=== PATIENT | female | born 1960 | race Caucasian/White ===

== ENCOUNTER → 2016-11-11 | Outpatient (REF) | payer OTHER ==
[~2016-11-11] MED LIST: /BISO10TA PO; /CELE20CA PO; /ESCI20TA PO; /LOR25TA PO; /ONDA4TA PO; ACET-654 PO; ATOR1TAB21 PO; BACL10TA2 OR; BISO10TA PO; BISO10TA42 PO; CHLO25TA PO; CHLO25TA3 PO; CHLORTHALIDONE PO; CIPR500T89 PO; CLON0.5T OR; CLON0.5T PO; CYCL10TA PO; DEPA1TAB3 PO; DEPA500T2 PO; DRIS50002 PO; DULC10SU9 PR; DULO20CA OR; FENT12DI2 TOP; FLON0.054; GABA-283 PO; GLIM2TAB PO; HYDR-2809 PO; HYDR-3716 PO; IMIT50TA PO; KETO-13 PO; LEXA1TAB2 PO; LYRI75CA PO; METF500T PO; NASA55AE; NASACORT AQ; NEUR800T PO; NICO21PAT TOP; OMEP20TA7 PO; OMEP40CA2 PO; ONDA4SOL PO; ONDA4TAB6 PO; OXYC-208 PO; PERC7.5T12 PO; PERCOCET PO; SENN8.6T8 PO; SENO8.6T9 PO; SOMA350T PO; TAMS0.4C PO; TOPI100T PO; VENTAER IN; VIMP150T PO; VITA2000 PO; VOLT1GEL TOP; ZOCO20TA PO; [UNRECOGNIZED DRUG - OTHER] PO
== END ==
LOC: M SFHCPLAZ 08:48
PROVIDERS: ATTEND Nurse Practitioner Family
DX: N95.2 Postmenopausal atrophic vaginitis (principal); I10 Essential (primary) hypertension; E78.2 Mixed hyperlipidemia; E11.65 Type 2 diabetes mellitus with hyperglycemia; E55.9 Vitamin D deficiency, unspecified

== ENCOUNTER → 2016-11-12 | Outpatient (CLI) | payer OTHER ==
[2016-11-12 09:46] LABS: BASO # 0.1 K/mm3 (0.0-0.2); BASO % 0.8 % (0.0-1.0); EOS # 0.1 K/mm3 (0.0-0.50); EOS % 1.6 % (0.0-3.0); LARGE UNSTAINED CELL # 0.2 K/mm3 (0.0-0.4); LARGE UNSTAINED CELL % 1.8 % (0.0-4.0); LYMPH # 2.8 K/mm3 (1.5-4.5); LYMPH % 32.6 % (24.0-44.0); MEAN CORPUSCULAR HEMOGLOBIN 30.7 pg (27.0-33.0); MEAN CORPUSCULAR HGB CONC 33.9 g/dl (32.0-36.5); MEAN CORPUSCULAR VOLUME 90.4 fl (80.0-96.0); MONO # 0.4 K/mm3 (0.0-0.8); MONO % 4.8 % (0.0-5.0); NEUTROPHILS % 58.4 % (36.0-66.0); PLATELET COUNT, AUTOMATED 226 k/mm3 (150-450); RED CELL DISTRIBUTION WIDTH 12.8 % (11.5-14.5); WHITE BLOOD COUNT 8.5 K/mm3 (4.0-10.0)
[2016-11-12 10:20] LABS: ALBUMIN 3.8 GM/DL (3.2-5.2); ALBUMIN/GLOBULIN RATIO 1.23 (1.00-1.93); ALKALINE PHOSPHATASE 137 U/L (45-117); ALT/SGPT 28 U/L (12-78); ANION GAP 10 MEQ/L (8-16); AST/SGOT 16 U/L (15-37); BILIRUBIN,TOTAL 0.5 MG/DL (0.2-1.0); BLOOD UREA NITROGEN 20 MG/DL (7-18); CALCIUM LEVEL 9.1 MG/DL (8.5-10.1); CARBON DIOXIDE LEVEL 31 MEQ/L (21-32); CHLORIDE LEVEL 103 MEQ/L (98-107); CHOLESTEROL LEVEL 209 MG/DL (<200); CREATININE FOR GFR 0.89 MG/DL (0.55-1.02); GLOMERULAR FILTRATION RATE > 60.0 (>51); GLUCOSE, FASTING 153 MG/DL (70-105); POTASSIUM SERUM 4.2 MEQ/L (3.5-5.1); SODIUM LEVEL 144 MEQ/L (136-145); TOTAL PROTEIN 6.9 GM/DL (6.4-8.2); TRIGLYCERIDES LEVEL 128 MG/DL (<150)
== END ==
LOC: M LAB 08:49
PROVIDERS: ATTEND Nurse Practitioner Family
DX: E11.65 Type 2 diabetes mellitus with hyperglycemia (principal); E78.2 Mixed hyperlipidemia; E55.9 Vitamin D deficiency, unspecified; N95.2 Postmenopausal atrophic vaginitis; R35.0 Frequency of micturition; I10 Essential (primary) hypertension

== ENCOUNTER → 2016-11-14 | Outpatient (CLI) | payer OTHER ==
--- NOTE | 2016-11-14 16:45 | REP ---
LEFT BREAST ULTRASOUND: Left breast ultrasound is performed for a palpable abnormality in the retroareolar region. Patient is status-post bilateral breast reduction surgery in May 2016. At the site of the reported palpable abnormality in the left retroareolar region there is a large complex area of heterogenous echotexture with small areas of fluid measuring 6.2 x 5.0 x 7.7 cm. There is posterior acoustic shadowing. Findings are nonspecific. This may represent postsurgical fat necrosis. Underlying infection can not be excluded. Clinical correlation and followup is recommended. There is an apparent lymph node at the 4 o'clock position measuring 1.5 x 0.8 x 1.2 cm. IMPRESSION: Complex heterogenous echotexture in the left retroareolar region at the site of the reported palpable abnormality with small areas of internal fluid. This may represent a large area of fat necrosis but underlying infection can not be excluded. Clinical correlation and followup is recommended. Signed by Luke Maldonado MD 11/14/2016 05:28 P
== END ==
LOC: M RAD 14:07
PROVIDERS: ATTEND Nurse Practitioner Family
DX: N63 Unspecified lump in breast (principal)

== ENCOUNTER → 2016-11-28 | Outpatient (CLI) | payer OTHER ==
--- NOTE | 2016-12-17 01:44 | ECWPNPC ---
PATIENT NAME: NICOLE BERNABE : 1960 GENDER: FEMALE VISIT DATE: 11/28/2016 DISCHARGE DATE: 11/28/16 0951 VISIT LOCKED DATE TIME: PHYSICIAN: KIMBERLEE FALCON PHYSICIAN PAGER NO: TEXT IQ [phone] RESOURCE: KIMBERLEE FALCON REASON FOR APPOINTMENT 1. POST PROCEDURE-BACK HISTORY OF PRESENT ILLNESS HISTORY OF PRESENT ILLNESS: PAIN THE PATIENT DESCRIBES THE PAIN... HERE FOR POST. PROCEDURE F/U.HAD R SIJ ON 10-30-16.REPORTS >50% IMPROVEMENT IN BOTH RIGHT LBP AND RIGHT LEG PAIN POST PROCEDURE UNTIL 3-4 DAYS AGO.RATING PAIN VAS 8/10 TODAY.REPORTS IMPROVED ABILITY TO WALK POST PROCEDURE.ATTENDING PT AND TODAY IS LAST VISIT.PATIENT DOES NOT FEEL SHE BENEFITED FROM PT.HX OF LUMBAR SURGERY X2 JANUARY 2016 AND 2015. FALL RISK SCREENING: SCREENING :NO FALLS IN THE PAST YEAR CURRENT MEDICATIONS TAKING GLIMEPIRIDE 1 1MG TABLET 1 TAB(S) ORAL DAILY TAKING LIPITOR 80 MG TABLET 1 TABLET ORALLY ONCE A DAY TAKING DEPAKOTE ER 500 MG TABLET EXTENDED RELEASE 24 HOUR DIRECTED. ORALLY 1 AM, 2 TABS PM TAKING AMITRIPTYLINE HCL 20 MG TABLET 1 TABLET AT BEDTIME ORALLY ONCE A DAY TAKING LEXAPRO 20 MG TABLET 1 TABLET ORALLY ONCE A DAY TAKING VENTOLIN HFA 108 (90 BASE) MCG/ACT AEROSOL SOLUTION 2 PUFFS INHALATION EVERY 4-6 HOURS NEEDED TAKING ALCOHOL PADS 70 % PAD DIRECTED TOPICAL TWICE DAILY/DX : E11.65 TAKING LANCETS FOR ONE TOUCH ULTRA MISCELLANEOUS DIRECTED SC TWICE DAILY/DX : E11.65 TAKING ONE TOUCH ULTRA TEST STRIPS - STRIPS DIRECTED - TWICE DAILY/ DX : E11.65 TAKING FLONASE 50 MCG/DOSE INHALER 2 SPRAYS IN EACH NOSTRIL NASALLY ONCE A DAY TAKING METFORMIN HCL 1000 MG TABLET 1 TABLET WITH MEALS ORALLY TWICE A DAY TAKING ZEBETA 10 MG TABLET 1 TABLET ORALLY ONCE A DAY TAKING OMEPRAZOLE 40MG 40GM TABLET DIRECTED ORAL DAILY TAKING OXYCODONE HCL 5 MG CAPSULE 1 CAPSULE NEEDED ORALLY EVERY 8 HOURS NEEDED TAKING ONE TOUCH ULTRA SYSTEM KIT - METER DIRECTED - TWICE DAILY/ DX : 250.02 TAKING CHLORTHALIDONE 25 25 MG TABLET 1 TAB(S) ORAL ONCE DAILY TAKING LISINOPRIL 10 MG TABLET 1 TABLET ORALLY ONCE A DAY TAKING INCRUSE ELLIPTA 62.5 MCG/INH AEROSOL POWDER BREATH ACTIVATED 1 PUFF INHALATION ONCE A DAY TAKING ONDANSETRON HCL 4 MG TABLET DIRECTED ORALLY QID PRN NAUSEA TAKING HYDROCORTISONE 1 % CREAM 1 APPLICATION TO AFFECTED AREA OF VULVA VAGINAL TWICE A DAY NEEDED FOR ITCHING TAKING QUAD CANE - MISCELLANEOUS DIRECTED _ DAILY/ DX : UNSTEADY GAIT NOT-TAKING HOSPITAL BED DIRECTED NOT-TAKING MAY HAVE M54.2 M54.5 HOSPITAL BED DAILY NEEDED NOT-TAKING VITAMIN D 2000 UNIT TABLET DIRECTED ORALLY ONCE A DAY (WHEN LIU COMPLETED) PAST MEDICAL HISTORY SEIZURES- MARIUM MIGRAINES-MARIUM ARTHRITIS CHRONIC NECK PAIN- PAIN CLINIC [facility] HTN H/O PEPTIC ULCER VON WILLEBRAND'S DISEASE (NEEDS PRE-TREATMENT WITH DDAVP FOR SURGERY - SEE NOTE FROM DR. ARAUJO 09/11/2009) HIATAL HERNIA HEMORRHOIDS RECURRENT BREAST ABSCESSES FIBROCYSTIC BREAST DISEASE KIDNEY STONES NECK PAIN- DR SUERO PNEUMOVAX- PT STATES 2011 DIABETES COPD ALLERGIES ASPIRIN: ANAPHYLAXIS: ALLERGY PEPPER: THROAT CLOSE, TONGUE SWELLS: ALLERGY MORPHINE SULFATE: RASH, HIVES: ALLERGY TOPAMAX: KINDNEY STONES: SIDE EFFECTS IMITREX: SEVERE HTN (NEAR SBP 300): SIDE EFFECTS NICKEL: RASH: ALLERGY SOCIAL HISTORY GENERAL: TOBACCO USE ARE YOU A:NONSMOKER LEARNING BARRIERS / SPECIAL NEEDS ORIENTED TO PLAN OF CARE: PATIENT, PAIN MANAGEMENT PATIENT, ORIENTED TO PLAN OF CARE: PATIENT, PAIN MANAGEMENT PATIENT. NEW PATIENT PAIN DIARY TODAY'S VISITNOTES FROM 0-10, WHAT LEVEL IS YOUR PAIN TODAY?0 PAIN CLINIC PFS, CLERGY, PUBLIC HEALTH REFERRALS PFS REFERRAL NEEDED?NO CLERGY REFERRAL NEEDED?NO PUBLIC HEALTH REFERRAL NEEDED?NO WAS THE PROVIDER NOTIFIED OF ANY PERTINENT INFO?NO PFS REFERRAL NEEDED?NO CLERGY REFERRAL NEEDED?NO PUBLIC HEALTH REFERRAL NEEDED?NO WAS THE PROVIDER NOTIFIED OF ANY PERTINENT INFO?NO REVIEW OF SYSTEMS CONSTITUTIONAL: ANY CHANGE IN YOUR MEDICAL CONDITION? NO . CHILLS NO . FEVER NO . INFECTION: DO YOU HAVE NEW INFECTIONS? NO . DO YOU HAVE HISTORY OF MRSA? NO . MUSCULOSKELETAL: ANY NEW PATTERNS OF PAIN OR NUMBNESS? NO . GASTROENTEROLOGY: ANY NEW CHANGE IN BOWEL CONTROL? NO . GENITOURINARY: ANY NEW CHANGE IN BLADDER CONTROL? NO . IS THERE A CHANCE YOU COULD BE ? NO . HEMATOLOGY/LYMPH: DO YOU TAKE ANY BLOOD THINNERS? (FOR EXAMPLE- COUMADIN, PLAVIX, AGGRENOX, PLATEL, PRADAXA, OR XARELTO) NO . WHEN WAS YOUR LAST DOSE? DATE: TIME: . NEUROLOGY: HAVE YOU FALLEN IN THE PAST 6 MONTHS? YES . ANY NEW EXTREMITY NUMBNESS OR WEAKNESS? NO . CARDIOLOGY: DO YOU HAVE A PACEMAKER OR DEFIBRILLATOR? NO . RESPIRATORY: HAVE YOU BEEN SICK IN THE PAST WEEK? NO . FEVER NO . FLU LIKE SYMPTOMS? NO . COUGH NO . INTEGUMENTARY: DO YOU HAVE ANY RASHES OR OPEN SORES? NO . ALLERGIC/IMMUNO: ARE YOU ALLERGIC TO SHELLFISH OR IV DYE? NO . ANY NEW ALLERGIES? NO . PSYCHIATRIC: DO YOU HAVE THOUGHTS OF HURTING YOURSELF OR SOMEONE ELSE? NO . ARE YOU ABUSED, NEGLECTED, OR IN AN UNSAFE ENVIRONMENT? NO . ENDOCRINOLOGY: ARE YOU DIABETIC? YES . OTHER: DO YOU NEED ANY PRESCRIPTIONS? NO . IF YES, PLEASE LIST: ____ . ANY NEW PROBLEMS WITH YOUR MEDICATIONS? NO . WHEN DID YOU LAST EAT? ____ . WHEN DID YOU LAST DRINK? ____ . WHAT DID YOU LAST DRINK? ____ . NAME OF PERSON DRIVING YOU HOME? ____ . DO YOU HAVE ANY OTHER QUESTIONS OR CONCERNS NO . REVIEWED BY: PROVIDER: KIMBERLEE MENARD . VITAL SIGNS WT 178.2 LBS, HT 63.5 IN, BMI 31.07 INDEX, BP 176/90 MM HG, HR 87 /MIN, RR 16 /MIN, TEMP 97.1 F, OXYGEN SAT % 97, NA INITIALS TL 0923. EXAMINATION GENERAL EXAMINATION: LUNGS:LUNG SOUNDS ARE CLEAR. HEART:HEART RATE REGULAR. MUSCULOSKELETAL:*, MUSCLE STRENGTH TESTING 5/5 BILATERAL, PALPATION: NEGATIVE FOR PAIN OVER L/S SPINE.SPECIFIC POINT TENDERNESS OVER RIGHT SIJ. ASSESSMENTS CHRONIC BILATERAL LOW BACK PAIN WITHOUT SCIATICA - M54.5 (PRIMARY) SACROILIAC JOINT PAIN - M53.3 TREATMENT CHRONIC BILATERAL LOW BACK PAIN WITHOUT SCIATICA INJECTION ANESTHETIC SACROILIAC JOINT PROCEDURE CODES FA211 ESTABILISHED PATIENT [facility] FACILITY CHARGE FOLLOW UP 2WK POST. (REASON: RIGHT SIJ) ELECTRONICALLY SIGNED BY DERIAN HORNER ON 12/16/2016 AT 04:16 PM EST DISCLAIMER : THIS IS A VISIT SUMMARY EXTRACTED FROM THE [employer] CHART. IT IS NOT A COPY OF THE [facility] PROGRESS NOTE. MTDD
== END ==
LOC: M PAIN 10:00
PROVIDERS: ATTEND Nurse Practitioner Family
DX: Z09 Encounter for follow-up examination after completed treatment for conditions other than malignant neoplasm (principal); G89.29 Other chronic pain; M54.5 Low back pain; M53.3 Sacrococcygeal disorders, not elsewhere classified; G40.919 Epilepsy, unspecified, intractable, without status epilepticus; G43.909 Migraine, unspecified, not intractable, without status migrainosus; M19.90 Unspecified osteoarthritis, unspecified site; I10 Essential (primary) hypertension; E11.9 Type 2 diabetes mellitus without complications; J44.9 Chronic obstructive pulmonary disease, unspecified; D68.0 Von Willebrand disease; K44.9 Diaphragmatic hernia without obstruction or gangrene; Z88.8 Allergy status to other drugs, medicaments and biological substances; Z91.018 Allergy to other foods; Z88.5 Allergy status to narcotic agent; L23.0 Allergic contact dermatitis due to metals; Z79.84 Long term (current) use of oral hypoglycemic drugs; Z79.891 Long term (current) use of opiate analgesic; Z79.899 Other long term (current) drug therapy

== ENCOUNTER → 2016-12-09 | Outpatient (RCR) | payer OTHER | LOC: M PT 11-12 10:06 | PROVIDERS: ATTEND Physician Assistant | DX: Z51.89 Encounter for other specified aftercare (principal); M43.16 Spondylolisthesis, lumbar region ==

== ENCOUNTER → 2016-12-10 | Outpatient (CLI) | payer OTHER ==
[~2016-12-10] MED LIST changes: +BUPIVACAINE HCL 0.25% 30 ML VIAL As Ordered ONE; +ISOVUE-M 300 61% 15ML VIAL (Q9967) As Ordered ONE; +LIDOCAINE 1% SDV INJ 30 ML VIAL As Ordered ONE; +TRIAMCINOLONE ACETONIDE SUSP 40 MG/ML VIAL (J3301) As Ordered ONE; +diazePAM 5 MG TAB As Ordered ONE; +oxyCODONE 5MG TAB As Ordered ONE
--- NOTE | 2016-12-10 13:46 | REP ---
Partial SI joint series: Three views. History: Injection procedure for pain. 16 seconds of fluoroscopy time is reported. Findings: A sequence of three fluoroscopically obtained last image hold spot radiographs of the right SI joint document needle position and contrast injection associated with SI joint injection procedure. Signed by Saad Boogie MD 12/10/2016 02:25 P
--- NOTE | 2016-12-14 23:47 | ECWPNPC ---
PATIENT NAME: NICOLE BERNABE : 1960 GENDER: FEMALE VISIT DATE: 12/10/2016 DISCHARGE DATE: 12/10/161309 VISIT LOCKED DATE TIME: PHYSICIAN: MARCOS WARD PHYSICIAN PAGER NO: TEXT TO [phone] RESOURCE: MARCOS WARD REASON FOR APPOINTMENT 1. SIJ HISTORY OF PRESENT ILLNESS HISTORY OF PRESENT ILLNESS: PAIN THE PATIENT DESCRIBES THE PAIN... FALL RISK SCREENING: SCREENING :NO FALLS IN THE PAST YEAR CURRENT MEDICATIONS TAKING GLIMEPIRIDE 1 1MG TABLET 1 TAB(S) ORAL DAILY, NOTES: 12/09/16 TAKING LIPITOR 80 MG TABLET 1 TABLET ORALLY ONCE A DAY, NOTES: 12/09/16 TAKING DEPAKOTE ER 500 MG TABLET EXTENDED RELEASE 24 HOUR DIRECTED. ORALLY 1 AM, 2 TABS PM, NOTES: 12/09/16 TAKING AMITRIPTYLINE HCL 20 MG TABLET 1 TABLET AT BEDTIME ORALLY ONCE A DAY, NOTES: 12/09/16 TAKING LEXAPRO 20 MG TABLET 1 TABLET ORALLY ONCE A DAY, NOTES: 12/09/16 TAKING VENTOLIN HFA 108 (90 BASE) MCG/ACT AEROSOL SOLUTION 2 PUFFS INHALATION EVERY 4-6 HOURS NEEDED, NOTES: 12/09/16 TAKING ALCOHOL PADS 70 % PAD DIRECTED TOPICAL TWICE DAILY/DX : E11.65 TAKING LANCETS FOR ONE TOUCH ULTRA MISCELLANEOUS DIRECTED SC TWICE DAILY/DX : E11.65 TAKING ONE TOUCH ULTRA TEST STRIPS - STRIPS DIRECTED - TWICE DAILY/ DX : E11.65 TAKING FLONASE 50 MCG/DOSE INHALER 2 SPRAYS IN EACH NOSTRIL NASALLY ONCE A DAY TAKING METFORMIN HCL 1000 MG TABLET 1 TABLET WITH MEALS ORALLY TWICE A DAY, NOTES: 12/09/16 TAKING ZEBETA 10 MG TABLET 1 TABLET ORALLY ONCE A DAY, NOTES: TAKING OMEPRAZOLE 40MG 40GM TABLET DIRECTED ORAL DAILY, NOTES: 12/09/16 TAKING OXYCODONE HCL 5 MG CAPSULE 1 CAPSULE NEEDED ORALLY EVERY 8 HOURS NEEDED, NOTES: 12/09/16 TAKING ONE TOUCH ULTRA SYSTEM KIT - METER DIRECTED - TWICE DAILY/ DX : 250.02 TAKING CHLORTHALIDONE 25 25 MG TABLET 1 TAB(S) ORAL ONCE DAILY, NOTES: 1/31/17@1800 TAKING LISINOPRIL 10 MG TABLET 1 TABLET ORALLY ONCE A DAY, NOTES: 12/09/16@1800 TAKING INCRUSE ELLIPTA 62.5 MCG/INH AEROSOL POWDER BREATH ACTIVATED 1 PUFF INHALATION ONCE A DAY, NOTES: 12/09/16@1800 TAKING ONDANSETRON HCL 4 MG TABLET DIRECTED ORALLY QID PRN NAUSEA, NOTES: 3-4 DAYS AGO TAKING QUAD CANE - MISCELLANEOUS DIRECTED _ DAILY/ DX : UNSTEADY GAIT TAKING PREMARIN 0.625 MG/GM CREAM 0.5 GM VAGINAL TWICE A WEEK, NOTES: HASN'T USED YET NOT-TAKING HOSPITAL BED DIRECTED NOT-TAKING MAY HAVE M54.2 M54.5 HOSPITAL BED DAILY NEEDED NOT-TAKING VITAMIN D 2000 UNIT TABLET DIRECTED ORALLY ONCE A DAY (WHEN LIU COMPLETED) DISCONTINUED HYDROCORTISONE 1 % CREAM 1 APPLICATION TO AFFECTED AREA OF VULVA VAGINAL TWICE A DAY NEEDED FOR ITCHING MEDICATION LIST REVIEWED AND RECONCILED WITH THE PATIENT PAST MEDICAL HISTORY SEIZURES- MARIUM MIGRAINES-MARIUM ARTHRITIS CHRONIC NECK PAIN- PAIN CLINIC [facility] HTN H/O PEPTIC ULCER VON WILLEBRAND'S DISEASE (NEEDS PRE-TREATMENT WITH DDAVP FOR SURGERY - SEE NOTE FROM DR. ARAUJO 09/11/2009) HIATAL HERNIA HEMORRHOIDS RECURRENT BREAST ABSCESSES FIBROCYSTIC BREAST DISEASE KIDNEY STONES NECK PAIN- DR SUERO PNEUMOVAX- PT STATES 2011 DIABETES COPD LEFT BREAST FAT NECROSIS POST REDUCTION ALLERGIES ASPIRIN: ANAPHYLAXIS: ALLERGY PEPPER: THROAT CLOSE, TONGUE SWELLS: ALLERGY MORPHINE SULFATE: RASH, HIVES: ALLERGY TOPAMAX: KINDNEY STONES: SIDE EFFECTS IMITREX: SEVERE HTN (NEAR SBP 300): SIDE EFFECTS NICKEL: RASH: ALLERGY SOCIAL HISTORY GENERAL: TOBACCO USE ARE YOU A:NONSMOKER LEARNING BARRIERS / SPECIAL NEEDS ORIENTED TO PLAN OF CARE: PATIENT, PAIN MANAGEMENT PATIENT, ORIENTED TO PLAN OF CARE: PATIENT, PAIN MANAGEMENT PATIENT. NEW PATIENT PAIN DIARY TODAY'S VISITNOTES FROM 0-10, WHAT LEVEL IS YOUR PAIN TODAY?0 PAIN CLINIC PFS, CLERGY, PUBLIC HEALTH REFERRALS PFS REFERRAL NEEDED?NO CLERGY REFERRAL NEEDED?NO PUBLIC HEALTH REFERRAL NEEDED?NO WAS THE PROVIDER NOTIFIED OF ANY PERTINENT INFO?NO PFS REFERRAL NEEDED?NO CLERGY REFERRAL NEEDED?NO PUBLIC HEALTH REFERRAL NEEDED?NO WAS THE PROVIDER NOTIFIED OF ANY PERTINENT INFO?NO REVIEW OF SYSTEMS CONSTITUTIONAL: ANY CHANGE IN YOUR MEDICAL CONDITION? NO . CHILLS NO . FEVER NO . INFECTION: DO YOU HAVE NEW INFECTIONS? NO . DO YOU HAVE HISTORY OF MRSA? NO . MUSCULOSKELETAL: ANY NEW PATTERNS OF PAIN OR NUMBNESS? NO . GASTROENTEROLOGY: ANY NEW CHANGE IN BOWEL CONTROL? NO . GENITOURINARY: ANY NEW CHANGE IN BLADDER CONTROL? NO . IS THERE A CHANCE YOU COULD BE ? NO . HEMATOLOGY/LYMPH: DO YOU TAKE ANY BLOOD THINNERS? (FOR EXAMPLE- COUMADIN, PLAVIX, AGGRENOX, PLATEL, PRADAXA, OR XARELTO) NO . WHEN WAS YOUR LAST DOSE? DATE: TIME: . NEUROLOGY: HAVE YOU FALLEN IN THE PAST 6 MONTHS? NO . ANY NEW EXTREMITY NUMBNESS OR WEAKNESS? NO . CARDIOLOGY: DO YOU HAVE A PACEMAKER OR DEFIBRILLATOR? NO . RESPIRATORY: HAVE YOU BEEN SICK IN THE PAST WEEK? NO . FEVER NO . FLU LIKE SYMPTOMS? NO . COUGH NO . INTEGUMENTARY: DO YOU HAVE ANY RASHES OR OPEN SORES? NO . ALLERGIC/IMMUNO: ARE YOU ALLERGIC TO SHELLFISH OR IV DYE? NO . ANY NEW ALLERGIES? NO . PSYCHIATRIC: DO YOU HAVE THOUGHTS OF HURTING YOURSELF OR SOMEONE ELSE? NO . ARE YOU ABUSED, NEGLECTED, OR IN AN UNSAFE ENVIRONMENT? NO . ENDOCRINOLOGY: ARE YOU DIABETIC? YES . OTHER: DO YOU NEED ANY PRESCRIPTIONS? NO . IF YES, PLEASE LIST: ____ . ANY NEW PROBLEMS WITH YOUR MEDICATIONS? NO . WHEN DID YOU LAST EAT? 12-09-16 6 PM . WHEN DID YOU LAST DRINK? 12-10-16 0600 . WHAT DID YOU LAST DRINK? WATER . NAME OF PERSON DRIVING YOU HOME? PRERNA . DO YOU HAVE ANY OTHER QUESTIONS OR CONCERNS NO . REVIEWED BY: PROVIDER: . VITAL SIGNS WT 177 LBS, HT 63.5 IN, BMI 30.86 INDEX, BP 169/85 MM HG, HR 80 /MIN, RR 18 /MIN, TEMP 96.2 F, OXYGEN SAT % 80, SAFE IN ENV? (Y/N) YES, NA INITIALS MP. ASSESSMENTS SACROILIITIS, NOT ELSEWHERE CLASSIFIED - M46.1 (PRIMARY) PROCEDURES PN SI PRE PROCEDURE DIAGNOSIS SACROILIITIS, SACROILIAC JOINT DYSFUNCTION POST PROCEDURE DIAGNOSIS SACROILIITIS, SACROILIAC JOINT DYSFUNCTION PROCEDURE RIGHT SACROILIAC JOINT BLOCK SURGEON DR. MARCOS WARD CSW NONE ANESTHESIA LOCAL PRE PROCEDURE NOTE PATIENT WITH HISTORY OF CHRONIC LOW BACK PAIN. I EVALUATED THE PATIENT AND REVIEWED THE CHART. I WENT OVER THE RISKS, ALTERNATIVES, AND BENEFITS ASSOCIATED WITH THIS PROCEDURE. THE PATIENT WOULD LIKE TO PROCEED AND GAVE CONSENT TO PERFORM THE PROCEDURE. THE PATIENT DENIES UNEXPLAINABLE WEIGHT LOSS, FEVER, CHILLS, OR NEW CHANGES IN URINARY OR BOWEL CONTROL DESCRIPTION OF PROCEDURE THE PATIENT WAS BROUGHT TO THE PROCEDURE ROOM AND PLACED IN THE PRONE POSITION. THE LUMBOSACRAL AREA WAS CLEANED WITH CHLORAPREP SOLUTION AND DRAPED ASEPTICALLY. THE PROCEDURE WAS DONE UNDER STERILE CONDITIONS. I CHECKED LATERALITY AND THE LEVEL WHERE THE PROCEDURE WAS GOING TO BE PERFORMED WITH THE PATIENT AND THE SUPPORTING STAFF AT THE MOMENT OF THE TIME OUT IN THE PROCEDURE ROOM. UNDER FLUOROSCOPIC GUIDANCE, TARGET POINT WAS SELECTED AT THE LOWER BORDER OF THE RIGHT SACROILIAC JOINT. TARGET POINT WAS SELECTED AFTER MEDIAL ROTATION AND TILT OF THE MAGNIFIER OF THE C-ARM. LIDOCAINE WAS USED TO NUMB THE SKIN AND SUBCUTANEOUS TISSUE BELOW IT. A SPINAL NEEDLE, 22-GAUGE, WAS ADVANCED UNDER FLUOROSCOPIC GUIDANCE AND FOLLOWING PATIENT FEEDBACK UNTIL THE TARGET AREA WAS TOUCHED. THE POSITION OF THE NEEDLE WAS VERIFIED WITH AP AND LATERAL VIEWS. AFTER PROPER POSITION OF THE NEEDLE WAS ACHIEVED, ISOVUE M DYE 30%, 0.25 ML, WAS INJECTED SHOWING SPREAD OF THE DYE. THEN, A SOLUTION OF 20 MG OF KENALOG WAS INJECTED IN RIGHT JOINT WITH 3 ML OF BUPIVACAINE 0.125%. THERE WAS NO EVIDENCE OF BLOOD, PARESTHESIA OR CEREBROSPINAL FLUID DURING THE PROCEDURE. THE PATIENT WAS SENT TO THE RECOVERY ROOM. THE PATIENT WAS MOVING THE EXTREMITIES AND DOING WELL. THERE WAS NO COMPLICATION DURING THE PROCEDURE. FLUOROSCOPY TIME WAS 16 SECONDS POST PROCEDURE NOTE THE PATIENT WILL BE SEEN IN A FOLLOW UP IN THE NEXT FEW WEEKS. INSTRUCTIONS WERE GIVEN, QUESTIONS WERE ANSWERED, AND THE PATIENT EXPRESSED UNDERSTANDING AND AGREED WITH THE PLAN. I, ANGIE CARDOZO, DOCUMENTED THE ABOVE INFORMATION ACTING A SCRIBE FOR DR. WARD. I, DR. WARD, HAVE REVIEWED THE ABOVE DOCUMENT, SCRIBED BY ANGIE CARDOZO, AND I VERIFY THAT IT IS [facility] FLUORO GUIDANCE (PAIN)[id number] PROCEDURE CODES 74812 INJECT SACROILIAC JOINT 6045F RADXPS IN END [id number] PXD FOLLOW UP 3 WEEKS ELECTRONICALLY SIGNED BY MARCOS WARD MD ON 12/14/2016 AT 08:33 PM EST DISCLAIMER : THIS IS A VISIT SUMMARY EXTRACTED FROM THE [employer] CHART. IT IS NOT A COPY OF THE [employer] PROGRESS NOTE. NELY
== END ==
LOC: M PAIN 11:10
PROVIDERS: ATTEND Anesthesiology
DX: G89.29 Other chronic pain (principal); M46.1 Sacroiliitis, not elsewhere classified; M54.5 Low back pain; Z79.891 Long term (current) use of opiate analgesic; Z79.899 Other long term (current) drug therapy; M19.90 Unspecified osteoarthritis, unspecified site; M54.2 Cervicalgia; I10 Essential (primary) hypertension; G40.89 Other seizures; G43.909 Migraine, unspecified, not intractable, without status migrainosus; J44.9 Chronic obstructive pulmonary disease, unspecified; E11.9 Type 2 diabetes mellitus without complications; Z88.6 Allergy status to analgesic agent; Z88.5 Allergy status to narcotic agent; Z91.018 Allergy to other foods; Z91.09 Other allergy status, other than to drugs and biological substances
CPT/HCPCS: G0260; J3301; Q9967

== ENCOUNTER → 2016-12-19 | Outpatient (REF) | payer OTHER ==
[~2016-12-19] MED LIST changes: -BUPIVACAINE HCL 0.25% 30 ML VIAL As Ordered ONE; -ISOVUE-M 300 61% 15ML VIAL (Q9967) As Ordered ONE; -LIDOCAINE 1% SDV INJ 30 ML VIAL As Ordered ONE; -TRIAMCINOLONE ACETONIDE SUSP 40 MG/ML VIAL (J3301) As Ordered ONE; -diazePAM 5 MG TAB As Ordered ONE; -oxyCODONE 5MG TAB As Ordered ONE
== END ==
LOC: M SFHCPLAZ 14:10
PROVIDERS: ATTEND Nurse Practitioner Family
DX: A09 Infectious gastroenteritis and colitis, unspecified (principal)

== ENCOUNTER 2016-12-25 19:43 | Emergency (ER) | payer OTHER ==
[2016-12-25] MEDS ORDERED: HALOPERIDOL 5 MG/ML VIAL (J1630) As Ordered ONE (20:36)
[2016-12-25] MEDS ORDERED: diphenhydrAMINE INJ 50MG/ML VIAL (J1200) As Ordered ONE (20:36)
[2016-12-25 20:45] LABS: BASO # 0.1 K/mm3 (0.0-0.2); BASO % 0.8 % (0.0-1.0); EOS # 0.1 K/mm3 (0.0-0.50); EOS % 1.3 % (0.0-3.0); LARGE UNSTAINED CELL # 0.1 K/mm3 (0.0-0.4); LARGE UNSTAINED CELL % 1.3 % (0.0-4.0); LYMPH # 2.8 K/mm3 (1.5-4.5); LYMPH % 28.6 % (24.0-44.0); MEAN CORPUSCULAR HEMOGLOBIN 30.5 pg (27.0-33.0); MEAN CORPUSCULAR HGB CONC 33.5 g/dl (32.0-36.5); MEAN CORPUSCULAR VOLUME 91.1 fl (80.0-96.0); MONO # 0.5 K/mm3 (0.0-0.8); MONO % 5.1 % (0.0-5.0); NEUTROPHILS % 62.9 % (36.0-66.0); PLATELET COUNT, AUTOMATED 237 k/mm3 (150-450); RED CELL DISTRIBUTION WIDTH 13.4 % (11.5-14.5); WHITE BLOOD COUNT 9.5 K/mm3 (4.0-10.0)
[2016-12-25 21:07] LABS: ALBUMIN 3.2 GM/DL (3.2-5.2); ALKALINE PHOSPHATASE 91 U/L (45-117); ALT/SGPT 31 U/L (12-78); AMYLASE 34 U/L (25-115); ANION GAP 9 MEQ/L (8-16); AST/SGOT 15 U/L (15-37); BILIRUBIN,DIRECT < 0.1 MG/DL (0.0-0.2); BILIRUBIN,TOTAL 0.2 MG/DL (0.2-1.0); BLOOD UREA NITROGEN 18 MG/DL (7-18); CALCIUM LEVEL 8.6 MG/DL (8.5-10.1); CARBON DIOXIDE LEVEL 28 MEQ/L (21-32); CHLORIDE LEVEL 108 MEQ/L (98-107); CREATININE FOR GFR 0.87 MG/DL (0.55-1.02); GLOMERULAR FILTRATION RATE > 60.0 (>51); GLUCOSE, FASTING 160 MG/DL (70-105); POTASSIUM SERUM 4.1 MEQ/L (3.5-5.1); SODIUM LEVEL 145 MEQ/L (136-145); TOTAL PROTEIN 6.1 GM/DL (6.4-8.2)
--- NOTE | 2016-12-25 23:04 | EDDOCDS ---
Physician Documentation [facility] Name: Lila Marsh Age: 56 yrs Sex: Female : 1960 Arrival Date: 12/25/2016 Time: 19:43 Bed 8 Private MD: Wali Singh MD Disposition: 12/25/16 22:37 Discharged to Home/Self Care. Impression: Infectious gastroenteritis and colitis, unspecified - viral. - Condition is Stable. - Discharge Instructions: Clear Liquid Diet. - Prescriptions for Zofran 4 mg Oral Tablet - take 1 tablet by ORAL route 4 times per day As needed; 10 tablet. - Medication Reconciliation, Local Pharmacy Hours form. - Follow up: Wali Singh; When: Call to arrange an appointment; Reason: Recheck today's complaints. - Problem is new. - Symptoms have improved. Historical: - Allergies: Aspirin; Imitrex; Morphine; Nickel; topomax; - Home Meds: 1. Januvia 100 mg oral tab 1 tab once daily 2. omeprazole 40 mg Oral cpDR 1 cap once daily 3. Lipitor 80 mg Oral tab 1 tab once daily 4. lisinopril 10 mg Oral tab 1 tab once daily 5. chlorthalidone 25 mg Oral tab 1 tab once daily 6. incruse ellipta inhaler 62.5mcg/ inhale 1 puff once daily 7. Zofran (as hydrochloride) 4 mg oral tab every 8 hours 8. Depakote 500 mg Oral TbEC once daily 1 500mg in AM, 2 at night 9. Depakote ER 1000 mg nightly Oral 10. amitriptyline 10 mg Oral tab 2 tabs nightly 11. Lexapro 20 mg Oral tab 1 tab once daily 12. Ventolin Rotahaler/Rotacaps 200 mcg Inhl CpDv 13. Flonase 50 mcg/actuation Nasal spsn 2 sprays once daily 14. metformin 1,000 mg Oral tab 1 tab 2 times per day 15. Zebeta 10 mg oral tab 1 tab once daily 16. oxycodone 5 mg Oral cap 1 cap every 6 hours - PMHx: DDD; GERD; Hypertension; Migraine Headaches; Seizure Disorder; - PSHx: eye surgery; Neck Surgery; Hysterectomy; Lithotripsy; Cesearean Section; back surgery; - Social history: Smoking status: Patient states was never smoker of tobacco. No barriers to communication noted, The patient speaks fluent Azeri. - Family history: Not pertinent. - : The pt / caregiver states he / she is not on anticoagulants. Home medication list is obtained from a discharge med list. - Exposure Risk Screening:: None identified. 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 cs11 20:06 NS 0.9% 1000 ml IV at bolus once ordered. cs11 20:07 Haloperidol 2.5 mg IVP once ordered. cs11 20:07 diphenhydrAMINE 25 mg IVP once ordered. cs11 20:08 CBC with Diff Ordered. EDMS 20:08 MED Profile Ordered. EDMS 20:08 Liver Profile Ordered. EDMS 20:08 Amylase Ordered. EDMS 20:08 Lipase Ordered. EDMS 21:26 CBC with Diff Reviewed. cs11 21:26 MED Profile Reviewed. cs11 21:26 Liver Profile Reviewed. cs11 21:26 Amylase Reviewed. cs11 21:26 Lipase Reviewed. cs11 Administered Medications: 20:42 Drug: diphenhydrAMINE 25 mg [diphenhydramine 50 mg/mL injection solution (0.5 mL)] af2 Route: IVP; Site: right wrist; 23:01 Follow up: Response: Nausea is decreased af2 20:43 Drug: NS 0.9% 1000 ml [sodium chloride 0.9 % intravenous solution] Route: IV; Rate: af2 bolus; Site: right wrist; 20:43 Drug: Haloperidol 2.5 mg [haloperidol lactate 5 mg/mL injection solution (0.5 mL)] af2 Route: IVP; Site: left wrist; 23:00 Follow up: Response: Nausea is decreased af2 Signatures: Dispatcher [employer] EDMS Avelino Fitch DO DO cs11 Bernice Coyle,RN RN af2 MTDD
--- NOTE | 2016-12-25 23:04 | EDDOCDS ---
Nurse's Notes [facility] Name: Lila Marsh Age: 56 yrs Sex: Female : 1960 Arrival Date: 12/25/2016 Time: 19:43 Bed 8 Private MD: Wali Singh MD Diagnosis: Infectious gastroenteritis and colitis, unspecified-viral Presentation: 12/25 19:45 Presenting complaint: EMS states: nausea, vomiting, diarrhea x 2-3 weeks. BG of 197. af2 Suicide/Homicide risk assessment- the patient denies having any suicidal and/or homicidal ideations and does not present with any other emotional, behavioral or mental health complaints. Status: Patient is not a track service person or dependent. Transition of care: patient was not received from another setting of care. 19:45 Acuity: MAURIZIO Level 3 af2 19:45 Method Of Arrival: Ambulance af2 20:01 Adult Sepsis Screening: The patient does not have new or worsening altered mentation. af2 Patient's respiratory rate is less than 22. Systolic blood pressure is greater than 100. Patient has a qSOFA score of 0- Negative Sepsis Screen. Triage Assessment: 19:49 General: Appears in no apparent distress, Behavior is cooperative. af2 19:59 Pain: Location: abdomen Pain currently is 7 out of 10 on a pain scale. Quality of pain af2 is described as burning, crampy, sharp. HIV screening NA for this visit Offered previously. The patient is triaged at the bedside. See Assessment in Nurses Notes section of ED record. Neurological: Level of Consciousness is awake, alert, Oriented to person, place, time. Respiratory: Airway is patent Respiratory effort is even, unlabored, Respiratory pattern is regular, symmetrical, Breath sounds are clear bilaterally. GI: Abdomen is obese, Bowel sounds present X 4 quads. Abd is soft X 4 quads Abd is tender to palpation X 4 quads. Reports diarrhea, nausea, vomiting. : No deficits noted. Derm: Skin is pink, warm & dry. 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 Januvia 100 mg oral tab 1 tab once daily 2. omeprazole 40 mg Oral cpDR 1 cap once daily 3. Lipitor 80 mg Oral tab 1 tab once daily 4. lisinopril 10 mg Oral tab 1 tab once daily 5. chlorthalidone 25 mg Oral tab 1 tab once daily 6. incruse ellipta inhaler 62.5mcg/ inhale 1 puff once daily 7. Zofran (as hydrochloride) 4 mg oral tab every 8 hours 8. Depakote 500 mg Oral TbEC once daily 1 500mg in AM, 2 at night 9. Depakote ER 1000 mg nightly Oral 10. amitriptyline 10 mg Oral tab 2 tabs nightly 11. Lexapro 20 mg Oral tab 1 tab once daily 12. Ventolin Rotahaler/Rotacaps 200 mcg Inhl CpDv 13. Flonase 50 mcg/actuation Nasal spsn 2 sprays once daily 14. metformin 1,000 mg Oral tab 1 tab 2 times per day 15. Zebeta 10 mg oral tab 1 tab once daily 16. oxycodone 5 mg Oral cap 1 cap every 6 hours - PMHx: DDD; GERD; Hypertension; Migraine Headaches; Seizure Disorder; - PSHx: eye surgery; Neck Surgery; Hysterectomy; Lithotripsy; Cesearean Section; back surgery; - Social history: Smoking status: Patient states was never smoker of tobacco. No barriers to communication noted, The patient speaks fluent [place]. - Family history: Not pertinent. - : The pt / caregiver states he / she is not on anticoagulants. Home medication list is obtained from a discharge med list. - Exposure Risk Screening:: None identified. Screenin:00 Screening information is obtained from the patient. Fall risk: No risks identified. af2 Assistance ADL's: requires no assistance with activities of daily living. Abuse/DV Screen: The patient / caregiver reports he/she is: not in a situation that causes fear, pain or injury. Nutritional screening: No deficits noted. Advance Directives: Currently, there is a health care proxy, Chris Ball Significant other . Advance Directives: There is no active DNR order. home support is adequate. Assessment: 20:01 General: see triage assessment . af2 21:00 General: Appears in no apparent distress, comfortable, Behavior is appropriate for age, af2 cooperative, resp easy, unlabored. . 22:00 General: Appears in no apparent distress, comfortable, Behavior is appropriate for age, af2 cooperative. Neurological: Level of Consciousness is awake, alert. Respiratory: Airway is patent Respiratory effort is even, unlabored. Derm: Skin is normal. 22:51 General: Appears in no apparent distress, comfortable, Behavior is appropriate for age, af2 cooperative. Neurological: Level of Consciousness is awake, alert. Respiratory: Airway is patent Respiratory effort is even, unlabored. Derm: Skin is normal. Vital Signs: 19:53 BP 210 / 91; Pulse 105; Resp 20; Temp 97.5(O); Pulse Ox 96% on R/A; nb2 23:01 BP 163 / 76; Pulse 86; Resp 18 S; Temp 97.9(TE); Pulse Ox 98% on R/A; af2 19:53 RN notified of BP nb2 Vitals: 19:53 Log In Time N/A - ambulance arrival. nb2 ED Course: 19:44 Bernice Coyle RN is Primary Nurse. [facility] 19:44 Patient visited by Lurdes Lyle, [place]. [facility] 19:44 Avelino Fitch DO is Attending Physician. [facility] 19:44 Patient visited by Avelino Fitch DO. [facility] 19:44 Patient moved to 8 [facility] 19:45 Wali Singh is Private Physician. [facility] 19:46 Triage Initiated af2 19:53 Placed in gown. Bed in low position. Call light in reach. Side rails up X2. nb2 19:54 Patient visited by Taylor Mansfield. nb2 19:54 Patient visited by Taylor Mansfield. nb2 20:00 Awaiting ED physician evaluation. af2 20:00 The patient / caregiver is instructed regarding the plan of care and ED course. af2 20:41 Patient visited by Bernice Coyle RN. af2 21:25 Patient visited by Bernice Coyle RN. af2 21:25 Patient visited by Bernice Coyle RN. af2 22:29 Patient visited by Taylor Mansfield. nb2 22:36 Wali Singh is Referral Physician. cs11 22:52 Patient visited by Bernice Coyle RN. af2 22:52 Patient visited by Bernice Coyle RN. af2 22:52 Maintain field IV. Dressing intact. Good blood return noted. Site clean & dry. Gauge & af2 site: #20G to left ac. 23:03 No procedures done that require assistance. af2 Administered Medications: 20:42 Drug: diphenhydrAMINE 25 mg [diphenhydramine 50 mg/mL injection solution (0.5 mL)] af2 Route: IVP; Site: right wrist; 23:01 Follow up: Response: Nausea is decreased af2 20:43 Drug: NS 0.9% 1000 ml [sodium chloride 0.9 % intravenous solution] Route: IV; Rate: af2 bolus; Site: right wrist; 20:43 Drug: Haloperidol 2.5 mg [haloperidol lactate 5 mg/mL injection solution (0.5 mL)] af2 Route: IVP; Site: left wrist; 23:00 Follow up: Response: Nausea is decreased af2 Order Results: Lab Order: CBC with Diff; SPEC'M 12/25/16 20:31 Test: WHITE BLOOD COUNT; Value: 9.5; Range: 4.0-10.0; Units: K/mm3; Status: F Test: RED BLOOD COUNT; Value: 4.46; Range: 4.00-5.40; Units: M/mm3; Status: F Test: HEMOGLOBIN; Value: 13.6; Range: 12.0-16.0; Units: g/dl; Status: F Test: HEMATOCRIT; Value: 40.7; Range: 36.0-47.0; Units: %; Status: F Test: MEAN CORPUSCULAR VOLUME; Value: 91.1; Range: 80.0-96.0; Units: fl; Status: F Test: MEAN CORPUSCULAR HEMOGLOBIN; Value: 30.5; Range: 27.0-33.0; Units: pg; Status: F Test: MEAN CORPUSCULAR HGB CONC; Value: 33.5; Range: 32.0-36.5; Units: g/dl; Status: F Test: RED CELL DISTRIBUTION WIDTH; Value: 13.4; Range: 11.5-14.5; Units: %; Status: F Test: PLATELET COUNT, AUTOMATED; Value: 237; Range: 150-450; Units: k/mm3; Status: F Test: NEUTROPHILS %; Value: 62.9; Range: 36.0-66.0; Units: %; Status: F Test: LYMPH %; Value: 28.6; Range: 24.0-44.0; Units: %; Status: F Test: MONO %; Value: 5.1; Range: 0.0-5.0; Abnormal: Above high normal; Units: %; Status: F Test: EOS %; Value: 1.3; Range: 0.0-3.0; Units: %; Status: F Test: BASO %; Value: 0.8; Range: 0.0-1.0; Units: %; Status: F Test: LARGE UNSTAINED CELL %; Value: 1.3; Range: 0.0-4.0; Units: %; Status: F Test: NEUTROPHILS #; Value: 6.0; Range: 1.8-7.7; Units: K/mm3; Status: F Test: LYMPH #; Value: 2.8; Range: 1.5-4.5; Units: K/mm3; Status: F Test: MONO #; Value: 0.5; Range: 0.0-0.8; Units: K/mm3; Status: F Test: EOS #; Value: 0.1; Range: 0.0-0.50; Units: K/mm3; Status: F Test: BASO #; Value: 0.1; Range: 0.0-0.2; Units: K/mm3; Status: F Test: LARGE UNSTAINED CELL #; Value: 0.1; Range: 0.0-0.4; Units: K/mm3; Status: F Lab Order: MED Profile; SPEC'M 12/25/16 20:31 Test: GLUCOSE, FASTING; Value: 160; Range: 70-105; Abnormal: Above high normal; Units: MG/DL; Status: F Test: BLOOD UREA NITROGEN; Value: 18; Range: 7-18; Units: MG/DL; Status: F Test: CREATININE FOR GFR; Value: 0.87; Range: 0.55-1.02; Units: MG/DL; Status: F Test: GLOMERULAR FILTRATION RATE; Value: > 60.0; Range: >51; Status: F Test: SODIUM LEVEL; Value: 145; Range: 136-145; Units: MEQ/L; Status: F Test: POTASSIUM SERUM; Value: 4.1; Range: 3.5-5.1; Units: MEQ/L; Status: F Test: CHLORIDE LEVEL; Value: 108; Range: 98-107; Abnormal: Above high normal; Units: MEQ/L; Status: F Test: CARBON DIOXIDE LEVEL; Value: 28; Range: 21-32; Units: MEQ/L; Status: F Test: ANION GAP; Value: 9; Range: 8-16; Units: MEQ/L; Status: F Test: CALCIUM LEVEL; Value: 8.6; Range: 8.5-10.1; Units: MG/DL; Status: F Test Note: ; Units are mL/min/1.73 m2 Chronic Kidney Disease Staging per NKF: Stage I & II GFR >=60 Normal to Mildly Decreased Stage III GFR 30-59 Moderately Decreased Stage IV GFR 15-29 Severely Decreased Stage V GFR <15 Very Little GFR Left ESRD GFR <15 on PAPER MACHINE TENDER Lab Order: Liver Profile; [facility] 12/25/16 20:31 Test: AST/SGOT; Value: 15; Range: 15-37; Units: U/L; Status: F Test: ALT/SGPT; Value: 31; Range: 12-78; Units: U/L; Status: F Test: ALKALINE PHOSPHATASE; Value: 91; Range: 45-117; Units: U/L; Status: F Test: BILIRUBIN,TOTAL; Value: 0.2; Range: 0.2-1.0; Units: MG/DL; Status: F Test: BILIRUBIN,DIRECT; Value: < 0.1; Range: 0.0-0.2; Units: MG/DL; Status: F Test: TOTAL PROTEIN; Value: 6.1; Range: 6.4-8.2; Abnormal: Below low normal; Units: GM/DL; Status: F Test: ALBUMIN; Value: 3.2; Range: 3.2-5.2; Units: GM/DL; Status: F Test: ALBUMIN/GLOBULIN RATIO; Value: 1.10; Range: 1.00-1.93; Status: F Lab Order: Amylase; [facility] 12/25/16 20:31 Test: AMYLASE; Value: 34; Range: 25-115; Units: U/L; Status: F Lab Order: Lipase; [facility] 12/25/16 20:31 Test: LIPASE; Value: 218; Range: 73-393; Units: U/L; Status: F Outcome: 22:37 Discharge ordered by Provider. cs11 23:01 Discharge Assessment: Patient awake, alert and oriented x 3. No cognitive and/or af2 functional deficits noted. Patient verbalized understanding of disposition instructions. patient administered narcotics - no. The following High Risk Discharge criteria are identified: None. Discharged to home ambulatory. Condition: stable. Discharge instructions given to patient, Instructed on discharge instructions, follow up and referral plans. medication usage, Demonstrated understanding of instructions, medications, Pt was receptive of discharge instructions/ teaching. No special radiology studies were completed. Property :Personal belongings accompany Pt. 23:03 Patient left the ED. af2 Signatures: Avelino Fitch, DO cs11 Lurdes Lyle, [place] [facility] Bernice GalavizRN RN af2 Taylor Mansfield nb2 Corrections: (The following items were deleted from the chart) 19:54 19:53 BP 210 / 91; Pulse 105bpm; Resp 20bpm; Pulse Ox 96% RA; Temp 97.5F Oral; nb2 nb2 MTDD
--- NOTE | 2016-12-28 00:04 | EDDOCDS ---
Physician Documentation [facility] Name: Lila Marsh Age: 56 yrs Sex: Female : 1960 Arrival Date: 12/25/2016 Time: 19:43 Bed 8 Private MD: Wali Singh MD Disposition: 12/25/16 22:37 Discharged to Home/Self Care. Impression: Infectious gastroenteritis and colitis, unspecified - viral. - Condition is Stable. - Discharge Instructions: Clear Liquid Diet. - Prescriptions for Zofran 4 mg Oral Tablet - take 1 tablet by ORAL route 4 times per day As needed; 10 tablet. - Medication Reconciliation, Local Pharmacy Hours form. - Follow up: Wali Singh; When: Call to arrange an appointment; Reason: Recheck today's complaints. - Problem is new. - Symptoms have improved. Historical: - Allergies: Aspirin; Imitrex; Morphine; Nickel; topomax; - Home Meds: 1. Januvia 100 mg oral tab 1 tab once daily 2. omeprazole 40 mg Oral cpDR 1 cap once daily 3. Lipitor 80 mg Oral tab 1 tab once daily 4. lisinopril 10 mg Oral tab 1 tab once daily 5. chlorthalidone 25 mg Oral tab 1 tab once daily 6. incruse ellipta inhaler 62.5mcg/ inhale 1 puff once daily 7. Zofran (as hydrochloride) 4 mg oral tab every 8 hours 8. Depakote 500 mg Oral TbEC once daily 1 500mg in AM, 2 at night 9. Depakote ER 1000 mg nightly Oral 10. amitriptyline 10 mg Oral tab 2 tabs nightly 11. Lexapro 20 mg Oral tab 1 tab once daily 12. Ventolin Rotahaler/Rotacaps 200 mcg Inhl CpDv 13. Flonase 50 mcg/actuation Nasal spsn 2 sprays once daily 14. metformin 1,000 mg Oral tab 1 tab 2 times per day 15. Zebeta 10 mg oral tab 1 tab once daily 16. oxycodone 5 mg Oral cap 1 cap every 6 hours - PMHx: DDD; GERD; Hypertension; Migraine Headaches; Seizure Disorder; - PSHx: eye surgery; Neck Surgery; Hysterectomy; Lithotripsy; Cesearean Section; back surgery; - Social history: Smoking status: Patient states was never smoker of tobacco. No barriers to communication noted, The patient speaks fluent Japanese. - Family history: Not pertinent. - : The pt / caregiver states he / she is not on anticoagulants. Home medication list is obtained from a discharge med list. - Exposure Risk Screening:: None identified. 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 cs11 20:06 NS 0.9% 1000 ml IV at bolus once ordered. cs11 20:07 Haloperidol 2.5 mg IVP once ordered. cs11 20:07 diphenhydrAMINE 25 mg IVP once ordered. cs11 20:08 CBC with Diff Ordered. EDMS 20:08 MED Profile Ordered. EDMS 20:08 Liver Profile Ordered. EDMS 20:08 Amylase Ordered. EDMS 20:08 Lipase Ordered. EDMS 21:26 CBC with Diff Reviewed. cs11 21:26 MED Profile Reviewed. cs11 21:26 Liver Profile Reviewed. cs11 21:26 Amylase Reviewed. cs11 21:26 Lipase Reviewed. cs11 23:06 [facility] Payment Agreement was scanned into [employer] and attached to record. [facility] 23:06 Financial registration complete. [facility] 12/26 12:33 T-Sheet-- Draft Copy was scanned into [employer] and attached to record. 15:04 PCR was scanned into [employer] and attached to record. 12/27 08:51 PCR was scanned into [employer] and attached to record. gb Administered Medications: 12/25 20:42 Drug: diphenhydrAMINE 25 mg [diphenhydramine 50 mg/mL injection solution (0.5 mL)] af2 Route: IVP; Site: right wrist; 23:01 Follow up: Response: Nausea is decreased af2 20:43 Drug: NS 0.9% 1000 ml [sodium chloride 0.9 % intravenous solution] Route: IV; Rate: af2 bolus; Site: right wrist; 20:43 Drug: Haloperidol 2.5 mg [haloperidol lactate 5 mg/mL injection solution (0.5 mL)] af2 Route: IVP; Site: left wrist; 23:00 Follow up: Response: Nausea is decreased af2 Signatures: Dispatcher [employer] EDMS Ondina Hallman, Reg Reg gb Avelino Fitch DO DO cs11 Bernice Coyle RN RN af2 Tenisha Douglas, Reg Reg [email or web address] The chart was reviewed and I authenticate all verbal orders and agree with the evaluation and treatment provided.Attachments: 23:06 [facility] Payment Agreement [email or web address] 12/26 12:33 T-Sheet-- Draft Copy gb Chart Complete MTDD
--- NOTE | 2016-12-28 00:04 | EDDOCDS ---
Physician Documentation [facility] Name: Lila Marsh Age: 56 yrs Sex: Female : 1960 Arrival Date: 12/25/2016 Time: 19:43 Bed 8 Private MD: Wali Singh MD Disposition: 12/25/16 22:37 Discharged to Home/Self Care. Impression: Infectious gastroenteritis and colitis, unspecified - viral. - Condition is Stable. - Discharge Instructions: Clear Liquid Diet. - Prescriptions for Zofran 4 mg Oral Tablet - take 1 tablet by ORAL route 4 times per day As needed; 10 tablet. - Medication Reconciliation, Local Pharmacy Hours form. - Follow up: Wali Singh; When: Call to arrange an appointment; Reason: Recheck today's complaints. - Problem is new. - Symptoms have improved. Historical: - Allergies: Aspirin; Imitrex; Morphine; Nickel; topomax; - Home Meds: 1. Januvia 100 mg oral tab 1 tab once daily 2. omeprazole 40 mg Oral cpDR 1 cap once daily 3. Lipitor 80 mg Oral tab 1 tab once daily 4. lisinopril 10 mg Oral tab 1 tab once daily 5. chlorthalidone 25 mg Oral tab 1 tab once daily 6. incruse ellipta inhaler 62.5mcg/ inhale 1 puff once daily 7. Zofran (as hydrochloride) 4 mg oral tab every 8 hours 8. Depakote 500 mg Oral TbEC once daily 1 500mg in AM, 2 at night 9. Depakote ER 1000 mg nightly Oral 10. amitriptyline 10 mg Oral tab 2 tabs nightly 11. Lexapro 20 mg Oral tab 1 tab once daily 12. Ventolin Rotahaler/Rotacaps 200 mcg Inhl CpDv 13. Flonase 50 mcg/actuation Nasal spsn 2 sprays once daily 14. metformin 1,000 mg Oral tab 1 tab 2 times per day 15. Zebeta 10 mg oral tab 1 tab once daily 16. oxycodone 5 mg Oral cap 1 cap every 6 hours - PMHx: DDD; GERD; Hypertension; Migraine Headaches; Seizure Disorder; - PSHx: eye surgery; Neck Surgery; Hysterectomy; Lithotripsy; Cesearean Section; back surgery; - Social history: Smoking status: Patient states was never smoker of tobacco. No barriers to communication noted, The patient speaks fluent Ukrainian. - Family history: Not pertinent. - : The pt / caregiver states he / she is not on anticoagulants. Home medication list is obtained from a discharge med list. - Exposure Risk Screening:: None identified. 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 cs11 20:06 NS 0.9% 1000 ml IV at bolus once ordered. cs11 20:07 Haloperidol 2.5 mg IVP once ordered. cs11 20:07 diphenhydrAMINE 25 mg IVP once ordered. cs11 20:08 CBC with Diff Ordered. EDMS 20:08 MED Profile Ordered. EDMS 20:08 Liver Profile Ordered. EDMS 20:08 Amylase Ordered. EDMS 20:08 Lipase Ordered. EDMS 21:26 CBC with Diff Reviewed. cs11 21:26 MED Profile Reviewed. cs11 21:26 Liver Profile Reviewed. cs11 21:26 Amylase Reviewed. cs11 21:26 Lipase Reviewed. cs11 23:06 [facility] Payment Agreement was scanned into [address] and attached to record. [facility] 23:06 Financial registration complete. [facility] 12/26 12:33 T-Sheet-- Draft Copy was scanned into [address] and attached to record. 15:04 PCR was scanned into [address] and attached to record. 12/27 08:51 PCR was scanned into [address] and attached to record. gb Administered Medications: 12/25 20:42 Drug: diphenhydrAMINE 25 mg [diphenhydramine 50 mg/mL injection solution (0.5 mL)] af2 Route: IVP; Site: right wrist; 23:01 Follow up: Response: Nausea is decreased af2 20:43 Drug: NS 0.9% 1000 ml [sodium chloride 0.9 % intravenous solution] Route: IV; Rate: af2 bolus; Site: right wrist; 20:43 Drug: Haloperidol 2.5 mg [haloperidol lactate 5 mg/mL injection solution (0.5 mL)] af2 Route: IVP; Site: left wrist; 23:00 Follow up: Response: Nausea is decreased af2 Signatures: Dispatcher [employer] EDMS Ondina Hallman, Reg Reg gb Avelino Fitch DO DO cs11 Bernice Coyle RN RN af2 Tenisha Douglas, Reg Reg [email or web address] The chart was reviewed and I authenticate all verbal orders and agree with the evaluation and treatment provided.Attachments: 23:06 [facility] Payment Agreement [email or web address] 12/26 12:33 T-Sheet-- Draft Copy gb Chart Complete MTDD
--- NOTE | 2016-12-28 00:04 | EDDOCDS ---
Nurse's Notes [facility] Name: Lila Marsh Age: 56 yrs Sex: Female : 1960 Arrival Date: 12/25/2016 Time: 19:43 Bed 8 Private MD: Wali Singh MD Diagnosis: Infectious gastroenteritis and colitis, unspecified-viral Presentation: 12/25 19:45 Presenting complaint: EMS states: nausea, vomiting, diarrhea x 2-3 weeks. BG of 197. af2 Suicide/Homicide risk assessment- the patient denies having any suicidal and/or homicidal ideations and does not present with any other emotional, behavioral or mental health complaints. 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 Transition of care: patient was not received from another setting of care. 19:45 Acuity: MAURIZIO Level 3 af2 19:45 Method Of Arrival: Ambulance af2 20:01 Adult Sepsis Screening: The patient does not have new or worsening altered mentation. af2 Patient's respiratory rate is less than 22. Systolic blood pressure is greater than 100. Patient has a qSOFA score of 0- Negative Sepsis Screen. Triage Assessment: 19:49 General: Appears in no apparent distress, Behavior is cooperative. af2 19:59 Pain: Location: abdomen Pain currently is 7 out of 10 on a pain scale. Quality of pain af2 is described as burning, crampy, sharp. HIV screening NA for this visit Offered previously. The patient is triaged at the bedside. See Assessment in Nurses Notes section of ED record. Neurological: Level of Consciousness is awake, alert, Oriented to person, place, time. Respiratory: Airway is patent Respiratory effort is even, unlabored, Respiratory pattern is regular, symmetrical, Breath sounds are clear bilaterally. GI: Abdomen is obese, Bowel sounds present X 4 quads. Abd is soft X 4 quads Abd is tender to palpation X 4 quads. Reports diarrhea, nausea, vomiting. : No deficits noted. Derm: Skin is pink, warm & dry. 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 Januvia 100 mg oral tab 1 tab once daily 2. omeprazole 40 mg Oral cpDR 1 cap once daily 3. Lipitor 80 mg Oral tab 1 tab once daily 4. lisinopril 10 mg Oral tab 1 tab once daily 5. chlorthalidone 25 mg Oral tab 1 tab once daily 6. incruse ellipta inhaler 62.5mcg/ inhale 1 puff once daily 7. Zofran (as hydrochloride) 4 mg oral tab every 8 hours 8. Depakote 500 mg Oral TbEC once daily 1 500mg in AM, 2 at night 9. Depakote ER 1000 mg nightly Oral 10. amitriptyline 10 mg Oral tab 2 tabs nightly 11. Lexapro 20 mg Oral tab 1 tab once daily 12. Ventolin Rotahaler/Rotacaps 200 mcg Inhl CpDv 13. Flonase 50 mcg/actuation Nasal spsn 2 sprays once daily 14. metformin 1,000 mg Oral tab 1 tab 2 times per day 15. Zebeta 10 mg oral tab 1 tab once daily 16. oxycodone 5 mg Oral cap 1 cap every 6 hours - PMHx: DDD; GERD; Hypertension; Migraine Headaches; Seizure Disorder; - PSHx: eye surgery; Neck Surgery; Hysterectomy; Lithotripsy; Cesearean Section; back surgery; - Social history: Smoking status: Patient states was never smoker of tobacco. No barriers to communication noted, The patient speaks fluent Sudanese. - Family history: Not pertinent. - : The pt / caregiver states he / she is not on anticoagulants. Home medication list is obtained from a discharge med list. - Exposure Risk Screening:: None identified. Screenin:00 Screening information is obtained from the patient. Fall risk: No risks identified. af2 Assistance ADL's: requires no assistance with activities of daily living. Abuse/DV Screen: The patient / caregiver reports he/she is: not in a situation that causes fear, pain or injury. Nutritional screening: No deficits noted. Advance Directives: Currently, there is a health care proxy, Chris Ball Significant other . Advance Directives: There is no active DNR order. home support is adequate. Assessment: 20:01 General: see triage assessment . af2 21:00 General: Appears in no apparent distress, comfortable, Behavior is appropriate for age, af2 cooperative, resp easy, unlabored. . 22:00 General: Appears in no apparent distress, comfortable, Behavior is appropriate for age, af2 cooperative. Neurological: Level of Consciousness is awake, alert. Respiratory: Airway is patent Respiratory effort is even, unlabored. Derm: Skin is normal. 22:51 General: Appears in no apparent distress, comfortable, Behavior is appropriate for age, af2 cooperative. Neurological: Level of Consciousness is awake, alert. Respiratory: Airway is patent Respiratory effort is even, unlabored. Derm: Skin is normal. Vital Signs: 19:53 BP 210 / 91; Pulse 105; Resp 20; Temp 97.5(O); Pulse Ox 96% on R/A; nb2 23:01 BP 163 / 76; Pulse 86; Resp 18 S; Temp 97.9(TE); Pulse Ox 98% on R/A; af2 19:53 RN notified of BP nb2 Vitals: 19:53 Log In Time N/A - ambulance arrival. nb2 ED Course: 19:44 Bernice Coyle RN is Primary Nurse. [facility] 19:44 Patient visited by Lurdes Lyle, Clinical Sales Consultant. [facility] 19:44 Avelino Fitch DO is Attending Physician. [facility] 19:44 Patient visited by Avelino Fitch DO. [facility] 19:44 Patient moved to 8 [facility] 19:45 Wali Singh is Private Physician. [facility] 19:46 Triage Initiated af2 19:53 Placed in gown. Bed in low position. Call light in reach. Side rails up X2. nb2 19:54 Patient visited by Taylor Mansfield. nb2 19:54 Patient visited by Taylor Mansfield. nb2 20:00 Awaiting ED physician evaluation. af2 20:00 The patient / caregiver is instructed regarding the plan of care and ED course. af2 20:41 Patient visited by Bernice Coyle RN. af2 21:25 Patient visited by Bernice Coyle RN. af2 21:25 Patient visited by Bernice Coyle RN. af2 22:29 Patient visited by Taylor Mansfield. nb2 22:36 Wali Singh is Referral Physician. cs11 22:52 Patient visited by Bernice Coyle RN. af2 22:52 Patient visited by Bernice Coyle RN. af2 22:52 Maintain field IV. Dressing intact. Good blood return noted. Site clean & dry. Gauge & af2 site: #20G to left ac. 23:03 No procedures done that require assistance. af2 23:06 [facility] Payment Agreement was scanned into [employer] and attached to record. [email or web address] 12/26 12:33 T-Sheet-- Draft Copy was scanned into [employer] and attached to record. gb 15:04 PCR was scanned into [employer] and attached to record. gb 12/27 08:51 PCR was scanned into [employer] and attached to record. gb Administered Medications: 12/25 20:42 Drug: diphenhydrAMINE 25 mg [diphenhydramine 50 mg/mL injection solution (0.5 mL)] af2 Route: IVP; Site: right wrist; 23:01 Follow up: Response: Nausea is decreased af2 20:43 Drug: NS 0.9% 1000 ml [sodium chloride 0.9 % intravenous solution] Route: IV; Rate: af2 bolus; Site: right wrist; 20:43 Drug: Haloperidol 2.5 mg [haloperidol lactate 5 mg/mL injection solution (0.5 mL)] af2 Route: IVP; Site: left wrist; 23:00 Follow up: Response: Nausea is decreased af2 Order Results: Lab Order: CBC with Diff; SPEC'M 12/25/16 20:31 Test: WHITE BLOOD COUNT; Value: 9.5; Range: 4.0-10.0; Units: K/mm3; Status: F Test: RED BLOOD COUNT; Value: 4.46; Range: 4.00-5.40; Units: M/mm3; Status: F Test: HEMOGLOBIN; Value: 13.6; Range: 12.0-16.0; Units: g/dl; Status: F Test: HEMATOCRIT; Value: 40.7; Range: 36.0-47.0; Units: %; Status: F Test: MEAN CORPUSCULAR VOLUME; Value: 91.1; Range: 80.0-96.0; Units: fl; Status: F Test: MEAN CORPUSCULAR HEMOGLOBIN; Value: 30.5; Range: 27.0-33.0; Units: pg; Status: F Test: MEAN CORPUSCULAR HGB CONC; Value: 33.5; Range: 32.0-36.5; Units: g/dl; Status: F Test: RED CELL DISTRIBUTION WIDTH; Value: 13.4; Range: 11.5-14.5; Units: %; Status: F Test: PLATELET COUNT, AUTOMATED; Value: 237; Range: 150-450; Units: k/mm3; Status: F Test: NEUTROPHILS %; Value: 62.9; Range: 36.0-66.0; Units: %; Status: F Test: LYMPH %; Value: 28.6; Range: 24.0-44.0; Units: %; Status: F Test: MONO %; Value: 5.1; Range: 0.0-5.0; Abnormal: Above high normal; Units: %; Status: F Test: EOS %; Value: 1.3; Range: 0.0-3.0; Units: %; Status: F Test: BASO %; Value: 0.8; Range: 0.0-1.0; Units: %; Status: F Test: LARGE UNSTAINED CELL %; Value: 1.3; Range: 0.0-4.0; Units: %; Status: F Test: NEUTROPHILS #; Value: 6.0; Range: 1.8-7.7; Units: K/mm3; Status: F Test: LYMPH #; Value: 2.8; Range: 1.5-4.5; Units: K/mm3; Status: F Test: MONO #; Value: 0.5; Range: 0.0-0.8; Units: K/mm3; Status: F Test: EOS #; Value: 0.1; Range: 0.0-0.50; Units: K/mm3; Status: F Test: BASO #; Value: 0.1; Range: 0.0-0.2; Units: K/mm3; Status: F Test: LARGE UNSTAINED CELL #; Value: 0.1; Range: 0.0-0.4; Units: K/mm3; Status: F Lab Order: MED Profile; [facility] 12/25/16 20:31 Test: GLUCOSE, FASTING; Value: 160; Range: 70-105; Abnormal: Above high normal; Units: MG/DL; Status: F Test: BLOOD UREA NITROGEN; Value: 18; Range: 7-18; Units: MG/DL; Status: F Test: CREATININE FOR GFR; Value: 0.87; Range: 0.55-1.02; Units: MG/DL; Status: F Test: GLOMERULAR FILTRATION RATE; Value: > 60.0; Range: >51; Status: F Test: SODIUM LEVEL; Value: 145; Range: 136-145; Units: MEQ/L; Status: F Test: POTASSIUM SERUM; Value: 4.1; Range: 3.5-5.1; Units: MEQ/L; Status: F Test: CHLORIDE LEVEL; Value: 108; Range: 98-107; Abnormal: Above high normal; Units: MEQ/L; Status: F Test: CARBON DIOXIDE LEVEL; Value: 28; Range: 21-32; Units: MEQ/L; Status: F Test: ANION GAP; Value: 9; Range: 8-16; Units: MEQ/L; Status: F Test: CALCIUM LEVEL; Value: 8.6; Range: 8.5-10.1; Units: MG/DL; Status: F Test Note: ; Units are mL/min/1.73 m2 Chronic Kidney Disease Staging per NKF: Stage I & II GFR >=60 Normal to Mildly Decreased Stage III GFR 30-59 Moderately Decreased Stage IV GFR 15-29 Severely Decreased Stage V GFR <15 Very Little GFR Left ESRD GFR <15 on ARABIC TEACHER Lab Order: Liver Profile; SPEC'M 12/25/16 20:31 Test: AST/SGOT; Value: 15; Range: 15-37; Units: U/L; Status: F Test: ALT/SGPT; Value: 31; Range: 12-78; Units: U/L; Status: F Test: ALKALINE PHOSPHATASE; Value: 91; Range: 45-117; Units: U/L; Status: F Test: BILIRUBIN,TOTAL; Value: 0.2; Range: 0.2-1.0; Units: MG/DL; Status: F Test: BILIRUBIN,DIRECT; Value: < 0.1; Range: 0.0-0.2; Units: MG/DL; Status: F Test: TOTAL PROTEIN; Value: 6.1; Range: 6.4-8.2; Abnormal: Below low normal; Units: GM/DL; Status: F Test: ALBUMIN; Value: 3.2; Range: 3.2-5.2; Units: GM/DL; Status: F Test: ALBUMIN/GLOBULIN RATIO; Value: 1.10; Range: 1.00-1.93; Status: F Lab Order: Amylase; SPEC'M 12/25/16 20:31 Test: AMYLASE; Value: 34; Range: 25-115; Units: U/L; Status: F Lab Order: Lipase; SPEC'M 12/25/16 20:31 Test: LIPASE; Value: 218; Range: 73-393; Units: U/L; Status: F Outcome: 22:37 Discharge ordered by Provider. cs11 23:01 Discharge Assessment: Patient awake, alert and oriented x 3. No cognitive and/or af2 functional deficits noted. Patient verbalized understanding of disposition instructions. patient administered narcotics - no. The following High Risk Discharge criteria are identified: None. Discharged to home ambulatory. Condition: stable. Discharge instructions given to patient, Instructed on discharge instructions, follow up and referral plans. medication usage, Demonstrated understanding of instructions, medications, Pt was receptive of discharge instructions/ teaching. No special radiology studies were completed. Property :Personal belongings accompany Pt. 23:03 Patient left the ED. af2 Signatures: Ondina Hallman, Reg Reg gb Avelino Fitch, DO DO cs11 Lurdes Lyle, Clinical Sales Consultant Unit Berniec Galaviz RN RN af2 Tenisha Douglas, Reg Reg [email or web address] Taylor Mansfield nb2 Corrections: (The following items were deleted from the chart) 19:54 19:53 BP 210 / 91; Pulse 105bpm; Resp 20bpm; Pulse Ox 96% RA; Temp 97.5F Oral; nb2 nb2 Chart Complete MTDD
== END 2016-12-25 23:03 | disposition home or self-care (01) ==
LOC: M ED 19:43
DX: A08.4 Viral intestinal infection, unspecified (principal); M51.9 Unspecified thoracic, thoracolumbar and lumbosacral intervertebral disc disorder; K21.9 Gastro-esophageal reflux disease without esophagitis; I10 Essential (primary) hypertension; G43.909 Migraine, unspecified, not intractable, without status migrainosus; G40.909 Epilepsy, unspecified, not intractable, without status epilepticus; Z79.899 Other long term (current) drug therapy; Z79.84 Long term (current) use of oral hypoglycemic drugs; Z88.6 Allergy status to analgesic agent; Z88.5 Allergy status to narcotic agent; Z88.8 Allergy status to other drugs, medicaments and biological substances
CPT/HCPCS: 36415; 80048; 80076; 82150; 83690; 85025; 99283; J1200; J1630

== ENCOUNTER → 2016-12-31 | Outpatient (CLI) | payer OTHER ==
--- NOTE | 2016-12-31 09:22 | REP ---
Clinical: Acute abdominal pain. Technique: Maldonado scale ultrasound using curved array transducer. Findings: The liver demonstrates fatty infiltration without focal hepatic lesion. The visualized pancreas is normal in contour, size, and echogenicity without focal pancreatic lesions identified. The gallbladder is normal without gallstones, wall thickening or pericholecystic fluid. No biliary ductal dilatation is appreciated, and the common bile duct measures 2.0 mm diameter. The right kidney is normal in reniform shape without hydronephrosis and measures 12.1 x 6.6 x 4.7 cm with 1.3 cm midpole cyst. No ascites. Visualized portions of the abdominal aorta normal. Impression: 1.3 cm right renal cyst. Fatty liver. Otherwise normal RUQ ultrasound. Signed by Neftali Santiago MD 12/31/2016 09:14 A
== END ==
LOC: M RAD 08:11
PROVIDERS: ATTEND Nurse Practitioner Family
DX: N28.1 Cyst of kidney, acquired (principal); K76.0 Fatty (change of) liver, not elsewhere classified; R10.11 Right upper quadrant pain

== ENCOUNTER → 2017-01-06 | Outpatient (CLI) | payer OTHER ==
--- NOTE | 2017-01-07 00:29 | ECWPNPC ---
PATIENT NAME: NICOLE BERNABE : 1960 GENDER: FEMALE VISIT DATE: 01/06/2017 DISCHARGE DATE: 01/06/17 1118 VISIT LOCKED DATE TIME: PHYSICIAN: KIMBERLEE FALCON PHYSICIAN PAGER NO: TEXT [phone] RESOURCE: KIMBERLEE FALCON REASON FOR APPOINTMENT 1. BACK/NECK HISTORY OF PRESENT ILLNESS HISTORY OF PRESENT ILLNESS: HERE FOR F/U OF MANAGEMENT OF LOW BACK PAIN.WAS DOING WELL UNTIL 2 WEEKS AGO WHEN FOOLING AROUND DAUGHTER HIT RIGHT LOW BACK AND FELL.HAS HIGH LEVEL OF NUMBNESS PAIN SINCE INCIDENT.RATING PAIN 7/10VAS.WAS USING HYDROCODONE 5/325 ONE PRN FOR SEVERE PAIN PRESCRIBED BY BROCK CARTWRIGHT AT NEUROLOGY.STATES BROCK KOTHARI PRESCRIBE THIS ANYMORE.HX OF SEIZURE DISORDER AND CANT HAVE TRAMADOL.SCHEDULED TO HAVE IMAGING OF L/S SPINE ORDERED BY BACK SURGEON IN [place].DENIES BOWEL OR BLADDER INCONTINENCE. FALL RISK SCREENING: SCREENING :NO FALLS IN THE PAST YEAR CURRENT MEDICATIONS TAKING LIPITOR 80 MG TABLET 1 TABLET ORALLY ONCE A DAY TAKING INCRUSE ELLIPTA 62.5 MCG/INH AEROSOL POWDER BREATH ACTIVATED 1 PUFF INHALATION ONCE A DAY TAKING OMEPRAZOLE 40 MG CAPSULE DELAYED RELEASE 1 CAPSULE ORALLY ONCE A DAY TAKING CIPRO 500 MG TABLET 1 TABLET ORALLY TWICE A DAY TAKING FLAGYL 500 MG TABLET 1 TABLET ORALLY EVERY 8 HRS TAKING DEPAKOTE ER 500 MG TABLET EXTENDED RELEASE 24 HOUR DIRECTED. ORALLY 1 AM, 2 TABS PM TAKING AMITRIPTYLINE HCL 20 MG TABLET 1 TABLET AT BEDTIME ORALLY ONCE A DAY TAKING LEXAPRO 20 MG TABLET 1 TABLET ORALLY ONCE A DAY TAKING VENTOLIN HFA 108 (90 BASE) MCG/ACT AEROSOL SOLUTION 2 PUFFS INHALATION EVERY 4-6 HOURS NEEDED, NOTES: 12/09/16@1800 TAKING ALCOHOL PADS 70 % PAD DIRECTED TOPICAL TWICE DAILY/DX : E11.65 TAKING LANCETS FOR ONE TOUCH ULTRA MISCELLANEOUS DIRECTED SC TWICE DAILY/DX : E11.65 TAKING ONE TOUCH ULTRA TEST STRIPS - STRIPS DIRECTED - TWICE DAILY/ DX : E11.65 TAKING FLONASE 50 MCG/DOSE INHALER 2 SPRAYS IN EACH NOSTRIL NASALLY ONCE A DAY TAKING METFORMIN HCL 1000 MG TABLET 1 TABLET WITH MEALS ORALLY TWICE A DAY TAKING ZEBETA 10 MG TABLET 1 TABLET ORALLY ONCE A DAY TAKING ONE TOUCH ULTRA SYSTEM KIT - METER DIRECTED - TWICE DAILY/ DX : 250.02 TAKING ONDANSETRON HCL 4 MG TABLET DIRECTED ORALLY QID PRN NAUSEA TAKING FOLIC ACID 1 MG TABLET 1 TABLET ORALLY ONCE A DAY TAKING METHOTREXATE 2.5 MG TABLET 4 TABS ORALLY ONCE WEEKLY TAKING LATANOPROST 0.005 % SOLUTION 1 DROP INTO AFFECTED EYE IN THE EVENING OPHTHALMIC ONCE A DAY TAKING LISINOPRIL 20 MG TABLET 1 TABLET ORALLY ONCE A DAY TAKING CHLORTHALIDONE 25 25 MG TABLET 1 TAB(S) ORAL ONCE DAILY TAKING ALOGLIPTIN BENZOATE 12.5 MG TABLET 2 TABLETS ORALLY ONCE A DAY TAKING ALOGLIPTIN BENZOATE 25 MG TABLET 1 TABLET ORALLY ONCE A DAY NOT-TAKING QUAD CANE - MISCELLANEOUS DIRECTED _ DAILY/ DX : UNSTEADY GAIT NOT-TAKING [facility] FLUTICASONE PROPIONATE 50 MCG/ACT SUSPENSION 1 SPRAY IN EACH NOSTRIL NASALLY ONCE A DAY NOT-TAKING MUCINEX 600 MG TABLET EXTENDED RELEASE 12 HOUR 1 TABLET NEEDED ORALLY EVERY 12 HRS NOT-TAKING OXYCODONE HCL 5 MG CAPSULE 1 CAPSULE NEEDED ORALLY EVERY 8 HOURS NEEDED NOT-TAKING PREMARIN 0.625 MG/GM CREAM 0.5 GM VAGINAL TWICE A WEEK NOT-TAKING HOSPITAL BED DIRECTED NOT-TAKING MAY HAVE M54.2 M54.5 HOSPITAL BED DAILY NEEDED NOT-TAKING VITAMIN D 2000 UNIT TABLET DIRECTED ORALLY ONCE A DAY (WHEN LIU COMPLETED) MEDICATION LIST REVIEWED AND RECONCILED WITH THE PATIENT PAST MEDICAL HISTORY SEIZURES- MARIUM MIGRAINES-MARIUM ARTHRITIS CHRONIC NECK PAIN- PAIN CLINIC [facility] HTN H/O PEPTIC ULCER VON WILLEBRAND'S DISEASE (NEEDS PRE-TREATMENT WITH DDAVP FOR SURGERY - SEE NOTE FROM DR. ARAUJO 09/11/2009) HIATAL HERNIA HEMORRHOIDS RECURRENT BREAST ABSCESSES FIBROCYSTIC BREAST DISEASE KIDNEY STONES NECK PAIN- DR SUERO PNEUMOVAX- PT STATES 2011 DIABETES COPD LEFT BREAST FAT NECROSIS POST REDUCTION ALLERGIES ASPIRIN: ANAPHYLAXIS: ALLERGY PEPPER: THROAT CLOSE, TONGUE SWELLS: ALLERGY MORPHINE SULFATE: RASH, HIVES: ALLERGY TOPAMAX: KINDNEY STONES: SIDE EFFECTS IMITREX: SEVERE HTN (NEAR SBP 300): SIDE EFFECTS NICKEL: RASH: ALLERGY SOCIAL HISTORY GENERAL: TOBACCO USE ARE YOU A:NONSMOKER LEARNING BARRIERS / SPECIAL NEEDS ORIENTED TO PLAN OF CARE: PATIENT, PAIN MANAGEMENT PATIENT, ORIENTED TO PLAN OF CARE: PATIENT, PAIN MANAGEMENT PATIENT. NEW PATIENT PAIN DIARY TODAY'S VISITNOTES FROM 0-10, WHAT LEVEL IS YOUR PAIN TODAY?0 PAIN CLINIC PFS, CLERGY, PUBLIC HEALTH REFERRALS PFS REFERRAL NEEDED?NO CLERGY REFERRAL NEEDED?NO PUBLIC HEALTH REFERRAL NEEDED?NO WAS THE PROVIDER NOTIFIED OF ANY PERTINENT INFO?NO PFS REFERRAL NEEDED?NO CLERGY REFERRAL NEEDED?NO PUBLIC HEALTH REFERRAL NEEDED?NO WAS THE PROVIDER NOTIFIED OF ANY PERTINENT INFO?NO REVIEW OF SYSTEMS CONSTITUTIONAL: ANY CHANGE IN YOUR MEDICAL CONDITION? NO . RECENT ILLNESS DENIES . CHILLS NO . FEVER NO . WEIGHT LOSS DENIES . INFECTION: DO YOU HAVE NEW INFECTIONS? NO . DO YOU HAVE HISTORY OF MRSA? NO . MUSCULOSKELETAL: ANY NEW PATTERNS OF PAIN OR NUMBNESS? NO . GASTROENTEROLOGY: ANY NEW CHANGE IN BOWEL CONTROL? NO . GENITOURINARY: ANY NEW CHANGE IN BLADDER CONTROL? NO . IS THERE A CHANCE YOU COULD BE ? NO . HEMATOLOGY/LYMPH: DO YOU TAKE ANY BLOOD THINNERS? (FOR EXAMPLE- COUMADIN, PLAVIX, AGGRENOX, PLATEL, PRADAXA, OR XARELTO) NO . WHEN WAS YOUR LAST DOSE? DATE: TIME: . NEUROLOGY: HAVE YOU FALLEN IN THE PAST 6 MONTHS? NO . ANY NEW EXTREMITY NUMBNESS OR WEAKNESS? NO . CARDIOLOGY: DO YOU HAVE A PACEMAKER OR DEFIBRILLATOR? NO . CHEST PAIN DENIES . SHORTNESS OF BREATH DENIES . RESPIRATORY: HAVE YOU BEEN SICK IN THE PAST WEEK? NO . FEVER NO . FLU LIKE SYMPTOMS? NO . COUGH NO, DENIES . SHORTNESS OF BREATH DENIES . INTEGUMENTARY: DO YOU HAVE ANY RASHES OR OPEN SORES? NO . ALLERGIC/IMMUNO: ARE YOU ALLERGIC TO SHELLFISH OR IV DYE? NO . ANY NEW ALLERGIES? NO . PSYCHIATRIC: DO YOU HAVE THOUGHTS OF HURTING YOURSELF OR SOMEONE ELSE? NO . ARE YOU ABUSED, NEGLECTED, OR IN AN UNSAFE ENVIRONMENT? NO . ENDOCRINOLOGY: ARE YOU DIABETIC? NO . OTHER: DO YOU NEED ANY PRESCRIPTIONS? YES CURRENTLY WE DO NOT PRESCRIBE , PT WANTS TO DISCUSS PAIN MEDICATION . IF YES, PLEASE LIST: ____ . ANY NEW PROBLEMS WITH YOUR MEDICATIONS? NO . WHEN DID YOU LAST EAT? ____ . WHEN DID YOU LAST DRINK? ____ . WHAT DID YOU LAST DRINK? ____ . NAME OF PERSON DRIVING YOU HOME? ____ . DO YOU HAVE ANY OTHER QUESTIONS OR CONCERNS NO . REVIEWED BY: PROVIDER: KIMBERLEE MENARD . VITAL SIGNS WT 178 LBS, HT 63.5 IN, BMI 31.03 INDEX, BP 165/74 MM HG, HR 69 /MIN, RR 16 /MIN, TEMP 96.8 F, OXYGEN SAT % 94, NA INITIALS TL 1019KG. EXAMINATION GENERAL EXAMINATION: LUNGS:LUNG SOUNDS ARE CLEAR. HEART:HEART RATE REGULAR. MUSCULOSKELETAL:*, MUSCLE STRENGTH TESTING 5/5 BILATERAL LOWER EXTREMITIES., PALPATION: POSITIVE FOR PAIN OVERSPECIFIC POINT TENDERNESS OVER RIGHT LUMBAR PARASPINAL REGION.WELL HEALED SURGICAL SCAR L/S AXIS.. DIAGNOSTIC: . ASSESSMENTS CHRONIC BILATERAL LOW BACK PAIN WITHOUT SCIATICA - M54.5 (PRIMARY) SACROILIAC JOINT PAIN - M53.3 POST LAMINECTOMY SYNDROME - M96.1 CHRONIC PRESCRIPTION OPIATE USE - Z79.891 TREATMENT CHRONIC BILATERAL LOW BACK PAIN WITHOUT SCIATICA START PERCOCET TABLET, 5-325 MG, 1, ORALLY, EVERY 6 HRS PRN MDD2, 30 DAY(S), 45, REFILLS 0 NOTES: ISTOP REGISTRY REVIEWED AND DEMNOSTRATES COMPLLIANCE. , RISKS AND BENEFITS OF NARCOTIC/OPIOD MEDICATIONS WERE REVIEWED WITH PATIENT - THIS INCLUDES BUT IS NOT LIMITED TO RISK OF DEPENDANCE/DEVELOPMENT OF ADDICTION, MOOD DISTURBANCE AND DEPRESSION, OSTEOPOROSIS, HORMONAL AND LABIDAL CHANGES, RESPIRATORY DEPRESSION AND . PATIENT IS ADVISED NOT TO DRIVE WHILE ON THESE MEDICATIONS.NARCOTIC AGREEMENT REVIEWED AND SIGNED. PROCEDURE CODES FA211 ESTABILISHED PATIENT [facility] CHARGE DISPOSITION & COMMUNICATION FOLLOW UP 4 WEEKS ELECTRONICALLY SIGNED BY DERIAN HORNER ON 01/06/2017 AT 11:48 AM EST DISCLAIMER : THIS IS A VISIT SUMMARY EXTRACTED FROM THE [employer] CHART. IT IS NOT A COPY OF THE [employer] PROGRESS NOTE. NELY
== END ==
LOC: M PAIN 10:40
PROVIDERS: ATTEND Nurse Practitioner Family
DX: Z09 Encounter for follow-up examination after completed treatment for conditions other than malignant neoplasm (principal); G89.29 Other chronic pain; M54.5 Low back pain; M53.3 Sacrococcygeal disorders, not elsewhere classified; M96.1 Postlaminectomy syndrome, not elsewhere classified; G40.909 Epilepsy, unspecified, not intractable, without status epilepticus; G43.909 Migraine, unspecified, not intractable, without status migrainosus; I10 Essential (primary) hypertension; E11.9 Type 2 diabetes mellitus without complications; J44.9 Chronic obstructive pulmonary disease, unspecified; M19.90 Unspecified osteoarthritis, unspecified site; D68.0 Von Willebrand disease; K44.9 Diaphragmatic hernia without obstruction or gangrene; N60.19 Diffuse cystic mastopathy of unspecified breast; M54.2 Cervicalgia; Z88.6 Allergy status to analgesic agent; Z88.5 Allergy status to narcotic agent; Z91.018 Allergy to other foods; Z88.8 Allergy status to other drugs, medicaments and biological substances; L23.0 Allergic contact dermatitis due to metals; Z79.84 Long term (current) use of oral hypoglycemic drugs; Z79.891 Long term (current) use of opiate analgesic; Z79.899 Other long term (current) drug therapy; Z87.11 Personal history of peptic ulcer disease

== ENCOUNTER → 2017-01-06 | Outpatient (CLI) | payer OTHER ==
--- NOTE | 2017-01-14 12:36 | PFTRPT ---
PULMONARY FUNCTION TESTING Spirometry: Pre and post bronchodilator study of excellent technical quality. The forced vital capacity is normal. The FEV1 is borderline in proportion. The obstructive index is, therefore, borderline, as well. Flow Volume Loop: The expiratory limb of the flow volume loop suggests a nonspecific flow rate limitation. No significant bronchodilator response is identified. Lung Volumes: The total lung capacity is mildly elevated. The residual volume does suggest air trapping. Diffusion Capacity: The diffusion capacity is normal. Hemoglobin: No hemoglobin is available. Airway Mechanics: Airways resistance and conductance are normal. Impression: Suspect a degree of underlying air trapping. Please correlate clinically. MTDD
== END ==
LOC: M CARPUL 13:53
PROVIDERS: ATTEND Nurse Practitioner Family
DX: J44.9 Chronic obstructive pulmonary disease, unspecified (principal)

== ENCOUNTER → 2017-02-02 | Outpatient (REF) | payer OTHER ==
[2017-02-02 12:08] LABS: AMYLASE 56 U/L (25-115)
== END ==
LOC: M SFHCPLAZ 10:22
PROVIDERS: ATTEND Nurse Practitioner Family
DX: K59.1 Functional diarrhea (principal)

== ENCOUNTER → 2017-02-03 | Outpatient (CLI) | payer OTHER ==
--- NOTE | 2017-02-10 02:07 | ECWPNPC ---
PATIENT NAME: NICOLE BERNABE : 1960 GENDER: FEMALE VISIT DATE: 02/03/2017 DISCHARGE DATE: 02/03/17 1613 VISIT LOCKED DATE TIME: PHYSICIAN: KIMBERLEE FALCON PHYSICIAN PAGER NO: [phone] RESOURCE: KIMBERLEE FALCON REASON FOR APPOINTMENT 1. BACK/NECK HISTORY OF PRESENT ILLNESS HISTORY OF PRESENT ILLNESS: HERE FOR F/U AND MANAGEMENT OF CHRONIC RIGHT LBP AND RIGHT LEG PAIN.HAS HAD RSIJ INJECTIONS IN PAST THAT HAS BEEN HELPFUL,LAST ONE IN DECEMBER.CURRENTLY USING PERCOCET 5/325 PRN FOR SEVERE PAIN WHICH IS HELPFUL.RATING PAIN VAS 8/10.DESCRIBES PAIN CONSTANT SHARP AND ACHING. PAIN THE PATIENT DESCRIBES THE PAIN... FALL RISK SCREENING: SCREENING :NO FALLS IN THE PAST YEAR CURRENT MEDICATIONS TAKING METFORMIN HCL 1000 MG TABLET 1 TABLET WITH MEALS ORALLY TWICE A DAY TAKING LEXAPRO 20 MG TABLET 1 TABLET ORALLY ONCE A DAY TAKING LIPITOR 80 MG TABLET 1 TABLET ORALLY ONCE A DAY TAKING PERCOCET 5-325 MG TABLET 1 ORALLY EVERY 6 HRS PRN MDD2 TAKING INCRUSE ELLIPTA 62.5 MCG/INH AEROSOL POWDER BREATH ACTIVATED 1 PUFF INHALATION ONCE A DAY TAKING OMEPRAZOLE 40 MG CAPSULE DELAYED RELEASE 1 CAPSULE ORALLY ONCE A DAY TAKING DEPAKOTE ER 500 MG TABLET EXTENDED RELEASE 24 HOUR DIRECTED. ORALLY 1 AM, 2 TABS PM TAKING AMITRIPTYLINE HCL 20 MG TABLET 1 TABLET AT BEDTIME ORALLY ONCE A DAY TAKING VENTOLIN HFA 108 (90 BASE) MCG/ACT AEROSOL SOLUTION 2 PUFFS INHALATION EVERY 4-6 HOURS NEEDED, NOTES: 12/09/16@1800 TAKING ALCOHOL PADS 70 % PAD DIRECTED TOPICAL TWICE DAILY/DX : E11.65 TAKING LANCETS FOR ONE TOUCH ULTRA MISCELLANEOUS DIRECTED SC TWICE DAILY/DX : E11.65 TAKING ONE TOUCH ULTRA TEST STRIPS - STRIPS DIRECTED - TWICE DAILY/ DX : E11.65 TAKING FLONASE 50 MCG/DOSE INHALER 2 SPRAYS IN EACH NOSTRIL NASALLY ONCE A DAY TAKING ZEBETA 10 MG TABLET 1 TABLET ORALLY ONCE A DAY TAKING ONE TOUCH ULTRA SYSTEM KIT - METER DIRECTED - TWICE DAILY/ DX : 250.02 TAKING ONDANSETRON HCL 4 MG TABLET DIRECTED ORALLY QID PRN NAUSEA TAKING FOLIC ACID 1 MG TABLET 1 TABLET ORALLY ONCE A DAY TAKING METHOTREXATE 2.5 MG TABLET 4 TABS ORALLY ONCE WEEKLY TAKING LATANOPROST 0.005 % SOLUTION 1 DROP INTO AFFECTED EYE IN THE EVENING OPHTHALMIC ONCE A DAY TAKING LISINOPRIL 20 MG TABLET 1 TABLET ORALLY ONCE A DAY TAKING CHLORTHALIDONE 25 25 MG TABLET 1 TAB(S) ORAL ONCE DAILY NOT-TAKING QUAD CANE - MISCELLANEOUS DIRECTED _ DAILY/ DX : UNSTEADY GAIT NOT-TAKING HOSPITAL BED DIRECTED NOT-TAKING MAY HAVE M54.2 M54.5 HOSPITAL BED DAILY NEEDED DISCONTINUED CIPRO 500 MG TABLET 1 TABLET ORALLY TWICE A DAY DISCONTINUED FLAGYL 500 MG TABLET 1 TABLET ORALLY EVERY 8 HRS DISCONTINUED CVS FLUTICASONE PROPIONATE 50 MCG/ACT SUSPENSION 1 SPRAY IN EACH NOSTRIL NASALLY ONCE A DAY DISCONTINUED MUCINEX 600 MG TABLET EXTENDED RELEASE 12 HOUR 1 TABLET NEEDED ORALLY EVERY 12 HRS DISCONTINUED OXYCODONE HCL 5 MG CAPSULE 1 CAPSULE NEEDED ORALLY EVERY 8 HOURS NEEDED DISCONTINUED PREMARIN 0.625 MG/GM CREAM 0.5 GM VAGINAL TWICE A WEEK DISCONTINUED VITAMIN D 2000 UNIT TABLET DIRECTED ORALLY ONCE A DAY (WHEN LIU COMPLETED) MEDICATION LIST REVIEWED AND RECONCILED WITH THE PATIENT PAST MEDICAL HISTORY SEIZURES- MARIUM MIGRAINES-MARIUM ARTHRITIS CHRONIC NECK PAIN- PAIN CLINIC [facility] HTN H/O PEPTIC ULCER VON WILLEBRAND'S DISEASE (NEEDS PRE-TREATMENT WITH DDAVP FOR SURGERY - SEE NOTE FROM DR. ARAUJO 09/11/2009) HIATAL HERNIA HEMORRHOIDS RECURRENT BREAST ABSCESSES FIBROCYSTIC BREAST DISEASE KIDNEY STONES NECK PAIN- DR SUERO PNEUMOVAX- PT STATES 2011 DIABETES COPD LEFT BREAST FAT NECROSIS POST REDUCTION ALLERGIES ASPIRIN: ANAPHYLAXIS: ALLERGY PEPPER: THROAT CLOSE, TONGUE SWELLS: ALLERGY MORPHINE SULFATE: RASH, HIVES: ALLERGY TOPAMAX: KINDNEY STONES: SIDE EFFECTS IMITREX: SEVERE HTN (NEAR SBP 300): SIDE EFFECTS NICKEL: RASH: ALLERGY REVIEW OF SYSTEMS CONSTITUTIONAL: ANY CHANGE IN YOUR MEDICAL CONDITION? NO . CHILLS NO . FEVER NO . INFECTION: DO YOU HAVE NEW INFECTIONS? NO . DO YOU HAVE HISTORY OF MRSA? NO . MUSCULOSKELETAL: ANY NEW PATTERNS OF PAIN OR NUMBNESS? NO . GASTROENTEROLOGY: ANY NEW CHANGE IN BOWEL CONTROL? NO . GENITOURINARY: ANY NEW CHANGE IN BLADDER CONTROL? NO . IS THERE A CHANCE YOU COULD BE ? NO . HEMATOLOGY/LYMPH: DO YOU TAKE ANY BLOOD THINNERS? (FOR EXAMPLE- COUMADIN, PLAVIX, AGGRENOX, PLATEL, PRADAXA, OR XARELTO) NO . WHEN WAS YOUR LAST DOSE? DATE: TIME: . NEUROLOGY: HAVE YOU FALLEN IN THE PAST 6 MONTHS? YES, . ANY NEW EXTREMITY NUMBNESS OR WEAKNESS? NO . CARDIOLOGY: DO YOU HAVE A PACEMAKER OR DEFIBRILLATOR? NO . RESPIRATORY: HAVE YOU BEEN SICK IN THE PAST WEEK? NO . FEVER NO . FLU LIKE SYMPTOMS? NO . COUGH NO . INTEGUMENTARY: DO YOU HAVE ANY RASHES OR OPEN SORES? NO . ALLERGIC/IMMUNO: ARE YOU ALLERGIC TO SHELLFISH OR IV DYE? NO . ANY NEW ALLERGIES? NO . PSYCHIATRIC: DO YOU HAVE THOUGHTS OF HURTING YOURSELF OR SOMEONE ELSE? NO . ARE YOU ABUSED, NEGLECTED, OR IN AN UNSAFE ENVIRONMENT? NO . ENDOCRINOLOGY: ARE YOU DIABETIC? YES . OTHER: DO YOU NEED ANY PRESCRIPTIONS? NO . IF YES, PLEASE LIST: ____ . ANY NEW PROBLEMS WITH YOUR MEDICATIONS? NO . WHEN DID YOU LAST EAT? ____ . WHEN DID YOU LAST DRINK? ____ . WHAT DID YOU LAST DRINK? ____ . NAME OF PERSON DRIVING YOU HOME? ____ . DO YOU HAVE ANY OTHER QUESTIONS OR CONCERNS YES, SURGERY ON 03/03, CYST REMOVAL . REVIEWED BY: PROVIDER: KIMBERLEE MENARD . VITAL SIGNS WT 179.2 LBS, HT 63.5 IN, BMI 31.24 INDEX, BP 165/77 MM HG, HR 64 /MIN, RR 18 /MIN, TEMP 98.0 F, OXYGEN SAT % 94, NA INITIALS TL 1516, REVIEWED BY: LEIDA. EXAMINATION GENERAL EXAMINATION: LUNGS:LUNG SOUNDS ARE CLEAR. HEART:HEART RATE REGULAR. MUSCULOSKELETAL:*, MUSCLE STRENGTH TESTING 5/5 BILATERAL LOWER EXTREMITIES., PALPATION: POSITIVE FOR PAIN OVERSPECIFIC POINT TENDERNESS OVER RIGHT LUMBAR PARASPINAL REGION.WELL HEALED SURGICAL SCAR L/S AXIS.. DIAGNOSTIC: . 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 BRINGS IN MEDICATIONS WHICH IS APPROPRIATE FOR WHAT WAS DISPENSED. RECENT URINE TOXICOLOGY REVIEWED. NO UNAUTHORIZED MEDICATIONS. NO ILLICIT SUBSTANCES AND PRESCRIBED MEDICATIONS WERE PRESENT. , RISKS AND BENEFITS OF NARCOTIC/OPIOD MEDICATIONS WERE REVIEWED WITH PATIENT - THIS INCLUDES BUT IS NOT LIMITED TO RISK OF DEPENDANCE/DEVELOPMENT OF ADDICTION, MOOD DISTURBANCE AND DEPRESSION, OSTEOPOROSIS, HORMONAL AND LABIDAL CHANGES, RESPIRATORY DEPRESSION AND . PATIENT IS ADVISED NOT TO DRIVE WHILE ON THESE MEDICATIONS. SACROILIAC JOINT PAIN INJECTION ANESTHETIC SACROILIAC JOINT PROCEDURE CODES FA211 ESTABILISHED PATIENT [facility] FACILITY CHARGE DISPOSITION & COMMUNICATION FOLLOW UP 2WK POST (REASON: RIGHT SIJ) ELECTRONICALLY SIGNED BY DERIAN HORNER ON 02/09/2017 AT 02:54 PM EDT DISCLAIMER : THIS IS A VISIT SUMMARY EXTRACTED FROM THE [employer] CHART. IT IS NOT A COPY OF THE [employer] PROGRESS NOTE. NELY
== END ==
LOC: M PAIN 15:00
PROVIDERS: ATTEND Nurse Practitioner Family
DX: Z09 Encounter for follow-up examination after completed treatment for conditions other than malignant neoplasm (principal); G89.29 Other chronic pain; M54.5 Low back pain; M53.3 Sacrococcygeal disorders, not elsewhere classified; M96.1 Postlaminectomy syndrome, not elsewhere classified; G40.909 Epilepsy, unspecified, not intractable, without status epilepticus; G43.909 Migraine, unspecified, not intractable, without status migrainosus; M19.90 Unspecified osteoarthritis, unspecified site; I10 Essential (primary) hypertension; D68.0 Von Willebrand disease; K44.9 Diaphragmatic hernia without obstruction or gangrene; E11.9 Type 2 diabetes mellitus without complications; J44.9 Chronic obstructive pulmonary disease, unspecified; Z88.6 Allergy status to analgesic agent; Z91.018 Allergy to other foods; Z88.5 Allergy status to narcotic agent; Z88.8 Allergy status to other drugs, medicaments and biological substances; L23.0 Allergic contact dermatitis due to metals; Z79.84 Long term (current) use of oral hypoglycemic drugs; Z79.891 Long term (current) use of opiate analgesic

== ENCOUNTER → 2017-02-12 | Outpatient (CLI) | payer OTHER ==
--- NOTE | 2017-02-12 10:45 | REP ---
Hepatobiliary scan and gallbladder ejection fraction: History: Right upper quadrant pain. Technique: 6.4 mCi of technetium-99m mebrofenin was injected and sequential anterior images are acquired. 65 minutes after the mebrofenin injection, the patient consumed 8 ounces Ensure and an additional 60 minutes of imaging was acquired. Regions of interest are plotted around the gallbladder. Findings: The initial hepatocellular parenchymal uptake phase is normal and homogeneous. Intra- and extra-hepatic bile ducts are labeled by the 10 -minute image. The gallbladder is first labeled on the 10 ampules -minute image. The small intestine is first labeled on images just after Ensure ingestion. There is normal washout from the liver parenchyma into the gallbladder and small intestine on subsequent images. The gallbladder ejection fraction is 89 %. Values greater than 35 % are considered normal with this technique. Impression: Normal hepatobiliary scan and normal gallbladder ejection fraction. Signed by Saad Boogie MD 02/12/2017 10:37 A
== END ==
LOC: M RAD 07:43
PROVIDERS: ATTEND Nurse Practitioner Family
DX: R10.11 Right upper quadrant pain (principal)

== ENCOUNTER → 2017-02-23 | Outpatient (CLI) | payer OTHER ==
[~2017-02-23] MED LIST changes: +ALBU17IN INH; +AMIT10TA PO; +BUPIVACAINE HCL 0.25% 30 ML VIAL As Ordered ONE; +FLON1SPR; +FOLI1TAB2 PO; +INCR1INH IN; +ISOVUE-M 300 61% 15ML VIAL (Q9967) As Ordered ONE; +LATA5OPD OU; +LIDOCAINE 1% SDV INJ 30 ML VIAL As Ordered ONE; +LIPI80TA PO; +LISI-538 PO; +METH2.5TA PO; +PERC5TAB6 PO; +TRIAMCINOLONE ACETONIDE SUSP 40 MG/ML VIAL (J3301) As Ordered ONE; +[UNRECOGNIZED DRUG - REMARK]; +diazePAM 5 MG TAB As Ordered ONE; +oxyCODONE 5MG TAB As Ordered ONE
--- NOTE | 2017-02-23 13:17 | REP ---
Partial SI joint series: Three views. History: Right SI joint injection for pain. 24 seconds of fluoroscopy time is reported. Findings: A sequence of three fluoroscopically obtained intraprocedural last image hold spot radiographs of the right SI joint document needle position and contrast injection associated with injection procedure. Signed by Saad Boogie MD 02/23/2017 06:26 P
--- NOTE | 2017-03-01 23:58 | ECWPNPC ---
PATIENT NAME: NICOLE BERNABE : 1960 GENDER: FEMALE VISIT DATE: 02/23/2017 DISCHARGE DATE: 02/23/17 1125 VISIT LOCKED DATE TIME: PHYSICIAN: MARCOS WARD PHYSICIAN PAGER NO: TEXT TO [phone] RESOURCE: MARCOS WARD REASON FOR APPOINTMENT 1. SIJ HISTORY OF PRESENT ILLNESS HISTORY OF PRESENT ILLNESS: PAIN THE PATIENT DESCRIBES THE PAIN... FALL RISK SCREENING: SCREENING :NO FALLS IN THE PAST YEAR CURRENT MEDICATIONS TAKING METFORMIN HCL 1000 MG TABLET 1 TABLET WITH MEALS ORALLY TWICE A DAY, NOTES: 02-22-172099 TAKING LEXAPRO 20 MG TABLET 1 TABLET ORALLY ONCE A DAY, NOTES: 02-22-172099 TAKING LIPITOR 80 MG TABLET 1 TABLET ORALLY ONCE A DAY, NOTES: 02-22-172099 TAKING INCRUSE ELLIPTA 62.5 MCG/INH AEROSOL POWDER BREATH ACTIVATED 1 PUFF INHALATION ONCE A DAY, NOTES: 02-22-172099 TAKING OMEPRAZOLE 40 MG CAPSULE DELAYED RELEASE 1 CAPSULE ORALLY ONCE A DAY, NOTES: 02-22-172099 TAKING DEPAKOTE ER 500 MG TABLET EXTENDED RELEASE 24 HOUR DIRECTED. ORALLY 1 AM, 2 TABS PM, NOTES: 02-23-17799 TAKING AMITRIPTYLINE HCL 20 MG TABLET 1 TABLET AT BEDTIME ORALLY ONCE A DAY, NOTES: 02-22-172099 TAKING VENTOLIN HFA 108 (90 BASE) MCG/ACT AEROSOL SOLUTION 2 PUFFS INHALATION EVERY 4-6 HOURS NEEDED, NOTES: 2 DAYS AGO TAKING ALCOHOL PADS 70 % PAD DIRECTED TOPICAL TWICE DAILY/DX : E11.65 TAKING LANCETS FOR ONE TOUCH ULTRA MISCELLANEOUS DIRECTED SC TWICE DAILY/DX : E11.65 TAKING ONE TOUCH ULTRA TEST STRIPS - STRIPS DIRECTED - TWICE DAILY/ DX : E11.65 TAKING FLONASE 50 MCG/DOSE INHALER 2 SPRAYS IN EACH NOSTRIL NASALLY ONCE A DAY, NOTES: 02-22-172099 TAKING ZEBETA 10 MG TABLET 1 TABLET ORALLY ONCE A DAY, NOTES: 02-23-17799 TAKING ONE TOUCH ULTRA SYSTEM KIT - METER DIRECTED - TWICE DAILY/ DX : 250.02 TAKING ONDANSETRON HCL 4 MG TABLET DIRECTED ORALLY QID PRN NAUSEA, NOTES: 02-22-172099 TAKING FOLIC ACID 1 MG TABLET 1 TABLET ORALLY ONCE A DAY, NOTES: 02-22-17799 TAKING METHOTREXATE 2.5 MG TABLET 4 TABS ORALLY ONCE WEEKLY, NOTES: 02-20-17799 TAKING LATANOPROST 0.005 % SOLUTION 1 DROP INTO AFFECTED EYE IN THE EVENING OPHTHALMIC ONCE A DAY, NOTES: 02-22-17799 TAKING LISINOPRIL 20 MG TABLET 1 TABLET ORALLY ONCE A DAY, NOTES: 02-23-17799 TAKING CHLORTHALIDONE 25 25 MG TABLET 1 TAB(S) ORAL ONCE DAILY, NOTES: 02-22-17799 TAKING PERCOCET 5-325 MG TABLET 1 ORALLY EVERY 6 HRS PRN MDD2, NOTES: 02-22-171999 NOT-TAKING QUAD CANE - MISCELLANEOUS DIRECTED _ DAILY/ DX : UNSTEADY GAIT NOT-TAKING HOSPITAL BED DIRECTED NOT-TAKING MAY HAVE M54.2 M54.5 HOSPITAL BED DAILY NEEDED MEDICATION LIST REVIEWED AND RECONCILED WITH THE PATIENT PAST MEDICAL HISTORY SEIZURES- MARIUM MIGRAINES-MARIUM ARTHRITIS CHRONIC NECK PAIN- PAIN CLINIC [facility] HTN H/O PEPTIC ULCER VON WILLEBRAND'S DISEASE (NEEDS PRE-TREATMENT WITH DDAVP FOR SURGERY - SEE NOTE FROM DR. ARAUJO 09/11/2009) HIATAL HERNIA HEMORRHOIDS RECURRENT BREAST ABSCESSES FIBROCYSTIC BREAST DISEASE KIDNEY STONES NECK PAIN- DR SUERO PNEUMOVAX- PT STATES 2011 DIABETES COPD LEFT BREAST FAT NECROSIS POST REDUCTION RA ALLERGIES ASPIRIN: ANAPHYLAXIS: ALLERGY PEPPER: THROAT CLOSE, TONGUE SWELLS: ALLERGY MORPHINE SULFATE: RASH, HIVES: ALLERGY TOPAMAX: KINDNEY STONES: SIDE EFFECTS IMITREX: SEVERE HTN (NEAR SBP 300): SIDE EFFECTS NICKEL: RASH: ALLERGY SOCIAL HISTORY GENERAL: PAIN CLINIC PFS, CLERGY, PUBLIC HEALTH REFERRALS CLERGY REFERRAL NEEDED?NO WAS THE PROVIDER NOTIFIED OF ANY PERTINENT INFO?NO PFS REFERRAL NEEDED?NO PUBLIC HEALTH REFERRAL NEEDED?NO PATIENT: ____. REVIEW OF SYSTEMS CONSTITUTIONAL: ANY CHANGE IN YOUR MEDICAL CONDITION? NO . CHILLS NO . FEVER NO . INFECTION: DO YOU HAVE NEW INFECTIONS? NO . DO YOU HAVE HISTORY OF MRSA? NO . MUSCULOSKELETAL: ANY NEW PATTERNS OF PAIN OR NUMBNESS? NO . GASTROENTEROLOGY: ANY NEW CHANGE IN BOWEL CONTROL? NO . GENITOURINARY: ANY NEW CHANGE IN BLADDER CONTROL? NO . IS THERE A CHANCE YOU COULD BE ? NO . HEMATOLOGY/LYMPH: DO YOU TAKE ANY BLOOD THINNERS? (FOR EXAMPLE- COUMADIN, PLAVIX, AGGRENOX, PLATEL, PRADAXA, OR XARELTO) NO . WHEN WAS YOUR LAST DOSE? DATE: TIME: . NEUROLOGY: HAVE YOU FALLEN IN THE PAST 6 MONTHS? NO . ANY NEW EXTREMITY NUMBNESS OR WEAKNESS? NO . CARDIOLOGY: DO YOU HAVE A PACEMAKER OR DEFIBRILLATOR? NO . RESPIRATORY: HAVE YOU BEEN SICK IN THE PAST WEEK? NO . FEVER NO . FLU LIKE SYMPTOMS? NO . COUGH NO . INTEGUMENTARY: DO YOU HAVE ANY RASHES OR OPEN SORES? NO . ALLERGIC/IMMUNO: ARE YOU ALLERGIC TO SHELLFISH OR IV DYE? NO . ANY NEW ALLERGIES? NO . PSYCHIATRIC: DO YOU HAVE THOUGHTS OF HURTING YOURSELF OR SOMEONE ELSE? NO . ARE YOU ABUSED, NEGLECTED, OR IN AN UNSAFE ENVIRONMENT? NO . ENDOCRINOLOGY: ARE YOU DIABETIC? YES . OTHER: DO YOU NEED ANY PRESCRIPTIONS? NO . IF YES, PLEASE LIST: ____ . ANY NEW PROBLEMS WITH YOUR MEDICATIONS? NO . WHEN DID YOU LAST EAT? 02-22-17 7 PM . WHEN DID YOU LAST DRINK? 02-23-17 0800 . WHAT DID YOU LAST DRINK? WATER . NAME OF PERSON DRIVING YOU HOME? JOSEFINA . DO YOU HAVE ANY OTHER QUESTIONS OR CONCERNS NO . REVIEWED BY: PROVIDER: . VITAL SIGNS WT 177 LBS, HT 63.5 IN, BMI 30.86 INDEX, BP 120/80 MM HG, HR 54 /MIN, RR 16 /MIN, TEMP 98.0 F, OXYGEN SAT % 96%, NA INITIALS SC 10:09, REVIEWED BY: CM. ASSESSMENTS SACROILIITIS, NOT ELSEWHERE CLASSIFIED - M46.1 (PRIMARY) PROCEDURES PN SI PRE PROCEDURE DIAGNOSIS SACROILIITIS, SACROILIAC JOINT DYSFUNCTION POST PROCEDURE DIAGNOSIS SACROILIITIS, SACROILIAC JOINT DYSFUNCTION PROCEDURE ., RIGHT SACROILIAC JOINT BLOCK SURGEON DR. 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 I EVALUATED THE PATIENT AND REVIEWED THE CHART. I WENT OVER THE RISKS, ALTERNATIVES, AND BENEFITS ASSOCIATED WITH THIS PROCEDURE. THE PATIENT WOULD LIKE TO PROCEED AND GAVE CONSENT TO PERFORM THE PROCEDURE. THE PATIENT DENIES UNEXPLAINABLE WEIGHT LOSS, FEVER, CHILLS, OR NEW CHANGES IN URINARY OR BOWEL CONTROL DESCRIPTION OF PROCEDURE THE PATIENT WAS BROUGHT TO THE PROCEDURE ROOM AND PLACED IN THE PRONE POSITION. THE LUMBOSACRAL AREA WAS CLEANED WITH CHLORAPREP SOLUTION AND DRAPED ASEPTICALLY. THE PROCEDURE WAS DONE UNDER STERILE CONDITIONS. I CHECKED LATERALITY AND THE LEVEL WHERE THE PROCEDURE WAS GOING TO BE PERFORMED WITH THE PATIENT AND THE SUPPORTING STAFF AT THE MOMENT OF THE TIME OUT IN THE PROCEDURE ROOM. UNDER FLUOROSCOPIC GUIDANCE, TARGET POINT WAS SELECTED AT THE LOWER BORDER OF THE RIGHT SACROILIAC JOINT. TARGET POINT WAS SELECTED AFTER MEDIAL ROTATION AND TILT OF THE MAGNIFIER OF THE C-ARM. LIDOCAINE WAS USED TO NUMB THE SKIN AND SUBCUTANEOUS TISSUE BELOW IT. A SPINAL NEEDLE, 22-GAUGE, WAS ADVANCED UNDER FLUOROSCOPIC GUIDANCE AND FOLLOWING PATIENT FEEDBACK UNTIL THE TARGET AREA WAS TOUCHED. THE POSITION OF THE NEEDLE WAS VERIFIED WITH AP AND LATERAL VIEWS. AFTER PROPER POSITION OF THE NEEDLE WAS ACHIEVED, ISOVUE M DYE 30%, 0.25 ML, WAS INJECTED SHOWING SPREAD OF THE DYE. THEN, A SOLUTION OF 20 MG OF KENALOG WAS INJECTED IN RIGHT JOINT WITH 3 ML OF BUPIVACAINE 0.125%. THERE WAS NO EVIDENCE OF BLOOD, PARESTHESIA OR CEREBROSPINAL FLUID DURING THE PROCEDURE. THE PATIENT WAS SENT TO THE RECOVERY ROOM. THE PATIENT WAS MOVING THE EXTREMITIES AND DOING WELL. THERE WAS NO COMPLICATION DURING THE PROCEDURE. FLUOROSCOPY TIME WAS 24 SECONDS POST PROCEDURE NOTE THE PATIENT WILL BE SEEN IN A FOLLOW UP IN THE NEXT FEW WEEKS. INSTRUCTIONS WERE GIVEN, QUESTIONS WERE ANSWERED, AND THE PATIENT EXPRESSED UNDERSTANDING AND AGREED WITH THE PLAN. I, ALESSANDRO MCCALLUM, DOCUMENTED THE ABOVE INFORMATION ACTING A SCRIBE FOR DR. WARD. I HAVE REVIEWED THE ABOVE DOCUMENT, WRITTEN BY ALESSANDRO MCCALLUM SCRIBDavid AND I VERIFY THAT IT IS ACCURATE. [facility] FLUORO GUIDANCE (PAIN)[id number] PROCEDURE CODES 95768 INJECT SACROILIAC JOINT 6045F RADXPS IN END [id number] PXD DISPOSITION & COMMUNICATION FOLLOW UP 3 WEEKS ELECTRONICALLY SIGNED BY MARCOS WARD MD ON 03/01/2017 AT 05:56 PM EDT DISCLAIMER : THIS IS A VISIT SUMMARY EXTRACTED FROM THE [employer] CHART. IT IS NOT A COPY OF THE [employer] PROGRESS NOTE. MTDD
== END ==
LOC: M PAIN 10:20
PROVIDERS: ATTEND Anesthesiology
DX: G89.29 Other chronic pain (principal); M46.1 Sacroiliitis, not elsewhere classified; M53.88 Other specified dorsopathies, sacral and sacrococcygeal region; G40.909 Epilepsy, unspecified, not intractable, without status epilepticus; G43.909 Migraine, unspecified, not intractable, without status migrainosus; M19.90 Unspecified osteoarthritis, unspecified site; M06.9 Rheumatoid arthritis, unspecified; I10 Essential (primary) hypertension; D68.0 Von Willebrand disease; E11.9 Type 2 diabetes mellitus without complications; J44.9 Chronic obstructive pulmonary disease, unspecified; Z88.6 Allergy status to analgesic agent; Z91.018 Allergy to other foods; Z88.5 Allergy status to narcotic agent; L23.0 Allergic contact dermatitis due to metals; Z79.84 Long term (current) use of oral hypoglycemic drugs; Z79.891 Long term (current) use of opiate analgesic; Z79.899 Other long term (current) drug therapy
CPT/HCPCS: G0260; J3301; Q9967

== ENCOUNTER → 2017-02-28 | Outpatient (CLI) | payer OTHER ==
[~2017-02-28] MED LIST changes: -BUPIVACAINE HCL 0.25% 30 ML VIAL As Ordered ONE; -ISOVUE-M 300 61% 15ML VIAL (Q9967) As Ordered ONE; -LIDOCAINE 1% SDV INJ 30 ML VIAL As Ordered ONE; -TRIAMCINOLONE ACETONIDE SUSP 40 MG/ML VIAL (J3301) As Ordered ONE; -diazePAM 5 MG TAB As Ordered ONE; -oxyCODONE 5MG TAB As Ordered ONE
--- NOTE | 2017-02-28 19:03 | ECGEPIP ---
Stationary ECG Study [facility] Test Date: 2017-02-28 Pat Name: NICOLE BERNABE Department: Room: - Gender: F Cupola Patcher: ADOLFO : 1960 Requested By: FLORENCIA Alvarez Order Number: [id number] Reading MD: Jamie Crenshaw Measurements Intervals Omer Rate: 58 P: 69 GA: 151 QRS: 53 QRSD: 104 T: 32 QT: 393 QTc: 387 Interpretive Statements SINUS BRADYCARDIA NONSPECIFIC ST & T-WAVE ABNORMALITY Very similar to EKG done at [facility] on 12-17-15 which is available as a scanned document in [employer] Electronically Signed On 02-28-2017 19:03:14 EDT by Jamie Crenshaw
== END ==
LOC: M LAB 12:38 → M EKG 12:38
PROVIDERS: ATTEND Surgery
DX: Z01.818 Encounter for other preprocedural examination (principal); R94.31 Abnormal electrocardiogram [ECG] [EKG]; R00.1 Bradycardia, unspecified

== ENCOUNTER → 2017-03-03 | Day surgery (SDC) | payer OTHER ==
[~2017-03-03] VITALS: Ht 160 cm; Wt 80.3 kg
[~2017-03-03] MED LIST changes: +BUPIVACAINE/EPIN 0.25% 30 ML VIAL As Ordered ONE; +DESMOPRESSIN ACETATE 24 MCG in NS 50 ML IV ONE; +LIDOCAINE 2% INJ 100 MG/5 ML SDV (FOR ANES.) As Ordered ONE; +LR 1,000 ML IV SCH; +MIDAZOLAM INJ 2 MG/2 ML VIAL (J2250) As Ordered ONE; +NORCO, ANEXSIA 5/325MG TABLET (HYDROcodone/ACETAMINOPHEN) As Ordered ONE; +PROPOFOL 200 MG/20 ML VIAL As Ordered ONE; +fentaNYL 100 MCG/2 ML INJECTION (J3010) As Ordered ONE; +fentaNYL 100 MCG/2 ML INJECTION (J3010) IV PRN
[2017-03-03] MEDS: NORCO, ANEXSIA 5/325MG TABLET (HYDROcodone/ACETAMINOPHEN) PO PRN ×2 (11:20→12:03)
[2017-03-03 12:00] VITALS: BP 170/71
--- NOTE | 2017-03-11 08:00 | RO ---
DATE OF PROCEDURE: 03/03/2017 PREOPERATIVE DIAGNOSIS: Right groin cysts/recurrent abscess. POSTOPERATIVE DIAGNOSIS: Right groin cysts/recurrent abscess. OPERATIVE PROCEDURE: Excision of right groins cysts/recurrent abscess. SURGEON: Dr. Deepak Bazan. ANESTHESIA: Local with sedation. ESTIMATED BLOOD LOSS: Minimal. FLUIDS: Crystalloid. DESCRIPTION OF OPERATION: The patient was brought to the operating room and was given local anesthesia. After adequate anesthesia and preoperative antibiotics were given, the patient was prepped and draped in usual sterile fashion. Next an elliptical incision around the right groin cyst was made after local lidocaine was infiltrated into the area. Once the local was inserted, the elliptical incision was made with skin knife. Electrocautery was used to cut through dermis, underlying subcutaneous tissue but relatively superficially this incision was made and the subcutaneous tissue was only a minimal amount of subcutaneous tissue given that the abscess/nodule in the subcutaneous tissue that was on the right side of the labia/groin was able to be removed in its totality. Dermis was brought together with #3-0 Vicryl, #4-0 Vicryl subcuticular was used to approximate the skin. Dermabond was placed in this area and dry sterile dressing. The patient was awakened from her sedation, brought to the recovery room awake, alert, hemodynamically stable.
== END | disposition home or self-care (01) ==
LOC: M SDC 07:42
PROVIDERS: ATTEND Surgery
DX: D17.1 Benign lipomatous neoplasm of skin and subcutaneous tissue of trunk (principal); I10 Essential (primary) hypertension; D68.0 Von Willebrand disease; J44.9 Chronic obstructive pulmonary disease, unspecified; E11.65 Type 2 diabetes mellitus with hyperglycemia; G40.909 Epilepsy, unspecified, not intractable, without status epilepticus; E78.00 Pure hypercholesterolemia, unspecified; K21.9 Gastro-esophageal reflux disease without esophagitis; M06.9 Rheumatoid arthritis, unspecified; M54.2 Cervicalgia; M54.9 Dorsalgia, unspecified; G43.909 Migraine, unspecified, not intractable, without status migrainosus; Z88.5 Allergy status to narcotic agent; Z88.6 Allergy status to analgesic agent; Z88.8 Allergy status to other drugs, medicaments and biological substances; Z91.018 Allergy to other foods; Z79.899 Other long term (current) drug therapy; Z79.84 Long term (current) use of oral hypoglycemic drugs; Z78.0 Asymptomatic menopausal state; Z87.442 Personal history of urinary calculi; Z87.891 Personal history of nicotine dependence
CPT/HCPCS: 11424; 88305; J2250; J2597; J3010

== ENCOUNTER → 2017-03-24 | Outpatient (CLI) | payer OTHER ==
[~2017-03-24] MED LIST changes: -BUPIVACAINE/EPIN 0.25% 30 ML VIAL As Ordered ONE; -DESMOPRESSIN ACETATE 24 MCG in NS 50 ML IV ONE; -LIDOCAINE 2% INJ 100 MG/5 ML SDV (FOR ANES.) As Ordered ONE; -LR 1,000 ML IV SCH; -MIDAZOLAM INJ 2 MG/2 ML VIAL (J2250) As Ordered ONE; -NORCO, ANEXSIA 5/325MG TABLET (HYDROcodone/ACETAMINOPHEN) As Ordered ONE; -PROPOFOL 200 MG/20 ML VIAL As Ordered ONE; -fentaNYL 100 MCG/2 ML INJECTION (J3010) As Ordered ONE; -fentaNYL 100 MCG/2 ML INJECTION (J3010) IV PRN
--- NOTE | 2017-04-04 00:43 | ECWPNPC ---
PATIENT NAME: NICOLE BERNABE : 1960 GENDER: FEMALE VISIT DATE: 03/24/2017 DISCHARGE DATE: 03/24/17 1530 VISIT LOCKED DATE TIME: PHYSICIAN: MARCOS WARD PHYSICIAN PAGER NO: TEXT TO [phone] RESOURCE: MARCOS WARD REASON FOR APPOINTMENT 1. 1 MO S/P SIJ HISTORY OF PRESENT ILLNESS HISTORY OF PRESENT ILLNESS: PAIN THE PATIENT DESCRIBES THE PAIN... 56 YEAR OLD FEMALE PATIENT WITH HISTORY OF CHRONIC BACK AND NECK PAIN PATIENT DESCRIBES THE PAIN ACHING, BURNING, SHARP, STABBING, TENDER, THROBBING, SORE SHOOTING, AND HAVING IT ALL THE TIME WITH A PAIN SCORE OF 8/10 ON TODAY'S VISIT. PATIENT RECEIVED A SIJ ON 02/23/2017 AND STATES THAT SHE RECEIVED MORE 50 PERCENT OF PAIN RELIEF FOR A MONTH IN HER BACK. PATIENT DENIES UNEXPLAINABLE WEIGHT LOSS, FEVER, CHILLS, NEW CHANGES ON HER URINARY OR BOWEL CONTROL. FALL RISK SCREENING: SCREENING :NO FALLS IN THE PAST YEAR CURRENT MEDICATIONS TAKING METFORMIN HCL 1000 MG TABLET 1 TABLET WITH MEALS ORALLY TWICE A DAY TAKING LEXAPRO 20 MG TABLET 1 TABLET ORALLY ONCE A DAY TAKING LIPITOR 80 MG TABLET 1 TABLET ORALLY ONCE A DAY TAKING INCRUSE ELLIPTA 62.5 MCG/INH AEROSOL POWDER BREATH ACTIVATED 1 PUFF INHALATION ONCE A DAY TAKING OMEPRAZOLE 40 MG CAPSULE DELAYED RELEASE 1 CAPSULE ORALLY ONCE A DAY TAKING DEPAKOTE ER 500 MG TABLET EXTENDED RELEASE 24 HOUR DIRECTED. ORALLY 1 AM, 2 TABS PM TAKING AMITRIPTYLINE HCL 20 MG TABLET 1 TABLET AT BEDTIME ORALLY ONCE A DAY TAKING ALCOHOL PADS 70 % PAD DIRECTED TOPICAL TWICE DAILY/DX : E11.65 TAKING FLONASE 50 MCG/DOSE INHALER 2 SPRAYS IN EACH NOSTRIL NASALLY ONCE A DAY TAKING ZEBETA 10 MG TABLET 1 TABLET ORALLY ONCE A DAY TAKING ONE TOUCH ULTRA SYSTEM KIT - METER DIRECTED - TWICE DAILY/ DX : 250.02 TAKING ONDANSETRON HCL 4 MG TABLET DIRECTED ORALLY QID PRN NAUSEA TAKING FOLIC ACID 1 MG TABLET 1 TABLET ORALLY ONCE A DAY TAKING METHOTREXATE 2.5 MG TABLET 4 TABS ORALLY ONCE WEEKLY TAKING LATANOPROST 0.005 % SOLUTION 1 DROP INTO AFFECTED EYE IN THE EVENING OPHTHALMIC ONCE A DAY TAKING PERCOCET 5-325 MG TABLET 1 ORALLY EVERY 6 HRS PRN MDD2 TAKING CHLORTHALIDONE 25 25 MG TABLET 1 TAB(S) ORAL ONCE DAILY TAKING ONE TOUCH ULTRA TEST STRIPS - STRIPS DIRECTED - TWICE DAILY/ DX : E11.65 TAKING LANCETS FOR ONE TOUCH ULTRA MISCELLANEOUS DIRECTED SC TWICE DAILY/DX : E11.65 TAKING VENTOLIN HFA 108 (90 BASE) MCG/ACT AEROSOL SOLUTION 2 PUFFS INHALATION EVERY 4-6 HOURS NEEDED TAKING LISINOPRIL 20 MG TABLET 1 TABLET ORALLY ONCE A DAY NOT-TAKING QUAD CANE - MISCELLANEOUS DIRECTED _ DAILY/ DX : UNSTEADY GAIT NOT-TAKING HOSPITAL BED DIRECTED NOT-TAKING MAY HAVE M54.2 M54.5 HOSPITAL BED DAILY NEEDED MEDICATION LIST REVIEWED AND RECONCILED WITH THE PATIENT PAST MEDICAL HISTORY SEIZURES- MARIUM MIGRAINES-MARIUM ARTHRITIS CHRONIC NECK PAIN- PAIN CLINIC [facility] HTN H/O PEPTIC ULCER VON WILLEBRAND'S DISEASE (NEEDS PRE-TREATMENT WITH DDAVP FOR SURGERY - SEE NOTE FROM DR. ARAUJO 09/11/2009) HIATAL HERNIA HEMORRHOIDS RECURRENT BREAST ABSCESSES FIBROCYSTIC BREAST DISEASE KIDNEY STONES NECK PAIN- DR SUERO PNEUMOVAX- PT STATES 2011 DIABETES COPD LEFT BREAST FAT NECROSIS POST REDUCTION RA ALLERGIES ASPIRIN: ANAPHYLAXIS: ALLERGY PEPPER: THROAT CLOSE, TONGUE SWELLS: ALLERGY MORPHINE SULFATE: RASH, HIVES: ALLERGY TOPAMAX: KINDNEY STONES: SIDE EFFECTS IMITREX: SEVERE HTN (NEAR SBP 300): SIDE EFFECTS NICKEL: RASH: ALLERGY SURGICAL HISTORY C-SECTIONS X 4 1979, 1985, 1989, 1990 TUBAL LIGATION EARLY C4-5 AND C6-7 DISCECTOMY AND FUSION 1997 LEFT BREAST LUMPECTOMY (BALJINDER) 2002 PARTIAL HYSTERECTOMY (REEMA) 2005 C5-7 REVISION AND REPLATING C4-5 (NIMO) 2008 COLONOSCOPY (BALJINDER) UNK KIDNEY STONE/BILATERAL HYDRONEPHROSIS/STENT PLACEMENT- DR WALSH 07/2013 COLONOSCOPY- DARLIN- TUBULAR ADENOMA AND HYPERPLASTIC POLYP- RECHECK 3 YEARS 06/20 EGD-DARLIN- GASTRIC HYPERPLASTIC POLYP 06/20 STENT KIDNEY STONE, RIGHT AND LEFT 07/2013 LEFT ESWL 08/24/13, 10/05/13 LASER LITHOTRIPSY AND REMOVAL OF STENTS 12/01/13 COLONOSCOPY WITH POLYPECTOMY, MODERAT EDIVERTICULOSIS: DR. SAEED 08/16/2015 TLIF L4 TO S1: DR. SUERO 01/22/16 BREAST REDUCTION ([facility]) 05/2016 BACK SURGERY TITANIUM CAGE 9-16 FAMILY HISTORY FATHER: , UNKNOWN CAUSE MOTHER: ALIVE 79 YRS, GERD, DIAGNOSED WITH HYPERTENSION, HEART DISEASE SIBLINGS: SISTER WITH PANCREATIC CA, DM, HTN SISTER WITH HTN BROTHERS: WELL, SMOKERS 2 BROTHER(S) , 4 SISTER(S) . SOCIAL HISTORY GENERAL: TOBACCO USE ARE YOU A:FORMER SMOKER HOW LONG HAS IT BEEN SINCE YOU LAST SMOKED?1-5 YEARS BMI CARE GOAL FOLLOW-UP ABOVE NORMAL BMI FOLLOW-UPLIFESTYLE EDUCATION REGARDING DIET ALCOHOL SCREENING DID YOU HAVE A DRINK CONTAINING ALCOHOL IN THE PAST YEAR?YES HOW OFTEN DID YOU HAVE A DRINK CONTAINING ALCOHOL IN THE PAST YEAR?MONTHLY OR LESS (1 POINT) HOW MANY DRINKS DID YOU HAVE ON A TYPICAL DAY WHEN YOU WERE DRINKING IN THE PAST YEAR?1 OR 2 (0 POINTS) HOW OFTEN DID YOU HAVE SIX OR MORE DRINKS ON ONE OCCASION IN THE PAST YEAR?NEVER (0 POINTS) POINTS1 INTERPRETATIONNEGATIVE RECREATIONAL DRUG USE DRUG USE?NO CAFFEINE CAFFEINE USE?YES HOW OFTEN AND HOW MUCH? DAILY SEXUAL HX HAD SEX IN THE LAST 12 MONTHS (VAGINAL, ORAL, OR ANAL)?YES WITHMEN ONLY HAVE YOU EVER HAD AN STD?NO HIV / HEP-C SCREENING HIV TEST OFFERED TO PATIENT:NO HEP-C TEST OFFERED TO PATIENT:NO DIET: NO CONCENTRATED SWEETS.. LEARNING BARRIERS / SPECIAL NEEDS CHANGE FROM LAST VISIT?NO NEW PATIENT PAIN DIARY TODAY'S VISIT NOTES, FROM 0-10, WHAT LEVEL IS YOUR PAIN TODAY? 0. PAIN CLINIC PFS, CLERGY, PUBLIC HEALTH REFERRALS PFS REFERRAL NEEDED? NO, CLERGY REFERRAL NEEDED? NO, PUBLIC HEALTH REFERRAL NEEDED? NO, WAS THE PROVIDER NOTIFIED OF ANY PERTINENT INFO? NO, PFS REFERRAL NEEDED? NO, CLERGY REFERRAL NEEDED? NO, PUBLIC HEALTH REFERRAL NEEDED? NO, WAS THE PROVIDER NOTIFIED OF ANY PERTINENT INFO? NO. HOSPITALIZATION/MAJOR DIAGNOSTIC PROCEDURE MULTIPLE FOR SEIZURES AND ORTHOPEDIC PROBLEMS S/P ANTERIOR CERVICAL REVISION AND REPLATING @ [facility] 09/2009 LUMBAR SPINE FUSION 01/2016 REVIEW OF SYSTEMS CONSTITUTIONAL: ANY CHANGE IN YOUR MEDICAL CONDITION? NO . CHILLS NO . FEVER NO . INFECTION: DO YOU HAVE NEW INFECTIONS? NO . DO YOU HAVE HISTORY OF MRSA? NO . MUSCULOSKELETAL: ANY NEW PATTERNS OF PAIN OR NUMBNESS? NO . GASTROENTEROLOGY: ANY NEW CHANGE IN BOWEL CONTROL? NO . GENITOURINARY: ANY NEW CHANGE IN BLADDER CONTROL? NO . IS THERE A CHANCE YOU COULD BE ? NO . HEMATOLOGY/LYMPH: DO YOU TAKE ANY BLOOD THINNERS? (FOR EXAMPLE- COUMADIN, PLAVIX, AGGRENOX, PLATEL, PRADAXA, OR XARELTO) NO . WHEN WAS YOUR LAST DOSE? DATE: TIME: . NEUROLOGY: HAVE YOU FALLEN IN THE PAST 6 MONTHS? NO . ANY NEW EXTREMITY NUMBNESS OR WEAKNESS? NO . CARDIOLOGY: DO YOU HAVE A PACEMAKER OR DEFIBRILLATOR? NO . RESPIRATORY: HAVE YOU BEEN SICK IN THE PAST WEEK? NO . FEVER NO . FLU LIKE SYMPTOMS? NO . COUGH NO . INTEGUMENTARY: DO YOU HAVE ANY RASHES OR OPEN SORES? NO . ALLERGIC/IMMUNO: ARE YOU ALLERGIC TO SHELLFISH OR IV DYE? NO . ANY NEW ALLERGIES? NO . PSYCHIATRIC: DO YOU HAVE THOUGHTS OF HURTING YOURSELF OR SOMEONE ELSE? NO . ARE YOU ABUSED, NEGLECTED, OR IN AN UNSAFE ENVIRONMENT? NO . ENDOCRINOLOGY: ARE YOU DIABETIC? YES . OTHER: DO YOU NEED ANY PRESCRIPTIONS? NO . IF YES, PLEASE LIST: ____ . ANY NEW PROBLEMS WITH YOUR MEDICATIONS? NO . WHEN DID YOU LAST EAT? ____ . WHEN DID YOU LAST DRINK? ____ . WHAT DID YOU LAST DRINK? ____ . NAME OF PERSON DRIVING YOU HOME? ____ . DO YOU HAVE ANY OTHER QUESTIONS OR CONCERNS NO . REVIEWED BY: PROVIDER: MARCOS WARD MD . VITAL SIGNS WT 182.6 LBS, HT 63.5 IN, BMI 31.84 INDEX, BP 137/73 MM HG, HR 84 /MIN, RR 16 /MIN, TEMP 97.0 F, OXYGEN SAT % 98%, NA INITIALS TL 1403, REVIEWED BY: CM. EXAMINATION : PATIENT IS ALERT O X 3 AND COOPERATIVE. THERE IS TENDERNESS IN THE RIGHT NECK AND RIGHT SHOULDER WITH BANDS OF TISSUES, RESTRICTION OF MOVEMENT, AND PRESENCE OF TRIGGER POINTS. ASSESSMENTS MYALGIA - M79.1 (PRIMARY) TREATMENT MYALGIA NOTES: WE DISCUSSED SEVERAL ISSUES WITH MS. BERNABE'S PAIN MANAGEMENT CASE. AT THIS TIME THE PATIENT WILL CONTINUE ON THE SAME MEDICATION REGIMEN BEFORE. AFTER EXAMINING THE PATIENT IS A GOOD CANDIDATE FOR A TPI IN THE RIGHT NECK AND RIGHT SHOULDER AREA. WE DISCUSSED THE RISK, BENEFITS, AND ALTERNATIVES AND THE PATIENT WANTS TO PROCEED FORWARD. PATIENT WILL BE BOOKED PENDING APPROVAL. PATIENT WILL FOLLOW UP WITH KIMBERLEE FALCON IN 4 WEEKS. INSTRUCTIONS WERE GIVEN, QUESTIONS WERE ANSWERED, PATIENT REPORTS UNDERSTANDING AND AGREES WITH THE PLAN. I, ALESSANDRO MCCALLUM, DOCUMENTED THE ABOVE INFORMATION ACTING A SCRIBE FOR DR. WARD. I HAVE REVIEWED THE ABOVE DOCUMENT, WRITTEN BY ALESSANDRO MCCALLUM SCRIBE AND I VERIFY THAT IT IS ACCURATE. PROCEDURE CODES FA211 ESTABILISHED PATIENT [facility] CHARGE G8730 PAIN ASSESS POS TOOL F/U PLAN DOC G8427 DOC MEDS VERIFIED W/PT OR RE DISPOSITION & COMMUNICATION FOLLOW UP 4 WEEKS ELECTRONICALLY SIGNED BY MARCOS WARD MD ON 04/03/2017 AT 04:02 PM EDT DISCLAIMER : THIS IS A VISIT SUMMARY EXTRACTED FROM THE [employer] CHART. IT IS NOT A COPY OF THE [employer] PROGRESS NOTE. NELY
== END ==
LOC: M PAIN 14:00
PROVIDERS: ATTEND Anesthesiology
DX: G89.29 Other chronic pain (principal); M79.1 Myalgia; R56.9 Unspecified convulsions; G43.909 Migraine, unspecified, not intractable, without status migrainosus; M19.90 Unspecified osteoarthritis, unspecified site; I10 Essential (primary) hypertension; D68.0 Von Willebrand disease; K44.9 Diaphragmatic hernia without obstruction or gangrene; E11.9 Type 2 diabetes mellitus without complications; J44.9 Chronic obstructive pulmonary disease, unspecified; M06.9 Rheumatoid arthritis, unspecified; E55.9 Vitamin D deficiency, unspecified; K21.9 Gastro-esophageal reflux disease without esophagitis; G47.00 Insomnia, unspecified; L23.0 Allergic contact dermatitis due to metals; Z88.6 Allergy status to analgesic agent; Z88.5 Allergy status to narcotic agent; Z88.8 Allergy status to other drugs, medicaments and biological substances; Z91.02 Food additives allergy status; Z79.84 Long term (current) use of oral hypoglycemic drugs; Z79.891 Long term (current) use of opiate analgesic; Z79.899 Other long term (current) drug therapy; Z87.891 Personal history of nicotine dependence

== ENCOUNTER → 2017-04-01 | Outpatient (CLI) | payer OTHER ==
[~2017-04-01] MED LIST changes: +BUPIVACAINE HCL 0.25% 10 ML VIAL As Ordered ONE; +BUPIVACAINE HCL 0.25% 30 ML VIAL As Ordered ONE; +TRIAMCINOLONE ACETONIDE SUSP 40 MG/ML VIAL (J3301) As Ordered ONE; +diazePAM 5 MG TAB As Ordered ONE; +oxyCODONE 5MG TAB As Ordered ONE
--- NOTE | 2017-04-02 23:24 | ECWPNPC ---
PATIENT NAME: NICOLE BERNABE : 1960 GENDER: FEMALE VISIT DATE: 04/01/2017 DISCHARGE DATE: 04/01/171701 VISIT LOCKED DATE TIME: PHYSICIAN: MARCOS WARD PHYSICIAN PAGER NO: TEXT TO [phone] RESOURCE: MARCOS WARD REASON FOR APPOINTMENT 1. TPI NECK AREA HISTORY OF PRESENT ILLNESS HISTORY OF PRESENT ILLNESS: PAIN THE PATIENT DESCRIBES THE PAIN... FALL RISK SCREENING: SCREENING :NO FALLS IN THE PAST YEAR CURRENT MEDICATIONS TAKING METFORMIN HCL 1000 MG TABLET 1 TABLET WITH MEALS ORALLY TWICE A DAY, NOTES: 03-31-17 170 TAKING LEXAPRO 20 MG TABLET 1 TABLET ORALLY ONCE A DAY, NOTES: 03-31-17799 TAKING LIPITOR 80 MG TABLET 1 TABLET ORALLY ONCE A DAY, NOTES: 03-31-17799 TAKING INCRUSE ELLIPTA 62.5 MCG/INH AEROSOL POWDER BREATH ACTIVATED 1 PUFF INHALATION ONCE A DAY, NOTES: 03-31-17 TAKING OMEPRAZOLE 40 MG CAPSULE DELAYED RELEASE 1 CAPSULE ORALLY ONCE A DAY, NOTES: 03-31-17799 TAKING DEPAKOTE ER 500 MG TABLET EXTENDED RELEASE 24 HOUR DIRECTED. ORALLY 1 AM, 2 TABS PM, NOTES: 04-01-17799 TAKING AMITRIPTYLINE HCL 20 MG TABLET 1 TABLET AT BEDTIME ORALLY ONCE A DAY, NOTES: 03-31-17 2100 TAKING ALCOHOL PADS 70 % PAD DIRECTED TOPICAL TWICE DAILY/DX : E11.65 TAKING FLONASE 50 MCG/DOSE INHALER 2 SPRAYS IN EACH NOSTRIL NASALLY ONCE A DAY, NOTES: 03-31-17 TAKING ZEBETA 10 MG TABLET 1 TABLET ORALLY ONCE A DAY, NOTES: 03-31-17799 TAKING ONE TOUCH ULTRA SYSTEM KIT - METER DIRECTED - TWICE DAILY/ DX : 250.02 TAKING ONDANSETRON HCL 4 MG TABLET DIRECTED ORALLY QID PRN NAUSEA, NOTES: 03-31-17 TAKING FOLIC ACID 1 MG TABLET 1 TABLET ORALLY ONCE A DAY, NOTES: 03-31-17799 TAKING METHOTREXATE 2.5 MG TABLET 4 TABS ORALLY ONCE WEEKLY, NOTES: 03-27-17799 TAKING LATANOPROST 0.005 % SOLUTION 1 DROP INTO AFFECTED EYE IN THE EVENING OPHTHALMIC ONCE A DAY, NOTES: 03-31-17 TAKING PERCOCET 5-325 MG TABLET 1 ORALLY EVERY 6 HRS PRN MDD2, NOTES: 04-01-17 2100 TAKING CHLORTHALIDONE 25 25 MG TABLET 1 TAB(S) ORAL ONCE DAILY, NOTES: 03-31-17 TAKING ONE TOUCH ULTRA TEST STRIPS - STRIPS DIRECTED - TWICE DAILY/ DX : E11.65 TAKING LANCETS FOR ONE TOUCH ULTRA MISCELLANEOUS DIRECTED SC TWICE DAILY/DX : E11.65 TAKING VENTOLIN HFA 108 (90 BASE) MCG/ACT AEROSOL SOLUTION 2 PUFFS INHALATION EVERY 4-6 HOURS NEEDED, NOTES: NONE TAKING LISINOPRIL 20 MG TABLET 1 TABLET ORALLY ONCE A DAY, NOTES: 03-31-172099 NOT-TAKING QUAD CANE - MISCELLANEOUS DIRECTED _ DAILY/ DX : UNSTEADY GAIT NOT-TAKING HOSPITAL BED DIRECTED NOT-TAKING MAY HAVE M54.2 M54.5 HOSPITAL BED DAILY NEEDED MEDICATION LIST REVIEWED AND RECONCILED WITH THE PATIENT PAST MEDICAL HISTORY SEIZURES- MARIUM MIGRAINES-MARIUM ARTHRITIS CHRONIC NECK PAIN- PAIN CLINIC [facility] HTN H/O PEPTIC ULCER VON WILLEBRAND'S DISEASE (NEEDS PRE-TREATMENT WITH DDAVP FOR SURGERY - SEE NOTE FROM DR. ARAUJO 09/11/2009) HIATAL HERNIA HEMORRHOIDS RECURRENT BREAST ABSCESSES FIBROCYSTIC BREAST DISEASE KIDNEY STONES NECK PAIN- DR SUERO PNEUMOVAX- PT STATES 2011 DIABETES COPD LEFT BREAST FAT NECROSIS POST REDUCTION RA ALLERGIES ASPIRIN: ANAPHYLAXIS: ALLERGY PEPPER: THROAT CLOSE, TONGUE SWELLS: ALLERGY MORPHINE SULFATE: RASH, HIVES: ALLERGY TOPAMAX: KINDNEY STONES: SIDE EFFECTS IMITREX: SEVERE HTN (NEAR SBP 300): SIDE EFFECTS NICKEL: RASH: ALLERGY REVIEW OF SYSTEMS CONSTITUTIONAL: ANY CHANGE IN YOUR MEDICAL CONDITION? NO . CHILLS NO . FEVER NO . INFECTION: DO YOU HAVE NEW INFECTIONS? NO . DO YOU HAVE HISTORY OF MRSA? NO . MUSCULOSKELETAL: ANY NEW PATTERNS OF PAIN OR NUMBNESS? NO . GASTROENTEROLOGY: ANY NEW CHANGE IN BOWEL CONTROL? NO . GENITOURINARY: ANY NEW CHANGE IN BLADDER CONTROL? NO . IS THERE A CHANCE YOU COULD BE ? NO . HEMATOLOGY/LYMPH: DO YOU TAKE ANY BLOOD THINNERS? (FOR EXAMPLE- COUMADIN, PLAVIX, AGGRENOX, PLATEL, PRADAXA, OR XARELTO) NO . WHEN WAS YOUR LAST DOSE? DATE: TIME: . NEUROLOGY: HAVE YOU FALLEN IN THE PAST 6 MONTHS? NO . ANY NEW EXTREMITY NUMBNESS OR WEAKNESS? NO . CARDIOLOGY: DO YOU HAVE A PACEMAKER OR DEFIBRILLATOR? NO . RESPIRATORY: HAVE YOU BEEN SICK IN THE PAST WEEK? NO . FEVER NO . FLU LIKE SYMPTOMS? NO . COUGH NO . INTEGUMENTARY: DO YOU HAVE ANY RASHES OR OPEN SORES? NO . ALLERGIC/IMMUNO: ARE YOU ALLERGIC TO SHELLFISH OR IV DYE? NO . ANY NEW ALLERGIES? NO . PSYCHIATRIC: DO YOU HAVE THOUGHTS OF HURTING YOURSELF OR SOMEONE ELSE? NO . ARE YOU ABUSED, NEGLECTED, OR IN AN UNSAFE ENVIRONMENT? NO . ENDOCRINOLOGY: ARE YOU DIABETIC? YES . OTHER: DO YOU NEED ANY PRESCRIPTIONS? NO . IF YES, PLEASE LIST: ____ . ANY NEW PROBLEMS WITH YOUR MEDICATIONS? NO . WHEN DID YOU LAST EAT? 03-31-17 8PM . WHEN DID YOU LAST DRINK? 04-01-17 12 AM . WHAT DID YOU LAST DRINK? WATER . NAME OF PERSON DRIVING YOU HOME? PRERNA . DO YOU HAVE ANY OTHER QUESTIONS OR CONCERNS NO . REVIEWED BY: PROVIDER: . VITAL SIGNS WT 182.6 LBS, HT 63.5 IN, BMI 31.84 INDEX, BP 159/71 MM HG, HR 79 /MIN, RR 16 /MIN, TEMP 98.6 F, OXYGEN SAT % 97%, NA INITIALS SC 13:48, REVIEWED BY: CM. ASSESSMENTS MYALGIA - M79.1 (PRIMARY) PROCEDURES PN TRIGGER POINT INJECTION WITH STEROIDS PRE PROCEDURE DIAGNOSIS 1. MYALGIA 2. PAIN AT RIGHT NECK AREA AND RIGHT SHOULDER AREA POST PROCEDURE DIAGNOSIS 1. MYALGIA 2. PAIN AT RIGHT NECK AREA AND RIGHT SHOULDER AREA PROCEDURE TRIGGER POINT INJECTION AT RIGHT NECK AREA AND RIGHT SHOULDER AREA SURGEON DR. MARCOS WARD DEPARTMENTAL SECRETARY NONE ANESTHESIA LOCAL PRE PROCEDURE NOTE THE PATIENT HAS A HISTORY OF CHRONIC PAIN AT THE RIGHT NECK AREA AND RIGHT SHOULDER AREA. I EVALUATE THE PATIENT AND REVIEWED THE CHART. THERE IS EVIDENCE OF BANDS OF TISSUE WITH RESTRICTION OF MOVEMENT AND PRESENCE OF TRIGGER POINT AT THE AFFECTED AREA. I WENT OVER THE RISKS, ALTERNATIVES, AND BENEFITS ASSOCIATED WITH THIS PROCEDURE. THE PATIENT WOULD LIKE TO PROCEED AND GIVE CONSENT TO PERFORMED THE PROCEDURE. THE PATIENT DENIES UNEXPLAINABLE WEIGHT LOSS, FEVER, CHILLS, OR NEW CHANGES IN URINARY OR BOWEL CONTROL DESCRIPTION OF PROCEDURE THE PATIENT WAS BROUGHT TO THE PROCEDURE ROOM AND PLACED IN THE SITTING POSITION. THE AREA WAS CLEANED WITH ALCOHOL. THE PROCEDURE WAS DONE USING ASEPTIC STERILE TECHNIQUE. I CHECKED LATERALITY AND THE LEVEL WHERE THE PROCEDURE WAS GOING TO BE PERFORMED WITH THE PATIENT AND THE SUPPORTING STAFF AT THE MOMENT OF THE TIME OUT IN THE PROCEDURE ROOM. USING A 25-GAUGE NEEDLE, TRIGGER POINTS WERE INJECTED AT THE RIGHT NECK AREA AND RIGHT SHOULDER AREA WITH A TOTAL OF 40 ML OF BUPIVACAINE 0.25% AND KENALOG 40 MG. THERE WAS NO EVIDENCE OF BLOOD, PARESTHESIA OR CEREBROSPINAL FLUID DURING THE PROCEDURE. THE PATIENT WAS SENT TO THE RECOVERY ROOM. THE PATIENT WAS MOVING THE EXTREMITIES AND DOING WELL. THERE WAS NO COMPLICATION DURING THE PROCEDURE POST PROCEDURE NOTE THE PATIENT WILL BE SEEN IN A FOLLOW UP IN THE NEXT FEW WEEKS. INSTRUCTIONS WERE GIVEN, QUESTIONS WERE ANSWERED, AND THE PATIENT EXPRESSED UNDERSTANDING AND AGREES WITH THE PLAN. I, ALESSANDRO MCCALLUM, DOCUMENTED THE ABOVE INFORMATION ACTING A SCRIBE FOR DR. WARD. I HAVE REVIEWED THE ABOVE DOCUMENT, WRITTEN BY ALESSANDRO MCCALLUM SCRIBDavid AND I VERIFY THAT IT IS ACCURATE PROCEDURE CODES 47371 INJ TRIGGER POINT / MUSC DISPOSITION & COMMUNICATION FOLLOW UP 3 WEEKS ELECTRONICALLY SIGNED BY MARCOS WARD MD ON 04/02/2017 AT 08:10 PM EDT DISCLAIMER : THIS IS A VISIT SUMMARY EXTRACTED FROM THE [employer] CHART. IT IS NOT A COPY OF THE [employer] PROGRESS NOTE. NELY
== END ==
LOC: M PAIN 14:00
PROVIDERS: ATTEND Anesthesiology
DX: G89.29 Other chronic pain (principal); M79.1 Myalgia; M54.2 Cervicalgia; M25.511 Pain in right shoulder; R56.9 Unspecified convulsions; G43.909 Migraine, unspecified, not intractable, without status migrainosus; M19.90 Unspecified osteoarthritis, unspecified site; I10 Essential (primary) hypertension; D68.0 Von Willebrand disease; E11.9 Type 2 diabetes mellitus without complications; J44.9 Chronic obstructive pulmonary disease, unspecified; M06.9 Rheumatoid arthritis, unspecified; K21.9 Gastro-esophageal reflux disease without esophagitis; E55.9 Vitamin D deficiency, unspecified; Z88.6 Allergy status to analgesic agent; Z88.5 Allergy status to narcotic agent; Z88.8 Allergy status to other drugs, medicaments and biological substances; Z91.018 Allergy to other foods; L23.0 Allergic contact dermatitis due to metals
CPT/HCPCS: 20552; J3301

== ENCOUNTER → 2017-04-04 | Outpatient (CLI) | payer OTHER ==
[~2017-04-04] MED LIST changes: -BUPIVACAINE HCL 0.25% 10 ML VIAL As Ordered ONE; -BUPIVACAINE HCL 0.25% 30 ML VIAL As Ordered ONE; -TRIAMCINOLONE ACETONIDE SUSP 40 MG/ML VIAL (J3301) As Ordered ONE; -diazePAM 5 MG TAB As Ordered ONE; -oxyCODONE 5MG TAB As Ordered ONE
[2017-04-04 11:10] LABS: BASO % 0.6 % (0.0-1.0); EOS # 0.1 K/mm3 (0.0-0.50); EOS % 0.9 % (0.0-3.0); LARGE UNSTAINED CELL # 0.1 K/mm3 (0.0-0.4); LARGE UNSTAINED CELL % 1.7 % (0.0-4.0); LYMPH # 2.6 K/mm3 (1.5-4.5); LYMPH % 31.9 % (24.0-44.0); MEAN CORPUSCULAR HEMOGLOBIN 33.1 pg (27.0-33.0); MEAN CORPUSCULAR HGB CONC 34.7 g/dl (32.0-36.5); MEAN CORPUSCULAR VOLUME 95.4 fl (80.0-96.0); MONO # 0.4 K/mm3 (0.0-0.8); MONO % 4.8 % (0.0-5.0); NEUTROPHILS # 4.9 K/mm3 (1.8-7.7); NEUTROPHILS % 60.1 % (36.0-66.0); PLATELET COUNT, AUTOMATED 239 k/mm3 (150-450); WHITE BLOOD COUNT 8.2 K/mm3 (4.0-10.0)
[2017-04-04 11:26] LABS: ALBUMIN 3.4 GM/DL (3.2-5.2); ALKALINE PHOSPHATASE 87 U/L (45-117); ALT/SGPT 39 U/L (12-78); ANION GAP 9 MEQ/L (8-16); AST/SGOT 10 U/L (15-37); BILIRUBIN,TOTAL 0.2 MG/DL (0.2-1.0); BLOOD UREA NITROGEN 16 MG/DL (7-18); CARBON DIOXIDE LEVEL 27 MEQ/L (21-32); CHLORIDE LEVEL 107 MEQ/L (98-107); GLOMERULAR FILTRATION RATE > 60.0 (>51); GLUCOSE, FASTING 147 MG/DL (70-105); SODIUM LEVEL 143 MEQ/L (136-145); TOTAL PROTEIN 6.5 GM/DL (6.4-8.2)
[2017-04-04 11:42] LABS: ERYTHROCYTE SEDIMENTATION RATE 13 mm/hr (0-30)
== END ==
LOC: M LAB 10:15
PROVIDERS: ATTEND Internal Medicine Rheumatology
DX: M19.90 Unspecified osteoarthritis, unspecified site (principal); Z79.899 Other long term (current) drug therapy

== ENCOUNTER → 2017-04-04 | Outpatient (CLI) | payer OTHER ==
[2017-04-04 11:22] LABS: ANION GAP 7 MEQ/L (8-16); BLOOD UREA NITROGEN 15 MG/DL (7-18); CALCIUM LEVEL 9.2 MG/DL (8.5-10.1); CARBON DIOXIDE LEVEL 28 MEQ/L (21-32); CHLORIDE LEVEL 108 MEQ/L (98-107); CREATININE FOR GFR 0.82 MG/DL (0.55-1.02); GLOMERULAR FILTRATION RATE > 60.0 (>51); GLUCOSE, FASTING 145 MG/DL (70-105); SODIUM LEVEL 143 MEQ/L (136-145)
== END ==
LOC: M LAB 10:21
PROVIDERS: ATTEND Nurse Practitioner
DX: Z01.812 Encounter for preprocedural laboratory examination (principal)

== ENCOUNTER → 2017-04-22 | Outpatient (CLI) | payer OTHER ==
--- NOTE | 2017-04-23 01:04 | ECWPNPC ---
PATIENT NAME: NICOLE BERNABE : 1960 GENDER: FEMALE VISIT DATE: 04/22/2017 DISCHARGE DATE: 04/22/17 1455 VISIT LOCKED DATE TIME: PHYSICIAN: KIMBERLEE FALCON PHYSICIAN PAGER NO: RPHO DQ [phone] RESOURCE: KIMBERLEE FALCON REASON FOR APPOINTMENT 1. POST TPI NECK HISTORY OF PRESENT ILLNESS HISTORY OF PRESENT ILLNESS: HERE FOR POST PROCEDURE F/U.HAD TPI RIGHT NECK 04-01-17.REPORTS SIGNIFICANT IMPROVEMENT IN PAIN AND MOBILITY OF RIGHT ARM PROCEDURE THAT CONTINUES TODAY.REPORTING 4/10 VAS RIGHT NECK AND 7/10 RIGHT LOW BACK.USING OXYCODONE 5/325 PRN FOR SEVERE PAIN WHICH IS HELPFUL.DENIES SIDE EFFECTS. PAIN THE PATIENT DESCRIBES THE PAIN... FALL RISK SCREENING: SCREENING :NO FALLS IN THE PAST YEAR CURRENT MEDICATIONS TAKING METFORMIN HCL 1000 MG TABLET 1 TABLET WITH MEALS ORALLY TWICE A DAY TAKING LEXAPRO 20 MG TABLET 1 TABLET ORALLY ONCE A DAY TAKING LIPITOR 80 MG TABLET 1 TABLET ORALLY ONCE A DAY TAKING INCRUSE ELLIPTA 62.5 MCG/INH AEROSOL POWDER BREATH ACTIVATED 1 PUFF INHALATION ONCE A DAY TAKING OMEPRAZOLE 40 MG CAPSULE DELAYED RELEASE 1 CAPSULE ORALLY ONCE A DAY TAKING DEPAKOTE ER 500 MG TABLET EXTENDED RELEASE 24 HOUR DIRECTED. ORALLY 1 AM, 2 TABS PM TAKING AMITRIPTYLINE HCL 20 MG TABLET 1 TABLET AT BEDTIME ORALLY ONCE A DAY TAKING ALCOHOL PADS 70 % PAD DIRECTED TOPICAL TWICE DAILY/DX : E11.65 TAKING FLONASE 50 MCG/DOSE INHALER 2 SPRAYS IN EACH NOSTRIL NASALLY ONCE A DAY TAKING ZEBETA 10 MG TABLET 1 TABLET ORALLY ONCE A DAY TAKING ONE TOUCH ULTRA SYSTEM KIT - METER DIRECTED - TWICE DAILY/ DX : 250.02 TAKING ONDANSETRON HCL 4 MG TABLET DIRECTED ORALLY QID PRN NAUSEA TAKING FOLIC ACID 1 MG TABLET 1 TABLET ORALLY ONCE A DAY TAKING METHOTREXATE 2.5 MG TABLET 4 TABS ORALLY ONCE WEEKLY TAKING LATANOPROST 0.005 % SOLUTION 1 DROP INTO AFFECTED EYE IN THE EVENING OPHTHALMIC ONCE A DAY TAKING PERCOCET 5-325 MG TABLET 1 ORALLY EVERY 6 HRS PRN MDD2 TAKING CHLORTHALIDONE 25 25 MG TABLET 1 TAB(S) ORAL ONCE DAILY TAKING ONE TOUCH ULTRA TEST STRIPS - STRIPS DIRECTED - TWICE DAILY/ DX : E11.65 TAKING LANCETS FOR ONE TOUCH ULTRA MISCELLANEOUS DIRECTED SC TWICE DAILY/DX : E11.65 TAKING VENTOLIN HFA 108 (90 BASE) MCG/ACT AEROSOL SOLUTION 2 PUFFS INHALATION EVERY 4-6 HOURS NEEDED TAKING LISINOPRIL 20 MG TABLET 1 TABLET ORALLY ONCE A DAY NOT-TAKING QUAD CANE - MISCELLANEOUS DIRECTED _ DAILY/ DX : UNSTEADY GAIT NOT-TAKING HOSPITAL BED DIRECTED NOT-TAKING MAY HAVE M54.2 M54.5 HOSPITAL BED DAILY NEEDED MEDICATION LIST REVIEWED AND RECONCILED WITH THE PATIENT PAST MEDICAL HISTORY SEIZURES- MARIUM MIGRAINES-MARIUM ARTHRITIS CHRONIC NECK PAIN- PAIN CLINIC [facility] HTN H/O PEPTIC ULCER VON WILLEBRAND'S DISEASE (NEEDS PRE-TREATMENT WITH DDAVP FOR SURGERY - SEE NOTE FROM DR. ARAUJO 09/11/2009) HIATAL HERNIA HEMORRHOIDS RECURRENT BREAST ABSCESSES FIBROCYSTIC BREAST DISEASE KIDNEY STONES NECK PAIN- DR SUERO PNEUMOVAX- PT STATES 2011 DIABETES COPD LEFT BREAST FAT NECROSIS POST REDUCTION RA ALLERGIES ASPIRIN: ANAPHYLAXIS: ALLERGY PEPPER: THROAT CLOSE, TONGUE SWELLS: ALLERGY MORPHINE SULFATE: RASH, HIVES: ALLERGY TOPAMAX: KINDNEY STONES: SIDE EFFECTS IMITREX: SEVERE HTN (NEAR SBP 300): SIDE EFFECTS NICKEL: RASH: ALLERGY SURGICAL HISTORY C-SECTIONS X 4 1979, 1985, 1989, 1990 TUBAL LIGATION EARLY C4-5 AND C6-7 DISCECTOMY AND FUSION 1997 LEFT BREAST LUMPECTOMY (BALJINDER) 2002 PARTIAL HYSTERECTOMY (REEMA) 2005 C5-7 REVISION AND REPLATING C4-5 (NIMO) 2008 COLONOSCOPY (BALJINDER) UNK KIDNEY STONE/BILATERAL HYDRONEPHROSIS/STENT PLACEMENT- DR WALSH 07/2013 COLONOSCOPY- DARLIN- TUBULAR ADENOMA AND HYPERPLASTIC POLYP- RECHECK 3 YEARS 06/20 EGD-DARLIN- GASTRIC HYPERPLASTIC POLYP 06/20 STENT KIDNEY STONE, RIGHT AND LEFT 07/2013 LEFT ESWL 08/24/13, 10/05/13 LASER LITHOTRIPSY AND REMOVAL OF STENTS 12/01/13 COLONOSCOPY WITH POLYPECTOMY, MODERAT EDIVERTICULOSIS: DR. SAEED 08/16/2015 TLIF L4 TO S1: DR. SUERO 01/22/16 BREAST REDUCTION ([facility]) 05/2016 BACK SURGERY TITANIUM CAGE - REMOVAL OF FATTY DEPOSIT IN LEFT BREAST APRIL 09 2017 HOSPITALIZATION/MAJOR DIAGNOSTIC PROCEDURE MULTIPLE FOR SEIZURES AND ORTHOPEDIC PROBLEMS S/P ANTERIOR CERVICAL REVISION AND REPLATING @ [facility] 09/2009 LUMBAR SPINE FUSION 01/2016 REVIEW OF SYSTEMS CONSTITUTIONAL: ANY CHANGE IN YOUR MEDICAL CONDITION? NO . CHILLS NO . FEVER NO . INFECTION: DO YOU HAVE NEW INFECTIONS? NO . DO YOU HAVE HISTORY OF MRSA? NO . MUSCULOSKELETAL: ANY NEW PATTERNS OF PAIN OR NUMBNESS? NO . GASTROENTEROLOGY: ANY NEW CHANGE IN BOWEL CONTROL? NO . GENITOURINARY: ANY NEW CHANGE IN BLADDER CONTROL? NO . IS THERE A CHANCE YOU COULD BE ? NO . HEMATOLOGY/LYMPH: DO YOU TAKE ANY BLOOD THINNERS? (FOR EXAMPLE- COUMADIN, PLAVIX, AGGRENOX, PLATEL, PRADAXA, OR XARELTO) NO . WHEN WAS YOUR LAST DOSE? DATE: TIME: . NEUROLOGY: HAVE YOU FALLEN IN THE PAST 6 MONTHS? NO . ANY NEW EXTREMITY NUMBNESS OR WEAKNESS? NO . CARDIOLOGY: DO YOU HAVE A PACEMAKER OR DEFIBRILLATOR? NO . RESPIRATORY: HAVE YOU BEEN SICK IN THE PAST WEEK? NO . FEVER NO . FLU LIKE SYMPTOMS? NO . COUGH NO . INTEGUMENTARY: DO YOU HAVE ANY RASHES OR OPEN SORES? NO . ALLERGIC/IMMUNO: ARE YOU ALLERGIC TO SHELLFISH OR IV DYE? NO . ANY NEW ALLERGIES? NO . PSYCHIATRIC: DO YOU HAVE THOUGHTS OF HURTING YOURSELF OR SOMEONE ELSE? NO . ARE YOU ABUSED, NEGLECTED, OR IN AN UNSAFE ENVIRONMENT? NO . ENDOCRINOLOGY: ARE YOU DIABETIC? YES . OTHER: DO YOU NEED ANY PRESCRIPTIONS? YES . IF YES, PLEASE LIST: PERCOCET . ANY NEW PROBLEMS WITH YOUR MEDICATIONS? NO . WHEN DID YOU LAST EAT? ____ . WHEN DID YOU LAST DRINK? ____ . WHAT DID YOU LAST DRINK? ____ . NAME OF PERSON DRIVING YOU HOME? ____ . DO YOU HAVE ANY OTHER QUESTIONS OR CONCERNS NO . REVIEWED BY: PROVIDER: KIMBERLEE MENARD . VITAL SIGNS WT 183.8 LBS, HT 63.5 IN, BMI 32.04 INDEX, BP 130/78 MANUAL, HR 69 /MIN, RR 16 /MIN, TEMP 97.1 F, OXYGEN SAT % 98%, NA INITIALS TL 1405, REVIEWED BY: NL. EXAMINATION GENERAL EXAMINATION: LUNGS:LUNG SOUNDS ARE CLEAR. HEART:HEART RATE REGULAR. MUSCULOSKELETAL:*, MUSCLE STRENGTH TESTING 5/5 BILATERAL LOWER EXTREMITIES., PALPATION: POSITIVE FOR PAIN OVERSPECIFIC POINT TENDERNESS OVER RIGHT LUMBAR PARASPINAL REGION.POINT TENDERNESS OVER RIGHT SIJ.WELL HEALED SURGICAL SCAR L/S AXIS.. DIAGNOSTIC: . ASSESSMENTS CHRONIC BILATERAL LOW BACK PAIN WITHOUT SCIATICA - M54.5 (PRIMARY) SACROILIAC JOINT PAIN - M53.3 CHRONIC PRESCRIPTION OPIATE USE - Z79.891 TREATMENT CHRONIC BILATERAL LOW BACK PAIN WITHOUT SCIATICA NOTES: RIGHT SIJ HOLD METHOTREXATE FOR 15 DAYS PRE PROCEDURE, ISTOP REGISTRY REVIEWED AND DEMNOSTRATES COMPLLIANCE. BRINGS IN MEDICATIONS WHICH IS APPROPRIATE FOR WHAT WAS DISPENSED. RECENT URINE TOXICOLOGY REVIEWED. NO UNAUTHORIZED MEDICATIONS. NO ILLICIT SUBSTANCES AND PRESCRIBED MEDICATIONS WERE PRESENT. , RISKS AND BENEFITS OF NARCOTIC/OPIOD MEDICATIONS WERE REVIEWED WITH PATIENT - THIS INCLUDES BUT IS NOT LIMITED TO RISK OF DEPENDANCE/DEVELOPMENT OF ADDICTION, MOOD DISTURBANCE AND DEPRESSION, OSTEOPOROSIS, HORMONAL AND LABIDAL CHANGES, RESPIRATORY DEPRESSION AND . PATIENT IS ADVISED NOT TO DRIVE WHILE ON THESE MEDICATIONS.URINE TOX TODAY. PREVENTIVE MEDICINE DISCUSSED SIJ INJECTION /PT KNOWS WHAT TO EXPECT WITH PROCEDUREREVIEWED PREPROCEDURE CARE WITH UNDERSTANDING EXPRESSED. PROCEDURE CODES FA211 ESTABILISHED PATIENT [facility] FACILITY CHARGE DISPOSITION & COMMUNICATION FOLLOW UP 2WK POST (REASON: RIGHT SIJ) ELECTRONICALLY SIGNED BY DERIAN HORNER ON 04/22/2017 AT 03:36 PM EDT DISCLAIMER : THIS IS A VISIT SUMMARY EXTRACTED FROM THE [employer] CHART. IT IS NOT A COPY OF THE [employer] PROGRESS NOTE. MTDD
== END ==
LOC: M PAIN 14:00
PROVIDERS: ATTEND Nurse Practitioner Family
DX: G89.29 Other chronic pain (principal); M54.5 Low back pain; M53.3 Sacrococcygeal disorders, not elsewhere classified; R56.9 Unspecified convulsions; G43.909 Migraine, unspecified, not intractable, without status migrainosus; M19.90 Unspecified osteoarthritis, unspecified site; I10 Essential (primary) hypertension; D68.0 Von Willebrand disease; K44.9 Diaphragmatic hernia without obstruction or gangrene; E11.9 Type 2 diabetes mellitus without complications; J44.9 Chronic obstructive pulmonary disease, unspecified; M06.9 Rheumatoid arthritis, unspecified; Z91.018 Allergy to other foods; L23.0 Allergic contact dermatitis due to metals; Z88.6 Allergy status to analgesic agent; Z88.5 Allergy status to narcotic agent; Z88.8 Allergy status to other drugs, medicaments and biological substances; Z79.84 Long term (current) use of oral hypoglycemic drugs; Z79.891 Long term (current) use of opiate analgesic; Z79.899 Other long term (current) drug therapy

== ENCOUNTER → 2017-05-19 | Outpatient (CLI) | payer OTHER ==
[~2017-05-19] MED LIST changes: +ALOG25TA PO; +AMOX500C PO; +BUPIVACAINE HCL 0.25% 30 ML VIAL As Ordered ONE; +CIPR-249 PO; -FOLI1TAB2 PO; +FOLI1TAB4 PO; -INCR1INH IN; +INCR1INH INH; +ISOVUE-M 300 61% 15ML VIAL (Q9967) As Ordered ONE; +KEPP1TAB PO; +LEVE250T5 PO; +LIDOCAINE 1% SDV INJ 30 ML VIAL As Ordered ONE; +METF10004 PO; -METF500T PO; +METF500T13 PO; +OXYC1TAB23 PO; +PANT40TA2 PO; +PERC5TAB12 PO; -PERC5TAB6 PO; +TRIAMCINOLONE ACETONIDE SUSP 40 MG/ML VIAL (J3301) As Ordered ONE; +diazePAM 5 MG TAB As Ordered ONE; +oxyCODONE 5MG TAB As Ordered ONE
--- NOTE | 2017-05-19 16:31 | REP ---
Partial SI joint series: Two views. History: Right SI joint injection for pain. 10 seconds of fluoroscopy time is reported. Findings: A sequence of two last image hold fluoro spot images of the SI joint document needle position and contrast injection for injection procedure. Signed by Saad Boogie MD 05/20/2017 09:23 A
--- NOTE | 2017-05-24 23:33 | ECWPNPC ---
PATIENT NAME: NICOLE BERNABE : 1960 GENDER: FEMALE VISIT DATE: 05/19/2017 DISCHARGE DATE: 05/19/17 1309 VISIT LOCKED DATE TIME: PHYSICIAN: MARCOS WARD PHYSICIAN PAGER NO: TEXT TO [phone] RESOURCE: MARCOS WARD REASON FOR APPOINTMENT 1. R SIJ HISTORY OF PRESENT ILLNESS HISTORY OF PRESENT ILLNESS: PAIN THE PATIENT DESCRIBES THE PAIN... FALL RISK SCREENING: SCREENING :NO FALLS IN THE PAST YEAR CURRENT MEDICATIONS TAKING LEXAPRO 20 MG TABLET 1 TABLET ORALLY ONCE A DAY, NOTES: 05-18-172099 TAKING LIPITOR 80 MG TABLET 1 TABLET ORALLY ONCE A DAY, NOTES: 05-18-172099 TAKING OMEPRAZOLE 40 MG CAPSULE DELAYED RELEASE 1 CAPSULE ORALLY ONCE A DAY, NOTES: 05-19-17799 TAKING DEPAKOTE ER 500 MG TABLET EXTENDED RELEASE 24 HOUR DIRECTED. ORALLY 1 AM, 2 TABS PM, NOTES: 05-19-17799 TAKING AMITRIPTYLINE HCL 20 MG TABLET 1 TABLET AT BEDTIME ORALLY ONCE A DAY, NOTES: 05-18-172099 TAKING ALCOHOL PADS 70 % PAD DIRECTED TOPICAL TWICE DAILY/DX : E11.65 TAKING FLONASE 50 MCG/DOSE INHALER 2 SPRAYS IN EACH NOSTRIL NASALLY ONCE A DAY, NOTES: 05-18-172099 TAKING ZEBETA 10 MG TABLET 1 TABLET ORALLY ONCE A DAY, NOTES: 05-19-17799 TAKING ONE TOUCH ULTRA SYSTEM KIT - METER DIRECTED - TWICE DAILY/ DX : 250.02 TAKING FOLIC ACID 1 MG TABLET 1 TABLET ORALLY ONCE A DAY, NOTES: 05-19-17799 TAKING METHOTREXATE 2.5 MG TABLET 4 TABS ORALLY ONCE WEEKLY, NOTES: MARCH 2017 TAKING LATANOPROST 0.005 % SOLUTION 1 DROP INTO AFFECTED EYE IN THE EVENING OPHTHALMIC ONCE A DAY TAKING ONE TOUCH ULTRA TEST STRIPS - STRIPS DIRECTED - TWICE DAILY/ DX : E11.65 TAKING LANCETS FOR ONE TOUCH ULTRA MISCELLANEOUS DIRECTED SC TWICE DAILY/DX : E11.65 TAKING LISINOPRIL 20 MG TABLET 1 TABLET ORALLY ONCE A DAY, NOTES: 05-19-17799 TAKING CHLORTHALIDONE 25 25 MG TABLET 1 TAB(S) ORAL ONCE DAILY, NOTES: 05-18-172099 TAKING INCRUSE ELLIPTA 62.5 MCG/INH AEROSOL POWDER BREATH ACTIVATED 1 PUFF INHALATION ONCE A DAY, NOTES: COUPLE DAYS AGO TAKING VENTOLIN HFA 108 (90 BASE) MCG/ACT AEROSOL SOLUTION 2 PUFFS INHALATION EVERY 4-6 HOURS NEEDED, NOTES: COUPLE DAYS AGO TAKING METFORMIN HCL 1000 MG TABLET 1 TABLET WITH MEALS ORALLY TWICE A DAY, NOTES: 05-18-172099 TAKING ONDANSETRON HCL 4 MG TABLET DIRECTED ORALLY QID PRN NAUSEA, NOTES: NONE TAKING PERCOCET 5-325 MG TABLET 1 ORALLY EVERY 6 HRS PRN MDD2, NOTES: 05-18-172099 NOT-TAKING QUAD CANE - MISCELLANEOUS DIRECTED _ DAILY/ DX : UNSTEADY GAIT NOT-TAKING HOSPITAL BED DIRECTED NOT-TAKING MAY HAVE M54.2 M54.5 HOSPITAL BED DAILY NEEDED MEDICATION LIST REVIEWED AND RECONCILED WITH THE PATIENT PAST MEDICAL HISTORY SEIZURES- MARIUM MIGRAINES-MARIUM ARTHRITIS CHRONIC NECK PAIN- PAIN CLINIC [facility] H/O PEPTIC ULCER VON WILLEBRAND'S DISEASE (NEEDS PRE-TREATMENT WITH DDAVP FOR SURGERY - SEE NOTE FROM DR. ARAUJO 09/11/2009) HIATAL HERNIA HEMORRHOIDS RECURRENT BREAST ABSCESSES FIBROCYSTIC BREAST DISEASE KIDNEY STONES NECK PAIN- DR SUERO PNEUMOVAX- PT STATES 2011 DIABETES COPD LEFT BREAST FAT NECROSIS POST REDUCTION RA ALLERGIES ASPIRIN: ANAPHYLAXIS: ALLERGY PEPPER: THROAT CLOSE, TONGUE SWELLS: ALLERGY MORPHINE SULFATE: RASH, HIVES: ALLERGY TOPAMAX: KINDNEY STONES: SIDE EFFECTS IMITREX: SEVERE HTN (NEAR SBP 300): SIDE EFFECTS NICKEL: RASH: ALLERGY REVIEW OF SYSTEMS REVIEWED BY: PROVIDER: . CONSTITUTIONAL: ANY CHANGE IN YOUR MEDICAL CONDITION? NO . CHILLS NO . FEVER NO . INFECTION: DO YOU HAVE NEW INFECTIONS? NO . DO YOU HAVE HISTORY OF MRSA? NO . MUSCULOSKELETAL: ANY NEW PATTERNS OF PAIN OR NUMBNESS? NO . GASTROENTEROLOGY: ANY NEW CHANGE IN BOWEL CONTROL? NO . GENITOURINARY: ANY NEW CHANGE IN BLADDER CONTROL? NO . IS THERE A CHANCE YOU COULD BE ? NO . HEMATOLOGY/LYMPH: DO YOU TAKE ANY BLOOD THINNERS? (FOR EXAMPLE- COUMADIN, PLAVIX, AGGRENOX, PLATEL, PRADAXA, OR XARELTO) NO . WHEN WAS YOUR LAST DOSE? DATE: TIME: . NEUROLOGY: HAVE YOU FALLEN IN THE PAST 6 MONTHS? NO . ANY NEW EXTREMITY NUMBNESS OR WEAKNESS? NO . CARDIOLOGY: DO YOU HAVE A PACEMAKER OR DEFIBRILLATOR? NO . RESPIRATORY: HAVE YOU BEEN SICK IN THE PAST WEEK? NO . FEVER NO . FLU LIKE SYMPTOMS? NO . COUGH NO . INTEGUMENTARY: DO YOU HAVE ANY RASHES OR OPEN SORES? NO . ALLERGIC/IMMUNO: ARE YOU ALLERGIC TO SHELLFISH OR IV DYE? NO . ANY NEW ALLERGIES? NO . PSYCHIATRIC: DO YOU HAVE THOUGHTS OF HURTING YOURSELF OR SOMEONE ELSE? NO . ARE YOU ABUSED, NEGLECTED, OR IN AN UNSAFE ENVIRONMENT? NO . ENDOCRINOLOGY: ARE YOU DIABETIC? YES . OTHER: DO YOU NEED ANY PRESCRIPTIONS? NO . IF YES, PLEASE LIST: ____ . ANY NEW PROBLEMS WITH YOUR MEDICATIONS? NO . WHEN DID YOU LAST EAT? 05-18-17 6:30 PM . WHEN DID YOU LAST DRINK? 05-19-17 0800 . WHAT DID YOU LAST DRINK? WATER . NAME OF PERSON DRIVING YOU HOME? PRERNA . DO YOU HAVE ANY OTHER QUESTIONS OR CONCERNS NO . VITAL SIGNS WT 180 LBS, HT 63.5 IN, BMI 31.38 INDEX, BP 120/80 MANUAL, HR 86 /MIN, RR 18 /MIN, TEMP 97.3 F, OXYGEN SAT % 94%, NA INITIALS SC 10:43, REVIEWED BY: CM. ASSESSMENTS SACROILIITIS, NOT ELSEWHERE CLASSIFIED - M46.1 (PRIMARY) PROCEDURES PN SI PRE PROCEDURE DIAGNOSIS SACROILIITIS, SACROILIAC JOINT DYSFUNCTION POST PROCEDURE DIAGNOSIS SACROILIITIS, SACROILIAC JOINT DYSFUNCTION PROCEDURE RIGHT SACROILIAC JOINT BLOCK SURGEON DR. MARCOS WARD BRICK MOLDER HAND NONE ANESTHESIA LOCAL PRE PROCEDURE NOTE PATIENT WITH HISTORY OF CHRONIC LOW BACK PAIN. I EVALUATED THE PATIENT AND REVIEWED THE CHART. I WENT OVER THE RISKS, ALTERNATIVES, AND BENEFITS ASSOCIATED WITH THIS PROCEDURE. THE PATIENT WOULD LIKE TO PROCEED AND GAVE CONSENT TO PERFORM THE PROCEDURE. THE PATIENT DENIES UNEXPLAINABLE WEIGHT LOSS, FEVER, CHILLS, OR NEW CHANGES IN URINARY OR BOWEL CONTROL DESCRIPTION OF PROCEDURE THE PATIENT WAS BROUGHT TO THE PROCEDURE ROOM AND PLACED IN THE PRONE POSITION. THE LUMBOSACRAL AREA WAS CLEANED WITH CHLORAPREP SOLUTION AND DRAPED ASEPTICALLY. THE PROCEDURE WAS DONE UNDER STERILE CONDITIONS. I CHECKED LATERALITY AND THE LEVEL WHERE THE PROCEDURE WAS GOING TO BE PERFORMED WITH THE PATIENT AND THE SUPPORTING STAFF AT THE MOMENT OF THE TIME OUT IN THE PROCEDURE ROOM. UNDER FLUOROSCOPIC GUIDANCE, TARGET POINT WAS SELECTED AT THE LOWER BORDER OF THE RIGHT SACROILIAC JOINT. TARGET POINT WAS SELECTED AFTER MEDIAL ROTATION AND TILT OF THE MAGNIFIER OF THE C-ARM. LIDOCAINE WAS USED TO NUMB THE SKIN AND SUBCUTANEOUS TISSUE BELOW IT. A SPINAL NEEDLE, 22-GAUGE, WAS ADVANCED UNDER FLUOROSCOPIC GUIDANCE AND FOLLOWING PATIENT FEEDBACK UNTIL THE TARGET AREA WAS TOUCHED. THE POSITION OF THE NEEDLE WAS VERIFIED WITH AP AND LATERAL VIEWS. AFTER PROPER POSITION OF THE NEEDLE WAS ACHIEVED, ISOVUE M DYE 30%, 0.25 ML, WAS INJECTED SHOWING SPREAD OF THE DYE. THEN, A SOLUTION OF 20 MG OF KENALOG WAS INJECTED IN RIGHT JOINT WITH 3 ML OF BUPIVACAINE 0.125%. THERE WAS NO EVIDENCE OF BLOOD, PARESTHESIA OR CEREBROSPINAL FLUID DURING THE PROCEDURE. THE PATIENT WAS SENT TO THE RECOVERY ROOM. THE PATIENT WAS MOVING THE EXTREMITIES AND DOING WELL. THERE WAS NO COMPLICATION DURING THE PROCEDURE. FLUOROSCOPY TIME WAS 10 SECONDS POST PROCEDURE NOTE THE PATIENT WILL BE SEEN IN A FOLLOW UP IN THE NEXT FEW WEEKS. INSTRUCTIONS WERE GIVEN, QUESTIONS WERE ANSWERED, AND THE PATIENT EXPRESSED UNDERSTANDING AND AGREED WITH THE PLAN. I, ANGIE CARDOZO, DOCUMENTED THE ABOVE INFORMATION ACTING A SCRIBE FOR DR. WARD. I HAVE REVIEWED THE ABOVE DOCUMENT, WRITTEN BY ANGIE HERNADEZ AND I VERIFY THAT IT IS ACCURATE DIAGNOSTIC IMAGING [facility] FLUORO GUIDANCE (PAIN)[id number] PROCEDURE CODES 91097 INJECT SACROILIAC JOINT 6045F RADXPS IN END [id number] PXD DISPOSITION & COMMUNICATION FOLLOW UP 3 WEEKS ELECTRONICALLY SIGNED BY MARCOS WARD MD ON 05/24/2017 AT 09:37 PM EDT DISCLAIMER : THIS IS A VISIT SUMMARY EXTRACTED FROM THE [employer] CHART. IT IS NOT A COPY OF THE [employer] PROGRESS NOTE. MTDD
== END ==
LOC: M PAIN 11:00
PROVIDERS: ATTEND Anesthesiology
DX: G89.29 Other chronic pain (principal); M46.1 Sacroiliitis, not elsewhere classified; G40.909 Epilepsy, unspecified, not intractable, without status epilepticus; G43.909 Migraine, unspecified, not intractable, without status migrainosus; M19.90 Unspecified osteoarthritis, unspecified site; I10 Essential (primary) hypertension; D68.0 Von Willebrand disease; K44.9 Diaphragmatic hernia without obstruction or gangrene; E11.9 Type 2 diabetes mellitus without complications; J44.9 Chronic obstructive pulmonary disease, unspecified; R06.9 Unspecified abnormalities of breathing; E78.2 Mixed hyperlipidemia; K21.9 Gastro-esophageal reflux disease without esophagitis; E55.9 Vitamin D deficiency, unspecified; Z91.018 Allergy to other foods; L23.0 Allergic contact dermatitis due to metals; Z88.6 Allergy status to analgesic agent; Z88.8 Allergy status to other drugs, medicaments and biological substances; Z79.84 Long term (current) use of oral hypoglycemic drugs; Z79.891 Long term (current) use of opiate analgesic; Z79.899 Other long term (current) drug therapy

== ENCOUNTER → 2017-07-28 | Outpatient (CLI) | payer OTHER ==
[~2017-07-28] MED LIST changes: +CHERSYP3 PO; +COMP1MIS3 XX; +IPRASOL4 IN; +KEFL500C17 PO; +PRED20TA PO
--- NOTE | 2017-07-28 10:39 | REP ---
Partial SI joint series: Five views. History: Injection procedure for pain. 22 seconds of fluoroscopy time is reported. Findings: A sequence of five last image hold fluoroscopic spot radiographs document various needle positions and contrast injections for right SI joint injection procedure. Signed by Saad Boogie MD 07/28/2017 10:30 A
--- NOTE | 2017-07-29 00:05 | ECWPNPC ---
PATIENT NAME: NICOLE BERNABE : 1960 GENDER: FEMALE VISIT DATE: 07/28/2017 DISCHARGE DATE: 07/28/17 1054 VISIT LOCKED DATE TIME: PHYSICIAN: MARCOS WARD PHYSICIAN PAGER NO: TEXT TO [phone] RESOURCE: MARCOS WARD REASON FOR APPOINTMENT 1. R SIJ HISTORY OF PRESENT ILLNESS FALL RISK SCREENING: SCREENING :NO FALLS IN THE PAST YEAR PAIN SCREENING: PATIENT HAS A COMPLAINT OF ACUTE OR CHRONIC PAIN :YES CURRENT MEDICATIONS TAKING LEXAPRO 20 MG TABLET 1 TABLET ORALLY ONCE A DAY, NOTES: 07/27 8PM TAKING LIPITOR 80 MG TABLET 1 TABLET ORALLY ONCE A DAY, NOTES: 07/27 8AM TAKING OMEPRAZOLE 40 MG CAPSULE DELAYED RELEASE 1 CAPSULE ORALLY ONCE A DAY, NOTES: 07/27 9PM TAKING DEPAKOTE ER 500 MG TABLET EXTENDED RELEASE 24 HOUR DIRECTED. ORALLY 1 AM, 2 TABS PM, NOTES: 07/27 9PM TAKING AMITRIPTYLINE HCL 20 MG TABLET 1 TABLET AT BEDTIME ORALLY ONCE A DAY, NOTES: 07/27 9PM TAKING ALCOHOL PADS 70 % PAD DIRECTED TOPICAL TWICE DAILY/DX : E11.65 TAKING FLONASE 50 MCG/DOSE INHALER 2 SPRAYS IN EACH NOSTRIL NASALLY ONCE A DAY, NOTES: 07/27 9PM TAKING ZEBETA 10 MG TABLET 1 TABLET ORALLY ONCE A DAY, NOTES: 07/26 9PM TAKING ONE TOUCH ULTRA SYSTEM KIT - METER DIRECTED - TWICE DAILY/ DX : 250.02 TAKING FOLIC ACID 1 MG TABLET 1 TABLET ORALLY ONCE A DAY, NOTES: 07/27 9PM TAKING METHOTREXATE 2.5 MG TABLET 4 TABS ORALLY ONCE WEEKLY, NOTES: 07/17 9PM TAKING LATANOPROST 0.005 % SOLUTION 1 DROP INTO AFFECTED EYE IN THE EVENING OPHTHALMIC ONCE A DAY, NOTES: 07/27 9PM TAKING ONE TOUCH ULTRA TEST STRIPS - STRIPS DIRECTED - TWICE DAILY/ DX : E11.65 TAKING LANCETS FOR ONE TOUCH ULTRA MISCELLANEOUS DIRECTED SC TWICE DAILY/DX : E11.65 TAKING LISINOPRIL 20 MG TABLET 1 TABLET ORALLY ONCE A DAY, NOTES: 07/27 9AM TAKING CHLORTHALIDONE 25 25 MG TABLET 1 TAB(S) ORAL ONCE DAILY, NOTES: 07/28 7AM TAKING INCRUSE ELLIPTA 62.5 MCG/INH AEROSOL POWDER BREATH ACTIVATED 1 PUFF INHALATION ONCE A DAY, NOTES: 07/27 9AM TAKING VENTOLIN HFA 108 (90 BASE) MCG/ACT AEROSOL SOLUTION 2 PUFFS INHALATION EVERY 4-6 HOURS NEEDED, NOTES: 07/27 9AM TAKING METFORMIN HCL 1000 MG TABLET 1 TABLET WITH MEALS ORALLY TWICE A DAY, NOTES: 07/26 9PM TAKING ONDANSETRON HCL 4 MG TABLET DIRECTED ORALLY QID PRN NAUSEA, NOTES: 07/27 9PM TAKING PERCOCET 5-325 MG TABLET 1 ORALLY EVERY 6 HRS PRN MDD2, NOTES: 07/27 5PM NOT-TAKING QUAD CANE - MISCELLANEOUS DIRECTED _ DAILY/ DX : UNSTEADY GAIT NOT-TAKING HOSPITAL BED DIRECTED NOT-TAKING MAY HAVE M54.2 M54.5 HOSPITAL BED DAILY NEEDED MEDICATION LIST REVIEWED AND RECONCILED WITH THE PATIENT PAST MEDICAL HISTORY SEIZURES- MARIUM MIGRAINES-MARIUM ARTHRITIS CHRONIC NECK PAIN- PAIN CLINIC [facility] HTN H/O PEPTIC ULCER VON WILLEBRAND'S DISEASE (NEEDS PRE-TREATMENT WITH DDAVP FOR SURGERY - SEE NOTE FROM DR. ARAUJO 09/11/2009) HIATAL HERNIA HEMORRHOIDS RECURRENT BREAST ABSCESSES FIBROCYSTIC BREAST DISEASE KIDNEY STONES NECK PAIN- DR SUERO PNEUMOVAX- PT STATES 2011 DIABETES COPD LEFT BREAST FAT NECROSIS POST REDUCTION RA ALLERGIES ASPIRIN: ANAPHYLAXIS: ALLERGY PEPPER: THROAT CLOSE, TONGUE SWELLS: ALLERGY MORPHINE SULFATE: RASH, HIVES: ALLERGY TOPAMAX: KINDNEY STONES: SIDE EFFECTS IMITREX: SEVERE HTN (NEAR SBP 300): SIDE EFFECTS NICKEL: RASH: ALLERGY SOCIAL HISTORY GENERAL: TOBACCO USE ARE YOU A:FORMER SMOKER HOW LONG HAS IT BEEN SINCE YOU LAST SMOKED?1-5 YEARS BMI CARE GOAL FOLLOW-UP ABOVE NORMAL BMI FOLLOW-[facility] EDUCATION REGARDING DIET ALCOHOL SCREENING DID YOU HAVE A DRINK CONTAINING ALCOHOL IN THE PAST YEAR?YES HOW OFTEN DID YOU HAVE A DRINK CONTAINING ALCOHOL IN THE PAST YEAR?MONTHLY OR LESS (1 POINT) HOW MANY DRINKS DID YOU HAVE ON A TYPICAL DAY WHEN YOU WERE DRINKING IN THE PAST YEAR?1 OR 2 (0 POINTS) HOW OFTEN DID YOU HAVE SIX OR MORE DRINKS ON ONE OCCASION IN THE PAST YEAR?NEVER (0 POINTS) POINTS1 INTERPRETATIONNEGATIVE RECREATIONAL DRUG USE DRUG USE?NO CAFFEINE CAFFEINE USE?YES HOW OFTEN AND HOW MUCH? DAILY SEXUAL HX HAD SEX IN THE LAST 12 MONTHS (VAGINAL, ORAL, OR ANAL)?YES WITHMEN ONLY HAVE YOU EVER HAD AN STD?NO HIV / HEP-C SCREENING HIV TEST OFFERED TO PATIENT:NO HEP-C TEST OFFERED TO PATIENT:NO DIET: NO CONCENTRATED SWEETS.. LEARNING BARRIERS / SPECIAL NEEDS CHANGE FROM LAST VISIT?NO NEW PATIENT PAIN DIARY TODAY'S VISIT NOTES, FROM 0-10, WHAT LEVEL IS YOUR PAIN TODAY? 0. PAIN CLINIC PFS, CLERGY, PUBLIC HEALTH REFERRALS WAS THE PROVIDER NOTIFIED OF ANY PERTINENT INFO?YES HAS THE PATIENT BEEN EDUCATED REGARDING HIS/HER PLAN OF CARE?YES PLEASE DOCUMENT ANY ADDTIONAL DETAILS.PLEASE FREE TEXT IN THE NOTES SECTION. RIGHT SIJ INJECTION HAS THE PATIENT BEEN EDUCATED REGARDING PAIN, THE RISK FOR PAIN, THE IMPORTANCE OF EFFECTIVE PAIN MANAGEMENT, AND THE PAIN ASSESSMENT PROCESS?YES REVIEWED BY: LYNN. REVIEW OF SYSTEMS REVIEWED BY: PROVIDER: . CONSTITUTIONAL: ANY CHANGE IN YOUR MEDICAL CONDITION? NO . CHILLS NO . FEVER NO . INFECTION: DO YOU HAVE NEW INFECTIONS? NO . DO YOU HAVE HISTORY OF MRSA? NO . MUSCULOSKELETAL: ANY NEW PATTERNS OF PAIN OR NUMBNESS? NO . SYTEMIC LUPUS NO . GASTROENTEROLOGY: ANY NEW CHANGE IN BOWEL CONTROL? NO . BARRETTS ESOPHAGUS NO . CIRRHOSIS NO . HEPATITIS NO . LIVER FAILURE NO . ACID REFLUX NO . UNEXPLAINED WEIGHT LOSS NO . GENITOURINARY: ANY NEW CHANGE IN BLADDER CONTROL? NO . IS THERE A CHANCE YOU COULD BE ? NO . HEMATOLOGY/LYMPH: DO YOU TAKE ANY BLOOD THINNERS? (FOR EXAMPLE- COUMADIN, PLAVIX, AGGRENOX, PLATEL, PRADAXA, OR XARELTO) NO . WHEN WAS YOUR LAST DOSE? DATE: TIME: . LOW PLATELET COUNT NO . SICKLE CELL DISEASE NO . VON WILLIEBRANDS NO . FACTOR V LEIDEN NO . THALLASEMIA NO . ANEMIA NO . EASY BRUISING NO . NEUROLOGY: HAVE YOU FALLEN IN THE PAST 6 MONTHS? NO . ANY NEW EXTREMITY NUMBNESS OR WEAKNESS? NO . HEAD INJURY NO . DEMENTIA NO . CEREBRAL PALSY NO . MULTIPLE SCLEROSIS NO . DIZZINESS NO . HEADACHE NO . STROKES NO . VERTIGO NO . CARDIOLOGY: DO YOU HAVE A PACEMAKER OR DEFIBRILLATOR? NO . ANGINA NO . HEART ATTACK NO . HEART SURGERY NO . CONGESTIVE HEART FAILURE/FLUID OVERLOAD NO . CHEST PAIN NO . HIGH BLOOD PRESSURE NO . IRREGULAR HEART BEAT NO . RESPIRATORY: HAVE YOU BEEN SICK IN THE PAST WEEK? NO . FEVER NO . FLU LIKE SYMPTOMS? NO . CPAP NO . BYPAP NO . ASTHMA NO . EMPHYSEMA NO . CHRONIC LUNG DISEASES NO . SHORTNESS OF BREATH ON EXERTION NO . COUGH NO . SNORING NO . INTEGUMENTARY: DO YOU HAVE ANY RASHES OR OPEN SORES? NO . ALLERGIC/IMMUNO: ARE YOU ALLERGIC TO SHELLFISH OR IV DYE? NO . ANY NEW ALLERGIES? NO . PSYCHIATRIC: DO YOU HAVE THOUGHTS OF HURTING YOURSELF OR SOMEONE ELSE? NO . ARE YOU ABUSED, NEGLECTED, OR IN AN UNSAFE ENVIRONMENT? NO . ENDOCRINOLOGY: ARE YOU DIABETIC? YES, PT STATES THAT HER BLOOD SUGAR TYPICALLY IS ABOUT 145. . THYROID DISORDER NO . OTHER: DO YOU NEED ANY PRESCRIPTIONS? NO . IF YES, PLEASE LIST: ____ . ANY NEW PROBLEMS WITH YOUR MEDICATIONS? NO . WHEN DID YOU LAST EAT? 8:30PM . WHEN DID YOU LAST DRINK? 9PM . WHAT DID YOU LAST DRINK? WATER . NAME OF PERSON DRIVING YOU HOME? JOSEFINA . DO YOU HAVE ANY OTHER QUESTIONS OR CONCERNS NO . VITAL SIGNS WT 183 LBS, HT 63.5 IN, BMI 31.91 INDEX, BP 208/92 MM HG, HR 79 /MIN, RR 18 /MIN, TEMP 97.9 F, OXYGEN SAT % 98%, SAFE IN ENV? (Y/N) Y, NA INITIALS WI 08:57, REVIEWED BY: LYNN. ASSESSMENTS SACROILIITIS, NOT ELSEWHERE CLASSIFIED - M46.1 (PRIMARY) PROCEDURES PN SI PRE PROCEDURE DIAGNOSIS SACROILIITIS, SACROILIAC JOINT DYSFUNCTION POST PROCEDURE DIAGNOSIS SACROILIITIS, SACROILIAC JOINT DYSFUNCTION PROCEDURE RIGHT SACROILIAC JOINT BLOCK SURGEON DR. MARCOS WARD SNAP ATTACHER NONE ANESTHESIA LOCAL PRE PROCEDURE NOTE PATIENT WITH HISTORY OF CHRONIC LOW BACK PAIN. I EVALUATED THE PATIENT AND REVIEWED THE CHART. I WENT OVER THE RISKS, ALTERNATIVES, AND BENEFITS ASSOCIATED WITH THIS PROCEDURE. THE PATIENT WOULD LIKE TO PROCEED AND GAVE CONSENT TO PERFORM THE PROCEDURE. THE PATIENT DENIES UNEXPLAINABLE WEIGHT LOSS, FEVER, CHILLS, OR NEW CHANGES IN URINARY OR BOWEL CONTROL DESCRIPTION OF PROCEDURE THE PATIENT WAS BROUGHT TO THE PROCEDURE ROOM AND PLACED IN THE PRONE POSITION. THE LUMBOSACRAL AREA WAS CLEANED WITH CHLORAPREP SOLUTION AND DRAPED ASEPTICALLY. THE PROCEDURE WAS DONE UNDER STERILE CONDITIONS. I CHECKED LATERALITY AND THE LEVEL WHERE THE PROCEDURE WAS GOING TO BE PERFORMED WITH THE PATIENT AND THE SUPPORTING STAFF AT THE MOMENT OF THE TIME OUT IN THE PROCEDURE ROOM. UNDER FLUOROSCOPIC GUIDANCE, TARGET POINT WAS SELECTED AT THE LOWER BORDER OF THE RIGHT SACROILIAC JOINT. TARGET POINT WAS SELECTED AFTER MEDIAL ROTATION AND TILT OF THE MAGNIFIER OF THE C-ARM. LIDOCAINE WAS USED TO NUMB THE SKIN AND SUBCUTANEOUS TISSUE BELOW IT. A SPINAL NEEDLE, 22-GAUGE, WAS ADVANCED UNDER FLUOROSCOPIC GUIDANCE AND FOLLOWING PATIENT FEEDBACK UNTIL THE TARGET AREA WAS TOUCHED. THE POSITION OF THE NEEDLE WAS VERIFIED WITH AP AND LATERAL VIEWS. AFTER PROPER POSITION OF THE NEEDLE WAS ACHIEVED, ISOVUE M DYE 30%, 0.25 ML, WAS INJECTED SHOWING SPREAD OF THE DYE. THEN, A SOLUTION OF 20 MG OF KENALOG WAS INJECTED IN RIGHT JOINT WITH 3 ML OF BUPIVACAINE 0.125%. THERE WAS NO EVIDENCE OF BLOOD, PARESTHESIA OR CEREBROSPINAL FLUID DURING THE PROCEDURE. THE PATIENT WAS SENT TO THE RECOVERY ROOM. THE PATIENT WAS MOVING THE EXTREMITIES AND DOING WELL. THERE WAS NO COMPLICATION DURING THE PROCEDURE. FLUOROSCOPY TIME WAS 22 SECONDS POST PROCEDURE NOTE THE PATIENT WILL BE SEEN IN A FOLLOW UP IN THE NEXT FEW WEEKS. INSTRUCTIONS WERE GIVEN, QUESTIONS WERE ANSWERED, AND THE PATIENT EXPRESSED UNDERSTANDING AND AGREED WITH THE PLAN. I, ANGIE CARDOZO, DOCUMENTED THE ABOVE INFORMATION ACTING A SCRIBE FOR DR. WARD. I HAVE REVIEWED THE ABOVE DOCUMENT, WRITTEN BY ANGIE DYSONIBDavid AND I VERIFY THAT IT IS ACCURATE DIAGNOSTIC IMAGING [facility] FLU[facility]O GUIDANCE (PAIN)[id number] PROCEDURE CODES 62007 INJECT SACROILIAC JOINT 6045F RADXPS IN END [id number] PXD DISPOSITION & COMMUNICATION FOLLOW UP 3 WEEKS ELECTRONICALLY SIGNED BY MARCOS WARD MD ON 07/28/2017 AT 09:19 PM EDT DISCLAIMER : THIS IS A VISIT SUMMARY EXTRACTED FROM THE [employer] CHART. IT IS NOT A COPY OF THE [employer] PROGRESS NOTE. MTDD
== END ==
LOC: M PAIN 08:45
PROVIDERS: ATTEND Anesthesiology
DX: G89.29 Other chronic pain (principal); M46.1 Sacroiliitis, not elsewhere classified; M53.88 Other specified dorsopathies, sacral and sacrococcygeal region; G40.909 Epilepsy, unspecified, not intractable, without status epilepticus; I10 Essential (primary) hypertension; E78.2 Mixed hyperlipidemia; K21.9 Gastro-esophageal reflux disease without esophagitis; E55.9 Vitamin D deficiency, unspecified; E11.9 Type 2 diabetes mellitus without complications; J44.9 Chronic obstructive pulmonary disease, unspecified; Z88.6 Allergy status to analgesic agent; Z88.5 Allergy status to narcotic agent; Z88.8 Allergy status to other drugs, medicaments and biological substances; Z91.018 Allergy to other foods; L23.0 Allergic contact dermatitis due to metals; Z79.84 Long term (current) use of oral hypoglycemic drugs; Z79.891 Long term (current) use of opiate analgesic; Z79.899 Other long term (current) drug therapy
CPT/HCPCS: 27096; J3301; Q9967

== ENCOUNTER → 2017-08-06 | Outpatient (REF) | payer OTHER ==
[~2017-08-06] MED LIST changes: -BUPIVACAINE HCL 0.25% 30 ML VIAL As Ordered ONE; -ISOVUE-M 300 61% 15ML VIAL (Q9967) As Ordered ONE; -LIDOCAINE 1% SDV INJ 30 ML VIAL As Ordered ONE; -TRIAMCINOLONE ACETONIDE SUSP 40 MG/ML VIAL (J3301) As Ordered ONE; -diazePAM 5 MG TAB As Ordered ONE; -oxyCODONE 5MG TAB As Ordered ONE
[2017-08-06 13:44] LABS: ALBUMIN 4.1 GM/DL (3.2-5.2); ALBUMIN/GLOBULIN RATIO 1.24 (1.00-1.93); ALKALINE PHOSPHATASE 107 U/L (45-117); ALT/SGPT 40 U/L (12-78); ANION GAP 8 MEQ/L (8-16); AST/SGOT 15 U/L (15-37); BILIRUBIN,TOTAL 0.6 MG/DL (0.2-1.0); BLOOD UREA NITROGEN 17 MG/DL (7-18); CALCIUM LEVEL 9.6 MG/DL (8.5-10.1); CARBON DIOXIDE LEVEL 30 MEQ/L (21-32); CHLORIDE LEVEL 99 MEQ/L (98-107); CHOLESTEROL LEVEL 227 MG/DL (<200); CREATININE FOR GFR 0.75 MG/DL (0.55-1.02); GLOMERULAR FILTRATION RATE > 60.0 (>51); GLUCOSE, FASTING 209 MG/DL (70-105); SODIUM LEVEL 137 MEQ/L (136-145); TOTAL PROTEIN 7.4 GM/DL (6.4-8.2); TRIGLYCERIDES LEVEL 189 MG/DL (<150)
== END ==
LOC: M SFHCPLAZ 11:01
PROVIDERS: ATTEND Nurse Practitioner Family
DX: E11.65 Type 2 diabetes mellitus with hyperglycemia (principal)

== ENCOUNTER → 2017-08-11 | Outpatient (CLI) | payer OTHER ==
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
== END ==
LOC: M PAIN 13:45
PROVIDERS: ATTEND Nurse Practitioner Family
DX: G89.29 Other chronic pain (principal); M54.2 Cervicalgia; M79.1 Myalgia; M53.3 Sacrococcygeal disorders, not elsewhere classified; G40.909 Epilepsy, unspecified, not intractable, without status epilepticus; G43.909 Migraine, unspecified, not intractable, without status migrainosus; I10 Essential (primary) hypertension; E78.2 Mixed hyperlipidemia; D68.0 Von Willebrand disease; K21.9 Gastro-esophageal reflux disease without esophagitis; E55.9 Vitamin D deficiency, unspecified; E11.9 Type 2 diabetes mellitus without complications; J44.9 Chronic obstructive pulmonary disease, unspecified; L23.0 Allergic contact dermatitis due to metals; Z88.5 Allergy status to narcotic agent; Z88.6 Allergy status to analgesic agent; Z88.8 Allergy status to other drugs, medicaments and biological substances; Z91.018 Allergy to other foods; Z79.891 Long term (current) use of opiate analgesic; Z79.899 Other long term (current) drug therapy

== ENCOUNTER 2017-09-01 16:28 | Emergency (ER) | payer OTHER ==
[~2017-09-01] VITALS: Ht 160 cm; Wt 84.1 kg
[~2017-09-01 16:28] MED LIST changes: -ALOG25TA PO; -AMOX500C PO; -BUPIVACAINE HCL 0.25% 10 ML VIAL As Ordered ONE; -BUPIVACAINE HCL 0.25% 30 ML VIAL As Ordered ONE; -CHERSYP3 PO; -COMP1MIS3 XX; -IPRASOL4 IN; -KEFL500C17 PO; -KEPP1TAB PO; -LEVE250T5 PO; -METF10004 PO; -OXYC1TAB23 PO; -PANT40TA2 PO; -PRED20TA PO; -TRIAMCINOLONE ACETONIDE SUSP 40 MG/ML VIAL (J3301) As Ordered ONE; -diazePAM 5 MG TAB As Ordered ONE; -oxyCODONE 5MG TAB As Ordered ONE
[2017-09-01] MEDS ORDERED: LEVE250T5 PO (16:50)
[2017-09-01] MEDS ORDERED: PANT40TA2 PO (16:50)
--- NOTE | 2017-09-01 21:20 | REPUSA ---
CT of the head Clinical history: dizziness. Comparison: 08/22/2014. Technique: Multiple axial CT images were obtained through the head without administration of contrast . Findings: The ventricles and sulci are symmetric bilaterally. There is no evidence of acute hemorrhag e or infarct. There is no midline shift, mass effect, or extra-axial fluid collection. The osseous st ructures are unremarkable. The visualized paranasal sinuses and mastoid air cells are clear. Impression: Negative study.
[2017-09-01 21:40] LABS: BASO # 0.1 10^3/uL (0.0-0.2); BASO % 0.7 % (0.0-1.0); EOS % 0.3 % (0.0-3.0); IMMATURE GRANULOCYTE % 0.5 % (0-0); LYMPH # 1.6 10^3/uL (1.5-4.5); LYMPH % 18.4 % (24.0-44.0); MEAN CORPUSCULAR HEMOGLOBIN 31.4 pg (27.0-33.0); MEAN CORPUSCULAR HGB CONC 33.9 g/dl (32.0-36.5); MEAN CORPUSCULAR VOLUME 92.8 fl (80.0-96.0); MONO # 0.4 10^3/uL (0.0-0.8); NEUTROPHILS # 6.7 10^3/uL (1.8-7.7); NEUTROPHILS % 76.1 % (36.0-66.0); PLATELET COUNT, AUTOMATED 229 10^3/uL (150-450); RED CELL DISTRIBUTION WIDTH 12.3 % (11.5-14.5); WHITE BLOOD COUNT 8.8 10^3/uL (4.0-10.0)
[2017-09-01] MEDS ORDERED: PERCOCET 5MG/325MG TAB PO ONE (22:15)
[2017-09-01 22:18] LABS: ANION GAP 10 MEQ/L (8-16); BLOOD UREA NITROGEN 14 MG/DL (7-18); CALCIUM LEVEL 9.8 MG/DL (8.5-10.1); CARBON DIOXIDE LEVEL 25 MEQ/L (21-32); CHLORIDE LEVEL 104 MEQ/L (98-107); CREATININE FOR GFR 0.81 MG/DL (0.55-1.02); GLOMERULAR FILTRATION RATE > 60.0 (>51); GLUCOSE, FASTING 255 MG/DL (70-105); POTASSIUM SERUM 4.2 MEQ/L (3.5-5.1); SODIUM LEVEL 139 MEQ/L (136-145)
[2017-09-01 23:30] VITALS: BP 137/66
--- NOTE | 2017-09-02 04:28 | ECGEPIP ---
Stationary ECG Study [facility] - ED Test Date: 2017-09-01 Pat Name: NICOLE BERNABE Department: Room: - Gender: F Gore Seamer: sindi : 1960 Requested By: KEYLA Alvarez PA-C Order Number: [id number] Reading MD: Chemo Rogers Measurements Intervals [place] Rate: 56 P: 63 WV: 157 QRS: 46 QRSD: 110 T: 49 QT: 425 QTc: 412 Interpretive Statements SINUS BRADYCARDIA ST DEVIATION AND MODERATE T-WAVE ABNORMALITY, CONSIDER ANTEROLATERAL ISCHEMIA Electronically Signed On 09-02-2017 4:27:43 EDT by Chemo Rogers
--- NOTE | 2017-09-02 07:56 | REP ---
PA and lateral chest: Comparison is 12/07/2014. The lung modi are clear. The cardiac size is normal The anthony, mediastinum, and bony thorax are unremarkable. Impression: Negative PA and lateral chest. There is a cervical spine stabilization plate, unchanged. Signed by Luke Fisher MD 09/02/2017 07:47 A
== END 2017-09-01 23:30 | disposition home or self-care (01) ==
LOC: M ED 16:28
DX: S00.90XA Unspecified superficial injury of unspecified part of head, initial encounter (principal); R00.1 Bradycardia, unspecified; R73.9 Hyperglycemia, unspecified; X58.XXXA Exposure to other specified factors, initial encounter; Y92.9 Unspecified place or not applicable; Y93.9 Activity, unspecified; Y99.9 Unspecified external cause status; Z87.442 Personal history of urinary calculi; G43.909 Migraine, unspecified, not intractable, without status migrainosus; F41.9 Anxiety disorder, unspecified; F32.9 Major depressive disorder, single episode, unspecified; Z87.891 Personal history of nicotine dependence; Z79.4 Long term (current) use of insulin; Z79.899 Other long term (current) drug therapy; Z88.6 Allergy status to analgesic agent; Z88.8 Allergy status to other drugs, medicaments and biological substances; Z88.5 Allergy status to narcotic agent; Z91.018 Allergy to other foods; Z91.89 Other specified personal risk factors, not elsewhere classified

== ENCOUNTER → 2017-09-01 | Outpatient (CLI) | payer OTHER ==
[~2017-09-01] MED LIST changes: +BUPIVACAINE HCL 0.25% 10 ML VIAL As Ordered ONE; +BUPIVACAINE HCL 0.25% 30 ML VIAL As Ordered ONE; +TRIAMCINOLONE ACETONIDE SUSP 40 MG/ML VIAL (J3301) As Ordered ONE; +diazePAM 5 MG TAB As Ordered ONE; +oxyCODONE 5MG TAB As Ordered ONE
--- NOTE | 2017-09-06 23:50 | ECWPNPC ---
PATIENT NAME: NICOLE BERNABE : 1960 GENDER: FEMALE VISIT DATE: 09/01/2017 DISCHARGE DATE: 09/01/17 1559 VISIT LOCKED DATE TIME: PHYSICIAN: MARCOS WARD PHYSICIAN PAGER NO: TEXT TO [phone] RESOURCE: MARCOS WARD REASON FOR APPOINTMENT 1. NECK HISTORY OF PRESENT ILLNESS HISTORY OF PRESENT ILLNESS: PAIN THE PATIENT DESCRIBES THE PAIN... FALL RISK SCREENING: SCREENING :NO FALLS IN THE PAST YEAR CURRENT MEDICATIONS TAKING LEVETIRACETAM 500 MG TABLET 1 TABLET ORALLY TWICE A DAY, NOTES: 08/31 1100 TAKING ZEBETA 10 MG TABLET 1 TABLET ORALLY ONCE A DAY, NOTES: 08/31 1100 TAKING LATANOPROST 0.005 % SOLUTION 1 DROP INTO AFFECTED EYE IN THE EVENING OPHTHALMIC ONCE A DAY, NOTES: 09/01 1100 TAKING VENTOLIN HFA 108 (90 BASE) MCG/ACT AEROSOL SOLUTION 2 PUFFS INHALATION EVERY 4-6 HOURS NEEDED, NOTES: 08/31 1100 TAKING LIPITOR 80 MG TABLET 1 TABLET ORALLY ONCE A DAY, NOTES: 09/01 1100 TAKING CHLORTHALIDONE 25 25 MG TABLET 1 TAB(S) ORAL ONCE DAILY, NOTES: 08/31 1100 TAKING ONDANSETRON HCL 4 MG TABLET DIRECTED ORALLY QID PRN NAUSEA, NOTES: NONE RECENT TAKING FLONASE 50 MCG/DOSE INHALER 2 SPRAYS IN EACH NOSTRIL NASALLY ONCE A DAY, NOTES: 08/31 1100 TAKING INCRUSE ELLIPTA 62.5 MCG/INH AEROSOL POWDER BREATH ACTIVATED 1 PUFF INHALATION ONCE A DAY, NOTES: 08/31 1100 TAKING PERCOCET 5-325 MG TABLET 1 ORALLY EVERY 6 HRS PRN MDD2, NOTES: 09/01 2200 TAKING PANTOPRAZOLE SODIUM 40 MG TABLET DELAYED RELEASE 1 TABLET ORALLY ONCE A DAY, NOTES: 08/31 1100 TAKING LEXAPRO 20 MG TABLET 1 TABLET ORALLY ONCE A DAY, NOTES: 08/31 1100 TAKING ALCOHOL PADS 70 % PAD DIRECTED TOPICAL TWICE DAILY/DX : E11.65 TAKING QUAD CANE - MISCELLANEOUS DIRECTED _ DAILY/ DX : UNSTEADY GAIT NOT-TAKING ONE TOUCH ULTRA SYSTEM KIT - METER DIRECTED - TWICE DAILY/ DX : 250.02 NOT-TAKING ONE TOUCH ULTRA TEST STRIPS - STRIPS DIRECTED - TWICE DAILY/ DX : E11.65 NOT-TAKING LANCETS FOR ONE TOUCH ULTRA MISCELLANEOUS DIRECTED SC TWICE DAILY/DX : E11.65 DISCONTINUED LISINOPRIL 20 MG TABLET 1 TABLET ORALLY ONCE A DAY DISCONTINUED OMEPRAZOLE 40 MG CAPSULE DELAYED RELEASE 1 CAPSULE ORALLY ONCE A DAY DISCONTINUED FOLIC ACID 1 MG TABLET 1 TABLET ORALLY ONCE A DAY DISCONTINUED DEPAKOTE ER 500 MG TABLET EXTENDED RELEASE 24 HOUR DIRECTED. ORALLY 1 AM, 2 TABS PM DISCONTINUED AMITRIPTYLINE HCL 20 MG TABLET 1 TABLET AT BEDTIME ORALLY ONCE A DAY DISCONTINUED METHOTREXATE 2.5 MG TABLET 4 TABS ORALLY ONCE WEEKLY DISCONTINUED METFORMIN HCL 1000 MG TABLET 1 TABLET WITH MEALS ORALLY TWICE A DAY DISCONTINUED HOSPITAL BED DIRECTED DISCONTINUED MAY HAVE M54.2 M54.5 HOSPITAL BED DAILY NEEDED MEDICATION LIST REVIEWED AND RECONCILED WITH THE PATIENT PAST MEDICAL HISTORY SEIZURES- MARIUM MIGRAINES-MARIUM ARTHRITIS CHRONIC NECK PAIN- PAIN CLINIC [facility] HTN H/O PEPTIC ULCER VON WILLEBRAND'S DISEASE (NEEDS PRE-TREATMENT WITH DDAVP FOR SURGERY - SEE NOTE FROM DR. ARAUJO 09/11/2009) HIATAL HERNIA HEMORRHOIDS RECURRENT BREAST ABSCESSES FIBROCYSTIC BREAST DISEASE KIDNEY STONES NECK PAIN- DR SUERO PNEUMOVAX- PT STATES 2011 DIABETES COPD LEFT BREAST FAT NECROSIS POST REDUCTION RA ALLERGIES ASPIRIN: ANAPHYLAXIS: ALLERGY PEPPER: THROAT CLOSE, TONGUE SWELLS: ALLERGY MORPHINE SULFATE: RASH, HIVES: ALLERGY TOPAMAX: KINDNEY STONES: SIDE EFFECTS IMITREX: SEVERE HTN (NEAR SBP 300): SIDE EFFECTS NICKEL: RASH: ALLERGY METFORMIN: DIARRHEA: SIDE EFFECTS SOCIAL HISTORY GENERAL: TOBACCO USE ARE YOU A:FORMER SMOKER HOW LONG HAS IT BEEN SINCE YOU LAST SMOKED?1-5 YEARS BMI CARE GOAL FOLLOW-UP ABOVE NORMAL BMI FOLLOW-[facility] EDUCATION REGARDING DIET ALCOHOL SCREENING DID YOU HAVE A DRINK CONTAINING ALCOHOL IN THE PAST YEAR?YES HOW OFTEN DID YOU HAVE A DRINK CONTAINING ALCOHOL IN THE PAST YEAR?MONTHLY OR LESS (1 POINT) HOW MANY DRINKS DID YOU HAVE ON A TYPICAL DAY WHEN YOU WERE DRINKING IN THE PAST YEAR?1 OR 2 (0 POINTS) HOW OFTEN DID YOU HAVE SIX OR MORE DRINKS ON ONE OCCASION IN THE PAST YEAR?NEVER (0 POINTS) POINTS1 INTERPRETATIONNEGATIVE RECREATIONAL DRUG USE DRUG USE?NO CAFFEINE CAFFEINE USE?YES HOW OFTEN AND HOW MUCH? DAILY SEXUAL HX HAD SEX IN THE LAST 12 MONTHS (VAGINAL, ORAL, OR ANAL)?YES WITHMEN ONLY HAVE YOU EVER HAD AN STD?NO HIV / HEP-C SCREENING HIV TEST OFFERED TO PATIENT:NO HEP-C TEST OFFERED TO PATIENT:NO DIET: NO CONCENTRATED SWEETS.. BUDDHIST [id number] NONE LANGUAGE LANGUAGES SPOKEN:WELSH EDUCATION LEVEL OF EDUCATION:NOT FINISHED HIGH SCHOOL 11 TH GRADE LEARNING BARRIERS / SPECIAL NEEDS CHANGE FROM LAST VISIT?NO NEW PATIENT PAIN DIARY TODAY'S VISIT NOTES, FROM 0-10, WHAT LEVEL IS YOUR PAIN TODAY? 0. PAIN CLINIC PFS, CLERGY, PUBLIC HEALTH REFERRALS WAS THE PROVIDER NOTIFIED OF ANY PERTINENT INFO?YES HAS THE PATIENT BEEN EDUCATED REGARDING HIS/HER PLAN OF CARE?YES PLEASE DOCUMENT ANY ADDTIONAL DETAILS.PLEASE FREE TEXT IN THE NOTES SECTION. RIGHT SIJ INJECTION HAS THE PATIENT BEEN EDUCATED REGARDING PAIN, THE RISK FOR PAIN, THE IMPORTANCE OF EFFECTIVE PAIN MANAGEMENT, AND THE PAIN ASSESSMENT PROCESS?YES REVIEWED BY: 09/01/17 6725 AD. [facility] DIRECTIVES HEALTH CARE PROXY?YES NAME OF HCP GISELE WILSON CONTACT # FOR HCP [phone] DO YOU HAVE A COPY WITH YOU?NO DO YOU HAVE A DNR?NO WOULD YOU LIKE MORE INFORMATION?NO LIVING WILL?NO WOULD YOU LIKE MORE INFORMATION?NO POWER OF ENTREPRENEUR?NO WOULD YOU LIKE MORE INFORMATION?NO DOMESTIC VIOLENCE DO YOU FEEL SAFE IN YOUR ENVIRONMENT?YES REVIEW OF SYSTEMS REVIEWED BY: PROVIDER: . CONSTITUTIONAL: ANY CHANGE IN YOUR MEDICAL CONDITION? NO . CHILLS NO . FEVER NO . INFECTION: DO YOU HAVE NEW INFECTIONS? NO . DO YOU HAVE HISTORY OF MRSA? NO . MUSCULOSKELETAL: ANY NEW PATTERNS OF PAIN OR NUMBNESS? NO . GASTROENTEROLOGY: ANY NEW CHANGE IN BOWEL CONTROL? NO . GENITOURINARY: ANY NEW CHANGE IN BLADDER CONTROL? NO . IS THERE A CHANCE YOU COULD BE ? NO . HEMATOLOGY/LYMPH: DO YOU TAKE ANY BLOOD THINNERS? (FOR EXAMPLE- COUMADIN, PLAVIX, AGGRENOX, PLATEL, PRADAXA, OR XARELTO) NO . WHEN WAS YOUR LAST DOSE? DATE: TIME: . NEUROLOGY: HAVE YOU FALLEN IN THE PAST 6 MONTHS? YES,@ 1520 PT. REPORTED SHE FELL 2 DAYS AGO. SHE LOST HER BALANCE AND FELL. STATED SHE HIT HER HEAD AND DOESN'T KNOW IF SHE LOST CONSCIOUSNESS. SHE DID NOT GET EVALUATED AT THAT TIME AND HAS BEEN DIZZY SINCE. DR. WARD AWARE AND HE ADVISED HER TO GO TO THE ED FOR EVALUATION. . ANY NEW EXTREMITY NUMBNESS OR WEAKNESS? NO . CARDIOLOGY: DO YOU HAVE A PACEMAKER OR DEFIBRILLATOR? NO . RESPIRATORY: HAVE YOU BEEN SICK IN THE PAST WEEK? NO . FEVER NO . FLU LIKE SYMPTOMS? NO . COUGH NO . INTEGUMENTARY: DO YOU HAVE ANY RASHES OR OPEN SORES? NO . ALLERGIC/IMMUNO: ARE YOU ALLERGIC TO SHELLFISH OR IV DYE? NO . ANY NEW ALLERGIES? NO . PSYCHIATRIC: DO YOU HAVE THOUGHTS OF HURTING YOURSELF OR SOMEONE ELSE? NO . ARE YOU ABUSED, NEGLECTED, OR IN AN UNSAFE ENVIRONMENT? NO . ENDOCRINOLOGY: ARE YOU DIABETIC? YES . OTHER: DO YOU NEED ANY PRESCRIPTIONS? NO . IF YES, PLEASE LIST: ____ . ANY NEW PROBLEMS WITH YOUR MEDICATIONS? NO . WHEN DID YOU LAST EAT? 08/31 2000 . WHEN DID YOU LAST DRINK? 09/01 800 . WHAT DID YOU LAST DRINK? WATER, COFFEE . NAME OF PERSON DRIVING YOU HOME? PRERNA . DO YOU HAVE ANY OTHER QUESTIONS OR CONCERNS NO . VITAL SIGNS WT 185.9 LBS, HT 63.5 IN, BMI 32.41 INDEX, BP 196/88 MM HG, REPEAT BP 160/82(AD), HR 55 /MIN, RR 18 /MIN, TEMP 97.4 F, OXYGEN SAT % 93%, SAFE IN ENV? (Y/N) Y, NA INITIALS AW 1347, REVIEWED BY: AD. ASSESSMENTS MYALGIA - M79.1 (PRIMARY) PROCEDURES PN TRIGGER POINT INJECTION WITH STEROIDS PRE PROCEDURE DIAGNOSIS 1. MYALGIA 2. PAIN AT BILATERAL NECK AREA, BILATERAL SHOULDER AREA, AND BILATERAL THORACIC AREA POST PROCEDURE DIAGNOSIS 1. MYALGIA 2. PAIN AT BILATERAL NECK AREA, BILATERAL SHOULDER AREA, AND BILATERAL THORACIC AREA PROCEDURE TRIGGER POINT INJECTION AT BILATERAL NECK AREA, BILATERAL SHOULDER AREA, AND BILATERAL THORACIC AREA SURGEON DR. MARCOS WARD ADJUNCT COMMUNICATIONS FACULTY MEMBER NONE ANESTHESIA LOCAL PRE PROCEDURE NOTE THE PATIENT HAS A HISTORY OF CHRONIC PAIN AT THE RIGHT AND LEFT NECK AREA, RIGHT AND LEFT SHOULDER AREA, AND RIGHT AND LEFT THORACIC AREA. I EVALUATE THE PATIENT AND REVIEWED THE CHART. THERE IS EVIDENCE OF BANDS OF TISSUE WITH RESTRICTION OF MOVEMENT AND PRESENCE OF TRIGGER POINT AT THE AFFECTED AREA. I WENT OVER THE RISKS, ALTERNATIVES, AND BENEFITS ASSOCIATED WITH THIS PROCEDURE. THE PATIENT WOULD LIKE TO PROCEED AND GIVE CONSENT TO PERFORMED THE PROCEDURE. THE PATIENT DENIES UNEXPLAINABLE WEIGHT LOSS, FEVER, CHILLS, OR NEW CHANGES IN URINARY OR BOWEL CONTROL DESCRIPTION OF PROCEDURE THE PATIENT WAS BROUGHT TO THE PROCEDURE ROOM AND PLACED IN THE SITTING POSITION. THE AREA WAS CLEANED WITH ALCOHOL. THE PROCEDURE WAS DONE USING ASEPTIC STERILE TECHNIQUE. I CHECKED LATERALITY AND THE LEVEL WHERE THE PROCEDURE WAS GOING TO BE PERFORMED WITH THE PATIENT AND THE SUPPORTING STAFF AT THE MOMENT OF THE TIME OUT IN THE PROCEDURE ROOM. USING A 25-GAUGE NEEDLE, TRIGGER POINTS WERE INJECTED AT THE RIGHT AND LEFT NECK AREA, RIGHT AND LEFT SHOULDER AREA, AND RIGHT AND LEFT THORACIC AREA WITH A TOTAL OF 40 ML OF BUPIVACAINE 0.25% AND KENALOG 40 MG. THERE WAS NO EVIDENCE OF BLOOD, PARESTHESIA OR CEREBROSPINAL FLUID DURING THE PROCEDURE. THE PATIENT WAS SENT TO THE RECOVERY ROOM. THE PATIENT WAS MOVING THE EXTREMITIES AND DOING WELL. THERE WAS NO COMPLICATION DURING THE PROCEDURE POST PROCEDURE NOTE THE PATIENT WILL BE SEEN IN A FOLLOW UP IN THE NEXT FEW WEEKS. INSTRUCTIONS WERE GIVEN, QUESTIONS WERE ANSWERED, AND THE PATIENT EXPRESSED UNDERSTANDING AND AGREES WITH THE PLAN. I, ANGIE CARDOZO, DOCUMENTED THE ABOVE INFORMATION ACTING A SCRIBE FOR DR. WARD. I HAVE REVIEWED THE ABOVE DOCUMENT, WRITTEN BY ANGIE HERNADEZ AND I VERIFY THAT IT IS ACCURATE PROCEDURE CODES 94927 INJECT TRIGGER POINTS 3/> DISPOSITION & COMMUNICATION FOLLOW UP 3 WEEKS ELECTRONICALLY SIGNED BY MARCOS WARD MD ON 09/06/2017 AT 08:00 PM EDT DISCLAIMER : THIS IS A VISIT SUMMARY EXTRACTED FROM THE [employer] CHART. IT IS NOT A COPY OF THE [employer] PROGRESS NOTE. NELY
== END ==
LOC: M PAIN 13:30
PROVIDERS: ATTEND Anesthesiology
DX: G89.29 Other chronic pain (principal); M54.2 Cervicalgia; M25.511 Pain in right shoulder; M25.512 Pain in left shoulder; M54.6 Pain in thoracic spine; M79.1 Myalgia; G40.909 Epilepsy, unspecified, not intractable, without status epilepticus; G43.909 Migraine, unspecified, not intractable, without status migrainosus; I10 Essential (primary) hypertension; E78.2 Mixed hyperlipidemia; D68.0 Von Willebrand disease; K21.9 Gastro-esophageal reflux disease without esophagitis; E55.9 Vitamin D deficiency, unspecified; E11.9 Type 2 diabetes mellitus without complications; J44.9 Chronic obstructive pulmonary disease, unspecified; Z88.6 Allergy status to analgesic agent; Z91.09 Other allergy status, other than to drugs and biological substances; Z88.5 Allergy status to narcotic agent; L23.0 Allergic contact dermatitis due to metals; Z88.8 Allergy status to other drugs, medicaments and biological substances; Z79.891 Long term (current) use of opiate analgesic; Z79.899 Other long term (current) drug therapy; Z87.891 Personal history of nicotine dependence
CPT/HCPCS: 20553; J3301

== ENCOUNTER 2017-09-03 14:01 | Inpatient (IN) | payer OTHER ==
[~2017-09-03] VITALS: Ht 160 cm; Wt 82.5 kg
[~2017-09-03 14:01] MED LIST changes: +LEVE250T5 PO; +PANT40TA2 PO
[2017-09-03] MEDS ORDERED: NS 500 ML IV ONE (14:15)
[2017-09-03] MEDS ORDERED: IPRATROPIUM 0.5MG/ALBUTEROL 2.5MG INH SOL UD 3ML (DUONEB)(J7620) NEB ONE (15:00)
[2017-09-03] MEDS ORDERED: ALBUTEROL SULFATE 2.5 MG/0.5 ML INH NEB SOLN INH ONE (15:00)
[2017-09-03 15:02] LABS: BASO # 0.1 10^3/uL (0.0-0.2); BASO % 0.8 % (0.0-1.0); EOS # 0.1 10^3/uL (0.0-0.50); EOS % 0.6 % (0.0-3.0); IMMATURE GRANULOCYTE % 0.8 % (0-0); LYMPH # 3.2 10^3/uL (1.5-4.5); LYMPH % 30.8 % (24.0-44.0); MEAN CORPUSCULAR HEMOGLOBIN 33.1 pg (27.0-33.0); MEAN CORPUSCULAR HGB CONC 35.9 g/dl (32.0-36.5); MEAN CORPUSCULAR VOLUME 92.2 fl (80.0-96.0); MONO # 0.6 10^3/uL (0.0-0.8); MONO % 6.1 % (0.0-5.0); NEUTROPHILS # 6.3 10^3/uL (1.8-7.7); NEUTROPHILS % 60.9 % (36.0-66.0); PLATELET COUNT, AUTOMATED 264 10^3/uL (150-450); RED CELL DISTRIBUTION WIDTH 12.3 % (11.5-14.5); WHITE BLOOD COUNT 10.3 10^3/uL (4.0-10.0)
[2017-09-03 15:06] LABS: INR 1.08
[2017-09-03 15:17] LABS: ALBUMIN 3.7 GM/DL (3.2-5.2); ALBUMIN/GLOBULIN RATIO 1.19 (1.00-1.93); ALKALINE PHOSPHATASE 92 U/L (45-117); ALT/SGPT 51 U/L (12-78); ANION GAP 6 MEQ/L (8-16); AST/SGOT 19 U/L (15-37); BILIRUBIN,DIRECT < 0.1 MG/DL (0.0-0.2); BILIRUBIN,TOTAL 0.3 MG/DL (0.2-1.0); BLOOD UREA NITROGEN 17 MG/DL (7-18); CARBON DIOXIDE LEVEL 27 MEQ/L (21-32); CHLORIDE LEVEL 107 MEQ/L (98-107); CREATININE FOR GFR 0.92 MG/DL (0.55-1.02); GLOMERULAR FILTRATION RATE > 60.0 (>51); GLUCOSE, FASTING 228 MG/DL (70-105); POTASSIUM SERUM 3.9 MEQ/L (3.5-5.1); SODIUM LEVEL 140 MEQ/L (136-145); TOTAL PROTEIN 6.8 GM/DL (6.4-8.2)
--- NOTE | 2017-09-03 15:17 | REP ---
PORTABLE CHEST, SINGLE VIEW: There is no evidence of acute infiltrate. No pleural effusion is seen. The heart is normal in size. The mediastinal silhouette is unremarkable. The visualized osseous structures are intact. IMPRESSION: No acute pulmonary disease. Signed by Luke Maldonado MD 09/04/2017 05:41 P
[2017-09-03] MEDS ORDERED: PERCOCET 5MG/325MG TAB PO ONE (15:45)
[2017-09-03] MEDS ORDERED: methylPREDNISolone INJ 40 MG/1 ML VIAL (J2920) IV ONE (15:45)
[2017-09-03] MEDS ORDERED: ISOVUE-370 76% 100ML VIAL (Q9967) As Ordered ONE (15:51)
[2017-09-03] MEDS ORDERED: FUROSEMIDE 40 MG/4 ML VIAL (J1940) IV ONE (16:00)
--- NOTE | 2017-09-03 16:39 | REP ---
CT of the chest CT pulmonary angiography. Studies performed with IV contrast. Comparison is 01/22/2018. There are no emboli in the pulmonary trunk or central pulmonary arteries. There are no emboli in the pulmonary artery lobe or segment branches. There is a subsegmental infiltrate inferiorly in the lingula. The lung modi otherwise clear. No pleural effusions. There are no masses or nodules. There is no mediastinal, hilar or axillary adenopathy. The thoracic aorta is unremarkable. Cardiac size is upper normal. There is a small hiatal hernia. The visualized upper abdominal contents are unremarkable. There is reflux of the intravenous contrast into the abdominal vena cava and hepatic veins. Impression: No pulmonary emboli. Otherwise, negative CT study of the chest. There is a small hiatal hernia. There is reflux of the intravenous contrast into the abdominal vena cava and hepatic veins. This is nonspecific and could be physiologic from the rapid infusion of intravenous contrast or could be evidence for right heart failure. Signed by Luke Fisher MD 09/03/2017 04:31 P
--- NOTE | 2017-09-03 16:48 | REP ---
CT of the abdomen pelvis with IV contrast. The studies performed. Contiguous with the chest CT utilizing the same IV contrast bolus. The hepatic parenchyma is less dense than the spleen suggestive of hepato steatosis. The gallbladder, pancreas and spleen are unremarkable. The adrenals, kidneys and abdominal aorta are unremarkable except for renal parapelvic cysts. There is no hydronephrosis. There are no ureteral calculi. There is a 5 mm nonobstructive left renal calculus. The abdominal aorta is unremarkable. There is no bowel distension or obstruction. The mesentery is unremarkable. There is surgical fusion of the lumbar spine at L4, L5 and S1. There is a very constructed using beam hardening reduction software through this area. Pelvis: The appendix is unremarkable. There are surgical diverticula. There is no pericecal phlegmon or abscess. There is descending colon and sigmoid colon diverticulosis without diverticulitis. There is a hysterectomy. Vaginal cuff and adnexa are unremarkable. The bladder is unremarkable. Impression: Hepato steatosis. There is no hydronephrosis. There is a nonobstructive right renal calculus. There is no abdominal aortic aneurysm. There is diverticulosis of the cecum, descending colon and sigmoid colon without evidence of diverticulitis. There is no bowel distension or obstruction. The appendix is unremarkable. Gallbladder is unremarkable. There is a hysterectomy. There is no ascites or adenopathy. There is a 1 cm right renal cortical cysts. Signed by Luke Fisher MD 09/03/2017 04:40 P
[2017-09-03] MEDS ORDERED: OXYC1TAB23 PO (17:22)
[2017-09-03] MEDS ORDERED: KEPP1TAB PO (17:22)
[2017-09-03] MEDS ORDERED: ONDANSETRON 4 MG ORAL DISINTEGRATING TAB (S0181) PO PRN (19:00)
[2017-09-03] MEDS ORDERED: FLUTICASONE PROP 0.05% NASAL SPRAY 16 GM (FLONASE) PRN (19:00)
[2017-09-03] MEDS ORDERED: ALBUTEROL SULFATE 2.5 MG/0.5 ML INH NEB SOLN NEB PRN (19:00)
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
[2017-09-03] MEDS ORDERED: GLUCAGON FOR INJ 1 MG VIAL (J1610) SC PRN (20:15)
[2017-09-03] MEDS ORDERED: DEXTROSE 50% 50 ML SYRINGE IV PRN (20:15)
[2017-09-03] MEDS ORDERED: GLUCOSE 4 GM CHEW TABLET PO PRN (20:15)
[2017-09-03] MEDS: LATANOPROST 0.005% OPHTH SOLN 2.5 ML OU SCH (21:00)
[2017-09-03] MEDS: PERCOCET 5MG/325MG TAB PO PRN (21:43)
[2017-09-03] MEDS: levETIRAcetam 250MG TABLET (KEPPRA) PO SCH (21:45)
[2017-09-03] MEDS: HumaLOG INSULIN (NovoLOG) PER UNIT SC SCH (21:45)
--- NOTE | 2017-09-03 22:10 | REPUSA ---
MRI of the brain. Clinical history: headache, dizziness. Comparison: 09/01/2017. 04/23/2012. Technique: Multiecho multiplanar MRI images of the brain were obtained without administration of cont rast. Diffusion weighted images with ADC mapping was also obtained. Findings: The ventricles and sulci are symmetric bilaterally. The brain parenchyma demonstrates scattered areas of T2 hyperintensity in the subcortical white matter. There is no midline shift, mass effect, or ext ra-axial fluid collection. The midline intracranial structures do not demonstrate any gross abnormali ties. The cervical cranial junction is intact. The orbits are unremarkable. The visualized paranasal sinuses and mastoid air cells are clear. The osseous structures and superficial soft tissues are unre markable. The vascular structures demonstrate appropriate flow voids. Impression: No evidence of acute hemorrhage or infarct. Mild chronic small vessel ischemic disease.
[2017-09-03 22:20] VITALS: BP 189/88
[2017-09-03 22:22] VITALS: BP 178/80
[2017-09-03 23:59] VITALS: BP_SYST 163; BP_SYST 165; BP_SYST 181; BP_DIAS 69; BP_DIAS 72; BP_DIAS 78
[2017-09-04 04:00] VITALS: BP 166/74
[2017-09-04] MEDS: PERCOCET 5MG/325MG TAB PO PRN ×3 (04:08→20:01)
[2017-09-04 04:51] LABS: BASO % 0.2 % (0.0-1.0); IMMATURE GRANULOCYTE % 0.8 % (0-0); LYMPH # 1.3 10^3/uL (1.5-4.5); LYMPH % 9.6 % (24.0-44.0); MEAN CORPUSCULAR HEMOGLOBIN 31.2 pg (27.0-33.0); MEAN CORPUSCULAR HGB CONC 33.7 g/dl (32.0-36.5); MEAN CORPUSCULAR VOLUME 92.5 fl (80.0-96.0); MONO # 0.5 10^3/uL (0.0-0.8); MONO % 3.3 % (0.0-5.0); NEUTROPHILS # 11.6 10^3/uL (1.8-7.7); NEUTROPHILS % 86.1 % (36.0-66.0); PLATELET COUNT, AUTOMATED 253 10^3/uL (150-450); RED CELL DISTRIBUTION WIDTH 12.1 % (11.5-14.5); WHITE BLOOD COUNT 13.5 10^3/uL (4.0-10.0)
[2017-09-04 05:10] LABS: CALCIUM LEVEL 9.7 MG/DL (8.5-10.1); CREATININE FOR GFR 1.25 MG/DL (0.55-1.02); GLOMERULAR FILTRATION RATE 47.2 (>51); POTASSIUM SERUM 4.1 MEQ/L (3.5-5.1)
--- NOTE | 2017-09-04 07:22 | ECGEPIP ---
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
[2017-09-04 07:47] VITALS: BP_SYST 138; BP_SYST 158; BP_SYST 190; BP_DIAS 58; BP_DIAS 78; BP_DIAS 90
[2017-09-04] MEDS ORDERED: FLUCONAZOLE 50MG TABLET PO ONE (08:00)
[2017-09-04] MEDS: ONDANSETRON 4MG/2ML VIAL (J2405) IV PRN (08:18)
[2017-09-04] MEDS: HumaLOG INSULIN (NovoLOG) PER UNIT SC SCH ×4 (08:19→20:02)
[2017-09-04] MEDS: BISOPROLOL FUMARATE 10 MG TAB PO SCH (08:47)
[2017-09-04] MEDS: levETIRAcetam 250MG TABLET (KEPPRA) PO SCH ×2 (08:47→20:01)
[2017-09-04] MEDS: ATORVASTATIN 20 MG TAB PO SCH (08:47)
[2017-09-04] MEDS: PANTOPRAZOLE 40MG TAB (PROTONIX) PO SCH (08:48)
[2017-09-04] MEDS ORDERED: CHLORTHALIDONE 25 MG TAB PO SCH (09:00)
[2017-09-04] MEDS ORDERED: ESCITALOPRAM OXALATE 10 MG TAB (LEXAPRO) PO SCH (09:00)
[2017-09-04 13:00] VITALS: BP 152/70
[2017-09-04 16:00] VITALS: BP_SYST 128; BP_SYST 140; BP_SYST 150; BP_DIAS 68; BP_DIAS 76; BP_DIAS 78
--- NOTE | 2017-09-04 19:41 | IPNPDOC ---
Subjective Date Seen The patient was seen on 09/04/17. Subjective Chief Complaint/HPI The patient is a 57-year-old female admitted with a reason for visit of Syncope. Events since last encounter Patient reports that she continues to be dizzy today when changing positions. States that the room seems to spin around her. Continues to have ringing in both of her ears which she has been having for many years. Denies chest pain or palpitations. Patient denies fevers today. She was nauseated earlier but that had resolved with Zofran. She continues to have a good appetite. General: Reports: Normal Appetite, Other Symptoms (lightheaded with position changes and vertigo), Denies: Chills, Night Sweats, Fatigue, Malaise ENT: Reports: Other Symptoms (tinnitus b/l) Cardiovascular: Denies: Chest Pain, Palpitations, Orthopnea, Paroxysmal Noc. Dyspnea, Lt Headedness Gastrointestinal: Denies: Nausea, Vomiting, Abdominal Pain, Diarrhea, Constipation Genitourinary: Denies: Dysuria, Frequency, Incontinence, Retention Objective Physical Examination General Exam: Positive: Alert, Cooperative, Mild Distress Eye Exam: Positive: PERRLA, Conjunctiva & lids normal, EOMI ENT Exam: Positive: Atraumatic, Mucous membr. moist/pink, Pharynx Normal, Nares Patent, Negative: Pharyngeal Edema Neck Exam: Positive: Supple, Negative: thyromegaly, Lymphadenopathy Chest Exam: Positive: Clear to auscultation, Normal air movement, Other (pain to palpation left chest), Negative: Rhonchi, Wheezing Heart Exam: Positive: Rate Normal, Normal S1, Normal S2, Negative: Murmurs, Rubs Abdomen Exam: Positive: Normal bowel sounds, Soft, Tenderness (all over, generalized) Extremity Exam: Positive: Normal pulses (radial pulse 2/4 bilaterally), Negative: Clubbing, Cyanosis, Edema, Tenderness, Swelling Skin Exam: Positive: Nl turgor and temperature, Negative: Rash, Breakdown Neuro Exam: Positive: Normal Gait, Strength at 5/5 X4 ext (upper extremity), Cranial Nerves 3-12 NL Psych Exam: Positive: Mental status NL, Mood NL, Oriented x 3 Assessment /Plan Problems (1) Orthostasis Status: Acute Problem Text: BP measured 09/04/2017: Supine blood pressure 190/90; sitting 158 /78; standing 138/58. Patient felt lightheaded and off balance and standing position. Echocardiogram was ordered and will be reviewed. Discontinue medications that may cause orthostasis including Lexapro which was reduced to 10 mg daily. Chlorthalidone held. (2) Fall Problem Text: Unclear etiology. Possible syncopal event versus seizure disorder. Will obtain a Keppra level. Echocardiogram was ordered. Patient is on telemetry. (3) EVETTE (acute kidney injury) Status: Acute Problem Text: Possibly from Lasix dose given in the emergency department. Medication has been discontinued. We will continue to monitor her kidney functions. IVF has been held at this time secondary to patient's hypertension. (4) Essential hypertension Problem Text: Continue patient on Zebeta. Chlorthalidone has been discontinued. (5) Seizure disorder Status: Chronic Problem Text: Continue patient on Keppra. We will obtain a Keppra level. (6) Migraine Status: Chronic Problem Text: Patient's chronic migraines managed by neurology.Continue Keppra (7) Peptic ulcer disease Status: Chronic Problem Text: Continue Protonix. (8) Diabetes type 2, uncontrolled Status: Chronic Problem Text: Patient started on SSI. Patient's home regimen held at this time. Patient was given methylprednisolone in the ER which may have elevated glucose levels. Plan/VTE VTE Prophylaxis Ordered?: Yes VS[facility]/I&O Vital Signs Date Time Temp Pulse Resp B/P (MAP) Pulse Ox O2 Delivery O2 Flow Rate FiO2 09/04/17 16:00 Room Air 09/04/17 13:02 18 09/04/17 13:00 97.2 67 152/70 (97) 95 I&O- Last 24 Hours up to 6 AM 09/05/17 06:00 Intake Total 360 ml Output Total 400 ml Balance -40 ml Laboratory Data 24H LABS Laboratory Tests 2 09/03/17 21:25: Bedside Glucose (Misc Panel) 441H 09/04/17 04:41: Immature Granulocyte % (Auto) 0.8H, White Blood Count 13.5H, Red Blood Count 4.55, Hemoglobin 14.2, Hematocrit 42.1, Mean Corpuscular Volume 92.5, Mean Corpuscular Hemoglobin 31.2, Mean Corpuscular Hemoglobin Concent 33.7, Red Cell Distribution Width 12.1, Platelet Count 253, Neutrophils (%) (Auto) 86.1H, Lymphocytes (%) (Auto) 9.6L, Monocytes (%) (Auto) 3.3, Eosinophils (%) (Auto) 0.0, Basophils (%) (Auto) 0.2, Neutrophils # (Auto) 11.6H, Lymphocytes # (Auto) 1.3L, Monocytes # (Auto) 0.5, Eosinophils # (Auto) 0.0, Basophils # (Auto) 0.0, Immature Granulocyte # (Auto) 0.1H, Nucleated Red Blood Cells % (auto) 0.0, Anion Gap 11, Glomerular Filtration Rate 47.2L, Blood Urea Nitrogen 24H, Creatinine 1.25H, Sodium Level 137, Potassium Level 4.1, Chloride Level 101, Carbon Dioxide Level 25, Calcium Level 9.7 09/04/17 11:41: Bedside Glucose (Misc Panel) 318H 09/04/17 16:40: Bedside Glucose (Misc Panel) 298H CBC/BMP Laboratory Tests 09/04/17 04:41 Red Blood Count 4.55, Mean Corpuscular Volume 92.5, Mean Corpuscular Hemoglobin 31.2, Mean Corpuscular Hemoglobin Concent 33.7, Red Cell Distribution Width 12.1 , Neutrophils (%) (Auto) 86.1 H, Lymphocytes (%) (Auto) 9.6 L, Monocytes (%) ( Auto) 3.3, Eosinophils (%) (Auto) 0.0, Basophils (%) (Auto) 0.2, Neutrophils # ( Auto) 11.6 H, Lymphocytes # (Auto) 1.3 L, Monocytes # (Auto) 0.5, Eosinophils # (Auto) 0.0, Basophils # (Auto) 0.0, Calcium Level 9.7 GME ATTESTATION GME ATTESTATION My preceptor for this patient encounter was physically present in the building during the encounter and was fully available. As needed, all aspects of the patient interview, examination, medical decision making process, and medical care plan development were reviewed and approved by the preceptor. Preceptor is aware and concurs with the plan as stated in the body of this note and will attest to such by his/her cosignature. ATTENDING NOTE I saw and examined Ms. Marsh this morning; I discussed her care with Dr. Rivera and I agree with his note as documented. Ms. Marsh was c/o dizziness this morning with standing. She reported to me that she has chronic dizziness since a head injury many years ago, but her dizziness has been worse since her fall on Thursday. I suspect that her dizziness is due to orthostasis, but she is not hypotensive. In fact, she is actually often hypertensive while supine. We are therefore somewhat limited in our treatment options - if we more aggressively treat her supine hypertension, her orthostasis will likely worse, but if we give her IVF her hypertension will likely worsen. She has a little bit of an EVETTE today - likely from receiving lasix in the ED. She is hydrating well by mouth today, so I am in favor of holding off on IVF and rechecking her kidney function in the morning. We will also need for f/u her echocardiogram results and monitor telemetry. (KES) ARA RIVERA DO Sep 04, 2017 17:51 ELIZABETH STAPLES MD Sep 04, 2017 20:13
[2017-09-04 20:00] VITALS: BP 147/70
[2017-09-04] MEDS: LATANOPROST 0.005% OPHTH SOLN 2.5 ML OU SCH (20:02)
--- NOTE | 2017-09-04 21:19 | ECHO ---
DATE OF PROCEDURE: 09/04/2017 REFERRING PHYSICIAN: Dr. Ko King INDICATION: Syncope. HEIGHT: 158 cm WEIGHT: 84 kg 2D MEASUREMENTS: Left atrium: 3.7 cm Ventricular septum: 1.30 cm Posterior wall: 1.31 cm Left ventricle diastole: 4.2 cm Aortic root: 2.8 cm LVOT: 2.1 cm Inferior vena cava: 1.7 cm DOPPLER MEASUREMENTS: Mild-moderate aortic regurgitation. No aortic stenosis. Aortic regurgitation pressure half-time: 567 ms Peak aortic valve velocity: 157 cm/s LVOT velocity: 97.8 cm/s LVOT VTI: 19.2 cm Very mild mitral regurgitation. Mitral E velocity: 61.2 cm/s Mitral A velocity: 57.3 cm/s Mitral deceleration time: 152 ms Pulmonary artery systolic pressure: 19 mmHg by pulmonary acceleration time method. MITRAL ANNULAR TISSUE DOPPLER; E prime septal: 6.0 cm/s E prime lateral: 7.0 cm/s DESCRIPTION: Rhythm was sinus bradycardia. Image quality was fair. No pericardial effusion. CONCLUSIONS: 1. Mild concentric left ventricle hypertrophy. Normal regional LV wall motion and wall thickening. Normal LV systolic function. Left ventricular ejection fraction (LVEF) 65% by visual estimate. Normal LV diastolic function for age. 2. Mild aortic valve sclerosis of a 3-cusp aortic valve. No aortic stenosis. Mild-moderate aortic regurgitation. 3. Otherwise normal appearing echocardiogram Doppler. ADDITIONAL COMMENTS AND RECOMMENDATIONS: Suggest a followup echocardiogram Doppler in 2 years to follow aortic valve disease.
[2017-09-05] VITALS (7 sets, daily range): BP systolic 110–180; BP diastolic 66–78
[2017-09-05 05:24] LABS: BASO # 0.1 10^3/uL (0.0-0.2); BASO % 0.7 % (0.0-1.0); EOS % 0.4 % (0.0-3.0); IMMATURE GRANULOCYTE % 0.5 % (0-0); LYMPH # 3.7 10^3/uL (1.5-4.5); LYMPH % 32.6 % (24.0-44.0); MEAN CORPUSCULAR HEMOGLOBIN 30.7 pg (27.0-33.0); MONO # 0.7 10^3/uL (0.0-0.8); MONO % 6.4 % (0.0-5.0); NEUTROPHILS # 6.7 10^3/uL (1.8-7.7); NEUTROPHILS % 59.4 % (36.0-66.0); PLATELET COUNT, AUTOMATED 238 10^3/uL (150-450); RED CELL DISTRIBUTION WIDTH 12.2 % (11.5-14.5); WHITE BLOOD COUNT 11.2 10^3/uL (4.0-10.0)
[2017-09-05 05:51] LABS: CREATININE FOR GFR 1.03 MG/DL (0.55-1.02); POTASSIUM SERUM 4.2 MEQ/L (3.5-5.1)
[2017-09-05] MEDS: HumaLOG INSULIN (NovoLOG) PER UNIT SC SCH ×4 (08:19→20:21)
[2017-09-05] MEDS: BISOPROLOL FUMARATE 10 MG TAB PO SCH (08:20)
[2017-09-05] MEDS: ATORVASTATIN 20 MG TAB PO SCH (08:20)
[2017-09-05] MEDS: ESCITALOPRAM OXALATE 10 MG TAB (LEXAPRO) PO SCH (08:21)
[2017-09-05] MEDS: PANTOPRAZOLE 40MG TAB (PROTONIX) PO SCH (08:21)
[2017-09-05] MEDS: PERCOCET 5MG/325MG TAB PO PRN ×2 (08:21→20:20)
[2017-09-05] MEDS: levETIRAcetam 250MG TABLET (KEPPRA) PO SCH ×2 (08:21→20:19)
[2017-09-05] MEDS ORDERED: INFLUENZA QUADRIVALENT PF VACCINE 0.5ML SYRINGE (90686) IM ONE (09:00)
[2017-09-05] MEDS: ACETAMINOPHEN TAB 650MG DOSE (2X325MG) PO PRN (14:21)
[2017-09-05] MEDS: ONDANSETRON 4MG/2ML VIAL (J2405) IV PRN (14:59)
--- NOTE | 2017-09-05 19:25 | IPNPDOC ---
Subjective Date Seen The patient was seen on 09/05/17. Subjective Chief Complaint/HPI The patient is a 57-year-old female admitted with a reason for visit of Syncope. Events since last encounter Patient continues to complain of feeling lightheaded and dizzy when changing positions from lying down, to sitting and to standing. She states that her lightheadedness had improved somewhat since yesterday. She denies any fevers today. She does have some moderate ear pain. Constitutional: Denies: Chills, Fever, Night Sweats ENT: Reports: Ear Pain Pulmonary: Denies: Dyspnea, Cough Cardiovascular: Denies: Chest Pain, Palpitations, Orthopnea, Paroxysmal Noc. Dyspnea, Lt Headedness Gastrointestinal: Denies: Nausea, Vomiting, Abdominal Pain, Diarrhea, Constipation Neurological: Reports: Other Symptoms (vertigo) Objective Physical Examination General Exam: Positive: Alert, Cooperative, Mild Distress Eye Exam: Positive: PERRLA, Conjunctiva & lids normal, EOMI ENT Exam: Positive: Atraumatic, Mucous membr. moist/pink, Pharynx Normal, Nares Patent, Negative: Pharyngeal Edema Neck Exam: Positive: Supple, Negative: thyromegaly, Lymphadenopathy Chest Exam: Positive: Clear to auscultation, Normal air movement, Other (pain to palpation left chest), Negative: Rhonchi, Wheezing Heart Exam: Positive: Rate Normal, Normal S1, Normal S2, Negative: Murmurs, Rubs Abdomen Exam: Positive: Normal bowel sounds, Soft, Tenderness (all over, generalized) Extremity Exam: Positive: Normal pulses (radial pulse 2/4 bilaterally), Negative: Clubbing, Cyanosis, Edema, Tenderness, Swelling Skin Exam: Positive: Nl turgor and temperature, Negative: Rash, Breakdown Neuro Exam: Positive: Normal Gait, Strength at 5/5 X4 ext (upper extremity), Cranial Nerves 3-12 NL Psych Exam: Positive: Mental status NL, Mood NL, Oriented x 3 Assessment /Plan Problems (1) Acute otitis media Status: Acute Problem Text: Right sided. Will start patient on amoxicillin. (2) Orthostasis Status: Acute Problem Text: 09/05/17: Patient continues to have orthostasis but remains hypertensive BP measured 09/04/2017: Supine blood pressure 190/90; sitting 158/78; standing 138/58. Patient felt lightheaded and off balance and standing position. Echocardiogram was ordered and will be reviewed. Discontinue medications that may cause orthostasis including Lexapro which was reduced to 10 mg daily. Chlorthalidone held. (3) Fall Problem Text: Unclear etiology. Possible syncopal event versus seizure disorder. Will obtain a Keppra level. Echocardiogram was ordered. Patient is on telemetry. (4) EVETTE (acute kidney injury) Status: Acute Problem Text: Possibly from Lasix dose given in the emergency department. Medication has been discontinued. We will continue to monitor her kidney functions. IVF has been held at this time secondary to patient's hypertension. (5) Essential hypertension Problem Text: Patient remains hypertensive. Continue patient on Zebeta. Patient was started on lisinopril to decrease her BP. (6) Seizure disorder Status: Chronic Problem Text: Continue patient on Keppra. We will obtain a Keppra level, pending results (7) Migraine Status: Chronic Problem Text: Patient's chronic migraines managed by neurology.Continue Keppra (8) Peptic ulcer disease Status: Chronic Problem Text: Continue Protonix. (9) Diabetes type 2, uncontrolled Status: Chronic Problem Text: Patient started on SSI. Patient's home regimen held at this time. Plan/VTE VTE Prophylaxis Ordered?: Yes VS, I&O, 24H, Fishbone Vital Signs/I&O Vital Signs Date Time Temp Pulse Resp B/P (MAP) Pulse Ox O2 Delivery O2 Flow Rate FiO2 09/05/17 08:21 18 09/05/17 08:04 97.0 96 Room Air 09/05/17 08:03 52 158/70 (99) 65 150/72 (98) 62 140/74 (96) I&O- Last 24 Hours up to 6 AM 09/06/17 06:00 Intake Total 0 ml Output Total 400 ml Balance -400 ml Laboratory Data 24H LABS Laboratory Tests 2 09/04/17 11:41: Bedside Glucose (Misc Panel) 318H 09/04/17 16:40: Bedside Glucose (Misc Panel) 298H 09/04/17 19:57: Bedside Glucose (Misc Panel) 321H 09/05/17 05:16: Immature Granulocyte % (Auto) 0.5H, White Blood Count 11.2H, Red Blood Count 4.43, Hemoglobin 13.6, Hematocrit 41.2, Mean Corpuscular Volume 93.0, Mean Corpuscular Hemoglobin 30.7, Mean Corpuscular Hemoglobin Concent 33.0, Red Cell Distribution Width 12.2, Platelet Count 238, Neutrophils (%) (Auto) 59.4, Lymphocytes (%) (Auto) 32.6, Monocytes (%) (Auto) 6.4H, Eosinophils (%) (Auto) 0.4, Basophils (%) (Auto) 0.7, Neutrophils # (Auto) 6.7, Lymphocytes # (Auto) 3.7, Monocytes # (Auto) 0.7, Eosinophils # (Auto) 0.0, Basophils # (Auto) 0.1, Immature Granulocyte # (Auto) 0.1H, Nucleated Red Blood Cells % (auto) 0.0, Anion Gap 6L, Glomerular Filtration Rate 59.0, Blood Urea Nitrogen 26H, Creatinine 1.03H, Sodium Level 140, Potassium Level 4.2, Chloride Level 104, Carbon Dioxide Level 30, Calcium Level 9.0 CBC/BMP Laboratory Tests 09/05/17 05:16 Red Blood Count 4.43, Mean Corpuscular Volume 93.0, Mean Corpuscular Hemoglobin 30.7, Mean Corpuscular Hemoglobin Concent 33.0, Red Cell Distribution Width 12.2 , Neutrophils (%) (Auto) 59.4, Lymphocytes (%) (Auto) 32.6, Monocytes (%) (Auto ) 6.4 H, Eosinophils (%) (Auto) 0.4, Basophils (%) (Auto) 0.7, Neutrophils # ( Auto) 6.7, Lymphocytes # (Auto) 3.7, Monocytes # (Auto) 0.7, Eosinophils # (Auto ) 0.0, Basophils # (Auto) 0.1, Calcium Level 9.0 GME ATTESTATION GME ATTESTATION My preceptor for this patient encounter was physically present in the building during the encounter and was fully available. As needed, all aspects of the patient interview, examination, medical decision making process, and medical care plan development were reviewed and approved by the preceptor. Preceptor is aware and concurs with the plan as stated in the body of this note and will attest to such by his/her cosignature. ARA RIVERA DO Sep 05, 2017 11:15
[2017-09-05] MEDS: AMOXICILLIN 500 MG CAP PO SCH (20:19)
[2017-09-05] MEDS: LATANOPROST 0.005% OPHTH SOLN 2.5 ML OU SCH (20:20)
[2017-09-05] MEDS: MICONAZOLE-7 VAGINAL 2% CREAM 47.7 GM PV SCH (20:23)
[2017-09-06] VITALS (7 sets, daily range): BP systolic 119–204; BP diastolic 64–83
[2017-09-06 05:39] LABS: BASO # 0.1 10^3/uL (0.0-0.2); BASO % 0.7 % (0.0-1.0); EOS # 0.1 10^3/uL (0.0-0.50); EOS % 0.7 % (0.0-3.0); IMMATURE GRANULOCYTE % 0.6 % (0-0); LYMPH # 3.5 10^3/uL (1.5-4.5); LYMPH % 34.4 % (24.0-44.0); MEAN CORPUSCULAR HEMOGLOBIN 31.4 pg (27.0-33.0); MEAN CORPUSCULAR HGB CONC 33.9 g/dl (32.0-36.5); MEAN CORPUSCULAR VOLUME 92.6 fl (80.0-96.0); MONO # 0.7 10^3/uL (0.0-0.8); MONO % 6.4 % (0.0-5.0); NEUTROPHILS # 5.8 10^3/uL (1.8-7.7); NEUTROPHILS % 57.2 % (36.0-66.0); PLATELET COUNT, AUTOMATED 242 10^3/uL (150-450); RED CELL DISTRIBUTION WIDTH 12.3 % (11.5-14.5); WHITE BLOOD COUNT 10.2 10^3/uL (4.0-10.0)
[2017-09-06 06:14] LABS: ANION GAP 7 MEQ/L (8-16); BLOOD UREA NITROGEN 20 MG/DL (7-18); CALCIUM LEVEL 9.4 MG/DL (8.5-10.1); CARBON DIOXIDE LEVEL 29 MEQ/L (21-32); CHLORIDE LEVEL 102 MEQ/L (98-107); CREATININE FOR GFR 0.84 MG/DL (0.55-1.02); GLOMERULAR FILTRATION RATE > 60.0 (>51); GLUCOSE, FASTING 248 MG/DL (70-105); POTASSIUM SERUM 4.2 MEQ/L (3.5-5.1); SODIUM LEVEL 138 MEQ/L (136-145)
[2017-09-06] MEDS: ESCITALOPRAM OXALATE 10 MG TAB (LEXAPRO) PO SCH (08:21)
[2017-09-06] MEDS: HumaLOG INSULIN (NovoLOG) PER UNIT SC SCH ×4 (08:33→20:58)
[2017-09-06] MEDS: ATORVASTATIN 20 MG TAB PO SCH (08:33)
[2017-09-06] MEDS: levETIRAcetam 250MG TABLET (KEPPRA) PO SCH ×2 (08:34→20:57)
[2017-09-06] MEDS: LISINOPRIL 20 MG TAB PO SCH (08:34)
[2017-09-06] MEDS: AMOXICILLIN 500 MG CAP PO SCH ×2 (08:34→20:57)
[2017-09-06] MEDS: PANTOPRAZOLE 40MG TAB (PROTONIX) PO SCH (08:34)
[2017-09-06] MEDS: ACETAMINOPHEN TAB 650MG DOSE (2X325MG) PO PRN ×2 (08:34→15:49)
[2017-09-06] MEDS ORDERED: LEVEMIR (INSULIN DETEMIR) 1 UNITS/0.01ML SC ONE (10:00)
[2017-09-06] MEDS: PERCOCET 5MG/325MG TAB PO PRN (20:56)
[2017-09-06] MEDS: LATANOPROST 0.005% OPHTH SOLN 2.5 ML OU SCH (20:59)
[2017-09-06] MEDS: MICONAZOLE-7 VAGINAL 2% CREAM 47.7 GM PV SCH (21:00)
[2017-09-07] VITALS: BP_SYST 132; BP_SYST 140; BP_SYST 142; BP_DIAS 70; BP_DIAS 72
--- NOTE | 2017-09-07 03:31 | IPNPDOC ---
Subjective Date Seen The patient was seen on 09/06/17. Subjective Chief Complaint/HPI The patient is a 57-year-old female admitted with a reason for visit of Syncope. Events since last encounter Patient felt less dizzy this a.m. Reports ear discomfort improved. Not orthostatic when vitals taken in a.m. Overall reports feeling improved. In the evening, she had an episode of sternal area chest discomfort with numbness in her arm. Symptoms were worse with moving LUE, worse with pressure on costochondral junction. Cardiac markers and EKG ordered. Constitutional: Denies: Chills, Fever ENT: Reports: Ear Pain Pulmonary: Denies: Dyspnea, Cough Cardiovascular: Reports: Chest Pain ("tightness"), Denies: Palpitations Gastrointestinal: Denies: Nausea, Vomiting, Diarrhea, Constipation, Melena, Hematochezia Musculoskeletal: Reports: Arm Pain (and numbness) Objective Physical Examination General Exam: Positive: Alert, Cooperative, Mild Distress Eye Exam: Positive: PERRLA, Conjunctiva & lids normal, EOMI ENT Exam: Positive: Atraumatic, Mucous membr. moist/pink, Pharynx Normal, Nares Patent, Negative: Pharyngeal Edema Neck Exam: Positive: Supple, Negative: thyromegaly, Lymphadenopathy Chest Exam: Positive: Clear to auscultation, Normal air movement, Other (pain to palpation left chest), Negative: Rhonchi, Wheezing Heart Exam: Positive: Rate Normal, Normal S1, Normal S2, Negative: Murmurs, Rubs Abdomen Exam: Positive: Normal bowel sounds, Soft Extremity Exam: Positive: Normal pulses (radial pulse 2/4 bilaterally), Negative: Clubbing, Cyanosis, Edema, Tenderness, Swelling Skin Exam: Positive: Nl turgor and temperature, Negative: Rash, Breakdown Neuro Exam: Positive: Normal Gait, Strength at 5/5 X4 ext (upper extremity), Cranial Nerves 3-12 NL Psych Exam: Positive: Mental status NL, Mood NL, Oriented x 3 Assessment /Plan Problems (1) Acute otitis media Status: Acute Problem Text: Right sided. Will start patient on amoxicillin. (2) Orthostasis Status: Acute Problem Text: 09/06 -- not orthostatic in a.m., reports less dizziness 09/05/17: Patient continues to have orthostasis but remains hypertensive BP measured 09/04/2017: Supine blood pressure 190/90; sitting 158/78; standing 138/58. Patient felt lightheaded and off balance and standing position. Echocardiogram was ordered and will be reviewed. Discontinue medications that may cause orthostasis including Lexapro which was reduced to 10 mg daily. Chlorthalidone held. (3) Fall Problem Text: Unclear etiology. Possible syncopal event versus seizure disorder. Will obtain a Keppra level. Echocardiogram was ordered. Patient is on telemetry. (4) EVETTE (acute kidney injury) Status: Acute Problem Text: Possibly from Lasix dose given in the emergency department. Medication has been discontinued. We will continue to monitor her kidney functions. IVF has been held at this time secondary to patient's hypertension. (5) Essential hypertension Problem Text: Patient remains hypertensive. Continue patient on Zebeta. Patient was started on lisinopril to decrease her BP. (6) Seizure disorder Status: Chronic Problem Text: Continue patient on Keppra. We will obtain a Keppra level, pending results (7) Migraine Status: Chronic Problem Text: Patient's chronic migraines managed by neurology.Continue Keppra (8) Peptic ulcer disease Status: Chronic Problem Text: Continue Protonix. (9) Diabetes type 2, uncontrolled Status: Chronic Problem Text: On SSI and detemir. Patient's home regimen held at this time. (10) Chest pain Status: Acute Problem Text: Discussed with patient unlikely cardiac in origin. K pad and Tylenol discomfort. Cardiac markers x 2 and EKG. Plan/VTE VTE Prophylaxis Ordered?: Yes VS, I&O, 24H, Fishbone Vital Signs/I&O Vital Signs Date Time Temp Pulse Resp B/P (MAP) Pulse Ox O2 Delivery O2 Flow Rate FiO2 09/07/17 00:00 62 140/72 (94) 66 142/70 (94) 66 132/70 (90) 09/06/17 21:26 16 Room Air 09/06/17 18:42 98 09/06/17 17:43 97.0 Laboratory Data 24H LABS Laboratory Tests 2 09/06/17 05:28: Immature Granulocyte % (Auto) 0.6H, White Blood Count 10.2H, Red Blood Count 4.59, Hemoglobin 14.4, Hematocrit 42.5, Mean Corpuscular Volume 92.6, Mean Corpuscular Hemoglobin 31.4, Mean Corpuscular Hemoglobin Concent 33.9, Red Cell Distribution Width 12.3, Platelet Count 242, Neutrophils (%) (Auto) 57.2, Lymphocytes (%) (Auto) 34.4, Monocytes (%) (Auto) 6.4H, Eosinophils (%) (Auto) 0.7, Basophils (%) (Auto) 0.7, Neutrophils # (Auto) 5.8, Lymphocytes # (Auto) 3.5, Monocytes # (Auto) 0.7, Eosinophils # (Auto) 0.1, Basophils # (Auto) 0.1, Immature Granulocyte # (Auto) 0.1H, Nucleated Red Blood Cells % (auto) 0.0, Anion Gap 7L, Glomerular Filtration Rate > 60.0, Blood Urea Nitrogen 20H, Creatinine 0.84, Sodium Level 138, Potassium Level 4.2, Chloride Level 102, Carbon Dioxide Level 29, Calcium Level 9.4 09/06/17 12:25: Bedside Glucose (Misc Panel) 182H 09/06/17 17:30: Bedside Glucose (Misc Panel) 250H 09/06/17 19:08: Total Creatine Kinase 24L, Creatine Kinase MB 1.0, Creatine Kinase MB Relative Index 4.16H, Troponin I < 0.02 09/06/17 22:52: Total Creatine Kinase 23L, Creatine Kinase MB 1.0, Creatine Kinase MB Relative Index 4.34H, Troponin I < 0.02 CBC/BMP Laboratory Tests 09/06/17 05:28 Red Blood Count 4.59, Mean Corpuscular Volume 92.6, Mean Corpuscular Hemoglobin 31.4, Mean Corpuscular Hemoglobin Concent 33.9, Red Cell Distribution Width 12.3 , Neutrophils (%) (Auto) 57.2, Lymphocytes (%) (Auto) 34.4, Monocytes (%) (Auto ) 6.4 H, Eosinophils (%) (Auto) 0.7, Basophils (%) (Auto) 0.7, Neutrophils # ( Auto) 5.8, Lymphocytes # (Auto) 3.5, Monocytes # (Auto) 0.7, Eosinophils # (Auto ) 0.1, Basophils # (Auto) 0.1, Calcium Level 9.4 REGINA SARAVIA DO Sep 07, 2017 03:31
[2017-09-07] MEDS: ACETAMINOPHEN TAB 650MG DOSE (2X325MG) PO PRN ×2 (05:23→09:01)
[2017-09-07 05:56] LABS: BASO # 0.1 10^3/uL (0.0-0.2); BASO % 0.8 % (0.0-1.0); EOS # 0.1 10^3/uL (0.0-0.50); EOS % 0.8 % (0.0-3.0); IMMATURE GRANULOCYTE % 0.5 % (0-0); LYMPH # 3.3 10^3/uL (1.5-4.5); LYMPH % 35.2 % (24.0-44.0); MEAN CORPUSCULAR HEMOGLOBIN 31.2 pg (27.0-33.0); MEAN CORPUSCULAR HGB CONC 33.5 g/dl (32.0-36.5); MEAN CORPUSCULAR VOLUME 93.2 fl (80.0-96.0); MONO # 0.7 10^3/uL (0.0-0.8); MONO % 6.9 % (0.0-5.0); NEUTROPHILS # 5.3 10^3/uL (1.8-7.7); NEUTROPHILS % 55.8 % (36.0-66.0); PLATELET COUNT, AUTOMATED 232 10^3/uL (150-450); RED CELL DISTRIBUTION WIDTH 12.2 % (11.5-14.5); WHITE BLOOD COUNT 9.4 10^3/uL (4.0-10.0)
[2017-09-07 06:00] VITALS: BP 142/77
[2017-09-07 06:18] LABS: ANION GAP 7 MEQ/L (8-16); BLOOD UREA NITROGEN 22 MG/DL (7-18); CALCIUM LEVEL 9.1 MG/DL (8.5-10.1); CARBON DIOXIDE LEVEL 30 MEQ/L (21-32); CHLORIDE LEVEL 103 MEQ/L (98-107); CREATININE FOR GFR 1.01 MG/DL (0.55-1.02); GLOMERULAR FILTRATION RATE > 60.0 (>51); GLUCOSE, FASTING 253 MG/DL (70-105); POTASSIUM SERUM 4.1 MEQ/L (3.5-5.1); SODIUM LEVEL 140 MEQ/L (136-145)
[2017-09-07] MEDS ORDERED: LEVEMIR (INSULIN DETEMIR) 1 UNITS/0.01ML SC SCH (09:00)
[2017-09-07] MEDS: AMOXICILLIN 500 MG CAP PO SCH ×2 (09:03→20:29)
[2017-09-07] MEDS: ATORVASTATIN 20 MG TAB PO SCH (09:05)
[2017-09-07] MEDS: levETIRAcetam 250MG TABLET (KEPPRA) PO SCH ×2 (09:05→20:29)
[2017-09-07] MEDS: PANTOPRAZOLE 40MG TAB (PROTONIX) PO SCH (09:06)
[2017-09-07] MEDS: LISINOPRIL 20 MG TAB PO SCH (09:06)
[2017-09-07] MEDS: ESCITALOPRAM OXALATE 10 MG TAB (LEXAPRO) PO SCH (09:06)
[2017-09-07] MEDS: HumaLOG INSULIN (NovoLOG) PER UNIT SC SCH ×4 (09:07→21:14)
[2017-09-07] MEDS: LEVEMIR (INSULIN DETEMIR) 1 UNITS/0.01ML SC SCH (09:08)
[2017-09-07] MEDS: ONDANSETRON 4MG/2ML VIAL (J2405) IV PRN (11:44)
--- NOTE | 2017-09-07 12:00 | IPNPDOC ---
Subjective Date Seen The patient was seen on 09/07/17. Subjective Chief Complaint/HPI The patient is a 57-year-old female admitted with a reason for visit of Syncope. Events since last encounter Pt just had a BM this morning, first in several days was large and hard. had some BRB streaking on the stool, has hemorrhoids. Strained. General: Reports: Fatigue, Denies: Chills Constitutional: Denies: Chills, Fever ENT: Reports: Head Aches (improved) Pulmonary: Denies: Dyspnea, Cough Cardiovascular: Reports: Chest Pain (slightly better), Denies: Palpitations Gastrointestinal: Reports: Abdominal Pain, Constipation, Denies: Nausea, Vomiting, Diarrhea Musculoskeletal: Denies: Neck Pain Neurological: Denies: Weakness Psych: Reports: Mood Normal Objective Physical Examination General Exam: Positive: Alert, Cooperative, No Acute Distress, Mild Distress ENT Exam: Positive: Atraumatic, Mucous membr. moist/pink, Pharynx Normal, Nares Patent, Negative: Pharyngeal Edema Neck Exam: Positive: Supple, Negative: thyromegaly, Lymphadenopathy Chest Exam: Positive: Clear to auscultation, Normal air movement, Other (pain to palpation left chest), Negative: Rhonchi, Wheezing Heart Exam: Positive: Rate Normal, Normal S1, Normal S2, Negative: Murmurs, Rubs Abdomen Exam: Positive: Normal bowel sounds, Soft, Negative: Tenderness Extremity Exam: Positive: Normal pulses (radial pulse 2/4 bilaterally), Negative: Clubbing, Cyanosis, Edema, Tenderness, Swelling Skin Exam: Positive: Nl turgor and temperature, Negative: Rash, Breakdown Neuro Exam: Positive: Normal Gait, Strength at 5/5 X4 ext (upper extremity), Cranial Nerves 3-12 NL Psych Exam: Positive: Mental status NL, Mood NL, Oriented x 3 Assessment /Plan Problems (1) Orthostasis Status: Acute Problem Text: 09/07 - Pressures improved, not orthostatic this morning. 09/06 -- not orthostatic in a.m., reports less dizziness 09/05/17: Patient continues to have orthostasis but remains hypertensive BP measured 09/04/2017: Supine blood pressure 190/90; sitting 158/78; standing 138/58. Patient felt lightheaded and off balance and standing position. Echocardiogram was ordered and will be reviewed. Discontinue medications that may cause orthostasis including Lexapro which was reduced to 10 mg daily. Chlorthalidone held. (2) Acute otitis media Status: Acute Problem Text: 09/07 Ear feels ok. 09/06 Right sided. Will start patient on amoxicillin. (3) Fall Problem Text: Unclear etiology. Possible syncopal event versus seizure disorder. Will obtain a Keppra level. Echocardiogram was ordered. Patient is on telemetry. (4) EVETTE (acute kidney injury) Status: Acute Problem Text: Possibly from Lasix dose given in the emergency department. Medication has been discontinued. We will continue to monitor her kidney functions. IVF has been held at this time secondary to patient's hypertension. (5) Essential hypertension Problem Text: Patient remains hypertensive. Continue patient on Zebeta. Patient was started on lisinopril to decrease her BP. (6) Seizure disorder Status: Chronic Problem Text: Continue patient on Keppra. We will obtain a Keppra level, pending results (7) Migraine Status: Chronic Problem Text: Patient's chronic migraines managed by neurology.Continue Keppra (8) Peptic ulcer disease Status: Chronic Problem Text: Continue Protonix. (9) Diabetes type 2, uncontrolled Status: Chronic Problem Text: On SSI and detemir. Patient's home regimen held at this time. (10) Chest pain Status: Acute Problem Text: Discussed with patient unlikely cardiac in origin. K pad and Tylenol discomfort. Cardiac markers x 2 and EKG. Plan/VTE VTE Prophylaxis Ordered?: Yes VS, I&O, 24H, Fishbone Vital Signs/I&O Vital Signs Date Time Temp Pulse Resp B/P (MAP) Pulse Ox O2 Delivery O2 Flow Rate FiO2 09/07/17 09:06 137/73 09/07/17 06:00 96.7 53 17 96 Room Air Laboratory Data 24H LABS Laboratory Tests 2 09/06/17 12:25: Bedside Glucose (Misc Panel) 182H 09/06/17 17:30: Bedside Glucose (Misc Panel) 250H 09/06/17 19:08: Total Creatine Kinase 24L, Creatine Kinase MB 1.0, Creatine Kinase MB Relative Index 4.16H, Troponin I < 0.02 09/06/17 22:52: Total Creatine Kinase 23L, Creatine Kinase MB 1.0, Creatine Kinase MB Relative Index 4.34H, Troponin I < 0.02 09/07/17 05:24: Immature Granulocyte % (Auto) 0.5H, White Blood Count 9.4, Red Blood Count 4.71 , Hemoglobin 14.7, Hematocrit 43.9, Mean Corpuscular Volume 93.2, Mean Corpuscular Hemoglobin 31.2, Mean Corpuscular Hemoglobin Concent 33.5, Red Cell Distribution Width 12.2, Platelet Count 232, Neutrophils (%) (Auto) 55.8, Lymphocytes (%) (Auto) 35.2, Monocytes (%) (Auto) 6.9H, Eosinophils (%) (Auto) 0.8, Basophils (%) (Auto) 0.8, Neutrophils # (Auto) 5.3, Lymphocytes # (Auto) 3.3, Monocytes # (Auto) 0.7, Eosinophils # (Auto) 0.1, Basophils # (Auto) 0.1, Immature Granulocyte # (Auto) 0.1H, Nucleated Red Blood Cells % (auto) 0.0, Anion Gap 7L, Glomerular Filtration Rate > 60.0, Blood Urea Nitrogen 22H, Creatinine 1.01, Sodium Level 140, Potassium Level 4.1, Chloride Level 103, Carbon Dioxide Level 30, Calcium Level 9.1 CBC/BMP Laboratory Tests 09/07/17 05:24 Red Blood Count 4.71, Mean Corpuscular Volume 93.2, Mean Corpuscular Hemoglobin 31.2, Mean Corpuscular Hemoglobin Concent 33.5, Red Cell Distribution Width 12.2 , Neutrophils (%) (Auto) 55.8, Lymphocytes (%) (Auto) 35.2, Monocytes (%) (Auto ) 6.9 H, Eosinophils (%) (Auto) 0.8, Basophils (%) (Auto) 0.8, Neutrophils # ( Auto) 5.3, Lymphocytes # (Auto) 3.3, Monocytes # (Auto) 0.7, Eosinophils # (Auto ) 0.1, Basophils # (Auto) 0.1, Calcium Level 9.1 AARTI PINON PA-C Sep 07, 2017 12:00
[2017-09-07 14:00] VITALS: BP 146/57
[2017-09-07] MEDS: PERCOCET 5MG/325MG TAB PO PRN (18:00)
[2017-09-07] MEDS: LATANOPROST 0.005% OPHTH SOLN 2.5 ML OU SCH (20:29)
[2017-09-07] MEDS: MICONAZOLE-7 VAGINAL 2% CREAM 47.7 GM PV SCH (20:30)
[2017-09-07 22:00] VITALS: BP 139/66
[2017-09-08 06:00] VITALS: BP 147/70
[2017-09-08 06:04] LABS: BASO # 0.1 10^3/uL (0.0-0.2); BASO % 0.8 % (0.0-1.0); EOS # 0.1 10^3/uL (0.0-0.50); EOS % 1.3 % (0.0-3.0); IMMATURE GRANULOCYTE % 0.7 % (0-0); LYMPH # 3.1 10^3/uL (1.5-4.5); MEAN CORPUSCULAR HEMOGLOBIN 31.5 pg (27.0-33.0); MEAN CORPUSCULAR HGB CONC 33.7 g/dl (32.0-36.5); MEAN CORPUSCULAR VOLUME 93.4 fl (80.0-96.0); MONO # 0.6 10^3/uL (0.0-0.8); MONO % 6.7 % (0.0-5.0); NEUTROPHILS # 4.5 10^3/uL (1.8-7.7); NEUTROPHILS % 53.5 % (36.0-66.0); PLATELET COUNT, AUTOMATED 226 10^3/uL (150-450); WHITE BLOOD COUNT 8.5 10^3/uL (4.0-10.0)
[2017-09-08 06:21] LABS: ANION GAP 6 MEQ/L (8-16); BLOOD UREA NITROGEN 20 MG/DL (7-18); CALCIUM LEVEL 9.3 MG/DL (8.5-10.1); CARBON DIOXIDE LEVEL 31 MEQ/L (21-32); CHLORIDE LEVEL 103 MEQ/L (98-107); CREATININE FOR GFR 0.79 MG/DL (0.55-1.02); GLOMERULAR FILTRATION RATE > 60.0 (>51); GLUCOSE, FASTING 224 MG/DL (70-105); POTASSIUM SERUM 4.2 MEQ/L (3.5-5.1); SODIUM LEVEL 140 MEQ/L (136-145)
[2017-09-08] MEDS: levETIRAcetam 250MG TABLET (KEPPRA) PO SCH ×2 (08:23→20:51)
[2017-09-08] MEDS: AMOXICILLIN 500 MG CAP PO SCH ×2 (08:23→20:51)
[2017-09-08] MEDS: PANTOPRAZOLE 40MG TAB (PROTONIX) PO SCH (08:23)
[2017-09-08] MEDS: ATORVASTATIN 20 MG TAB PO SCH (08:24)
[2017-09-08] MEDS: ESCITALOPRAM OXALATE 10 MG TAB (LEXAPRO) PO SCH (08:25)
[2017-09-08] MEDS: LEVEMIR (INSULIN DETEMIR) 1 UNITS/0.01ML SC SCH (08:26)
[2017-09-08] MEDS: HumaLOG INSULIN (NovoLOG) PER UNIT SC SCH ×4 (08:26→20:45)
[2017-09-08] MEDS: PERCOCET 5MG/325MG TAB PO PRN (08:27)
[2017-09-08] MEDS: LISINOPRIL 20 MG TAB PO SCH (11:51)
[2017-09-08] MEDS ORDERED: LISI-538 PO (13:56)
[2017-09-08] MEDS ORDERED: AMOX500C PO (13:56)
[2017-09-08] MEDS ORDERED: METF10004 PO (13:56)
[2017-09-08 14:00] VITALS: BP 158/72
--- NOTE | 2017-09-08 14:24 | DSES ---
DATE OF ADMISSION: 09/03/2017 DATE OF DISCHARGE: 09/09/2017 DISCHARGE DIAGNOSIS: Dizziness probably secondary to otitis media. SECONDARY DIAGNOSES: 1. Left ventricular hypertrophy (LVH) on echocardiogram, ejection fraction 65%. Mild aortic sclerosis. Mild to moderate aortic regurgitation. Followup advised in 2 years. 2. Orthostatic hypotension. Patient had a 52 mm systolic orthostatic drop in blood pressure. Her chlorthalidone was held. Orthostasis resolved. 3. She was found to have right-sided otitis media started on amoxicillin and her vertigo resolved. 4. She had acute kidney injury and received some Lasix in the emergency room. IV fluids were provided and renal function improved back to baseline. 5. She has a history of diabetes. She was on metformin as an outpatient. This has been held as it was felt perhaps this was causing her dizziness. In retrospect, it probably was the otitis media. I restarted her metformin on discharge. She is getting Detemir insulin for this on a sliding scale coverage in the hospital only 14 units of Detemir and average of about 12-16 units a day of coverage. The decision to resume insulin deferred to outpatient provider. SIGNIFICANT LABS TODAY: Sodium 140, potassium 4.2, BUN 20, creatinine 0.7, glucose 224. White count 8.5, hemoglobin 14.3, platelets 226. Keppra level is pending. Angiographic CT of the chest was negative. No pulmonary embolism. Brain parenchyma showed some small vessel disease changes. CT abdomen and pelvis showed fatty liver. DISPOSITION: On day of discharge, she is resting comfortably, eager to go home. She is walking in the cali without difficulty. Blood pressure is 136/70. There is no orthostatic drop in her blood pressure. On exam, there is no nystagmus. Lungs are clear. Heart regular in rhythm with a 1/6 systolic ejection murmur. Abdomen soft, nontender. No peripheral edema. PLAN: Discharge home. Followup with Dr. Singh in a week. She will need attention to her diabetes. I restarted her metformin 1000 mg twice a day. As the previous office notes indicated, there was going to be a discussion about optimal outpatient therapy at followup appointment. She was started on amoxicillin 500 mg twice a day for otitis media and has a 7-day prescription on discharge. She will continue atorvastatin 80 mg daily, Lexapro 20 mg daily, Keppra 500 mg twice a day, Flonase daily, Incruse Ellipta 62.5 micrograms, one inhalation daily, various eye drops, Zofran as needed for nausea, oxycodone/acetaminophen 5/325 every 6 hours as needed, Protonix 40 mg daily. Her Zebeta and chlorthalidone has been held. She is on Lisinopril 20 daily for blood pressure, Metformin 1000 mg twice a day for her diabetes and amoxicillin 500 mg twice a day for 7 more days for otitis media. No added salt, concentrated carbohydrate diet. Activity as tolerated. She will followup with Dr. Singh in a week. ADDENDUM: Patient is being discharged home today. It has been brought to my attention that she has been getting insulin here in the hospital for her poorly controlled diabetes. It was thought that prior to coming into the hospital she was taking metformin, but further discussion with the patient clarified that she was not taking metformin because this causes gastrointestinal (GI) upset and terrible diarrhea. She was taking alogliptin and has a prescription for 25 mg pills. She will be discharged home alogliptin 25 mg daily. However, her recent hemoglobin A1c at the end of July was 9.1 and I suspect this was on the alogliptin. Therefore, I suspect that her poorly diet controlled diabetes is going to need to be managed with additional medications, possibly something injectable as such as Victoza or if she is not a candidate for that medication she may need to start insulin. She has gotten some insulin teaching here in the hospital and so starting her on insulin should be something that is not too difficult to do as an outpatient. She is establishing with Christie [place] on September 16 and I will defer to Christie the decision to possibly start insulin if needed depending on her blood sugar trends. Addendum dictated:~ SERGEY Figueroa 09/09/2017 1004 Addendum transcribed:~ karen 09/10/2017 0933 NELY
[2017-09-08] MEDS: LATANOPROST 0.005% OPHTH SOLN 2.5 ML OU SCH (20:51)
[2017-09-08] MEDS: MICONAZOLE-7 VAGINAL 2% CREAM 47.7 GM PV SCH (20:52)
[2017-09-08 22:00] VITALS: BP 138/65
[2017-09-09 02:00] VITALS: BP 150/80
[2017-09-09 06:00] VITALS: BP 148/76
[2017-09-09] MEDS: AMOXICILLIN 500 MG CAP PO SCH (08:38)
[2017-09-09] MEDS: PANTOPRAZOLE 40MG TAB (PROTONIX) PO SCH (08:39)
[2017-09-09] MEDS: ATORVASTATIN 20 MG TAB PO SCH (08:39)
[2017-09-09] MEDS: ESCITALOPRAM OXALATE 10 MG TAB (LEXAPRO) PO SCH (08:39)
[2017-09-09] MEDS: levETIRAcetam 250MG TABLET (KEPPRA) PO SCH (08:39)
[2017-09-09 08:40] VITALS: BP 148/76
[2017-09-09] MEDS: LISINOPRIL 20 MG TAB PO SCH (08:40)
[2017-09-09] MEDS: HumaLOG INSULIN (NovoLOG) PER UNIT SC SCH (08:40)
[2017-09-09] MEDS: LEVEMIR (INSULIN DETEMIR) 1 UNITS/0.01ML SC SCH (08:41)
[2017-09-09] MEDS ORDERED: ALOG25TA PO (10:03)
== END 2017-09-09 10:20 | disposition home or self-care (01) | DRG 113 ==
LOC: M ED 14:01 → M ED INP 21:38 → M PCU 22:10 → M MSPAV 09-06 17:41
PROVIDERS: ADMIT Hospitalist; ATTEND Family Medicine
DX: H66.91 Otitis media, unspecified, right ear (principal); N17.9 Acute kidney failure, unspecified; D68.0 Von Willebrand disease; R55 Syncope and collapse; I16.0 Hypertensive urgency; R07.9 Chest pain, unspecified; I35.0 Nonrheumatic aortic (valve) stenosis; I95.1 Orthostatic hypotension; E11.9 Type 2 diabetes mellitus without complications; Z79.899 Other long term (current) drug therapy; Z88.6 Allergy status to analgesic agent; Z88.5 Allergy status to narcotic agent; Z88.8 Allergy status to other drugs, medicaments and biological substances; Z91.018 Allergy to other foods; J44.9 Chronic obstructive pulmonary disease, unspecified; M54.2 Cervicalgia; K27.9 Peptic ulcer, site unspecified, unspecified as acute or chronic, without hemorrhage or perforation; G43.909 Migraine, unspecified, not intractable, without status migrainosus; G40.909 Epilepsy, unspecified, not intractable, without status epilepticus

== ENCOUNTER 2017-09-21 09:51 | Emergency (ER) | payer OTHER ==
[~2017-09-21] VITALS: Ht 160 cm; Wt 82.7 kg
[~2017-09-21 09:51] MED LIST changes: +ALOG25TA PO; +AMOX500C PO; +KEPP1TAB PO; +METF10004 PO; +OXYC1TAB23 PO
[2017-09-21] MEDS ORDERED: GLIM2TAB PO (10:03)
[2017-09-21] MEDS ORDERED: COMP1MIS3 XX ×2 (10:42→11:26)
[2017-09-21] MEDS ORDERED: IPRASOL4 IN (11:30)
[2017-09-21] MEDS ORDERED: KEFL500C17 PO (11:30)
[2017-09-21] MEDS ORDERED: PRED20TA PO (11:30)
[2017-09-21] MEDS ORDERED: CHERSYP3 PO (11:30)
[2017-09-21 12:14] VITALS: BP 144/91
== END 2017-09-21 12:20 | disposition home or self-care (01) ==
LOC: M ED 09:51
DX: J20.9 Acute bronchitis, unspecified (principal); J01.00 Acute maxillary sinusitis, unspecified; E11.9 Type 2 diabetes mellitus without complications; I10 Essential (primary) hypertension; E78.5 Hyperlipidemia, unspecified; K21.9 Gastro-esophageal reflux disease without esophagitis; M54.9 Dorsalgia, unspecified; D68.0 Von Willebrand disease; Z79.899 Other long term (current) drug therapy; Z88.6 Allergy status to analgesic agent; Z88.8 Allergy status to other drugs, medicaments and biological substances; Z88.5 Allergy status to narcotic agent; Z91.89 Other specified personal risk factors, not elsewhere classified; Z91.018 Allergy to other foods

== ENCOUNTER 2017-09-25 21:43 | Emergency (ER) | payer OTHER ==
[~2017-09-25] VITALS: Ht 157.5 cm; Wt 82.3 kg
[~2017-09-25 21:43] MED LIST changes: +CHERSYP3 PO; +COMP1MIS3 XX; +IPRASOL4 IN; +KEFL500C17 PO; +PRED20TA PO
[2017-09-26] MEDS: NITROGLYCERIN 0.4 MG SUBL TABLET SL PRN ×3 (01:09→01:53)
[2017-09-26 01:33] LABS: BASO % 0.3 % (0.0-1.0); IMMATURE GRANULOCYTE % 0.9 % (0-0); LYMPH # 1.2 10^3/uL (1.5-4.5); LYMPH % 11.1 % (24.0-44.0); MEAN CORPUSCULAR HEMOGLOBIN 31.5 pg (27.0-33.0); MEAN CORPUSCULAR HGB CONC 34.5 g/dl (32.0-36.5); MEAN CORPUSCULAR VOLUME 91.5 fl (80.0-96.0); MONO # 0.5 10^3/uL (0.0-0.8); MONO % 4.5 % (0.0-5.0); NEUTROPHILS # 9.1 10^3/uL (1.8-7.7); NEUTROPHILS % 83.2 % (36.0-66.0); PLATELET COUNT, AUTOMATED 235 10^3/uL (150-450); RED CELL DISTRIBUTION WIDTH 11.9 % (11.5-14.5)
[2017-09-26 01:34] LABS: VENOUS BASE EXCESS -1.8 (-2.0-2.0); VENOUS O2 SATURATION 92.8 % (60.0-80.0); VENOUS PARTIAL PRESSURE CO2 33.7 mmHg (38.0-50.0); VENOUS PARTIAL PRESSURE O2 64.7 mmHg (30.0-50.0); VENOUS STANDARD HCO3 22.9 MEQ/L; VENOUS TOTAL CO2 22.8 MEQ/L (24.0-28.0)
[2017-09-26 01:59] LABS: ANION GAP 9 MEQ/L (8-16); BLOOD UREA NITROGEN 19 MG/DL (7-18); CALCIUM LEVEL 9.1 MG/DL (8.5-10.1); CARBON DIOXIDE LEVEL 26 MEQ/L (21-32); CHLORIDE LEVEL 104 MEQ/L (98-107); CREATININE FOR GFR 0.96 MG/DL (0.55-1.02); GLOMERULAR FILTRATION RATE > 60.0 (>51); GLUCOSE, FASTING 355 MG/DL (70-105); POTASSIUM SERUM 4.7 MEQ/L (3.5-5.1); SODIUM LEVEL 139 MEQ/L (136-145)
[2017-09-26] MEDS ORDERED: ISOVUE-370 76% 100ML VIAL (Q9967) As Ordered ONE ×2 (02:55→02:57)
[2017-09-26] MEDS ORDERED: fentaNYL 100 MCG/2 ML INJECTION (J3010) IV ONE ×2 (03:00→04:15)
[2017-09-26] MEDS ORDERED: NORCO 5/325MG TABLET (BULK FOR ED) PO ONE (05:30)
--- NOTE | 2017-09-26 05:30 | REPUSA ---
CLINICAL HISTORY: Chest pain, exclude PE. TECHNIQUE: Multiple incremental axial, coronal and oblique images are obtained from the thoracic inle t to the upper abdomen. Intravenous contrast material was administered as per pulmonary embolism prot ocol. COMMENTS: Subsegmental atelectatic airspace disease in the lingula. There is excellent opacification of pulmonary arterial system without evidence for pulmonary embolism . Aorta is of normal caliber without evidence for dissection or aneurysm. There is no evidence of pleural or parenchymal mass. There are no pleural effusions. There is no evid ence of hilar or mediastinal lymphadenopathy. The heart and great vessels are within normal limits. Images of the upper abdomen demonstrate no evidence of adrenal mass. The bony structures are free of lytic or blastic lesions. Fatty liver infiltration. IMPRESSION: Subsegmental atelectatic airspace disease in the lingula. Please evaluate to exclude an associated in fection. No evidence for pulmonary embolism. Thank you for your kind referral of this patient.
[2017-09-26 05:41] VITALS: BP 169/75
--- NOTE | 2017-09-26 08:48 | ECGEPIP ---
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
--- NOTE | 2017-09-26 14:57 | REP ---
CHEST, SINGLE VIEW: There is no evidence of acute infiltrate. No pleural effusion is seen. The heart is normal in size. The mediastinal silhouette is unremarkable. The visualized osseous structures are intact. IMPRESSION: No acute pulmonary disease. Signed by Luke Maldonado MD 09/26/2017 04:18 P
--- NOTE | 2017-09-28 09:24 | ED PDOC ---
Post-Departure Follow-Up dr rivera faxed formal report of cta for fu Blaise Castro MD Sep 28, 2017 09:24
--- NOTE | 2017-09-29 08:14 | ECGEPIP ---
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
== END 2017-09-26 05:52 | disposition home or self-care (01) ==
LOC: M ED 21:43
DX: R07.89 Other chest pain (principal); R94.31 Abnormal electrocardiogram [ECG] [EKG]; E11.9 Type 2 diabetes mellitus without complications; Z87.891 Personal history of nicotine dependence; Z79.899 Other long term (current) drug therapy; Z88.6 Allergy status to analgesic agent; Z88.8 Allergy status to other drugs, medicaments and biological substances; Z88.5 Allergy status to narcotic agent; Z91.89 Other specified personal risk factors, not elsewhere classified; Z91.018 Allergy to other foods
CPT/HCPCS: 71010; 71275; 80048; 82550; 82553; 82803; 85025; 85379; 86140; 93000; 93041; 96374; 96376; 99285; J3010; Q9967

== ENCOUNTER → 2017-10-14 | Outpatient (CLI) | payer OTHER | LOC: M PAIN 10:00 | DX: G89.29 Other chronic pain (principal); M54.2 Cervicalgia; M79.1 Myalgia; R56.9 Unspecified convulsions; G43.909 Migraine, unspecified, not intractable, without status migrainosus; I10 Essential (primary) hypertension; K44.9 Diaphragmatic hernia without obstruction or gangrene; K64.8 Other hemorrhoids; E11.9 Type 2 diabetes mellitus without complications; J44.9 Chronic obstructive pulmonary disease, unspecified; M06.9 Rheumatoid arthritis, unspecified; N60.39 Fibrosclerosis of unspecified breast; Z87.442 Personal history of urinary calculi; Z79.891 Long term (current) use of opiate analgesic; Z79.84 Long term (current) use of oral hypoglycemic drugs; Z79.899 Other long term (current) drug therapy; Z87.891 Personal history of nicotine dependence; Z88.6 Allergy status to analgesic agent; Z88.5 Allergy status to narcotic agent; Z88.8 Allergy status to other drugs, medicaments and biological substances; Z91.048 Other nonmedicinal substance allergy status | CPT/HCPCS: G0463 ==

== ENCOUNTER → 2017-11-05 | Outpatient (REF) | payer OTHER ==
[2017-11-05 14:07] LABS: ALBUMIN 4.2 GM/DL (3.2-5.2); ALBUMIN/GLOBULIN RATIO 1.45 (1.00-1.93); ALKALINE PHOSPHATASE 106 U/L (45-117); ALT/SGPT 50 U/L (12-78); ANION GAP 8 MEQ/L (8-16); AST/SGOT 26 U/L (7-37); BILIRUBIN,TOTAL 0.4 MG/DL (0.2-1.0); BLOOD UREA NITROGEN 15 MG/DL (7-18); CALCIUM LEVEL 9.4 MG/DL (8.5-10.1); CARBON DIOXIDE LEVEL 26 MEQ/L (21-32); CHLORIDE LEVEL 107 MEQ/L (98-107); GLOMERULAR FILTRATION RATE > 60.0 (>51); GLUCOSE, FASTING 295 MG/DL (70-105); POTASSIUM SERUM 3.8 MEQ/L (3.5-5.1); SODIUM LEVEL 141 MEQ/L (136-145); TOTAL PROTEIN 7.1 GM/DL (6.4-8.2)
[2017-11-05 14:24] LABS: ESTIMATED AVERAGE GLUCOSE 237 MG/DL (60-110)
== END ==
LOC: M SFHCPLAZ 10:32
DX: E11.9 Type 2 diabetes mellitus without complications (principal)
CPT/HCPCS: 83036

== ENCOUNTER → 2017-11-05 | Outpatient (REF) | payer OTHER | LOC: M SFHCPLAZ 17:12 | DX: R30.0 Dysuria (principal) | CPT/HCPCS: 87086 ==

== ENCOUNTER → 2017-11-26 | Outpatient (REF) | payer OTHER ==
[2017-11-26 14:43] LABS: MAU/CREAT RATIO 93.5 MCG/MG (0.0-30.0)
[2017-12-01 00:06] LABS: ISLET CELL ANTIBODIES Negative (Neg:<1:1)
[2017-12-01 00:06] LABS: GAD-65 AUTOANTIBODY <5.0 U/mL (0.0-5.0)
== END ==
LOC: M SFHCPLAZ 10:31
DX: E11.65 Type 2 diabetes mellitus with hyperglycemia (principal)
CPT/HCPCS: 82043

== ENCOUNTER → 2017-12-07 | Outpatient (CLI) | payer OTHER | LOC: M RAD 11:25 | DX: M25.551 Pain in right hip (principal); G89.29 Other chronic pain; Z98.1 Arthrodesis status | CPT/HCPCS: 72190 ==

== ENCOUNTER → 2017-12-07 | Outpatient (CLI) | payer OTHER | LOC: M LAB 11:22 | DX: R56.9 Unspecified convulsions (principal); Z51.81 Encounter for therapeutic drug level monitoring; Z79.899 Other long term (current) drug therapy | CPT/HCPCS: 36415 ==

== ENCOUNTER → 2017-12-07 | Outpatient (CLI) | payer OTHER | LOC: M PAIN 09:45 | DX: G89.29 Other chronic pain (principal); M54.2 Cervicalgia; M53.3 Sacrococcygeal disorders, not elsewhere classified; M79.1 Myalgia; R56.9 Unspecified convulsions; G43.909 Migraine, unspecified, not intractable, without status migrainosus; M19.90 Unspecified osteoarthritis, unspecified site; I10 Essential (primary) hypertension; D68.0 Von Willebrand disease; K44.9 Diaphragmatic hernia without obstruction or gangrene; E11.9 Type 2 diabetes mellitus without complications; J44.9 Chronic obstructive pulmonary disease, unspecified; M06.9 Rheumatoid arthritis, unspecified; Z79.4 Long term (current) use of insulin; Z79.891 Long term (current) use of opiate analgesic; Z79.899 Other long term (current) drug therapy; Z88.6 Allergy status to analgesic agent; Z88.5 Allergy status to narcotic agent; Z88.8 Allergy status to other drugs, medicaments and biological substances; Z91.018 Allergy to other foods; Z91.048 Other nonmedicinal substance allergy status; Z87.891 Personal history of nicotine dependence | CPT/HCPCS: G0463 ==

== ENCOUNTER 2017-12-11 19:32 | Emergency (ER) | payer OTHER ==
[2017-12-11 19:53] LABS: BEDSIDE GLUCOSE 292 MG/DL (70-105)
[2017-12-11] MEDS: TUSSICAPS ER 10/8MG CAPSULE PO (20:10)
[2017-12-11 20:52] LABS: INFLUENZA A AMPLIFICATION NEGATIVE (NEGATIVE); INFLUENZA B AMPLIFICATION NEGATIVE (NEGATIVE)
[2017-12-11] MEDS: predniSONE 20 MG TAB PO (21:58)
== END 2017-12-11 21:59 | disposition home or self-care (01) ==
LOC: M ED 19:32
DX: J20.9 Acute bronchitis, unspecified (principal); E11.9 Type 2 diabetes mellitus without complications; I10 Essential (primary) hypertension; J44.9 Chronic obstructive pulmonary disease, unspecified; G43.909 Migraine, unspecified, not intractable, without status migrainosus; D68.0 Von Willebrand disease; Z79.899 Other long term (current) drug therapy; Z88.6 Allergy status to analgesic agent; Z88.8 Allergy status to other drugs, medicaments and biological substances; Z88.5 Allergy status to narcotic agent; Z91.89 Other specified personal risk factors, not elsewhere classified; Z91.018 Allergy to other foods
CPT/HCPCS: 71046

== ENCOUNTER → 2017-12-29 | Outpatient (CLI) | payer OTHER | LOC: M PAIN 10:00 | DX: Z53.29 Procedure and treatment not carried out because of patient's decision for other reasons (principal) ==

== ENCOUNTER → 2018-01-18 | Outpatient (CLI) | payer OTHER | LOC: M PAIN 08:45 | DX: M54.2 Cervicalgia (principal); M79.1 Myalgia; M53.3 Sacrococcygeal disorders, not elsewhere classified; G89.29 Other chronic pain; E11.9 Type 2 diabetes mellitus without complications; R56.9 Unspecified convulsions; G43.909 Migraine, unspecified, not intractable, without status migrainosus; I10 Essential (primary) hypertension; D68.0 Von Willebrand disease; K44.9 Diaphragmatic hernia without obstruction or gangrene; J44.9 Chronic obstructive pulmonary disease, unspecified; M06.9 Rheumatoid arthritis, unspecified; L23.0 Allergic contact dermatitis due to metals; Z79.4 Long term (current) use of insulin; Z79.891 Long term (current) use of opiate analgesic; Z79.899 Other long term (current) drug therapy; Z88.5 Allergy status to narcotic agent; Z88.6 Allergy status to analgesic agent; Z88.8 Allergy status to other drugs, medicaments and biological substances; Z91.018 Allergy to other foods | CPT/HCPCS: G0463 ==

== ENCOUNTER → 2018-02-03 | Outpatient (CLI) | payer OTHER ==
[~2018-02-03] MED LIST changes: -/BISO10TA PO; -/CELE20CA PO; -/ESCI20TA PO; -/LOR25TA PO; -/ONDA4TA PO; -ACET-654 PO; -ALBU17IN INH; -ALOG25TA PO; -AMIT10TA PO; -AMOX500C PO; -ATOR1TAB21 PO; -BACL10TA2 OR; -BISO10TA PO; -BISO10TA42 PO; +BUPIVACAINE HCL 0.25% 30 ML VIAL As Ordered; -CHERSYP3 PO; -CHLO25TA PO; -CHLO25TA3 PO; -CHLORTHALIDONE PO; -CIPR-249 PO; -CIPR500T89 PO; -CLON0.5T OR; -CLON0.5T PO; -COMP1MIS3 XX; -CYCL10TA PO; -DEPA1TAB3 PO; -DEPA500T2 PO; -DRIS50002 PO; -DULC10SU9 PR; -DULO20CA OR; -FENT12DI2 TOP; -FLON0.054; -FLON1SPR; -FOLI1TAB4 PO; -GABA-283 PO; -GLIM2TAB PO; -HYDR-2809 PO; -HYDR-3716 PO; -IMIT50TA PO; -INCR1INH INH; -IPRASOL4 IN; +ISOVUE-M 300 61% 15ML VIAL (Q9967) As Ordered; -KEFL500C17 PO; -KEPP1TAB PO; -KETO-13 PO; -LATA5OPD OU; -LEVE250T5 PO; -LEXA1TAB2 PO; +LIDOCAINE 1% SDV INJ 30 ML VIAL As Ordered; -LIPI80TA PO; -LISI-538 PO; -LYRI75CA PO; -METF10004 PO; -METF500T13 PO; -METH2.5TA PO; -NASA55AE; -NASACORT AQ; -NEUR800T PO; -NICO21PAT TOP; -OMEP20TA7 PO; -OMEP40CA2 PO; -ONDA4SOL PO; -ONDA4TAB6 PO; -OXYC-208 PO; -OXYC1TAB23 PO; -PANT40TA2 PO; -PERC5TAB12 PO; -PERC7.5T12 PO; -PERCOCET PO; -PRED20TA PO; -SENN8.6T8 PO; -SENO8.6T9 PO; -SOMA350T PO; -TAMS0.4C PO; -TOPI100T PO; +TRIAMCINOLONE ACETONIDE SUSP 40 MG/ML VIAL (J3301) As Ordered; -VENTAER IN; -VIMP150T PO; -VITA2000 PO; -VOLT1GEL TOP; -ZOCO20TA PO; -[UNRECOGNIZED DRUG - OTHER] PO; -[UNRECOGNIZED DRUG - REMARK]; +diazePAM 5 MG TAB As Ordered; +oxyCODONE 5MG TAB As Ordered
== END ==
LOC: M PAIN 10:30
DX: G89.29 Other chronic pain (principal); M46.1 Sacroiliitis, not elsewhere classified; E11.9 Type 2 diabetes mellitus without complications; I10 Essential (primary) hypertension; G43.909 Migraine, unspecified, not intractable, without status migrainosus; G40.89 Other seizures; Z79.4 Long term (current) use of insulin; Z79.891 Long term (current) use of opiate analgesic; Z79.899 Other long term (current) drug therapy; Z88.8 Allergy status to other drugs, medicaments and biological substances; Z91.018 Allergy to other foods; Z91.048 Other nonmedicinal substance allergy status; Z87.42 Personal history of other diseases of the female genital tract; Z96.0 Presence of urogenital implants; Z96.7 Presence of other bone and tendon implants; Z98.1 Arthrodesis status; Z90.711 Acquired absence of uterus with remaining cervical stump; Z87.891 Personal history of nicotine dependence
CPT/HCPCS: J3301

== ENCOUNTER → 2018-02-17 | Outpatient (CLI) | payer OTHER | LOC: M PAIN 10:00 | DX: M54.2 Cervicalgia (principal); M79.1 Myalgia; M53.3 Sacrococcygeal disorders, not elsewhere classified; R56.9 Unspecified convulsions; G43.909 Migraine, unspecified, not intractable, without status migrainosus; M19.90 Unspecified osteoarthritis, unspecified site; I10 Essential (primary) hypertension; D68.0 Von Willebrand disease; K44.9 Diaphragmatic hernia without obstruction or gangrene; E11.9 Type 2 diabetes mellitus without complications; J44.9 Chronic obstructive pulmonary disease, unspecified; M06.9 Rheumatoid arthritis, unspecified; Z79.4 Long term (current) use of insulin; Z79.891 Long term (current) use of opiate analgesic; Z79.899 Other long term (current) drug therapy; Z88.5 Allergy status to narcotic agent; Z88.6 Allergy status to analgesic agent; Z88.8 Allergy status to other drugs, medicaments and biological substances; Z91.018 Allergy to other foods; Z91.09 Other allergy status, other than to drugs and biological substances; Z87.891 Personal history of nicotine dependence; Z91.81 History of falling | CPT/HCPCS: G0463 ==

== ENCOUNTER 2018-02-23 12:07 | Emergency (ER) | payer OTHER ==
[2018-02-23] MEDS: diphenhydrAMINE INJ 50MG/ML VIAL (J1200) IV (12:53)
[2018-02-23] MEDS: METOCLOPRAMIDE INJ 10MG/2ML VIAL (J2765) IV (13:32)
[2018-02-23] MEDS: MORPHINE 4 MG/ML 1ML VIAL/SYRINGE (J2270) IV ×2 (13:34→15:42)
[2018-02-23 13:38] LABS: BASO # 0.1 10^3/uL (0.0-0.2); BASO % 0.8 % (0.0-1.0); EOS # 0.1 10^3/uL (0.0-0.50); EOS % 1.2 % (0.0-3.0); HEMATOCRIT 47.3 % (36.0-47.0); IMMATURE GRANULOCYTE % 0.3 % (0-3.0); LYMPH # 2.8 10^3/uL (1.5-4.5); LYMPH % 26.4 % (24.0-44.0); MEAN CORPUSCULAR HEMOGLOBIN 31.4 pg (27.0-33.0); MEAN CORPUSCULAR HGB CONC 33.8 g/dl (32.0-36.5); MEAN CORPUSCULAR VOLUME 92.9 fl (80.0-96.0); MONO # 0.6 10^3/uL (0.0-0.8); MONO % 6.1 % (0.0-5.0); NEUTROPHILS # 6.9 10^3/uL (1.8-7.7); NEUTROPHILS % 65.2 % (36.0-66.0); PLATELET COUNT, AUTOMATED 246 10^3/uL (150-450); RED BLOOD COUNT 5.09 10^6/uL (4.00-5.40); RED CELL DISTRIBUTION WIDTH 13.1 % (11.5-14.5); WHITE BLOOD COUNT 10.5 10^3/uL (4.0-10.0)
[2018-02-23 13:59] LABS: ANION GAP 4 MEQ/L (8-16); BLOOD UREA NITROGEN 20 MG/DL (7-18); CARBON DIOXIDE LEVEL 29 MEQ/L (21-32); CHLORIDE LEVEL 109 MEQ/L (98-107); CREATININE FOR GFR 0.81 MG/DL (0.55-1.30); GLOMERULAR FILTRATION RATE > 60.0 (>51); GLUCOSE, FASTING 105 MG/DL (70-100); POTASSIUM SERUM 4.1 MEQ/L (3.5-5.1); SODIUM LEVEL 142 MEQ/L (136-145)
== END 2018-02-23 17:05 | disposition home or self-care (01) ==
LOC: M ED 12:07
DX: G43.909 Migraine, unspecified, not intractable, without status migrainosus (principal); E11.9 Type 2 diabetes mellitus without complications; I10 Essential (primary) hypertension; E78.5 Hyperlipidemia, unspecified; R56.9 Unspecified convulsions; D68.0 Von Willebrand disease; Z79.899 Other long term (current) drug therapy; Z79.51 Long term (current) use of inhaled steroids; Z79.4 Long term (current) use of insulin; Z88.5 Allergy status to narcotic agent; Z88.8 Allergy status to other drugs, medicaments and biological substances; Z91.048 Other nonmedicinal substance allergy status; Z91.018 Allergy to other foods
CPT/HCPCS: J2270

== ENCOUNTER → 2018-02-25 | Outpatient (REF) | payer OTHER ==
[2018-03-01 10:28] LABS: LEVETIRACETAM (KEPPRA) 37.5 ug/mL (10.0-40.0)
== END ==
LOC: M LABNEURO 10:17
DX: R56.9 Unspecified convulsions (principal)

== ENCOUNTER → 2018-03-09 | Outpatient (CLI) | payer OTHER | LOC: M WHC 13:33 | DX: Z12.31 Encounter for screening mammogram for malignant neoplasm of breast (principal) | CPT/HCPCS: 77067 ==

== ENCOUNTER 2018-03-24 19:28 | Emergency (ER) | payer OTHER ==
[2018-03-24] MEDS: HYDROmorphone HCL 1 MG/ML SYRINGE (J1170) IV ×2 (20:49→22:18)
[2018-03-24] MEDS: METOCLOPRAMIDE INJ 10MG/2ML VIAL (J2765) IV (20:49)
[2018-03-24] MEDS: ONDANSETRON 4MG/2ML VIAL (J2405) IV (22:18)
== END 2018-03-25 01:12 | disposition home or self-care (01) ==
LOC: M ED 03-25 01:12
DX: G43.909 Migraine, unspecified, not intractable, without status migrainosus (principal); I10 Essential (primary) hypertension; E11.9 Type 2 diabetes mellitus without complications; J44.9 Chronic obstructive pulmonary disease, unspecified; K44.9 Diaphragmatic hernia without obstruction or gangrene; D68.0 Von Willebrand disease; Z88.8 Allergy status to other drugs, medicaments and biological substances; Z87.891 Personal history of nicotine dependence
CPT/HCPCS: J1170

== ENCOUNTER → 2018-04-19 | Outpatient (CLI) | payer OTHER | LOC: M PAIN 10:00 | DX: G89.29 Other chronic pain (principal); M96.1 Postlaminectomy syndrome, not elsewhere classified; M54.17 Radiculopathy, lumbosacral region; Z79.891 Long term (current) use of opiate analgesic; R56.9 Unspecified convulsions; G43.909 Migraine, unspecified, not intractable, without status migrainosus; M54.2 Cervicalgia; I10 Essential (primary) hypertension; K44.9 Diaphragmatic hernia without obstruction or gangrene; K64.9 Unspecified hemorrhoids; E11.9 Type 2 diabetes mellitus without complications; J44.9 Chronic obstructive pulmonary disease, unspecified; M06.9 Rheumatoid arthritis, unspecified; D68.0 Von Willebrand disease; Z98.1 Arthrodesis status; Z87.442 Personal history of urinary calculi; Z87.891 Personal history of nicotine dependence; Z79.899 Other long term (current) drug therapy; Z79.4 Long term (current) use of insulin; Z88.6 Allergy status to analgesic agent; Z88.5 Allergy status to narcotic agent; Z88.8 Allergy status to other drugs, medicaments and biological substances; Z91.048 Other nonmedicinal substance allergy status; Z91.018 Allergy to other foods | CPT/HCPCS: G0463 ==

== ENCOUNTER → 2018-04-26 | Outpatient (CLI) | payer OTHER | LOC: M RAD 09:44 | DX: M79.672 Pain in left foot (principal) | CPT/HCPCS: 73630 ==

== ENCOUNTER → 2018-05-03 | Outpatient (CLI) | payer OTHER ==
[~2018-05-03] MED LIST changes: -BUPIVACAINE HCL 0.25% 30 ML VIAL As Ordered; -TRIAMCINOLONE ACETONIDE SUSP 40 MG/ML VIAL (J3301) As Ordered; +methylPREDNISolone SUSP 40 MG/ML (DEPO-medrol) VIAL (J1030) As Ordered
== END ==
LOC: M PAIN 11:00
DX: G89.29 Other chronic pain (principal); M96.1 Postlaminectomy syndrome, not elsewhere classified; R56.9 Unspecified convulsions; E11.9 Type 2 diabetes mellitus without complications; J44.9 Chronic obstructive pulmonary disease, unspecified; M06.9 Rheumatoid arthritis, unspecified; G43.909 Migraine, unspecified, not intractable, without status migrainosus; M19.90 Unspecified osteoarthritis, unspecified site; I10 Essential (primary) hypertension; D68.0 Von Willebrand disease; Z79.4 Long term (current) use of insulin; Z79.51 Long term (current) use of inhaled steroids; Z79.891 Long term (current) use of opiate analgesic; Z79.899 Other long term (current) drug therapy; Z88.5 Allergy status to narcotic agent; Z88.6 Allergy status to analgesic agent; Z88.8 Allergy status to other drugs, medicaments and biological substances; Z91.018 Allergy to other foods; Z91.09 Other allergy status, other than to drugs and biological substances; Z87.891 Personal history of nicotine dependence
CPT/HCPCS: J1030

== ENCOUNTER → 2018-05-26 | Outpatient (CLI) | payer OTHER | LOC: M PAIN 13:45 | DX: M96.1 Postlaminectomy syndrome, not elsewhere classified (principal); M54.17 Radiculopathy, lumbosacral region; Z79.891 Long term (current) use of opiate analgesic; G40.909 Epilepsy, unspecified, not intractable, without status epilepticus; G43.909 Migraine, unspecified, not intractable, without status migrainosus; M54.2 Cervicalgia; I10 Essential (primary) hypertension; K44.9 Diaphragmatic hernia without obstruction or gangrene; K64.8 Other hemorrhoids; E11.9 Type 2 diabetes mellitus without complications; J44.9 Chronic obstructive pulmonary disease, unspecified; M06.9 Rheumatoid arthritis, unspecified; Z87.891 Personal history of nicotine dependence; Z79.899 Other long term (current) drug therapy; Z79.4 Long term (current) use of insulin; Z88.5 Allergy status to narcotic agent; Z88.6 Allergy status to analgesic agent; Z88.8 Allergy status to other drugs, medicaments and biological substances; Z91.048 Other nonmedicinal substance allergy status | CPT/HCPCS: G0463 ==

== ENCOUNTER 2018-06-24 13:43 | Observation (INO) | payer OTHER ==
[2018-06-24] MEDS: GI COCKTAIL 50ML BTL(HYOSCYAMINE/MAALOX/LIDOCAINE VISCOUS)(1:3:1) PO (15:08)
[2018-06-24 15:09] LABS: KETONE, URINE AUTO RFX NEGATIVE (NEGATIVE); LEUKOCYTE ESTERASE UR AUTO RFX NEGATIVE (NEGATIVE); MUCUS, URINE RFX SMALL (NEGATIVE); NITRITE, URINE AUTO RFX NEGATIVE (NEGATIVE); RBC, URINE AUTO RFX 4 /HPF (0-3); SPECIFIC GRAVITY UR AUTO RFX 1.017 (1.002-1.035); SQUAM EPITHELIAL CELL UR AURFX 6 /HPF (0-6); WBC, URINE AUTO RFX 3 /HPF (0-3)
[2018-06-24] MEDS: fentaNYL 100 MCG/2 ML INJECTION (J3010) IV ×3 (16:00→18:15)
[2018-06-24] MEDS: NS 500 ML IV (16:00)
[2018-06-24] MEDS: ONDANSETRON 4MG/2ML VIAL (J2405) IV (16:01)
[2018-06-24 16:10] LABS: BASO # 0.1 10^3/uL (0.0-0.2); BASO % 0.6 % (0.0-1.0); EOS # 0.2 10^3/uL (0.0-0.50); EOS % 1.8 % (0.0-3.0); HEMOGLOBIN 13.8 g/dl (12.0-15.5); IMMATURE GRANULOCYTE % 0.4 % (0-3.0); LYMPH # 1.7 10^3/uL (1.5-4.5); LYMPH % 17.4 % (24.0-44.0); MEAN CORPUSCULAR HEMOGLOBIN 31.8 pg (27.0-33.0); MEAN CORPUSCULAR HGB CONC 34.5 g/dl (32.0-36.5); MEAN CORPUSCULAR VOLUME 92.2 fl (80.0-96.0); MONO # 0.6 10^3/uL (0.0-0.8); MONO % 5.9 % (0.0-5.0); NEUTROPHILS # 7.4 10^3/uL (1.8-7.7); NEUTROPHILS % 73.9 % (36.0-66.0); PLATELET COUNT, AUTOMATED 238 10^3/uL (150-450); RED BLOOD COUNT 4.34 10^6/uL (4.00-5.40); RED CELL DISTRIBUTION WIDTH 12.7 % (11.5-14.5)
[2018-06-24 16:37] LABS: ALBUMIN 3.8 GM/DL (3.2-5.2); ALBUMIN/GLOBULIN RATIO 1.27 (1.00-1.93); ALKALINE PHOSPHATASE 93 U/L (45-117); ALT/SGPT 78 U/L (12-78); AMYLASE 25 U/L (25-115); ANION GAP 12 MEQ/L (8-16); AST/SGOT 43 U/L (7-37); BILIRUBIN,DIRECT < 0.1 MG/DL (0.0-0.2); BILIRUBIN,TOTAL 0.4 MG/DL (0.2-1.0); BLOOD UREA NITROGEN 15 MG/DL (7-18); CARBON DIOXIDE LEVEL 23 MEQ/L (21-32); CHLORIDE LEVEL 109 MEQ/L (98-107); CREATININE FOR GFR 0.95 MG/DL (0.55-1.30); GLOMERULAR FILTRATION RATE > 60.0 (>51); GLUCOSE, FASTING 206 MG/DL (70-100); LIPASE 126 U/L (73-393); POTASSIUM SERUM 4.1 MEQ/L (3.5-5.1); SODIUM LEVEL 144 MEQ/L (136-145); TOTAL PROTEIN 6.8 GM/DL (6.4-8.2)
[2018-06-24 16:45] LABS: LACTIC ACID SEPSIS PROTOCOL 3.6 MMOL/L (0.4-2.0)
[2018-06-24] MEDS: NS 1,000 ML IV ×3 (16:50→20:13)
[2018-06-24] MEDS ORDERED: ISOVUE-370 76% 100ML VIAL (Q9967) As Ordered (17:00)
[2018-06-24] MEDS ORDERED: GLUCOSE 4 GM CHEW TABLET PO (20:15)
[2018-06-24] MEDS ORDERED: GLUCAGON FOR INJ 1 MG VIAL (J1610) SC (20:15)
[2018-06-24] MEDS ORDERED: IPRATROPIUM 0.5MG/ALBUTEROL 2.5MG INH SOL UD 3ML (DUONEB)(J7620) INH (20:15)
[2018-06-24] MEDS: HumaLOG INSULIN (NovoLOG) PER UNIT SC (21:00)
[2018-06-24] MEDS: LATANOPROST 0.005% OPHTH SOLN 2.5 ML OU (21:00)
[2018-06-24 21:51] LABS: BEDSIDE GLUCOSE 102 MG/DL (70-105)
[2018-06-24] MEDS: PERCOCET 5MG/325MG TAB PO (22:32)
[2018-06-25] MEDS: fentaNYL 100 MCG/2 ML INJECTION (J3010) IV ×2 (02:56→09:16)
[2018-06-25] MEDS: NS 1,000 ML IV (06:07)
[2018-06-25 07:23] LABS: BEDSIDE GLUCOSE 55 MG/DL (70-105)
[2018-06-25] MEDS: HumaLOG INSULIN (NovoLOG) PER UNIT SC ×4 (07:30→21:36)
[2018-06-25] MEDS: DEXTROSE 50% 50 ML SYRINGE IV (07:37)
[2018-06-25 08:13] LABS: BEDSIDE GLUCOSE 132 MG/DL (70-105)
[2018-06-25 08:43] LABS: HEMOGLOBIN 13.7 g/dl (12.0-15.5); MEAN CORPUSCULAR HEMOGLOBIN 31.7 pg (27.0-33.0); MEAN CORPUSCULAR HGB CONC 33.4 g/dl (32.0-36.5); MEAN CORPUSCULAR VOLUME 94.9 fl (80.0-96.0); PLATELET COUNT, AUTOMATED 216 10^3/uL (150-450); RED BLOOD COUNT 4.32 10^6/uL (4.00-5.40); RED CELL DISTRIBUTION WIDTH 12.7 % (11.5-14.5)
[2018-06-25] MEDS: FOLIC ACID 1 MG TAB PO (09:02)
[2018-06-25] MEDS: ENOXAPARIN 40 MG/0.4 ML SYRINGE (J1650) SC (09:02)
[2018-06-25] MEDS: levETIRAcetam 250MG TABLET (KEPPRA) PO (09:03)
[2018-06-25] MEDS: ESCITALOPRAM OXALATE 10 MG TAB (LEXAPRO) PO (09:04)
[2018-06-25] MEDS: LISINOPRIL 40 MG TAB PO (09:05)
[2018-06-25] MEDS: ATORVASTATIN 20 MG TAB PO (09:05)
[2018-06-25] MEDS: PANTOPRAZOLE 40MG TAB (PROTONIX) PO (09:06)
[2018-06-25] MEDS: tiZANidine 4 MG TAB PO ×2 (09:07→21:36)
[2018-06-25 09:15] LABS: ALBUMIN 3.5 GM/DL (3.2-5.2); ALKALINE PHOSPHATASE 77 U/L (45-117); ALT/SGPT 69 U/L (12-78); ANION GAP 8 MEQ/L (8-16); AST/SGOT 36 U/L (7-37); BILIRUBIN,TOTAL 0.3 MG/DL (0.2-1.0); BLOOD UREA NITROGEN 8 MG/DL (7-18); CALCIUM LEVEL 8.4 MG/DL (8.5-10.1); CARBON DIOXIDE LEVEL 25 MEQ/L (21-32); CHLORIDE LEVEL 115 MEQ/L (98-107); CREATININE FOR GFR 0.76 MG/DL (0.55-1.30); GLOMERULAR FILTRATION RATE > 60.0 (>51); GLUCOSE, FASTING 109 MG/DL (70-100); MAGNESIUM LEVEL 2.2 MG/DL (1.8-2.4); POTASSIUM SERUM 3.8 MEQ/L (3.5-5.1); SODIUM LEVEL 148 MEQ/L (136-145); TOTAL PROTEIN 6.2 GM/DL (6.4-8.2)
[2018-06-25] MEDS: ACETAMINOPHEN TAB 650MG DOSE (2X325MG) PO ×2 (09:43→16:12)
[2018-06-25] MEDS: BRIMONIDINE 0.15% OPHTH SOLN 5 ML OU (11:47)
[2018-06-25 12:02] LABS: AMPHETAMINES LEVEL URINE NEGATIVE (NEGATIVE); BARBITURATES URINE NEGATIVE (NEGATIVE); BENZODIAZEPINES URINE NEGATIVE (NEGATIVE); CANNABINOIDS URINE NEGATIVE (NEGATIVE); COCAINE METABOLITE URINE NEGATIVE (NEGATIVE); METHADONE URINE NEGATIVE (NEGATIVE); OPIATES URINE NEGATIVE (NEGATIVE); PHENCYCLIDINE URINE NEGATIVE (NEGATIVE)
[2018-06-25] MEDS: PERCOCET 5MG/325MG TAB PO ×2 (12:16→21:38)
[2018-06-25 13:00] LABS: BEDSIDE GLUCOSE 133 MG/DL (70-105)
[2018-06-25 16:59] LABS: BEDSIDE GLUCOSE 205 MG/DL (70-105)
[2018-06-25] MEDS: ONDANSETRON 4MG/2ML VIAL (J2405) IV (18:19)
[2018-06-25 20:09] LABS: BEDSIDE GLUCOSE 141 MG/DL (70-105)
[2018-06-25] MEDS: LATANOPROST 0.005% OPHTH SOLN 2.5 ML OU (21:37)
[2018-06-25] MEDS: LEVEMIR (INSULIN DETEMIR) 1 UNITS/0.01ML SC (21:37)
[2018-06-26] MEDS: ONDANSETRON 4MG/2ML VIAL (J2405) IV (05:03)
[2018-06-26 06:22] LABS: HEMATOCRIT 36.2 % (36.0-47.0); HEMOGLOBIN 12.1 g/dl (12.0-15.5); MEAN CORPUSCULAR HEMOGLOBIN 31.3 pg (27.0-33.0); MEAN CORPUSCULAR HGB CONC 33.4 g/dl (32.0-36.5); MEAN CORPUSCULAR VOLUME 93.5 fl (80.0-96.0); PLATELET COUNT, AUTOMATED 182 10^3/uL (150-450); RED BLOOD COUNT 3.87 10^6/uL (4.00-5.40); RED CELL DISTRIBUTION WIDTH 12.6 % (11.5-14.5); WHITE BLOOD COUNT 4.9 10^3/uL (4.0-10.0)
[2018-06-26 06:41] LABS: ALBUMIN 3.2 GM/DL (3.2-5.2); ALBUMIN/GLOBULIN RATIO 1.19 (1.00-1.93); ALKALINE PHOSPHATASE 82 U/L (45-117); ALT/SGPT 61 U/L (12-78); ANION GAP 8 MEQ/L (8-16); AST/SGOT 26 U/L (7-37); BILIRUBIN,TOTAL 0.3 MG/DL (0.2-1.0); BLOOD UREA NITROGEN 11 MG/DL (7-18); CALCIUM LEVEL 8.6 MG/DL (8.5-10.1); CARBON DIOXIDE LEVEL 28 MEQ/L (21-32); CHLORIDE LEVEL 112 MEQ/L (98-107); CREATININE FOR GFR 0.76 MG/DL (0.55-1.30); GLOMERULAR FILTRATION RATE > 60.0 (>51); GLUCOSE, FASTING 88 MG/DL (70-100); MAGNESIUM LEVEL 2.2 MG/DL (1.8-2.4); POTASSIUM SERUM 3.9 MEQ/L (3.5-5.1); SODIUM LEVEL 148 MEQ/L (136-145); TOTAL PROTEIN 5.9 GM/DL (6.4-8.2)
[2018-06-26] MEDS: PERCOCET 5MG/325MG TAB PO (06:58)
[2018-06-26] MEDS: HumaLOG INSULIN (NovoLOG) PER UNIT SC ×2 (07:30→13:17)
[2018-06-26] MEDS: ENOXAPARIN 40 MG/0.4 ML SYRINGE (J1650) SC (09:00)
[2018-06-26] MEDS: LISINOPRIL 40 MG TAB PO (10:36)
[2018-06-26] MEDS: PANTOPRAZOLE 40MG TAB (PROTONIX) PO (10:36)
[2018-06-26] MEDS: ESCITALOPRAM OXALATE 10 MG TAB (LEXAPRO) PO (10:38)
[2018-06-26] MEDS: FOLIC ACID 1 MG TAB PO (10:39)
[2018-06-26] MEDS: ATORVASTATIN 20 MG TAB PO (10:39)
[2018-06-26] MEDS: levETIRAcetam 250MG TABLET (KEPPRA) PO (10:39)
[2018-06-26] MEDS: BRIMONIDINE 0.15% OPHTH SOLN 5 ML OU (10:50)
[2018-06-26] MEDS: tiZANidine 4 MG TAB PO (10:50)
[2018-06-26 11:46] LABS: BEDSIDE GLUCOSE 158 MG/DL (70-105)
== END 2018-06-26 14:11 | disposition home or self-care (01) ==
LOC: M MSPAV 06-25 12:50 → M ED 13:43 → M ED INP 20:13
DX: K52.9 Noninfective gastroenteritis and colitis, unspecified (principal); E11.9 Type 2 diabetes mellitus without complications; E78.4 Other hyperlipidemia; G43.009 Migraine without aura, not intractable, without status migrainosus; Z79.899 Other long term (current) drug therapy; Z87.891 Personal history of nicotine dependence; Z88.8 Allergy status to other drugs, medicaments and biological substances; M54.5 Low back pain
CPT/HCPCS: J2405

== ENCOUNTER 2018-06-27 20:12 | Inpatient (IN) | payer OTHER ==
[2018-06-27 22:42] LABS: BASO # 0.1 10^3/uL (0.0-0.2); BASO % 0.9 % (0.0-1.0); EOS # 0.2 10^3/uL (0.0-0.50); HEMOGLOBIN 13.6 g/dl (12.0-15.5); IMMATURE GRANULOCYTE % 0.4 % (0-3.0); KETONE, URINE AUTO RFX NEGATIVE (NEGATIVE); LEUKOCYTE ESTERASE UR AUTO RFX NEGATIVE (NEGATIVE); LYMPH # 2.6 10^3/uL (1.5-4.5); LYMPH % 26.8 % (24.0-44.0); MEAN CORPUSCULAR HEMOGLOBIN 31.5 pg (27.0-33.0); MEAN CORPUSCULAR HGB CONC 34.9 g/dl (32.0-36.5); MEAN CORPUSCULAR VOLUME 90.3 fl (80.0-96.0); MONO # 0.7 10^3/uL (0.0-0.8); MUCUS, URINE RFX SMALL (NEGATIVE); NEUTROPHILS # 6.1 10^3/uL (1.8-7.7); NEUTROPHILS % 62.9 % (36.0-66.0); NITRITE, URINE AUTO RFX NEGATIVE (NEGATIVE); PLATELET COUNT, AUTOMATED 231 10^3/uL (150-450); RBC, URINE AUTO RFX 3 /HPF (0-3); RED BLOOD COUNT 4.32 10^6/uL (4.00-5.40); RED CELL DISTRIBUTION WIDTH 12.2 % (11.5-14.5); SPECIFIC GRAVITY UR AUTO RFX 1.008 (1.002-1.035); SQUAM EPITHELIAL CELL UR AURFX 0 /HPF (0-6); WBC, URINE AUTO RFX 0 /HPF (0-3); WHITE BLOOD COUNT 9.6 10^3/uL (4.0-10.0)
[2018-06-27 22:49] LABS: INR 1.05; PARTIAL THROMBOPLASTIN TIME 27.9 SECONDS (25.4-37.6); PROTHROMBIN TIME 13.8 SECONDS (12.1-14.4)
[2018-06-27] MEDS: NS 1,000 ML IV (22:50)
[2018-06-27] MEDS: ONDANSETRON 4MG/2ML VIAL (J2405) IV (22:51)
[2018-06-27] MEDS: HYDROMORPHONE HCL 0.5 MG/ 0.5 ML SYRINGE (J1170 PER 1) IV (22:51)
[2018-06-27 23:07] LABS: LACTIC ACID SEPSIS PROTOCOL 1.6 MMOL/L (0.4-2.0)
[2018-06-27 23:08] LABS: ALBUMIN 3.8 GM/DL (3.2-5.2); ALBUMIN/GLOBULIN RATIO 1.15 (1.00-1.93); ALKALINE PHOSPHATASE 94 U/L (45-117); ALT/SGPT 73 U/L (12-78); AMYLASE 23 U/L (25-115); ANION GAP 10 MEQ/L (8-16); AST/SGOT 36 U/L (7-37); BILIRUBIN,DIRECT < 0.1 MG/DL (0.0-0.2); BILIRUBIN,TOTAL 0.3 MG/DL (0.2-1.0); BLOOD UREA NITROGEN 12 MG/DL (7-18); CALCIUM LEVEL 9.1 MG/DL (8.5-10.1); CARBON DIOXIDE LEVEL 27 MEQ/L (21-32); CHLORIDE LEVEL 107 MEQ/L (98-107); CK-MB VALUE MASS < 1.0 NG/ML (<3.6); CPK CREATINE PHOSPHOKINASE 87 U/L (26-192); CREATININE FOR GFR 0.85 MG/DL (0.55-1.30); GLOMERULAR FILTRATION RATE > 60.0 (>51); GLUCOSE, FASTING 138 MG/DL (70-100); LIPASE 121 U/L (73-393); MB/CK RELATIVE INDEX 1.14 (< OR =4); POTASSIUM SERUM 3.7 MEQ/L (3.5-5.1); SODIUM LEVEL 144 MEQ/L (136-145); TOTAL PROTEIN 7.1 GM/DL (6.4-8.2); TROPONIN I < 0.02 NG/ML (< 0.10)
[2018-06-27] MEDS ORDERED: ISOVUE-370 76% 100ML VIAL (Q9967) As Ordered (23:18)
[2018-06-28] MEDS: HYDROMORPHONE HCL 0.5 MG/ 0.5 ML SYRINGE (J1170 PER 1) IV ×6 (00:42→23:30)
[2018-06-28] MEDS: PROMETHAZINE INJ 25 MG/ML VIAL (J2550) IV (00:42)
[2018-06-28] MEDS: NS 1,000 ML IV (01:26)
[2018-06-28] MEDS ORDERED: GLUCOSE 4 GM CHEW TABLET PO (01:30)
[2018-06-28] MEDS ORDERED: GLUCAGON FOR INJ 1 MG VIAL (J1610) SC (01:30)
[2018-06-28] MEDS: HEPARIN SOD (PORCINE) 5000 UNITS/ML VIAL SC ×3 (06:00→21:19)
[2018-06-28 06:37] LABS: BEDSIDE GLUCOSE 137 MG/DL (70-105)
[2018-06-28] MEDS: HumaLOG INSULIN (NovoLOG) PER UNIT SC ×3 (06:46→18:00)
[2018-06-28 07:24] LABS: HEMATOCRIT 40.5 % (36.0-47.0); HEMOGLOBIN 13.9 g/dl (12.0-15.5); MEAN CORPUSCULAR HEMOGLOBIN 31.9 pg (27.0-33.0); MEAN CORPUSCULAR HGB CONC 34.3 g/dl (32.0-36.5); MEAN CORPUSCULAR VOLUME 92.9 fl (80.0-96.0); PLATELET COUNT, AUTOMATED 223 10^3/uL (150-450); RED BLOOD COUNT 4.36 10^6/uL (4.00-5.40); RED CELL DISTRIBUTION WIDTH 12.5 % (11.5-14.5); WHITE BLOOD COUNT 8.9 10^3/uL (4.0-10.0)
[2018-06-28 07:40] LABS: ANION GAP 6 MEQ/L (8-16); BLOOD UREA NITROGEN 11 MG/DL (7-18); CALCIUM LEVEL 9.1 MG/DL (8.5-10.1); CARBON DIOXIDE LEVEL 30 MEQ/L (21-32); CHLORIDE LEVEL 109 MEQ/L (98-107); CREATININE FOR GFR 0.85 MG/DL (0.55-1.30); GLOMERULAR FILTRATION RATE > 60.0 (>51); GLUCOSE, FASTING 138 MG/DL (70-100); SODIUM LEVEL 145 MEQ/L (136-145)
[2018-06-28 08:12] LABS: CK-MB VALUE MASS < 1.0 NG/ML (<3.6); TROPONIN I < 0.02 NG/ML (< 0.10)
[2018-06-28] MEDS: PANTOPRAZOLE 40MG INJ (PROTONIX) (C9113) IV (09:05)
[2018-06-28] MEDS: levETIRAcetam INJection 500 MG in D5W MINI-BAG PLUS 100 ML IV (09:05)
[2018-06-28] MEDS: KCL 20MEQ IN 0.45NS 1000ML 1,000 ML IV ×3 (09:05→21:19)
[2018-06-28 11:59] LABS: BEDSIDE GLUCOSE 108 MG/DL (70-105)
[2018-06-28] MEDS ORDERED: PROPOFOL 200 MG/20 ML VIAL As Ordered (15:35)
[2018-06-28] MEDS: ONDANSETRON 4MG/2ML VIAL (J2405) IV (17:07)
[2018-06-28 20:45] LABS: CPK CREATINE PHOSPHOKINASE 73 U/L (26-192); MB/CK RELATIVE INDEX 1.36 (< OR =4)
[2018-06-28] MEDS: LATANOPROST 0.005% OPHTH SOLN 2.5 ML OU (21:18)
[2018-06-29 00:20] LABS: BEDSIDE GLUCOSE 63 MG/DL (70-105)
[2018-06-29] MEDS: HYDROMORPHONE HCL 0.5 MG/ 0.5 ML SYRINGE (J1170 PER 1) IV ×7 (02:37→22:07)
[2018-06-29 02:49] LABS: BEDSIDE GLUCOSE 68 MG/DL (70-105)
[2018-06-29] MEDS: DEXTROSE 50% 50 ML SYRINGE IV ×2 (03:21→08:07)
[2018-06-29 03:59] LABS: BEDSIDE GLUCOSE 117 MG/DL (70-105)
[2018-06-29] MEDS: KCL 20MEQ IN 0.45NS 1000ML 1,000 ML IV (05:31)
[2018-06-29] MEDS: HumaLOG INSULIN (NovoLOG) PER UNIT SC ×4 (06:00→18:00)
[2018-06-29] MEDS: HEPARIN SOD (PORCINE) 5000 UNITS/ML VIAL SC ×3 (06:09→20:57)
[2018-06-29] MEDS: ONDANSETRON 4MG/2ML VIAL (J2405) IV ×2 (06:09→12:32)
[2018-06-29 06:16] LABS: BEDSIDE GLUCOSE 62 MG/DL (70-105)
[2018-06-29 07:56] LABS: HEMOGLOBIN 12.1 g/dl (12.0-15.5); MEAN CORPUSCULAR HEMOGLOBIN 31.6 pg (27.0-33.0); MEAN CORPUSCULAR HGB CONC 33.6 g/dl (32.0-36.5); PLATELET COUNT, AUTOMATED 199 10^3/uL (150-450); RED BLOOD COUNT 3.83 10^6/uL (4.00-5.40); RED CELL DISTRIBUTION WIDTH 12.7 % (11.5-14.5); WHITE BLOOD COUNT 7.2 10^3/uL (4.0-10.0)
[2018-06-29 08:03] LABS: BEDSIDE GLUCOSE 53 MG/DL (70-105)
[2018-06-29 08:26] LABS: ANION GAP 5 MEQ/L (8-16); BLOOD UREA NITROGEN 9 MG/DL (7-18); CALCIUM LEVEL 8.3 MG/DL (8.5-10.1); CARBON DIOXIDE LEVEL 30 MEQ/L (21-32); CHLORIDE LEVEL 110 MEQ/L (98-107); CREATININE FOR GFR 0.66 MG/DL (0.55-1.30); GLOMERULAR FILTRATION RATE > 60.0 (>51); GLUCOSE, FASTING 59 MG/DL (70-100); POTASSIUM SERUM 3.7 MEQ/L (3.5-5.1); SODIUM LEVEL 145 MEQ/L (136-145)
[2018-06-29 09:14] LABS: BEDSIDE GLUCOSE 77 MG/DL (70-105)
[2018-06-29] MEDS: PANTOPRAZOLE 40MG INJ (PROTONIX) (C9113) IV (09:22)
[2018-06-29] MEDS: levETIRAcetam INJection 500 MG in D5W MINI-BAG PLUS 100 ML IV (09:22)
[2018-06-29] MEDS: D5W/0.9% SODIUM CHLORIDE 1,000 ML IV ×2 (09:24→22:06)
[2018-06-29 12:09] LABS: BEDSIDE GLUCOSE 61 MG/DL (70-105)
[2018-06-29] MEDS: BISACODYL 10 MG SUPP PR (13:42)
[2018-06-29 14:41] LABS: BEDSIDE GLUCOSE 86 MG/DL (70-105)
[2018-06-29] MEDS: METOCLOPRAMIDE 10 MG TAB PO ×2 (17:08→20:56)
[2018-06-29] MEDS: METHYLNALTREXONE BROMIDE 12 MG/0.6 ML VIAL (RELISTOR) SC (17:09)
[2018-06-29 18:27] LABS: BEDSIDE GLUCOSE 148 MG/DL (70-105)
[2018-06-29 20:21] LABS: BEDSIDE GLUCOSE 64 MG/DL (70-105)
[2018-06-29] MEDS: LATANOPROST 0.005% OPHTH SOLN 2.5 ML OU (20:57)
[2018-06-29 23:47] LABS: BEDSIDE GLUCOSE 106 MG/DL (70-105)
[2018-06-30] MEDS: HYDROMORPHONE HCL 0.5 MG/ 0.5 ML SYRINGE (J1170 PER 1) IV ×7 (02:50→21:13)
[2018-06-30 05:54] LABS: BEDSIDE GLUCOSE 97 MG/DL (70-105)
[2018-06-30] MEDS: HEPARIN SOD (PORCINE) 5000 UNITS/ML VIAL SC ×3 (06:00→21:14)
[2018-06-30] MEDS: HumaLOG INSULIN (NovoLOG) PER UNIT SC ×4 (06:00→17:33)
[2018-06-30] MEDS: METOCLOPRAMIDE 10 MG TAB PO ×4 (07:55→21:14)
[2018-06-30 08:22] LABS: HEMATOCRIT 36.1 % (36.0-47.0); HEMOGLOBIN 11.9 g/dl (12.0-15.5); PLATELET COUNT, AUTOMATED 193 10^3/uL (150-450); RED BLOOD COUNT 3.84 10^6/uL (4.00-5.40); RED CELL DISTRIBUTION WIDTH 12.5 % (11.5-14.5); WHITE BLOOD COUNT 5.7 10^3/uL (4.0-10.0)
[2018-06-30] MEDS: PANTOPRAZOLE 40MG INJ (PROTONIX) (C9113) IV (08:32)
[2018-06-30] MEDS: levETIRAcetam INJection 500 MG in D5W MINI-BAG PLUS 100 ML IV (08:32)
[2018-06-30 08:40] LABS: ANION GAP 8 MEQ/L (8-16); BLOOD UREA NITROGEN 6 MG/DL (7-18); CALCIUM LEVEL 8.8 MG/DL (8.5-10.1); CARBON DIOXIDE LEVEL 28 MEQ/L (21-32); CHLORIDE LEVEL 110 MEQ/L (98-107); CREATININE FOR GFR 0.72 MG/DL (0.55-1.30); GLOMERULAR FILTRATION RATE > 60.0 (>51); GLUCOSE, FASTING 86 MG/DL (70-100); POTASSIUM SERUM 3.3 MEQ/L (3.5-5.1); SODIUM LEVEL 146 MEQ/L (136-145)
[2018-06-30 12:01] LABS: BEDSIDE GLUCOSE 102 MG/DL (70-105)
[2018-06-30] MEDS: POTASSIUM CHLORIDE 10 MEQ SR TABLET PO ×2 (15:32→15:56)
[2018-06-30 17:02] LABS: BEDSIDE GLUCOSE 93 MG/DL (70-105)
[2018-06-30] MEDS: LATANOPROST 0.005% OPHTH SOLN 2.5 ML OU (21:14)
[2018-06-30 23:58] LABS: BEDSIDE GLUCOSE 96 MG/DL (70-105)
[2018-07-01] MEDS: HYDROMORPHONE HCL 0.5 MG/ 0.5 ML SYRINGE (J1170 PER 1) IV ×4 (01:01→11:43)
[2018-07-01] MEDS: HEPARIN SOD (PORCINE) 5000 UNITS/ML VIAL SC ×3 (05:09→21:53)
[2018-07-01] MEDS: HumaLOG INSULIN (NovoLOG) PER UNIT SC ×4 (06:00→17:38)
[2018-07-01 06:03] LABS: BEDSIDE GLUCOSE 95 MG/DL (70-105)
[2018-07-01] MEDS: METOCLOPRAMIDE 10 MG TAB PO ×4 (08:15→21:54)
[2018-07-01] MEDS: PANTOPRAZOLE 40MG INJ (PROTONIX) (C9113) IV (08:15)
[2018-07-01] MEDS: levETIRAcetam INJection 500 MG in D5W MINI-BAG PLUS 100 ML IV (08:15)
[2018-07-01 08:20] LABS: HEMATOCRIT 38.3 % (36.0-47.0); HEMOGLOBIN 12.9 g/dl (12.0-15.5); MEAN CORPUSCULAR HEMOGLOBIN 31.5 pg (27.0-33.0); MEAN CORPUSCULAR HGB CONC 33.7 g/dl (32.0-36.5); MEAN CORPUSCULAR VOLUME 93.6 fl (80.0-96.0); PLATELET COUNT, AUTOMATED 189 10^3/uL (150-450); RED BLOOD COUNT 4.09 10^6/uL (4.00-5.40); RED CELL DISTRIBUTION WIDTH 12.6 % (11.5-14.5); WHITE BLOOD COUNT 5.1 10^3/uL (4.0-10.0)
[2018-07-01 08:42] LABS: ANION GAP 8 MEQ/L (8-16); BLOOD UREA NITROGEN 6 MG/DL (7-18); CALCIUM LEVEL 9.3 MG/DL (8.5-10.1); CARBON DIOXIDE LEVEL 28 MEQ/L (21-32); CHLORIDE LEVEL 108 MEQ/L (98-107); CREATININE FOR GFR 0.73 MG/DL (0.55-1.30); GLOMERULAR FILTRATION RATE > 60.0 (>51); GLUCOSE, FASTING 96 MG/DL (70-100); POTASSIUM SERUM 3.8 MEQ/L (3.5-5.1); SODIUM LEVEL 144 MEQ/L (136-145)
[2018-07-01 11:51] LABS: BEDSIDE GLUCOSE 137 MG/DL (70-105)
[2018-07-01] MEDS ORDERED: IBUPROFEN 400 MG TAB PO (12:15)
[2018-07-01] MEDS ORDERED: ISOVUE-370 76% 100ML VIAL (Q9967) As Ordered (12:19)
[2018-07-01] MEDS: GASTROGRAFIN SOLUTION 30ML PO ×2 (13:19→13:56)
[2018-07-01 16:54] LABS: BEDSIDE GLUCOSE 144 MG/DL (70-105)
[2018-07-01] MEDS: NAPROXEN 250 MG TAB PO (21:54)
[2018-07-01] MEDS: LATANOPROST 0.005% OPHTH SOLN 2.5 ML OU (21:54)
[2018-07-02 00:22] LABS: BEDSIDE GLUCOSE 154 MG/DL (70-105)
[2018-07-02] MEDS: HumaLOG INSULIN (NovoLOG) PER UNIT SC ×3 (06:13→12:35)
[2018-07-02] MEDS: HEPARIN SOD (PORCINE) 5000 UNITS/ML VIAL SC (06:13)
[2018-07-02 06:16] LABS: BEDSIDE GLUCOSE 170 MG/DL (70-105)
[2018-07-02 06:55] LABS: HEMATOCRIT 40.1 % (36.0-47.0); HEMOGLOBIN 13.6 g/dl (12.0-15.5); MEAN CORPUSCULAR HEMOGLOBIN 31.5 pg (27.0-33.0); MEAN CORPUSCULAR HGB CONC 33.9 g/dl (32.0-36.5); MEAN CORPUSCULAR VOLUME 92.8 fl (80.0-96.0); PLATELET COUNT, AUTOMATED 215 10^3/uL (150-450); RED BLOOD COUNT 4.32 10^6/uL (4.00-5.40); RED CELL DISTRIBUTION WIDTH 12.6 % (11.5-14.5)
[2018-07-02 07:13] LABS: ANION GAP 7 MEQ/L (8-16); BLOOD UREA NITROGEN 11 MG/DL (7-18); CALCIUM LEVEL 9.8 MG/DL (8.5-10.1); CARBON DIOXIDE LEVEL 28 MEQ/L (21-32); CHLORIDE LEVEL 108 MEQ/L (98-107); CREATININE FOR GFR 0.76 MG/DL (0.55-1.30); GLOMERULAR FILTRATION RATE > 60.0 (>51); GLUCOSE, FASTING 159 MG/DL (70-100); MAGNESIUM LEVEL 2.1 MG/DL (1.8-2.4); POTASSIUM SERUM 3.9 MEQ/L (3.5-5.1); SODIUM LEVEL 143 MEQ/L (136-145)
[2018-07-02] MEDS ORDERED: GLUCAGON FOR INJ 1 MG VIAL (J1610) SC (08:00)
[2018-07-02] MEDS ORDERED: DEXTROSE 50% 50 ML SYRINGE IV (08:00)
[2018-07-02] MEDS ORDERED: GLUCOSE 4 GM CHEW TABLET PO (08:00)
[2018-07-02] MEDS: levETIRAcetam INJection 500 MG in D5W MINI-BAG PLUS 100 ML IV (08:47)
[2018-07-02] MEDS: PANTOPRAZOLE 40MG INJ (PROTONIX) (C9113) IV (08:47)
[2018-07-02] MEDS: NAPROXEN 250 MG TAB PO (08:47)
[2018-07-02] MEDS: METOCLOPRAMIDE 10 MG TAB PO ×2 (08:48→12:35)
[2018-07-02 13:46] LABS: BEDSIDE GLUCOSE 243 MG/DL (70-105)
[2018-07-02] MEDS ORDERED: HumaLOG INSULIN (NovoLOG) PER UNIT SC (21:00)
== END 2018-07-02 13:55 | disposition home or self-care (01) | DRG 48 ==
LOC: M ED INP 06-28 01:26 → M ED 20:12 → M MS5PR 06-28 06:50
PROC: 0DJ08ZZ Inspection of Upper Intestinal Tract, Via Natural or Artificial Opening Endoscopic (ICD-10-PCS; principal; 2018-06-28 15:00)
DX: E11.43 Type 2 diabetes mellitus with diabetic autonomic (poly)neuropathy (principal); N20.0 Calculus of kidney; G40.909 Epilepsy, unspecified, not intractable, without status epilepticus; K21.9 Gastro-esophageal reflux disease without esophagitis; Z79.899 Other long term (current) drug therapy; Z88.6 Allergy status to analgesic agent; Z88.5 Allergy status to narcotic agent; Z88.8 Allergy status to other drugs, medicaments and biological substances; Z91.018 Allergy to other foods; G43.909 Migraine, unspecified, not intractable, without status migrainosus; E78.5 Hyperlipidemia, unspecified; Z87.891 Personal history of nicotine dependence; M54.5 Low back pain; K44.9 Diaphragmatic hernia without obstruction or gangrene

== ENCOUNTER → 2018-07-15 | Outpatient (CLI) | payer OTHER | LOC: M PAIN 11:30 | DX: Z53.8 Procedure and treatment not carried out for other reasons (principal) ==

== ENCOUNTER → 2018-08-06 | Outpatient (CLI) | payer OTHER | LOC: M PAIN 10:00 | DX: M79.1 Myalgia (principal); M96.1 Postlaminectomy syndrome, not elsewhere classified; M54.17 Radiculopathy, lumbosacral region; R56.9 Unspecified convulsions; G43.909 Migraine, unspecified, not intractable, without status migrainosus; E11.9 Type 2 diabetes mellitus without complications; J44.9 Chronic obstructive pulmonary disease, unspecified; M06.9 Rheumatoid arthritis, unspecified; I10 Essential (primary) hypertension; D68.0 Von Willebrand disease; Z79.4 Long term (current) use of insulin; Z79.51 Long term (current) use of inhaled steroids; Z79.891 Long term (current) use of opiate analgesic; Z79.899 Other long term (current) drug therapy; Z88.5 Allergy status to narcotic agent; Z88.6 Allergy status to analgesic agent; Z88.8 Allergy status to other drugs, medicaments and biological substances; Z91.09 Other allergy status, other than to drugs and biological substances; Z91.02 Food additives allergy status; Z87.11 Personal history of peptic ulcer disease; Z87.891 Personal history of nicotine dependence; Z98.84 Bariatric surgery status | CPT/HCPCS: G0463 ==

== ENCOUNTER → 2018-08-18 | Outpatient (REF) | payer OTHER ==
[2018-08-21 14:11] LABS: LEVETIRACETAM (KEPPRA) 51.3 ug/mL (10.0-40.0)
== END ==
LOC: M LABNEURO 09:45
DX: G40.909 Epilepsy, unspecified, not intractable, without status epilepticus (principal)

== ENCOUNTER → 2018-08-20 | Outpatient (CLI) | payer OTHER | LOC: M WHC 09:58 | DX: Z13.820 Encounter for screening for osteoporosis (principal) | CPT/HCPCS: 77080 ==

== ENCOUNTER → 2018-08-24 | Outpatient (CLI) | payer OTHER ==
[~2018-08-24] MED LIST changes: +BUPIVACAINE HCL 0.25% 30 ML VIAL As Ordered; -ISOVUE-M 300 61% 15ML VIAL (Q9967) As Ordered; -LIDOCAINE 1% SDV INJ 30 ML VIAL As Ordered; +TRIAMCINOLONE ACETONIDE SUSP 40 MG/ML VIAL (J3301) As Ordered; -diazePAM 5 MG TAB As Ordered; -methylPREDNISolone SUSP 40 MG/ML (DEPO-medrol) VIAL (J1030) As Ordered; -oxyCODONE 5MG TAB As Ordered
== END ==
LOC: M PAIN 14:15
DX: Z53.29 Procedure and treatment not carried out because of patient's decision for other reasons (principal)

== ENCOUNTER → 2018-08-25 | Outpatient (CLI) | payer OTHER ==
[~2018-08-25] MED LIST changes: -BUPIVACAINE HCL 0.25% 30 ML VIAL As Ordered; -TRIAMCINOLONE ACETONIDE SUSP 40 MG/ML VIAL (J3301) As Ordered; +diazePAM 5 MG TAB As Ordered; +oxyCODONE 5MG TAB As Ordered
== END ==
LOC: M PAIN 08:30
DX: M79.18 Myalgia, other site (principal); M54.6 Pain in thoracic spine; E11.9 Type 2 diabetes mellitus without complications; J44.9 Chronic obstructive pulmonary disease, unspecified; G43.909 Migraine, unspecified, not intractable, without status migrainosus; R56.9 Unspecified convulsions; M06.9 Rheumatoid arthritis, unspecified; I10 Essential (primary) hypertension; D68.0 Von Willebrand disease; Z79.51 Long term (current) use of inhaled steroids; Z79.4 Long term (current) use of insulin; Z79.891 Long term (current) use of opiate analgesic; Z79.899 Other long term (current) drug therapy; Z88.5 Allergy status to narcotic agent; Z88.6 Allergy status to analgesic agent; Z88.8 Allergy status to other drugs, medicaments and biological substances; Z91.018 Allergy to other foods; Z91.09 Other allergy status, other than to drugs and biological substances; Z87.891 Personal history of nicotine dependence; Z87.11 Personal history of peptic ulcer disease
CPT/HCPCS: 20552

== ENCOUNTER 2018-09-13 14:35 | Emergency (ER) | payer OTHER ==
[2018-09-13] MEDS ORDERED: LORazepam 2 MG/ML VIAL (J2060) As Ordered (15:03)
[2018-09-13] MEDS ORDERED: METOCLOPRAMIDE INJ 10MG/2ML VIAL (J2765) As Ordered (15:03)
[2018-09-13] MEDS: METOCLOPRAMIDE INJ 10MG/2ML VIAL (J2765) IV (15:09)
[2018-09-13] MEDS: LORazepam 2 MG/ML VIAL (J2060) IV (15:09)
[2018-09-13 15:19] LABS: BASO # 0.1 10^3/uL (0.0-0.2); BASO % 1.2 % (0.0-1.0); EOS # 0.2 10^3/uL (0.0-0.50); EOS % 2.6 % (0.0-3.0); HEMATOCRIT 44.4 % (36.0-47.0); HEMOGLOBIN 15.3 g/dl (12.0-15.5); IMMATURE GRANULOCYTE % 0.2 % (0-3.0); LYMPH # 2.6 10^3/uL (1.5-4.5); LYMPH % 30.2 % (24.0-44.0); MEAN CORPUSCULAR HEMOGLOBIN 31.4 pg (27.0-33.0); MEAN CORPUSCULAR HGB CONC 34.5 g/dl (32.0-36.5); MONO # 0.6 10^3/uL (0.0-0.8); MONO % 6.8 % (0.0-5.0); NEUTROPHILS # 5.1 10^3/uL (1.8-7.7); PLATELET COUNT, AUTOMATED 234 10^3/uL (150-450); RED BLOOD COUNT 4.88 10^6/uL (4.00-5.40); RED CELL DISTRIBUTION WIDTH 12.5 % (11.5-14.5); WHITE BLOOD COUNT 8.6 10^3/uL (4.0-10.0)
[2018-09-13 15:51] LABS: ALBUMIN 4.2 GM/DL (3.2-5.2); ALBUMIN/GLOBULIN RATIO 1.56 (1.00-1.93); ALKALINE PHOSPHATASE 107 U/L (45-117); ALT/SGPT 45 U/L (12-78); ANION GAP 9 MEQ/L (8-16); AST/SGOT 27 U/L (7-37); BILIRUBIN,DIRECT < 0.1 MG/DL (0.0-0.2); BILIRUBIN,TOTAL 0.5 MG/DL (0.2-1.0); BLOOD UREA NITROGEN 15 MG/DL (7-18); CALCIUM LEVEL 9.9 MG/DL (8.5-10.1); CARBON DIOXIDE LEVEL 26 MEQ/L (21-32); CHLORIDE LEVEL 107 MEQ/L (98-107); CPK CREATINE PHOSPHOKINASE 82 U/L (26-192); CREATININE FOR GFR 1.01 MG/DL (0.55-1.30); GLOMERULAR FILTRATION RATE > 60.0 (>51); GLUCOSE, FASTING 172 MG/DL (70-100); LIPASE 154 U/L (73-393); MB/CK RELATIVE INDEX 1.46 (< OR =4); SODIUM LEVEL 142 MEQ/L (136-145); TOTAL PROTEIN 6.9 GM/DL (6.4-8.2); TROPONIN I < 0.02 NG/ML (< 0.10)
[2018-09-13 19:22] LABS: CK-MB VALUE MASS < 1.0 NG/ML (<3.6); CPK CREATINE PHOSPHOKINASE 74 U/L (26-192); MB/CK RELATIVE INDEX 1.35 (< OR =4); TROPONIN I < 0.02 NG/ML (< 0.10)
== END 2018-09-13 19:52 | disposition home or self-care (01) ==
LOC: M ED 14:35
DX: F41.9 Anxiety disorder, unspecified (principal); I10 Essential (primary) hypertension; I25.10 Atherosclerotic heart disease of native coronary artery without angina pectoris; E78.5 Hyperlipidemia, unspecified; R56.9 Unspecified convulsions; Z79.899 Other long term (current) drug therapy; Z88.5 Allergy status to narcotic agent; Z88.8 Allergy status to other drugs, medicaments and biological substances; Z91.018 Allergy to other foods; Z91.048 Other nonmedicinal substance allergy status; Z87.891 Personal history of nicotine dependence
CPT/HCPCS: J2765

== ENCOUNTER → 2018-09-15 | Outpatient (CLI) | payer OTHER | LOC: M PAIN 10:15 | DX: M79.18 Myalgia, other site (principal); G40.909 Epilepsy, unspecified, not intractable, without status epilepticus; G43.909 Migraine, unspecified, not intractable, without status migrainosus; M54.2 Cervicalgia; I10 Essential (primary) hypertension; K44.9 Diaphragmatic hernia without obstruction or gangrene; D68.0 Von Willebrand disease; Z87.442 Personal history of urinary calculi; E11.9 Type 2 diabetes mellitus without complications; J44.9 Chronic obstructive pulmonary disease, unspecified; K64.8 Other hemorrhoids; Z98.1 Arthrodesis status; Z87.891 Personal history of nicotine dependence; Z79.4 Long term (current) use of insulin; Z79.899 Other long term (current) drug therapy; Z79.891 Long term (current) use of opiate analgesic; Z88.6 Allergy status to analgesic agent; Z88.5 Allergy status to narcotic agent; Z88.8 Allergy status to other drugs, medicaments and biological substances; Z91.018 Allergy to other foods; Z91.048 Other nonmedicinal substance allergy status | CPT/HCPCS: G0463 ==

== ENCOUNTER → 2018-10-29 | Outpatient (REF) | payer OTHER ==
[~2018-10-29] MED LIST changes: +/BISO10TA PO; +/CELE20CA PO; +/ESCI20TA PO; +/LOR25TA PO; +/ONDA4TA PO; +ACET-654 PO; +ACET160S5 PO; +ALBU17IN INH; +ALOG25TA PO; +AMIT10TA PO; +AMOX500C PO; +ATOR1TAB21 PO; +BACL10TA2 OR; +BISO10TA PO; +BISO10TA42 PO; +BRIM0.2S13 OU; +CHERSYP3 PO; +CHLO25TA PO; +CHLO25TA3 PO; +CHLORTHALIDONE PO; +CIPR-249 PO; +CIPR500T89 PO; +CLON0.5T OR; +CLON0.5T PO; +COMP1MIS3 XX; +CYCL10TA PO; +DEPA1TAB3 PO; +DEPA500T2 PO; +DICY10CA13 PO; +DOXY100C37; +DRIS50003 PO; +DULC10SU9 PR; +DULO20CA OR; +ESCI20TA; +ESTR62CR PV; +FENT12DI2 TOP; +FLON0.054; +FLON1SPR; +FOLI1TAB5 PO; +GABA-845 PO; +GLIM2TAB PO; +HYDR-2809 PO; +HYDR-3716 PO; +IMIT50TA PO; +INCR1INH INH; +IPRA0.00 IN; +IPRA0.00 INH; +KEFL500C17 PO; +KEPP10002 PO; +KEPP1TAB PO; +KETO-13 PO; +LATA5OPD OU; +LEVE250T5 PO; +LEXA1TAB2 PO; +LIPI80TA PO; +LISI-538 PO; +LISI40TAB PO; +LYRI75CA PO; +METF10004 PO; +METF500T13 PO; +METH2.5T48 PO; +METO10TA2 PO; +METO5TAB2 PO; +NAPR-885 PO; +NASA55AE; +NASACORT AQ; +NEUR800T PO; +NICO21PAT TOP; +NYST10CR; +OMEP20TA7 PO; +OMEP40CA2 PO; +ONDA4SOL PO; +ONDA4TAB6 PO; +OXYC-208 PO; +OXYC1TAB23 PO; +OXYCODONE; +PANT40TA3 PO; +PERC5TAB12 PO; +PERC7.5T12 PO; +PERCOCET PO; +PRED20TA PO; +PROP40TA; +REGL10TA6 PO; +REGL5TAB2 PO; +SENN1TAB2 PO; +SENN8.6T9 PO; +SENO8.6T9 PO; +SOMA350T PO; +TAMS0.4C PO; +TIZA2TA PO; +TOPI100T PO; +TOUJ1.2I SC; +TOUJ1.2I SQ; +TRUL10IN; +TRUL10IN SQ; +TUSS1CAP5 PO; +VENTAER IN; +VIMP150T PO; +VITA2000 PO; +VOLT1GEL TOP; +ZOCO20TA PO; +[UNRECOGNIZED DRUG - OTHER] OU; +[UNRECOGNIZED DRUG - OTHER] PO; +[UNRECOGNIZED DRUG - REMARK]; -diazePAM 5 MG TAB As Ordered; -oxyCODONE 5MG TAB As Ordered
[2018-10-29 12:29] LABS: ALBUMIN 3.7 GM/DL (3.2-5.2); ALT/SGPT 45 U/L (12-78); BILIRUBIN,TOTAL 0.5 MG/DL (0.2-1.0); BLOOD UREA NITROGEN 15 MG/DL (7-18); CALCIUM LEVEL 9.1 MG/DL (8.5-10.1); CARBON DIOXIDE LEVEL 24 MEQ/L (21-32); CHLORIDE LEVEL 109 MEQ/L (98-107); CHOLESTEROL LEVEL 197 MG/DL (<200); CHOLESTEROL RISK RATIO 4.477 (<5); CREATININE FOR GFR 0.82 MG/DL (0.55-1.30); GLOMERULAR FILTRATION RATE > 60.0 (>51); GLUCOSE, FASTING 96 MG/DL (70-100); HDL CHOLESTEROL 44 MG/DL (>40); LDL CHOLESTEROL 114 MG/DL (<100); NON-HDL-C 153 MG/DL; POTASSIUM SERUM 3.9 MEQ/L (3.5-5.1); SODIUM LEVEL 144 MEQ/L (136-145); TOTAL PROTEIN 6.9 GM/DL (6.4-8.2); TRIGLYCERIDES LEVEL 197 MG/DL (<150)
[2018-10-29 12:36] LABS: TOTAL 25(OH) VITAMIN D 29.7 NG/ML (30.0-100.0)
[2018-10-29 12:56] LABS: HEMOGLOBIN A1c 7.1 %
== END ==
LOC: M SFHCPLAZ 08:32
PROVIDERS: ATTEND Family Medicine
DX: E11.9 Type 2 diabetes mellitus without complications (principal); I10 Essential (primary) hypertension; E78.2 Mixed hyperlipidemia; E55.9 Vitamin D deficiency, unspecified

== ENCOUNTER → 2018-11-05 | Outpatient (CLI) | payer OTHER ==
[~2018-11-05] MED LIST changes: +FOLI1TAB11 PO; -FOLI1TAB5 PO; +LISI40TA PO; -LISI40TAB PO
--- NOTE | 2018-12-01 02:03 | ECWPNPC ---
PATIENT NAME: NICOLE BERNABE : 1960 GENDER: FEMALE VISIT DATE: 11/05/2018 DISCHARGE DATE: 11/05/18 1031 VISIT LOCKED DATE TIME: PHYSICIAN: KIMBERLEE FALCON RESOURCE: KIMBERLEE FALCON REASON FOR APPOINTMENT 1. BACK HISTORY OF PRESENT ILLNESS HISTORY OF PRESENT ILLNESS: HERE FOR F/U AND MANAGEMENT OF CHRONIC UPPER AND LOW BACK PAIN.CHIEF AREA OF PAIN IS RIGHT UPPER BACK.HAS RESPONDED WELL TO TPI IN PAST.DISCUSSED MEDICATION AND TREATMENT OPTIONS.RATING PAIN VAS 8/10. PAIN THE PATIENT DESCRIBES THE PAIN... FALL RISK SCREENING: SCREENING :NO FALLS IN THE PAST YEAR CURRENT MEDICATIONS TAKING LATANOPROST 0.005 % SOLUTION 1 DROP INTO AFFECTED EYE IN THE EVENING OPHTHALMIC ONCE A DAY TAKING LIPITOR 80 MG TABLET 1 TABLET ORALLY ONCE A DAY TAKING ONDANSETRON HCL 4 MG TABLET DIRECTED ORALLY QID PRN NAUSEA TAKING PANTOPRAZOLE SODIUM 40 MG TABLET DELAYED RELEASE 1 TABLET ORALLY ONCE A DAY TAKING LEXAPRO 20 MG TABLET 1 TABLET ORALLY ONCE A DAY TAKING VENTOLIN HFA 108 (90 BASE) MCG/ACT AEROSOL SOLUTION 2 PUFFS INHALATION EVERY 4-6 HOURS NEEDED TAKING AZELASTINE HCL 0.1 % SOLUTION 1 PUFF IN EACH NOSTRIL NASALLY TWICE A DAY TAKING ALCOHOL PADS 70 % PAD DIRECTED TOPICAL TWICE DAILY/DX : E11.65 TAKING METHOTREXATE 2.5 MG TABLET ORALLY TAKE 4 TABLETS ONCE WEEKLY TAKING FOLIC ACID 1 MG TABLET 1 TABLET ORALLY ONCE A DAY TAKING ONE TOUCH ULTRA SYSTEM KIT - METER DIRECTED - TWICE DAILY/ DX : E11.65 TAKING LISINOPRIL 40 MG TABLET 1 TABLET ORALLY ONCE A DAY TAKING FLONASE 50 MCG/DOSE INHALER 2 SPRAYS IN EACH NOSTRIL NASALLY ONCE A DAY TAKING NYSTATIN [id number] UNIT/GM CREAM 1 APPLICATION TO AFFECTED AREA EXTERNALLY GROIN DAILY TAKING ONE TOUCH ULTRA TEST STRIPS - STRIPS 1 STRIP - TWICE DAILY/ DX : E11.65 TAKING LANCETS FOR ONE TOUCH ULTRA MISCELLANEOUS DIRECTED SC TWICE DAILY/DX : E11.65 TAKING BENTYL 10 MG CAPSULE 1 CAPSULE ORALLY FOUR TIMES A DAY TAKING METOCLOPRAMIDE HCL 5 MG TABLET ORALLY NEEDED AC AND HS TAKING SENNA PLUS 8.6-50 MG TABLET 1 TABLET ORALLY NEEDED BID TAKING LEVETIRACETAM 1000 MG TABLET 1 TABLET ORALLY TWICE A DAY TAKING ALBUTEROL-IPRATROPIUM 1 NEB VIA NEB NEEDED ER TAKING WRIST SPLINT/COCK-UP/RIGHT L - MISCELLANEOUS DIRECTED EXTERNALLY DXL M65.4 DAILY TAKING ONETOUCH DELICA LANCETS 33G - MISCELLANEOUS USE DIRECTED TWO TIMES A DAY TAKING INCRUSE ELLIPTA 62.5 MCG/INH AEROSOL POWDER BREATH ACTIVATED 1 PUFF INHALATION ONCE A DAY TAKING TRULICITY 0.75 MG/0.5ML SOLUTION PEN-INJECTOR DIRECTED SUBCUTANEOUS ONCE WEEKLY TAKING ONETOUCH ULTRA TEST - STRIP DIRECTED TWO TIMES A DAY TAKING TIZANIDINE HCL 4 MG TABLET 1-2 ORALLY Q8H PRN TAKING PERCOCET 5-325 MG TABLET 1 ORALLY Q6H PRN SEVERE PAIN MDD2 #60 TAB SHOULD LAST 30 DAYS TAKING PREMARIN 0.625 MG/GM CREAM 0.5 GM VAGINAL TWICE A WEEK TAKING BD ULTRA-FINE MICRO PEN NEEDLE 32G X 6 MM MISCELLANEOUS DIRECTED SUBCUTANEOUSLY Q HS DX: E11.9 TAKING TOUJEO SOLOSTAR 300 UNIT/ML SOLUTION PEN-INJECTOR INJECT 120 UNITS SUBCUTANEOUSLY DAILY DIRECTED NOT-TAKING LISINOPRIL 40 MG TABLET TAKE ONE TABLET BY MOUTH EVERY DAY , NOTES: DUPLICATE NOT-TAKING DDAVP RHINAL TUBE 0.01 % SOLUTION 0.05 ML NASALLY TWICE A DAY, PRN PRIOR TO SX/ INJ, NOTES: HAS WHEN NEEDED NOT-TAKING ALOGLIPTIN BENZOATE 25 MG TABLET 1 TABLET ORALLY ONCE A DAY MEDICATION LIST REVIEWED AND RECONCILED WITH THE PATIENT PAST MEDICAL HISTORY SEIZURES- MARIUM MIGRAINES-MARIUM ARTHRITIS CHRONIC NECK PAIN- PAIN CL[facility] HTN H/O PEPTIC ULCER VON WILLEBRAND'S DISEASE (NEEDS PRE-TREATMENT WITH DDAVP FOR SURGERY - SEE NOTE FROM DR. ARAUJO 09/11/2009) HIATAL HERNIA HEMORRHOIDS RECURRENT BREAST ABSCESSES FIBROCYSTIC BREAST DISEASE KIDNEY STONES NECK PAIN- DR SUERO PNEUMOVAX- PT STATES 2011 DIABETES COPD LEFT BREAST FAT NECROSIS POST REDUCTION RA ALLERGIES ASPIRIN: ANAPHYLAXIS: ALLERGY PEPPER: THROAT CLOSE, TONGUE SWELLS: ALLERGY MORPHINE SULFATE: RASH, HIVES: ALLERGY TOPAMAX: KINDNEY STONES: SIDE EFFECTS IMITREX: SEVERE HTN (NEAR SBP 300): SIDE EFFECTS NICKEL: RASH: ALLERGY METFORMIN: DIARRHEA: SIDE EFFECTS SURGICAL HISTORY C-SECTIONS X 4 1979, 1985, 1989, 1990 TUBAL LIGATION EARLY C4-5 AND C6-7 DISCECTOMY AND FUSION 1997 LEFT BREAST LUMPECTOMY (BALJINDER) 2002 PARTIAL HYSTERECTOMY (REEMA) 2005 C5-7 REVISION AND REPLATING C4-5 (NIMO) 2008 COLONOSCOPY (BALJINDER) UNK KIDNEY STONE/BILATERAL HYDRONEPHROSIS/STENT PLACEMENT- DR WALSH 07/2013 COLONOSCOPY- REINJESUS ALBERTO- TUBULAR ADENOMA AND HYPERPLASTIC POLYP- RECHECK 3 YEARS 06/20 EGD-REINJESUS ALBERTO- GASTRIC HYPERPLASTIC POLYP 06/20 STENT KIDNEY STONE, RIGHT AND LEFT 07/2013 LEFT ESWL 08/24/13, 10/05/13 LASER LITHOTRIPSY AND REMOVAL OF STENTS 12/01/13 COLONOSCOPY WITH POLYPECTOMY, MODERAT EDIVERTICULOSIS: DR. SAEED 08/16/2015 TLIF L4 TO S1: DR. SUERO 01/22/16 BREAST REDUCTION ([facility]) 05/2016 BACK SURGERY TITANIUM CAGE - REMOVAL OF FATTY DEPOSIT IN LEFT BREAST APRIL 09 2017 FAMILY HISTORY FATHER: , UNKNOWN CAUSE MOTHER: ALIVE 79 YRS, GERD, DIAGNOSED WITH HYPERTENSION, HEART DISEASE SIBLINGS: SISTER WITH PANCREATIC CA, AT AGE 58 DM, HTN SISTER WITH HTN BROTHERS: WELL, SMOKERS 2 BROTHER(S) , 4 SISTER(S) . SOCIAL HISTORY GENERAL: TOBACCO USE ARE YOU A:FORMER SMOKER HOW LONG HAS IT BEEN SINCE YOU LAST SMOKED?1-5 YEARS BMI CARE GOAL FOLLOW-UP ABOVE NORMAL BMI FOLLOW-UPLIFESTYLE EDUCATION REGARDING DIET ALCOHOL SCREENING DID YOU HAVE A DRINK CONTAINING ALCOHOL IN THE PAST YEAR?YES HOW OFTEN DID YOU HAVE SIX OR MORE DRINKS ON ONE OCCASION IN THE PAST YEAR?NEVER (0 POINTS) HOW MANY DRINKS DID YOU HAVE ON A TYPICAL DAY WHEN YOU WERE DRINKING IN THE PAST YEAR?1 OR 2 (0 POINTS) HOW OFTEN DID YOU HAVE A DRINK CONTAINING ALCOHOL IN THE PAST YEAR?MONTHLY OR LESS (1 POINT) POINTS1 INTERPRETATIONNEGATIVE RECREATIONAL DRUG USE DRUG USE?NO CAFFEINE CAFFEINE USE?YES HOW OFTEN AND HOW MUCH? DAILY SEXUAL HX HAD SEX IN THE LAST 12 MONTHS (VAGINAL, ORAL, OR ANAL)?YES WITHMEN ONLY HAVE YOU EVER HAD AN STD?NO HIV / HEP-C SCREENING HIV TEST OFFERED TO PATIENT:NO HEP-C TEST OFFERED TO PATIENT:NO JAIN [id number] NONE LANGUAGE LANGUAGES SPOKEN:[place] EDUCATION LEVEL OF EDUCATION:NOT FINISHED HIGH SCHOOL 11 TH GRADE LEARNING BARRIERS / SPECIAL NEEDS CHANGE FROM LAST VISIT?NO BARRIERS TO LEARNING?NO HEARING IMPAIRED?YES TINNITUS VISION IMPAIRED?YES COGNITIVELY IMPAIRED?NO :HEARING AIDES :CORRECTIVE LENSES READINESS TO LEARN?YES LEARNING PREFERENCES?NO LEARNING CAPABILITIES PRESENT?YES EMOTIONAL BARRIERS?NO SPECIAL DEVICES?YES :CANE ION EXCHANGE OPERATOR NEEDED?NO DOMESTIC VIOLENCE DO YOU FEEL SAFE IN YOUR ENVIRONMENT?YES DIET: NO CONCENTRATED SWEETS.. NEW PATIENT PAIN DIARY TODAY'S VISITNOTES FROM 0-10, WHAT LEVEL IS YOUR PAIN TODAY?8 PAIN CLINIC PFS, CLERGY, PUBLIC HEALTH REFERRALS WAS THE PROVIDER NOTIFIED OF ANY PERTINENT INFO?YES HAS THE PATIENT BEEN EDUCATED REGARDING HIS/HER PLAN OF CARE?YES PLEASE DOCUMENT ANY ADDTIONAL DETAILS.PLEASE FREE TEXT IN THE NOTES SECTION. RIGHT SIJ INJECTION HAS THE PATIENT BEEN EDUCATED REGARDING PAIN, THE RISK FOR PAIN, THE IMPORTANCE OF EFFECTIVE PAIN MANAGEMENT, AND THE PAIN ASSESSMENT PROCESS?YES ADVANCE DIRECTIVE ADVANCE DIRECTIVE DISCUSSED WITH PATIENT:YES STATES HCP - PRERNA HEARN (DAUGHTER); DOES NOT HAVE COPY WITH HER, INSTRUCTED PATIENT TO BRING TO NEXT APPOINTMENT. REVIEWED 08/06/18 1007 BVREVIEWED WITH PATIENT 09/15/18 1102 JSREVIEWED WITH PATIENT 11/05/18 0953 JS. HOSPITALIZATION/MAJOR DIAGNOSTIC PROCEDURE MULTIPLE FOR SEIZURES AND ORTHOPEDIC PROBLEMS S/P ANTERIOR CERVICAL REVISION AND REPLATING @ [facility] 09/2009 LUMBAR SPINE FUSION 01/2016 SYNCOPE 09/03/17 DIVERTICULOSIS 06/2018 REVIEW OF SYSTEMS REVIEWED BY: PROVIDER: KIMBERLEE MENARD . CONSTITUTIONAL: ANY CHANGE IN YOUR MEDICAL CONDITION? NO . CHILLS NO . FEVER NO . INFECTION: DO YOU HAVE NEW INFECTIONS? NO . DO YOU HAVE HISTORY OF MRSA? NO . MUSCULOSKELETAL: ANY NEW PATTERNS OF PAIN OR NUMBNESS? NO . GASTROENTEROLOGY: ANY NEW CHANGE IN BOWEL CONTROL? NO . GENITOURINARY: ANY NEW CHANGE IN BLADDER CONTROL? NO . IS THERE A CHANCE YOU COULD BE ? NO . HEMATOLOGY/LYMPH: DO YOU TAKE ANY BLOOD THINNERS? (FOR EXAMPLE- COUMADIN, PLAVIX, AGGRENOX, PLATEL, PRADAXA, OR XARELTO) NO . WHEN WAS YOUR LAST DOSE? DATE: TIME: . NEUROLOGY: HAVE YOU FALLEN IN THE PAST 6 MONTHS? NO . ANY NEW EXTREMITY NUMBNESS OR WEAKNESS? NO . CARDIOLOGY: DO YOU HAVE A PACEMAKER OR DEFIBRILLATOR? NO . RESPIRATORY: HAVE YOU BEEN SICK IN THE PAST WEEK? NO . FEVER NO . FLU LIKE SYMPTOMS? NO . COUGH NO . INTEGUMENTARY: DO YOU HAVE ANY RASHES OR OPEN SORES? NO . ALLERGIC/IMMUNO: ARE YOU ALLERGIC TO SHELLFISH OR IV DYE? NO . ANY NEW ALLERGIES? NO . PSYCHIATRIC: DO YOU HAVE THOUGHTS OF HURTING YOURSELF OR SOMEONE ELSE? NO . ARE YOU ABUSED, NEGLECTED, OR IN AN UNSAFE ENVIRONMENT? NO . ENDOCRINOLOGY: ARE YOU DIABETIC? YES . OTHER: DO YOU NEED ANY PRESCRIPTIONS? NO . IF YES, PLEASE LIST: ____PERCOCET, TIZANIDINE . ANY NEW PROBLEMS WITH YOUR MEDICATIONS? NO . WHEN DID YOU LAST EAT? ____ . WHEN DID YOU LAST DRINK? ____ . WHAT DID YOU LAST DRINK? ____ . NAME OF PERSON DRIVING YOU HOME? ____ . DO YOU HAVE ANY OTHER QUESTIONS OR CONCERNS NO . VITAL SIGNS WT 171.6 LBS, HT 63.5 IN, BMI 29.92 INDEX, BP 202/98 MANUAL, HR 74 /MIN, RR 18 /MIN, TEMP 96.8 F, OXYGEN SAT % 97%, SAFE IN ENV? (Y/N) YES, NA INITIALS SC 10:00, REVIEWED BY: HARESHNOTIFIED KIMBERLEE MENARD OF PT'S ELEVATED BP AT THIS TIME. 11/05/18 1001 JS. EXAMINATION GENERAL EXAMINATION: GENERAL APPEARANCE:ALERT/ORIENTED . PSYCHAFFECT NORMAL . LUNGS:LUNG MARIE ARE CLEAR TO AUSCULTATION BILATERALLY. GOOD MOVEMENT OF AIR . HEART:S1, S2 IN A REGULAR RATE AND RHYTHM. NO SIGNIFICANT MURMURS, RUBS OR GALLOPS NOTED . MUSCULOSKELETAL:TRIGGER POINTS:, ELICITED WITH PALPATION OVER RIGHT TRAPEZIUS. RESTRICTION OF ROM IS NOTED. . LUMBAR SACRAL SPINEMUSCLE STRENGTH TESTING 5/5 BILATERAL LOWER EXTREMITIES.MILD TENDERNESS OVER L/S SPINE . CERVICALDOWAGERS HUMP NOTED OVER BASE OF CERVICAL SPINE-TENDER . NEUROLOGIC EXAM:WEAKNESS NOTED OVER RIGHT LEG. WALKS WITH ANTALGIC GAIT. . ASSESSMENTS MYALGIA, OTHER SITE - M79.18 (PRIMARY) POST LAMINECTOMY SYNDROME - M96.1 CHRONIC PRESCRIPTION OPIATE USE - Z79.891 TREATMENT MYALGIA, OTHER SITE REFILL TIZANIDINE HCL TABLET, 4 MG, 1-2, ORALLY, Q8H PRN, 30 DAY(S), 90, REFILLS 1 REFILL PERCOCET TABLET, 5-325 MG, 1, ORALLY, Q6H PRN SEVERE PAIN MDD2 #60 TAB SHOULD LAST 30 DAYS, 30 DAY(S), 60, REFILLS 0 NOTES: ISTOP REGISTRY REVIEWED AND DEMONSTRATES COMPLLIANCE. BRINGS IN MEDICATIONS WHICH IS APPROPRIATE FOR WHAT WAS DISPENSED. RECENT URINE TOXICOLOGY REVIEWED. NO UNAUTHORIZED MEDICATIONS. NO ILLICIT SUBSTANCES AND PRESCRIBED MEDICATIONS WERE PRESENT. , , RISKS AND BENEFITS OF NARCOTIC/OPIOD MEDICATIONS WERE REVIEWED WITH PATIENT - THIS INCLUDES BUT IS NOT LIMITED TO RISK OF DEPENDANCE/DEVELOPMENT OF ADDICTION, MOOD DISTURBANCE AND DEPRESSION, OSTEOPOROSIS, HORMONAL AND LABIDAL CHANGES, RESPIRATORY DEPRESSION AND . PATIENT IS ADVISED NOT TO DRIVE OR DRINK ALCOHOL WHILE ON THESE MEDICATIONSTPI RIGHT TRAPEZIUS. PREVENTIVE MEDICINE PAIN CLINIC TEACHING: PROCEDURE TEACHING REVIEWED TPI PROCEDURE INFORMATION WITH PATIENT. ALSO REVIEWED PRE-PROCEDURE INSTRUCTIONS. PATIENT VERBALIZED AN UNDERSTANDING. MARIAMA JULIAN 11/05/2018 10:57:58 AM > . PROCEDURE CODES FA211 ESTABILISHED PATIENT [facility] CHARGE DISPOSITION & COMMUNICATION FOLLOW UP POST (REASON: TPI RIGHT TRAPEZIUS) ELECTRONICALLY SIGNED BY DERIAN VEGA ON 11/29/2018 AT 01:24 PM EST DISCLAIMER : THIS IS A VISIT SUMMARY EXTRACTED FROM THE [email or web address] CHART. IT IS NOT A COPY OF THE [employer] PROGRESS NOTE. NELY
== END ==
LOC: M PAIN 10:00
PROVIDERS: ATTEND Nurse Practitioner Family
DX: M79.18 Myalgia, other site (principal); M96.1 Postlaminectomy syndrome, not elsewhere classified; R56.9 Unspecified convulsions; I10 Essential (primary) hypertension; E11.9 Type 2 diabetes mellitus without complications; J44.9 Chronic obstructive pulmonary disease, unspecified; M06.9 Rheumatoid arthritis, unspecified; G43.909 Migraine, unspecified, not intractable, without status migrainosus; M19.90 Unspecified osteoarthritis, unspecified site; D68.0 Von Willebrand disease; Z79.51 Long term (current) use of inhaled steroids; Z79.4 Long term (current) use of insulin; Z79.891 Long term (current) use of opiate analgesic; Z79.899 Other long term (current) drug therapy; Z88.5 Allergy status to narcotic agent; Z88.6 Allergy status to analgesic agent; Z88.8 Allergy status to other drugs, medicaments and biological substances; Z91.018 Allergy to other foods; Z91.09 Other allergy status, other than to drugs and biological substances; Z87.11 Personal history of peptic ulcer disease; Z87.891 Personal history of nicotine dependence; Z92.89 Personal history of other medical treatment

== ENCOUNTER 2018-11-11 07:42 | Emergency (ER) | payer OTHER ==
[~2018-11-11] VITALS: Ht 160 cm; Wt 77.3 kg
[~2018-11-11 07:42] MED LIST changes: -ACET160S5 PO; -DOXY100C37; -ESCI20TA; -OXYCODONE; -PROP40TA; -TRUL10IN
[2018-11-11] MEDS ORDERED: ESCI20TA (07:50)
[2018-11-11] MEDS ORDERED: ACET160S5 PO (07:50)
[2018-11-11] MEDS ORDERED: PROP40TA (07:50)
[2018-11-11] MEDS ORDERED: DOXY100C37 (07:50)
[2018-11-11] MEDS ORDERED: LABETALOL HCL 100 MG/20 ML VIAL IV PRN (08:00)
[2018-11-11] MEDS ORDERED: METOCLOPRAMIDE INJ 10MG/2ML VIAL (J2765) IV ONE ×2 (08:00→08:45)
[2018-11-11] MEDS ORDERED: LISINOPRIL 40 MG TAB PO ONE (08:30)
[2018-11-11] MEDS ORDERED: dexameTHASONE 20 MG/5 ML VIAL (J1100) IV ONE (08:45)
[2018-11-11] MEDS ORDERED: TRUL10IN (08:56)
[2018-11-11] MEDS ORDERED: OXYCODONE (08:56)
[2018-11-11] MEDS ORDERED: diphenhydrAMINE INJ 50MG/ML VIAL (J1200) IV ONE (09:15)
[2018-11-11 10:15] VITALS: BP 174/74
== END 2018-11-11 10:31 | disposition home or self-care (01) ==
LOC: M ED 07:42
DX: G43.709 Chronic migraine without aura, not intractable, without status migrainosus (principal); J01.90 Acute sinusitis, unspecified; E11.9 Type 2 diabetes mellitus without complications; I10 Essential (primary) hypertension; G89.29 Other chronic pain; M54.2 Cervicalgia; D68.0 Von Willebrand disease; Z87.891 Personal history of nicotine dependence; Z79.899 Other long term (current) drug therapy; Z88.6 Allergy status to analgesic agent; Z88.8 Allergy status to other drugs, medicaments and biological substances; Z88.5 Allergy status to narcotic agent; Z91.89 Other specified personal risk factors, not elsewhere classified; Z91.018 Allergy to other foods
CPT/HCPCS: 36415; 96374; 96375; 99284; J1100; J1200; J2765

== ENCOUNTER → 2018-12-01 | Outpatient (CLI) | payer OTHER ==
[~2018-12-01] MED LIST changes: +ACET160S5 PO; +BUPIVACAINE HCL 0.25% 10 ML VIAL As Ordered ONE; +BUPIVACAINE HCL 0.25% 30 ML VIAL As Ordered ONE; +DOXY100C37; +ESCI20TA; +OXYCODONE; +PROP40TA; +PROP40TA62; +TIZA4CAP PO; +TOUJ300I2 SC; +TRIAMCINOLONE ACETONIDE SUSP 40 MG/ML VIAL (J3301) As Ordered ONE; +TRUL10IN; +VENTAER INH; +XALA0.007 OU; +diazePAM 5 MG TAB As Ordered ONE; +oxyCODONE 5MG TAB As Ordered ONE
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
== END ==
LOC: M PAIN 14:15
PROVIDERS: ATTEND Anesthesiology
DX: M79.18 Myalgia, other site (principal); M25.511 Pain in right shoulder; E11.22 Type 2 diabetes mellitus with diabetic chronic kidney disease; I12.9 Hypertensive chronic kidney disease with stage 1 through stage 4 chronic kidney disease, or unspecified chronic kidney disease; N18.2 Chronic kidney disease, stage 2 (mild); J44.9 Chronic obstructive pulmonary disease, unspecified; R56.9 Unspecified convulsions; G43.909 Migraine, unspecified, not intractable, without status migrainosus; D68.0 Von Willebrand disease; M06.9 Rheumatoid arthritis, unspecified; Z79.51 Long term (current) use of inhaled steroids; Z79.4 Long term (current) use of insulin; Z79.891 Long term (current) use of opiate analgesic; Z79.899 Other long term (current) drug therapy; Z88.5 Allergy status to narcotic agent; Z88.6 Allergy status to analgesic agent; Z88.8 Allergy status to other drugs, medicaments and biological substances; Z91.018 Allergy to other foods; Z91.09 Other allergy status, other than to drugs and biological substances; Z87.11 Personal history of peptic ulcer disease; Z87.448 Personal history of other diseases of urinary system; Z87.891 Personal history of nicotine dependence
CPT/HCPCS: 20552; J3301

== ENCOUNTER → 2018-12-21 | Outpatient (CLI) | payer OTHER ==
[~2018-12-21] MED LIST changes: -BUPIVACAINE HCL 0.25% 10 ML VIAL As Ordered ONE; -BUPIVACAINE HCL 0.25% 30 ML VIAL As Ordered ONE; -TRIAMCINOLONE ACETONIDE SUSP 40 MG/ML VIAL (J3301) As Ordered ONE; -diazePAM 5 MG TAB As Ordered ONE; -oxyCODONE 5MG TAB As Ordered ONE
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
== END ==
LOC: M PAIN 11:30
PROVIDERS: ATTEND Nurse Practitioner Family
DX: M50.20 Other cervical disc displacement, unspecified cervical region (principal); E11.22 Type 2 diabetes mellitus with diabetic chronic kidney disease; N18.2 Chronic kidney disease, stage 2 (mild); J44.9 Chronic obstructive pulmonary disease, unspecified; R56.9 Unspecified convulsions; G43.909 Migraine, unspecified, not intractable, without status migrainosus; M19.90 Unspecified osteoarthritis, unspecified site; M06.9 Rheumatoid arthritis, unspecified; I12.9 Hypertensive chronic kidney disease with stage 1 through stage 4 chronic kidney disease, or unspecified chronic kidney disease; D68.0 Von Willebrand disease; Z79.51 Long term (current) use of inhaled steroids; Z79.891 Long term (current) use of opiate analgesic; Z79.899 Other long term (current) drug therapy; Z88.5 Allergy status to narcotic agent; Z88.6 Allergy status to analgesic agent; Z88.8 Allergy status to other drugs, medicaments and biological substances; Z91.09 Other allergy status, other than to drugs and biological substances; Z91.018 Allergy to other foods; Z87.891 Personal history of nicotine dependence

== ENCOUNTER 2018-12-24 07:35 | Day surgery (SDC) | payer OTHER ==
[~2018-12-24] VITALS: Ht 160 cm; Wt 73.8 kg
[2018-12-24] MEDS ORDERED: PROPOFOL 200 MG/20 ML VIAL As Ordered ONE (08:44)
[2018-12-24] MEDS ORDERED: LIDOCAINE 2% INJ 100 MG/5 ML SDV (FOR ANES.) As Ordered ONE (08:46)
--- NOTE | 2018-12-24 09:02 | ROOR ---
Patient Name: Lila Marsh Procedure Date: 12/24/2018 8:36 AM Date of : 1960 Age: 58 Room: [facility] Gender: Female Note Status: Finalized Procedure: Colonoscopy Indications: High risk colon cancer surveillance: Personal history of colonic polyps, Last colonoscopy: August 2015 Providers: Jamie SAEED MD Referring MD: CULLEN BENNETT MD Requesting Provider: Medicines: Monitored Anesthesia Care Complications: No immediate complications. Procedure: Pre-Anesthesia Assessment: - The heart rate, respiratory rate, oxygen saturations, blood pressure, adequacy of pulmonary ventilation, and response to care were monitored throughout the procedure. The Colonoscope was introduced through the anus and advanced to the terminal ileum, with identification of the appendiceal orifice and IC valve. The colonoscopy was performed without difficulty. The patient tolerated the procedure well. The quality of the bowel preparation was good. Findings: The perianal and digital rectal examinations were normal. Two semi-sessile polyps were found in the sigmoid colon. The polyps were 4 to 5 mm in size. These polyps were removed with a cold snare. Resection and retrieval were complete. Mild sigmoid diverticulosis and small internal hemorrhoids. The exam was otherwise normal throughout the examined colon. Retroflexion in the right colon was performed. Impression: - Two 4 to 5 mm polyps in the sigmoid colon, removed with a cold snare. Resected and retrieved. - Mild sigmoid diverticulosis and small internal hemorrhoids. - The exam was otherwise normal to the cecum. Recommendation: - Repeat colonoscopy in 5 years for surveillance. Jamie Saeed MD Jamie SAEED MD 12/24/2018 9:02:25 AM This report has been signed electronically. Number of Addenda: 0 Note Initiated On: 12/24/2018 8:36 AM Estimated Blood Loss: Estimated blood loss: none.
[2018-12-24 09:29] VITALS: BP 135/69
== END 2018-12-24 09:38 | disposition home or self-care (01) ==
LOC: M OPP 07:35
PROVIDERS: ATTEND Internal Medicine Gastroenterology
DX: Z86.010 Personal history of colon polyps (principal); D12.5 Benign neoplasm of sigmoid colon; K57.30 Diverticulosis of large intestine without perforation or abscess without bleeding; K64.8 Other hemorrhoids; E11.9 Type 2 diabetes mellitus without complications; R12 Heartburn; R56.9 Unspecified convulsions; K21.9 Gastro-esophageal reflux disease without esophagitis; M79.7 Fibromyalgia; Z88.5 Allergy status to narcotic agent; Z88.6 Allergy status to analgesic agent; Z88.8 Allergy status to other drugs, medicaments and biological substances; Z91.018 Allergy to other foods; Z79.4 Long term (current) use of insulin; Z79.899 Other long term (current) drug therapy

== ENCOUNTER → 2019-01-04 | Outpatient (CLI) | payer OTHER ==
--- NOTE | 2019-01-04 14:30 | REP ---
Chest two views HISTORY: Decreased breath sounds Comparison: 09/13/2018 Linear density is present in the lingula consistent with atelectasis or scar. The right lung is clear. The heart is normal in size. The pulmonary vasculature is normal in appearance. The bony structure is intact. IMPRESSION: No acute disease. Electronically Signed by Ko French MD 01/04/2019 02:21 P
== END ==
LOC: M WUC 13:58
PROVIDERS: ATTEND Student in an Organized Health Care Education/Training Program
DX: R06.89 Other abnormalities of breathing (principal)

== ENCOUNTER → 2019-01-11 | Outpatient (CLI) | payer OTHER ==
[~2019-01-11] MED LIST changes: +BUPIVACAINE HCL 0.25% 10 ML VIAL As Ordered ONE; +BUPIVACAINE HCL 0.25% 30 ML VIAL As Ordered ONE; +TRIAMCINOLONE ACETONIDE SUSP 40 MG/ML VIAL (J3301) As Ordered ONE; +diazePAM 5 MG TAB As Ordered ONE; +oxyCODONE 5MG TAB As Ordered ONE
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
== END ==
LOC: M PAIN 12:00
PROVIDERS: ATTEND Anesthesiology
DX: M79.18 Myalgia, other site (principal); M54.2 Cervicalgia; E11.22 Type 2 diabetes mellitus with diabetic chronic kidney disease; J44.9 Chronic obstructive pulmonary disease, unspecified; M06.9 Rheumatoid arthritis, unspecified; M79.7 Fibromyalgia; R56.9 Unspecified convulsions; G43.909 Migraine, unspecified, not intractable, without status migrainosus; M19.90 Unspecified osteoarthritis, unspecified site; I10 Essential (primary) hypertension; D68.0 Von Willebrand disease; Z79.891 Long term (current) use of opiate analgesic; Z79.899 Other long term (current) drug therapy; Z88.2 Allergy status to sulfonamides; Z88.6 Allergy status to analgesic agent; Z88.8 Allergy status to other drugs, medicaments and biological substances; Z91.09 Other allergy status, other than to drugs and biological substances; Z91.018 Allergy to other foods; Z87.11 Personal history of peptic ulcer disease; Z87.448 Personal history of other diseases of urinary system; Z87.891 Personal history of nicotine dependence
CPT/HCPCS: 20552; J3301

== ENCOUNTER 2019-01-23 05:45 | Emergency (ER) | payer OTHER ==
[~2019-01-23] VITALS: Ht 160 cm; Wt 74.0 kg
[~2019-01-23 05:45] MED LIST changes: -BUPIVACAINE HCL 0.25% 10 ML VIAL As Ordered ONE; -BUPIVACAINE HCL 0.25% 30 ML VIAL As Ordered ONE; -TRIAMCINOLONE ACETONIDE SUSP 40 MG/ML VIAL (J3301) As Ordered ONE; -diazePAM 5 MG TAB As Ordered ONE; -oxyCODONE 5MG TAB As Ordered ONE
[2019-01-23] MEDS ORDERED: ONDANSETRON 4MG/2ML VIAL (J2405) As Ordered ONE (06:03)
[2019-01-23 06:13] LABS: BASO # 0.1 10^3/uL (0.0-0.2); BASO % 0.3 % (0.0-1.0); EOS # 0.1 10^3/uL (0.0-0.50); EOS % 0.7 % (0.0-3.0); HEMATOCRIT 47.1 % (36.0-47.0); HEMOGLOBIN 16.2 g/dl (12.0-15.5); LYMPH # 0.7 10^3/uL (1.5-4.5); LYMPH % 3.4 % (24.0-44.0); MEAN CORPUSCULAR HEMOGLOBIN 31.4 pg (27.0-33.0); MEAN CORPUSCULAR HGB CONC 34.4 g/dl (32.0-36.5); MEAN CORPUSCULAR VOLUME 91.3 fl (80.0-96.0); MONO # 1.5 10^3/uL (0.0-0.8); MONO % 7.1 % (0.0-5.0); NEUTROPHILS # 18.6 10^3/uL (1.8-7.7); NEUTROPHILS % 87.7 % (36.0-66.0); PLATELET COUNT, AUTOMATED 303 10^3/uL (150-450); RED BLOOD COUNT 5.16 10^6/uL (4.00-5.40); WHITE BLOOD COUNT 21.2 10^3/uL (4.0-10.0)
[2019-01-23] MEDS ORDERED: ONDANSETRON 4MG/2ML VIAL (J2405) IV ONE (06:15)
[2019-01-23] MEDS ORDERED: NS 1,000 ML IV ONE (06:15)
[2019-01-23 06:41] LABS: ALBUMIN 4.3 GM/DL (3.2-5.2); ALT/SGPT 44 U/L (12-78); BILIRUBIN,DIRECT < 0.1 MG/DL (0.0-0.2); BILIRUBIN,TOTAL 0.8 MG/DL (0.2-1.0); BLOOD UREA NITROGEN 44 MG/DL (7-18); CALCIUM LEVEL 9.4 MG/DL (8.5-10.1); CARBON DIOXIDE LEVEL 26 MEQ/L (21-32); CHLORIDE LEVEL 105 MEQ/L (98-107); CREATININE FOR GFR 1.37 MG/DL (0.55-1.30); GLOMERULAR FILTRATION RATE 42.3 (>51); GLUCOSE, FASTING 153 MG/DL (70-100); LIPASE 160 U/L (73-393); POTASSIUM SERUM 5.2 MEQ/L (3.5-5.1); SODIUM LEVEL 139 MEQ/L (136-145); TOTAL PROTEIN 7.4 GM/DL (6.4-8.2)
[2019-01-23] MEDS ORDERED: DICYCLOMINE INJ 20MG/2ML (J0500) IM ONE (06:45)
[2019-01-23] MEDS ORDERED: NS 500 ML IV ONE (06:45)
[2019-01-23] MEDS ORDERED: METOCLOPRAMIDE INJ 10MG/2ML VIAL (J2765) IV ONE (06:45)
[2019-01-23 07:16] LABS: AMYLASE 29 U/L (25-115); C REACTIVE PROTEIN QUANTITATIV 1.15 MG/DL (0.00-0.30)
[2019-01-23] MEDS: GASTROGRAFIN SOLUTION 30ML PO SCH ×2 (07:38→08:15)
[2019-01-23 09:20] LABS: CALCIUM LEVEL 9.1 MG/DL (8.5-10.1); CREATININE FOR GFR 1.29 MG/DL (0.55-1.30); GLOMERULAR FILTRATION RATE 45.3 (>51); POTASSIUM SERUM 4.4 MEQ/L (3.5-5.1)
[2019-01-23] MEDS ORDERED: ISOVUE-370 76% 125ML VIAL (Q9967 PER ML) As Ordered ONE (09:28)
--- NOTE | 2019-01-23 10:28 | REP ---
CT of the abdomen and pelvis with IV and oral contrast for diffuse abdominal pain, nausea, vomiting and diarrhea: Comparison is 07/01/2018. The visualized lung modi are unremarkable. Cardiac size is normal. There is a small hiatal hernia, unchanged. The hepatic parenchyma is homogeneous. The gallbladder is unremarkable. The pancreas and spleen are normal size and unremarkable. The adrenals are unremarkable. There are bilateral nonobstructive renal calculi. There is no hydronephrosis or perinephric stranding. There are bilateral small renal cortical cysts, unchanged. The abdominal aorta is unremarkable. There is no retroperitoneal adenopathy or mass. There is no bowel distension or obstruction. There is no bowel wall thickening. The mesentery is unremarkable. There is descending colon and sigmoid colon diverticulosis without diverticulitis. This is unchanged. Pelvis: The appendix is unremarkable. The bladder is unremarkable. There is a hysterectomy. Question left adnexal cyst, unchanged, measuring approximately 3.4 cm. No ascites or adenopathy. The bladder is unremarkable. Surgical fusion of the lumbar spine with pedicle screws and stabilization rods spanning L4 - L5 and S1, unchanged. Impression: Diverticulosis without CT evidence of diverticulitis. Bilateral nonobstructive renal calculi. No hydronephrosis. No adenopathy, mass or ascites. No bowel wall thickening. No bowel obstruction. Surgical fusion of the lumbar spine as described. Electronically Signed by Luke Fisher MD 01/23/2019 10:20 A
[2019-01-23] MEDS ORDERED: ONDA4TAB6 PO (10:47)
[2019-01-23 10:51] VITALS: BP 168/79
== END 2019-01-23 11:01 | disposition home or self-care (01) ==
LOC: M ED 05:45
DX: R10.84 Generalized abdominal pain (principal); R11.2 Nausea with vomiting, unspecified; R19.7 Diarrhea, unspecified; J44.9 Chronic obstructive pulmonary disease, unspecified; E11.9 Type 2 diabetes mellitus without complications; I10 Essential (primary) hypertension; D68.0 Von Willebrand disease; F33.9 Major depressive disorder, recurrent, unspecified; F41.9 Anxiety disorder, unspecified; K21.9 Gastro-esophageal reflux disease without esophagitis; K44.9 Diaphragmatic hernia without obstruction or gangrene; Z87.440 Personal history of urinary (tract) infections; Z87.442 Personal history of urinary calculi; Z79.899 Other long term (current) drug therapy; Z79.4 Long term (current) use of insulin; Z88.5 Allergy status to narcotic agent; Z88.8 Allergy status to other drugs, medicaments and biological substances; Z91.018 Allergy to other foods; Z91.048 Other nonmedicinal substance allergy status
CPT/HCPCS: 36415; 74177; 80048; 80076; 82150; 83690; 85025; 86140; 93041; 96361; 96372; 96374; 96375; 99285; J0500; J2405; J2765; Q9963; Q9967

== ENCOUNTER → 2019-02-15 | Outpatient (CLI) | payer OTHER ==
[~2019-02-15] MED LIST changes: -/BISO10TA PO; -/CELE20CA PO; -/ESCI20TA PO; -/ONDA4TA PO; -ACET160S5 PO; -BISO10TA PO; +BISO10TA13 PO; +CELE1CAP4 PO; +CHLO125TA PO; +CYMB1CAP4 OR; -DULO20CA OR; +LATA0.0013 OU; -LATA5OPD OU; +NICO21DI3 TOP; -NICO21PAT TOP; +ONDA-1 PO; -PERCOCET PO; -SENN1TAB2 PO; +SENN1TAB36 PO; +SENN1TAB40 PO; -SENN8.6T9 PO; +TGTSUS3 PO; +ZEBE1TAB PO
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
== END ==
LOC: M PAIN 10:30
PROVIDERS: ATTEND Nurse Practitioner Family
DX: G89.4 Chronic pain syndrome (principal); M54.5 Low back pain; M54.2 Cervicalgia; I12.9 Hypertensive chronic kidney disease with stage 1 through stage 4 chronic kidney disease, or unspecified chronic kidney disease; G43.909 Migraine, unspecified, not intractable, without status migrainosus; E11.22 Type 2 diabetes mellitus with diabetic chronic kidney disease; J44.9 Chronic obstructive pulmonary disease, unspecified; K44.9 Diaphragmatic hernia without obstruction or gangrene; M79.7 Fibromyalgia; M19.90 Unspecified osteoarthritis, unspecified site; D68.0 Von Willebrand disease; N18.2 Chronic kidney disease, stage 2 (mild); K64.8 Other hemorrhoids; N60.19 Diffuse cystic mastopathy of unspecified breast; Z87.442 Personal history of urinary calculi; Z87.891 Personal history of nicotine dependence; Z98.1 Arthrodesis status; Z88.6 Allergy status to analgesic agent; Z88.5 Allergy status to narcotic agent; Z88.8 Allergy status to other drugs, medicaments and biological substances; Z91.018 Allergy to other foods; Z91.048 Other nonmedicinal substance allergy status

== ENCOUNTER 2019-03-12 11:43 | Observation (INO) | payer OTHER ==
[~2019-03-12] VITALS: Ht 160 cm; Wt 74.6 kg
[~2019-03-12 11:43] MED LIST changes: -TRUL10IN; +TRUL10IN SC
[2019-03-12] MEDS ORDERED: NS 1,000 ML IV SCH (11:56)
[2019-03-12 12:29] LABS: BASO # 0.1 10^3/uL (0.0-0.2); BASO % 0.9 % (0.0-1.0); EOS # 0.2 10^3/uL (0.0-0.50); EOS % 2.1 % (0.0-3.0); HEMOGLOBIN 14.3 g/dl (12.0-15.5); LYMPH # 2.1 10^3/uL (1.5-4.5); LYMPH % 20.1 % (24.0-44.0); MEAN CORPUSCULAR HEMOGLOBIN 31.6 pg (27.0-33.0); MEAN CORPUSCULAR VOLUME 92.7 fl (80.0-96.0); MONO # 0.9 10^3/uL (0.0-0.8); MONO % 8.8 % (0.0-5.0); NEUTROPHILS % 67.8 % (36.0-66.0); PLATELET COUNT, AUTOMATED 264 10^3/uL (150-450); RED BLOOD COUNT 4.53 10^6/uL (4.00-5.40); WHITE BLOOD COUNT 10.3 10^3/uL (4.0-10.0)
[2019-03-12] MEDS ORDERED: ONDANSETRON 4MG/2ML VIAL (J2405) IV ONE (12:30)
[2019-03-12 12:53] LABS: ALBUMIN 4.1 GM/DL (3.2-5.2); ALT/SGPT 25 U/L (12-78); BILIRUBIN,DIRECT 0.2 MG/DL (0.0-0.2); BILIRUBIN,TOTAL 0.9 MG/DL (0.2-1.0); BLOOD UREA NITROGEN 17 MG/DL (7-18); CALCIUM LEVEL 9.4 MG/DL (8.5-10.1); CARBON DIOXIDE LEVEL 24 MEQ/L (21-32); CHLORIDE LEVEL 106 MEQ/L (98-107); CREATININE FOR GFR 0.98 MG/DL (0.55-1.30); GLOMERULAR FILTRATION RATE > 60.0 (>51); GLUCOSE, FASTING 107 MG/DL (70-100); LIPASE 70 U/L (73-393); POTASSIUM SERUM 3.7 MEQ/L (3.5-5.1); SODIUM LEVEL 142 MEQ/L (136-145); TOTAL PROTEIN 7.6 GM/DL (6.4-8.2)
[2019-03-12] MEDS ORDERED: fentaNYL 100 MCG/2 ML INJECTION (J3010) IV ONE ×3 (13:00→15:45)
[2019-03-12] MEDS ORDERED: TIZA4TAB4 PO (13:34)
[2019-03-12] MEDS ORDERED: PROP40TA PO (13:34)
[2019-03-12] MEDS ORDERED: DRIS50003 PO (13:34)
[2019-03-12] MEDS ORDERED: BRIM0.2S13 OU (13:34)
[2019-03-12] MEDS ORDERED: BASA100I SC (13:34)
[2019-03-12] MEDS ORDERED: DICY1CAP8 PO (13:35)
[2019-03-12] MEDS ORDERED: PROMETHAZINE INJ 25 MG/ML VIAL (J2550) IV ONE (13:45)
[2019-03-12] MEDS ORDERED: cefTRIAXone SOD 1 GM in D5W MINI-BAG PLUS 50 ML IV ONE (14:15)
--- NOTE | 2019-03-12 14:38 | REP ---
KUB ABDOMEN AND PELVIS: KUB film of abdomen and pelvis performed and compared to prior study of 06/27/2018. Bowel gas pattern is normal with no evidence of bowel obstruction. The previously noted 7 mm calculus in the upper pole of the left kidney is now seen in the left pelvic located in the distal left ureter. Phleboliths are seen in the right pelvis. Once again there is metallic hardware in the region of the lower lumbar spine status post fusion surgery. There are degenerative changes of the hips. IMPRESSION: 7 mm calculus in the distal left ureter. Electronically Signed by Luke Maldonado MD 03/12/2019 03:57 P
[2019-03-12] MEDS ORDERED: PROMETHAZINE INJ 25 MG/ML VIAL (J2550) IM PRN (15:45)
[2019-03-12] MEDS ORDERED: FLUTICASONE PROP 0.05% NASAL SPRAY 16 GM (FLONASE) PRN (15:45)
[2019-03-12] MEDS ORDERED: ALBUTEROL 90 MCG/ACT 8GM HFA INHALER INH PRN (15:45)
[2019-03-12] MEDS ORDERED: fentaNYL 100 MCG/2 ML INJECTION (J3010) IV PRN (15:45)
[2019-03-12] MEDS ORDERED: IPRATROPIUM 0.5MG/ALBUTEROL 2.5MG INH SOL UD 3ML (DUONEB)(J7620) INH PRN (15:45)
[2019-03-12] MEDS ORDERED: GLUCAGON FOR INJ 1 MG VIAL (J1610) SC PRN (17:45)
[2019-03-12] MEDS ORDERED: GLUCOSE 4 GM CHEW TABLET PO PRN (17:45)
[2019-03-12] MEDS ORDERED: DEXTROSE 50% 50 ML SYRINGE IV PRN (17:45)
[2019-03-12] MEDS: D5W/0.45% SODIUM CHLORIDE 1,000 ML IV SCH (17:53)
[2019-03-12 18:15] VITALS: BP 174/80
--- NOTE | 2019-03-12 18:25 | CR.PDOC ---
General Date of Consultation: March 12, 2019 Referring Provider: HERBERT CHAVIRA MD Attending Physician: ZUHAIR LOCO MD Consultation REASON FOR CONSULTATION/CHIEF COMPLAINT: . Management of medical comorbidities HISTORY OF PRESENT ILLNESS: . 58-year-old female with past medical history of hypertension, diabetes mellitus, COPD, seizure disorder, anxiety/depression, chronic pain, and recurrent kidney stones presents to the ER with a chief complaint of left-sided flank pain. The patient states that her symptoms started on 03/08/19 when she was going on a road trip with her boyfriend across the country. They stopped in the [place] area and the patient states that she was evaluated at [facility] and found to have a kidney stone on the left side. She decided that she wanted to follow-up with this when she got home. However, the patient states her symptoms of left-sided flank pain got worse and she developed fevers, malaise, abdominal pain, and nausea with vomiting. She subsequently came to the ER here for further evaluation and management. In the ER, a KUB revealed a 7 mm calculus in the distal left ureter. The patient has been admitted under the urologic service for intervention in the a.m. The hospitalist team has been consulted for management of the patient's medical comorbidities. ALLERGIES: Please see below. HOME MEDICATIONS: Please see below. PAST MEDICAL HISTORY: As noted above. PAST SURGICAL HISTORY: C-SECTIONS X 4 1979, 1985, 1989, 1990, TUBAL LIGATION EARLY , C4-5 AND C6-7 DISCECTOMY AND FUSION 1997, LEFT BREAST LUMPECTOMY (BALJINDER) 2002, PARTIAL HYSTERECTOMY (REEMA) 2005, C5-7 REVISION AND REPLATING C4-5 (NIMO) 2008, COLONOSCOPY (BALJINDER) UNK, KIDNEY STONE/BILATERAL HYDRONEPHROSIS/STENT PLACEMENT- DR WALSH 07/2013, COLONOSCOPY- REINJESUS ALBERTO- TUBULAR ADENOMA AND HYPERPLASTIC POLYP- RECHECK 3 YEARS 06/20, EGD-REINJESUS ALBERTO- GASTRIC HYPERPLASTIC POLYP 06/20 , STENT KIDNEY STONE, RIGHT AND LEFT 07/2013, LEFT ESWL 08/24/13, 10/05/13, LASER LITHOTRIPSY AND REMOVAL OF STENTS 12/01/13, COLONOSCOPY WITH POLYPECTOMY, MODERAT EDIVERTICULOSIS: DR. SAEED 08/16/2015, TLIF L4 TO S1: DR. SUERO 01/22/16, BREAST REDUCTION ([facility]) 05/2016, BACK SURGERY TITANIUM CAGE 9-16, REMOVAL OF FATTY DEPOSIT IN LEFT BREAST APRIL 09 2017. SOCIAL HISTORY: Former tobacco user, smoked 1 pack per day for 33 years, quit 6 years ago. Occasionally drinks alcohol. Denies any illicit drug use. REVIEW OF SYSTEMS: 10 point review of systems negative unless otherwise specified in HPI. PHYSICAL EXAMINATION: VITAL SIGNS: Please see below. GENERAL APPEARANCE: . Awake, alert, in no acute distress. HEENT: . Normocephalic, atraumatic RESPIRATORY: . Clear to auscultation bilaterally CARDIOVASCULAR: . Normal rate, normal S1, S2 ABDOMEN: . Soft, nondistended. Mild tenderness to deep palpation along the left upper quadrant/flank area. EXTREMITIES: . No erythema, no tenderness LABORATORY DATA: Please see below. ASSESSMENT/PLAN: 7mm calculus in the Distal Ureter Urine Culture pending s/p Rocephin in the ER, will cont Patient afebrile in the ER, and hemodynamically stable IVF Hydration, antiemetics, and analgesic therapy as ordered Urology to take the patient for intervention in the a.m. We will keep the patient nothing by mouth after midnight History of hypertension Continue meds as ordered Insulin dependent diabetes mellitus We have ordered a reduced dose of basal insulin for the patient given her decreased by mouth intake, and nothing by mouth status in the a.m. Insulin sliding scale for additional coverage History of seizure disorder Continue Keppra History of COPD, stable Continue meds as ordered GERD Continue Protonix Anxiety/depression, stable Continue Lexapro DVT prophylaxis Patient noted to be ambulating in the hallway to the bathroom, continual ambulation encouraged Vital Signs/I&O Vital Signs Date Time Temp Pulse Resp B/P (MAP) Pulse Ox O2 Delivery O2 Flow Rate FiO2 03/12/19 16:00 93 16 174/74 (107) 94 03/12/19 15:14 98.4 03/12/19 11:44 Room Air Laboratory Data Labs 24H Laboratory Tests 2 03/12/19 12:13: Immature Granulocyte % (Auto) 0.3, White Blood Count 10.3H, Red Blood Count 4.53 , Hemoglobin 14.3, Hematocrit 42.0, Mean Corpuscular Volume 92.7, Mean Corpuscular Hemoglobin 31.6, Mean Corpuscular Hemoglobin Concent 34.0, Red Cell Distribution Width 12.0, Platelet Count 264, Neutrophils (%) (Auto) 67.8H, Lymphocytes (%) (Auto) 20.1L, Monocytes (%) (Auto) 8.8H, Eosinophils (%) (Auto) 2.1, Basophils (%) (Auto) 0.9, Neutrophils # (Auto) 7.0, Lymphocytes # (Auto) 2.1, Monocytes # (Auto) 0.9H, Eosinophils # (Auto) 0.2, Basophils # (Auto) 0.1, Nucleated Red Blood Cells % (auto) 0.0, Urine Color YELLOW, Urine Appearance HAZY, Urine pH 5.0, Urine Specific [place] 1.016, Urine Protein 2+H, Urine Glucose (UA) NEGATIVE, Urine Ketones 2+H, Urine Blood 3+H, Urine Nitrite NEGATIVE, Urine Bilirubin NEGATIVE, Urine Urobilinogen 0.2, Urine Leukocyte Esterase 1+H, Urine WBC (Auto) 28H, Urine RBC (Auto) 88H, Urine Hyaline Casts (Auto) 0, Urine Bacteria (Auto) 1+H, Urine Squamous Epithelial Cells 3, Urine Amorphous Sediment SMALLH, Urine Granular Casts (Auto) 1, Urine Mucus (Auto) SM ALL, Urine Sperm (Auto) , Anion Gap 12, Glomerular Filtration Rate > 60.0, Calcium Level 9.4, Aspartate Amino Transf (AST/SGOT) 18, Alanine Aminotransferase (ALT/SGPT) 25, Alkaline Phosphatase 68, Total Bilirubin 0.9, Direct Bilirubin 0.2, Total Protein 7.6, Albumin 4.1, Albumin/Globulin Ratio 1.17, Lipase 70L CBC/BMP Laboratory Tests 03/12/19 12:13 Red Blood Count 4.53, Mean Corpuscular Volume 92.7, Mean Corpuscular Hemoglobin 31.6, Mean Corpuscular Hemoglobin Concent 34.0, Red Cell Distribution Width 12.0, Neutrophils (%) (Auto) 67.8 H, Lymphocytes (%) (Auto) 20.1 L, Monocytes (%) (Auto) 8.8 H, Eosinophils (%) (Auto) 2.1, Basophils (%) (Auto) 0.9, Neutrophils # (Auto) 7.0, Lymphocytes # (Auto) 2.1, Monocytes # (Auto) 0.9 H, Eosinophils # (Auto) 0.2, Basophils # (Auto) 0.1 Microbiology Microbiology 03/12/19 Urine Culture, Received Pending Allergies Coded Allergies: PEPPERS (Verified Allergy, Severe, SEIZURE DISORDER, TONGUE SWELLS, BREATHING PROBLEMS, 01/23/19) aspirin (Verified Allergy, Severe, BREATHING DIFFICULTY, 03/12/19) ibuprofen (Verified Allergy, Severe, THROAT SWELLING, 03/12/19) morphine (Verified Allergy, Intermediate, RASH, 03/12/19) nickel (Verified Allergy, Intermediate, RASH, 03/12/19) metformin (Verified Adverse Reaction, Intermediate, VOMITING AND DIARRHEA, 03/12/19) sumatriptan (Verified Adverse Reaction, Intermediate, HYPOTENSION, 03/12/19) topiramate (Verified Adverse Reaction, Intermediate, ELEVATED BP, 03/12/19) Home Medications Scheduled Brimonidine Tartrate (Brimonidine Tartrate) 0.2% 5ML Drops, 1 DROP OU BID, (Reported) Dulaglutide (Trulicity) 0.75 Mg/0.5 Ml Inj, 0.75 MG SC QWEEK, (Reported) FRIDAYS Ergocalciferol (Vitamin D2) (Drisdol) 50,000 Unit Capsule, 50,000 UNIT PO QWEEK, (Reported) [place] Escitalopram Oxalate (Lexapro) 20 Mg Tab, 20 MG PO DAILY, (Reported) Folic Acid (Folic Acid) 1 Mg Tab, 1 MG PO DAILY, (Reported) Insulin Glargine,Hum.rec.anlog (Basaglar Kwikpen U-100) 100 Unit/1 Ml Insuln.pen, 120 UNIT SC QAM, (Reported) Latanoprost (Xalatan) 0.005 % Yoav, 1 DROP OU QHS, (Reported) Levetiracetam (Keppra) 1,000 Mg Tab, 1,000 MG PO BID, (Reported) Lisinopril (Lisinopril) 40 Mg Tab, 40 MG PO DAILY, (Reported) Pantoprazole Sodium (Pantoprazole Sodium) 40 Mg Tab, 40 MG PO DAILY, (Reported) Propranolol/Hydrochlorothiazid (Propranolol-Hctz 40-25 mg Tab) 1 Each Tablet, 1 TAB PO BID, (Reported) Umeclidinium [facility] (Incruse Ellipta) 62.5 Mcg/Inh Inh, 1 PUFF INH DAILY, (Reported) Scheduled PRN Albuterol Sulfate (Ventolin Hfa) 108 Mcg/Act Aer, 108 MCG INH Q4HP PRN for SHORTNESS OF BREATH, (Reported) Dicyclomine HCl (Dicyclomine HCl) 10 Mg Capsule, 10 MG PO Q6H PRN for ABDOMINAL PAIN, (Reported) Fluticasone Propionate (Flonase Allergy Relief) 50 Mcg/Act Spr, 2 SPRAYS NA DAILY PRN for NASAL CONGESTION, (Reported) Ipratropium/Albuterol Sulfate (Iprat-Albut 0.5-3(2.5) mg/3 ml) 1 Yoav Yoav, 1 YOAV INH QID PRN for SHORTNESS OF BREATH, (Reported) Ondansetron (Ondansetron Odt) 4 Mg Tab, 4 MG PO QID PRN for NAUSEA, (Reported) Oxycodone HCl/Acetaminophen (Percocet 5-325 mg Tablet) 1 Tab Tab, 1 TAB PO Q6H PRN for PAIN, (Reported) Tizanidine HCl (Tizanidine HCl) 4 Mg Tablet, 4 MG PO Q8H PRN for MUSCLE SPASMS, (Reported) HERBERT CHAVIRA MD March 12, 2019 18:25
[2019-03-12] MEDS: **hydrALAZINE HCL** 25 MG TAB PO SCH (18:27)
[2019-03-12] MEDS: TAMSULOSIN 0.4 MG CAP PO SCH (18:27)
[2019-03-12] MEDS: PERCOCET 5MG/325MG TAB PO PRN (18:27)
[2019-03-12 18:30] VITALS: BP 164/80
[2019-03-12] MEDS ORDERED: HumaLOG INSULIN (NovoLOG) PER UNIT SC SCH (21:00)
[2019-03-12] MEDS ORDERED: LATANOPROST 0.005% OPHTH SOLN 2.5 ML OU SCH (21:00)
[2019-03-12] MEDS: levETIRAcetam 250MG TABLET (KEPPRA) PO SCH (21:13)
[2019-03-12 22:00] VITALS: BP 164/84
[2019-03-13] MEDS: **hydrALAZINE HCL** 25 MG TAB PO SCH ×4 (00:57→12:08)
[2019-03-13] MEDS: PERCOCET 5MG/325MG TAB PO PRN (00:58)
[2019-03-13] MEDS: D5W/0.45% SODIUM CHLORIDE 1,000 ML IV SCH (03:03)
[2019-03-13 06:00] VITALS: BP 148/78
[2019-03-13] MEDS: TAMSULOSIN 0.4 MG CAP PO SCH (07:59)
[2019-03-13] MEDS: levETIRAcetam 250MG TABLET (KEPPRA) PO SCH (07:59)
[2019-03-13] MEDS ORDERED: cefTRIAXone SOD 1 GM in D5W MINI-BAG PLUS 50 ML IV SCH (08:00)
[2019-03-13] MEDS: HumaLOG INSULIN (NovoLOG) PER UNIT SC SCH ×2 (08:08→12:14)
[2019-03-13 08:50] LABS: HEMATOCRIT 40.2 % (36.0-47.0); HEMOGLOBIN 13.2 g/dl (12.0-15.5); MEAN CORPUSCULAR HEMOGLOBIN 31.1 pg (27.0-33.0); MEAN CORPUSCULAR HGB CONC 32.8 g/dl (32.0-36.5); MEAN CORPUSCULAR VOLUME 94.6 fl (80.0-96.0); PLATELET COUNT, AUTOMATED 219 10^3/uL (150-450); RED BLOOD COUNT 4.25 10^6/uL (4.00-5.40)
[2019-03-13] MEDS ORDERED: ESCITALOPRAM OXALATE 10 MG TAB (LEXAPRO) PO SCH (09:00)
[2019-03-13] MEDS ORDERED: LISINOPRIL 40 MG TAB PO SCH (09:00)
[2019-03-13] MEDS ORDERED: PHENAZOPYRIDINE 100 MG TAB PO SCH (09:00)
[2019-03-13] MEDS ORDERED: FOLIC ACID 1 MG TAB PO SCH (09:00)
[2019-03-13] MEDS ORDERED: LEVEMIR (INSULIN DETEMIR) 1 UNITS/0.01ML SC SCH (09:00)
[2019-03-13] MEDS ORDERED: NITROFURANTOIN (MACROBID) 100 MG CAP PO SCH (09:00)
[2019-03-13] MEDS ORDERED: PANTOPRAZOLE 40MG TAB (PROTONIX) PO SCH (09:00)
[2019-03-13 09:08] LABS: BLOOD UREA NITROGEN 14 MG/DL (7-18); CALCIUM LEVEL 8.6 MG/DL (8.5-10.1); CARBON DIOXIDE LEVEL 29 MEQ/L (21-32); CHLORIDE LEVEL 108 MEQ/L (98-107); CREATININE FOR GFR 0.91 MG/DL (0.55-1.30); GLOMERULAR FILTRATION RATE > 60.0 (>51); GLUCOSE, FASTING 130 MG/DL (70-100); POTASSIUM SERUM 3.6 MEQ/L (3.5-5.1); SODIUM LEVEL 142 MEQ/L (136-145)
[2019-03-13] MEDS ORDERED: CONRAY-60 60% 50ML VIAL (Q9961) As Ordered ONE (09:15)
--- NOTE | 2019-03-13 09:47 | SMCUROLCON ---
Urology Consultation General Date of Consultation 03/13/19 Reason For Consultation This patient is seen for Left Obstructing Kidney Stone. History of Present Illness HISTORY OF PRESENT ILLNESS: . 58-year-old female with past medical history of hypertension, diabetes mellitus, COPD, seizure disorder, anxiety/depression, chronic pain, and recurrent kidney stones presents to the ER with a chief complaint of left-sided flank pain. The patient states that her symptoms started on 03/08/19 when she was going on a road trip with her boyfriend across the country. They stopped in the [place] area and the patient states that she was evaluated at [facility] and found to have a 7 mm left mid ureteral stone. Her symptoms got much better until yesterday when she began having significant nausea, vomiting, and continued pain. In the ER, a KUB revealed a 7 mm calculus now in the distal left ureter. ALLERGIES: Please see below. HOME MEDICATIONS: Please see below. PAST MEDICAL HISTORY: As noted above. PAST SURGICAL HISTORY: C-SECTIONS X 4 1979, 1985, 1989, 1990, TUBAL LIGATION EARLY , C4-5 AND C6-7 DISCECTOMY AND FUSION 1997, LEFT BREAST LUMPECTOMY (BALJINDER) 2002, PARTIAL HYSTERECTOMY (REEMA) 2005, C5-7 REVISION AND REPLATING C4-5 (NIMO) 2008, COLONOSCOPY (BALJINDER) UNK, KIDNEY STONE/BILATERAL HYDRONEPHROSIS/STENT PLACEMENT- DR WALSH 07/2013, COLONOSCOPY- DARLIN- TUBULAR ADENOMA AND HYPERPLASTIC POLYP- RECHECK 3 YEARS 06/20, EGD-DARLIN- GASTRIC HYPERPLASTIC POLYP 06/20 , STENT KIDNEY STONE, RIGHT AND LEFT 07/2013, LEFT ESWL 08/24/13, 10/05/13, LASER LITHOTRIPSY AND REMOVAL OF STENTS 12/01/13, COLONOSCOPY WITH POLYPECTOMY, MODERAT EDIVERTICULOSIS: DR. SAEED 08/16/2015, TLIF L4 TO S1: DR. SUERO 01/22/16, BREAST REDUCTION ([facility]) 05/2016, BACK SURGERY TITANIUM CAGE 07-25, REMOVAL OF FATTY DEPOSIT IN LEFT BREAST APRIL 09 2017. SOCIAL HISTORY: Former tobacco user, smoked 1 pack per day for 33 years, quit 6 years ago. Occasionally drinks alcohol. Denies any illicit drug use. REVIEW OF SYSTEMS: 10 point review of systems negative unless otherwise specified in HPI. PHYSICAL EXAMINATION: VITAL SIGNS: Please see below. GENERAL APPEARANCE: . Awake, alert, in no acute distress. HEENT: . Normocephalic, atraumatic RESPIRATORY: . Clear to auscultation bilaterally CARDIOVASCULAR: . Normal rate, normal S1, S2 ABDOMEN: . Soft, nondistended with significant left lower quadrant tenderness and left CVA tenderness. EXTREMITIES: . No erythema, no tenderness LABORATORY DATA: Please see below. ASSESSMENT/PLAN: 7mm calculus in the Distal Ureter. We will admit her overnight for IV hydration and pain management to see if the stone passes but if it does not pass by the morning we will plan cystoscopy, left ureteroscopy, laser lithotripsy and/or st one basketing and stent placement. All options, alternatives, risks, and benefits were discussed and informed consent was obtained. 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 Medications Current Medications Current Medications Albuterol Sulfate (Proventil, Ventolin Hfa) 1 puff Q4HP PRN INH SHORTNESS OF BREATH; Start 03/12/19 at 15:45 Albuterol/ Ipratropium (Duoneb (Ipr 0.5mg/Alb 2.5mg)) 3 ml QID PRN INH SHORTNESS OF BREATH; Start 03/12/19 at 15:45 Ceftriaxone Sodium 1 gm/ Dextrose 50 ml @ 100 mls/hr Q24H IV Last administered on 03/13/19at 07:59; Start 03/13/19 at 08:00 Dextrose (Dextrose 50%) 25 ml ASDIRECTED PRN IV SEE LABEL COMMENTS; Start 03/12/19 at 17:45 Dextrose/Sodium Chloride 1,000 ml @ 100 mls/hr Q10H IV Last administered on 03/13/19at 03:03; Start 03/12/19 at 16:15 Escitalopram Oxalate (Lexapro) 20 mg DAILY PO Last administered on 03/13/19at 08:00; Start 03/13/19 at 09:00 Fentanyl Citrate (Sublimaze) 37.2 mcg Q4HP PRN IV PAIN SCALE 6-10; Start 03/12/19 at 15:45 Fluticasone Propionate (Flonase 0.05% Nasal [place]) 2 spray DAILY PRN NA NASAL CONGESTION; Start 03/12/19 at 15:45 Folic Acid (Folic Acid) 1 mg DAILY PO Last administered on 03/13/19at 07:59; Start 03/13/19 at 09:00 Glucagon (Glucagon) 1 mg ASDIRECTED PRN SC SEE LABEL COMMENTS; Start 03/12/19 at 17:45 Glucose (Glucose) 16 GM ASDIRECTED PRN PO SEE LABEL COMMENTS; Start 03/12/19 at 17:45 Home Med (Med Rec Complete!) ASDIRECTED XX ; Start 03/12/19 at 13:45; Stop 03/12/19 at 13:45; Status DC Hydralazine HCl (Apresoline) 25 mg Q6H PO Last administered on 03/12/19at 18:27; Start 03/12/19 at 18:00 Insulin Detemir (Levemir Insulin) 20 units DAILY SC Last administered on 03/13/19at 08:00; Start 03/13/19 at 09:00 Insulin Human Lispro (HumaLOG INSULIN) SEE PROTOCOL TABLE AC SC Last administered on 03/13/19at 08:08; Start 03/13/19 at 07:30 Insulin Human Lispro (HumaLOG INSULIN) SEE PROTOCOL TABLE QHS SC ; Start 03/12/19 at 21:00 Latanoprost (Xalatan 0.005% Op Soln) 1 drop QHS OU Last administered on 03/12/19at 21:13; Start 03/12/19 at 21:00 Levetiracetam (Keppra) 1,000 mg BID PO Last administered on 03/13/19at 07:59; Start 03/12/19 at 21:00 Lisinopril (Prinivil) 40 mg DAILY PO ; Start 03/13/19 at 09:00; Stop 03/13/19 at 09:00; Status DC Oxycodone/ Acetaminophen (Percocet 5mg/ 325mg Tablet) 1 tab Q6H PRN PO PAIN Last administered on 03/13/19at 00:58; Start 03/12/19 at 15:45 Pantoprazole Sodium (Protonix) 40 mg DAILY PO Last administered on 03/13/19at 07:59; Start 03/13/19 at 09:00 Promethazine HCl (PHENERGAN INJection) 12.5 mg Q8H PRN IM NAUSEA; Start 03/12/19 at 15:45 Sodium Chloride 1,000 ml @ 100 mls/hr Q10H IV Last administered on 03/12/19at 12:31; Start 03/12/19 at 11:56; Stop 03/12/19 at 16:02; Status DC Tamsulosin HCl (Flomax) 0.4 mg DAILY PO Last administered on 03/13/19at 07:59; Start 03/12/19 at 09:00 Allergies Allergies: Coded Allergies: PEPPERS (Verified Allergy, Severe, SEIZURE DISORDER, TONGUE SWELLS, BREATHING PROBLEMS, 01/23/19) aspirin (Verified Allergy, Severe, BREATHING DIFFICULTY, 03/12/19) ibuprofen (Verified Allergy, Severe, THROAT SWELLING, 03/12/19) morphine (Verified Allergy, Intermediate, RASH, 03/12/19) nickel (Verified Allergy, Intermediate, RASH, 03/12/19) metformin (Verified Adverse Reaction, Intermediate, VOMITING AND DIARRHEA, 03/12/19) sumatriptan (Verified Adverse Reaction, Intermediate, HYPOTENSION, 03/12/19) topiramate (Verified Adverse Reaction, Intermediate, ELEVATED BP, 03/12/19) Vital Signs/I&O Vital Signs Date Time Temp Pulse Resp B/P (MAP) Pulse Ox O2 Delivery O2 Flow Rate FiO2 03/13/19 06:00 97.3 68 18 148/78 (101) 95 2.0 03/12/19 11:44 Room Air I&O- Last 24 Hours up to 6 AM 03/13/19 06:00 Intake Total 670 ml Output Total 500 ml Balance 170 ml Laboratory Data 24H Labs Laboratory Tests 2 03/12/19 12:13: Immature Granulocyte % (Auto) 0.3, White Blood Count 10.3H, Red Blood Count 4.53, Hemoglobin 14.3, Hematocrit 42.0, Mean Corpuscular Volume 92.7, Mean Corpuscular Hemoglobin 31.6, Mean Corpuscular Hemoglobin Concent 34.0, Red Cell Distribution Width 12.0, Platelet Count 264, Neutrophils (%) (Auto) 67.8H, Lymphocytes (%) (Auto) 20.1L, Monocytes (%) (Auto) 8.8H, Eosinophils (%) (Auto) 2.1, Basophils (%) (Auto) 0.9, Neutrophils # (Auto) 7.0, Lymphocytes # (Auto) 2.1, Monocytes # (Auto) 0.9H, Eosinophils # (Auto) 0.2, Basophils # (Auto) 0.1, Nucleated Red Blood Cells % (auto) 0.0, Urine Color YELLOW, Urine Appearance HAZY, Urine pH 5.0, Urine Specific [place] 1.016, Urine Protein 2+H, Urine Glucose (UA) NEGATIVE, Urine Ketones 2+H, Urine Blood 3+H, Urine Nitrite NEGATIVE, Urine Bilirubin NEGATIVE, Urine Urobilinogen 0.2, Urine Leukocyte Esterase 1+H, Urine WBC (Auto) 28H, Urine RBC (Auto) 88H, Urine Hyaline Casts (Auto) 0, Urine Bacteria (Auto) 1+H, Urine Squamous Epithelial Cells 3, Urine Amorphous Sediment SMALLH, Urine Granular Casts (Auto) 1, Urine Mucus (Auto) SMALL, Urine Sperm (Auto) , Anion Gap 12, Glomerular Filtration Rate > 60.0, Yasmany cium Level 9.4, Aspartate Amino Transf (AST/SGOT) 18, Alanine Aminotransferase (ALT/SGPT) 25, Alkaline Phosphatase 68, Total Bilirubin 0.9, Direct Bilirubin 0.2, Total Protein 7.6, Albumin 4.1, Albumin/Globulin Ratio 1.17, Lipase 70L 03/12/19 20:53: Bedside Glucose (Misc Panel) 147H 03/13/19 08:08: Bedside Glucose (Misc Panel) 135H 03/13/19 08:22: Nucleated Red Blood Cells % (auto) 0.0, Anion Gap 5L, Glomerular Filtration Rate > 60.0, Calcium Level 8.6, Blood Urea Nitrogen 14, Creatinine 0.91, Sodium Level 142, Potassium Level 3.6, Chloride Level 108H, Carbon Dioxide Level 29 CBC/BMP Laboratory Tests 03/12/19 12:13 Red Blood Count 4.53, Mean Corpuscular Volume 92.7, Mean Corpuscular Hemoglobin 31.6, Mean Corpuscular Hemoglobin Concent 34.0, Red Cell Distribution Width 12.0, Neutrophils (%) (Auto) 67.8 H, Lymphocytes (%) (Auto) 20.1 L, Monocytes (%) (Auto) 8.8 H, Eosinophils (%) (Auto) 2.1, Basophils (%) (Auto) 0.9, Neutrophils # (Auto) 7.0, Lymphocytes # (Auto) 2.1, Monocytes # (Auto) 0.9 H, Eosinophils # (Auto) 0.2, Basophils # (Auto) 0.1 03/13/19 08:22 Red Blood Count 4.25, Mean Corpuscular Volume 94.6, Mean Corpuscular Hemoglobin 31.1, Mean Corpuscular Hemoglobin Concent 32.8, Red Cell Distribution Width 12.0, Calcium Level 8.6 Microbiology Microbiology 03/12/19 Urine Culture - Final, Complete ZUHAIR LOCO MD March 13, 2019 09:47
[2019-03-13] MEDS ORDERED: LIDOCAINE 2% INJ 100 MG/5 ML SDV (FOR ANES.) As Ordered ONE (09:52)
[2019-03-13] MEDS ORDERED: PROPOFOL 200 MG/20 ML VIAL As Ordered ONE (09:52)
[2019-03-13] MEDS ORDERED: ONDANSETRON 4MG/2ML VIAL (J2405) As Ordered ONE (09:52)
[2019-03-13] MEDS ORDERED: MIDAZOLAM INJ 2 MG/2 ML VIAL (J2250) As Ordered ONE (09:52)
[2019-03-13] MEDS ORDERED: dexameTHASONE 4 MG/ML 1ML VIAL (J1100) As Ordered ONE (09:52)
[2019-03-13] MEDS ORDERED: fentaNYL 100 MCG/2 ML INJECTION (J3010) As Ordered ONE (09:52)
[2019-03-13] MEDS ORDERED: NORCO, ANEXSIA 5/325MG TABLET (HYDROcodone/ACETAMINOPHEN) PO PRN (11:15)
[2019-03-13] MEDS ORDERED: LR 1,000 ML IV SCH (11:15)
--- NOTE | 2019-03-13 12:01 | IPNPDOC ---
Subjective Date Seen The patient was seen on 03/13/19. Subjective Chief Complaint/HPI Patient seen and examined at bedside this morning. Reports that her left flank and abdominal pain is improved this morning. She is scheduled for the OR for urologic intervention this morning. Objective Physical Examination General Exam: Positive: Alert, Cooperative, No Acute Distress ENT Exam: Positive: Atraumatic, Mucous membr. moist/pink Neck Exam: Negative: JVD Chest Exam: Positive: Clear to auscultation, Normal air movement Heart Exam: Positive: Rate Normal, Normal S1, Normal S2 Abdomen Exam: Positive: Soft, Tenderness (mild tenderness to deep palpation in the left upper quadrant/left flank area. No rebound tenderness, guarding, or rigidity noted.) Extremity Exam: Negative: Tenderness, Swelling Psych Exam: Positive: Oriented x 3 Assessment /Plan Plan/VTE VTE Prophylaxis Ordered?: Yes Plan 7mm calculus in the Distal Ureter Urine Culture pending s/p Rocephin in the ER, will cont Patient afebrile in the ER, and hemodynamically stable IVF Hydration, antiemetics, and analgesic therapy as ordered Urology to take the patient for intervention this morning--we will follow-up History of hypertension Continue meds as ordered Insulin dependent diabetes mellitus We have ordered a reduced dose of basal insulin for the patient given her decreased by mouth intake, and nothing by mouth status in the a.m. Insulin sliding scale for additional coverage History of seizure disorder Continue Keppra History of COPD, stable Continue meds as ordered GERD Continue Protonix Anxiety/depression, stable Continue Lexapro DVT prophylaxis Patient noted to be ambulating in the hallway to the bathroom, continual ambulation encouraged VS, I&O, 24H, Kaia Vital Signs/I&O Vital Signs Date Time Temp Pulse Resp B/P (MAP) Pulse Ox O2 Delivery O2 Flow Rate FiO2 03/13/19 11:15 98.6 70 18 148/69 (95) 94 2 03/12/19 11:44 Room Air I&O- Last 24 Hours up to 6 AM 03/13/19 06:00 Intake Total 670 ml Output Total 500 ml Balance 170 ml Laboratory Data 24H LABS Laboratory Tests 2 03/12/19 12:13: Immature Granulocyte % (Auto) 0.3, White Blood Count 10.3H, Red Blood Count 4.53, Hemoglobin 14.3, Hematocrit 42.0, Mean Corpuscular Volume 92.7, Mean Corpuscular Hemoglobin 31.6, Mean Corpuscular Hemoglobin Concent 34.0, Red Cell Distribution Width 12.0, Platelet Count 264, Neutrophils (%) (Auto) 67.8H, Lymphocytes (%) (Auto) 20.1L, Monocytes (%) (Auto) 8.8H, Eosinophils (%) (Auto) 2.1, Basophils (%) (Auto) 0.9, Neutrophils # (Auto) 7.0, Lymphocytes # (Auto) 2.1, Monocytes # (Auto) 0.9H, Eosinophils # (Auto) 0.2, Basophils # (Auto) 0.1, Nucleated Red Blood Cells % (auto) 0.0, Urine Color YELLOW, Urine Appearance H AZY, Urine pH 5.0, Urine Specific [place] 1.016, Urine Protein 2+H, Urine Glucose (UA) NEGATIVE, Urine Ketones 2+H, Urine Blood 3+H, Urine Nitrite NEGATIVE, Urine Bilirubin NEGATIVE, Urine Urobilinogen 0.2, Urine Leukocyte Esterase 1+H, Urine WBC (Auto) 28H, Urine RBC (Auto) 88H, Urine Hyaline Casts (Auto) 0, Urine Bacteria (Auto) 1+H, Urine Squamous Epithelial Cells 3, Urine Amorphous Sediment SMALLH, Urine Granular Casts (Auto) 1, Urine Mucus (Auto) SMALL, Urine Sperm (Auto) , Anion Gap 12, Glomerular Filtration Rate > 60.0, Calcium Level 9.4, Aspartate Amino Transf (AST/SGOT) 18, Alanine Am inotransferase (ALT/SGPT) 25, Alkaline Phosphatase 68, Total Bilirubin 0.9, Direct Bilirubin 0.2, Total Protein 7.6, Albumin 4.1, Albumin/Globulin Ratio 1.17, Lipase 70L 03/12/19 20:53: Bedside Glucose (Misc Panel) 147H 03/13/19 08:08: Bedside Glucose (Misc Panel) 135H 03/13/19 08:22: Nucleated Red Blood Cells % (auto) 0.0, Anion Gap 5L, Glomerular Filtration Rate > 60.0, Calcium Level 8.6, Blood Urea Nitrogen 14, Creatinine 0.91, Sodium Level 142, Potassium Level 3.6, Chloride Level 108H, Carbon Dioxide Level 29 CBC/BMP Laboratory Tests 03/12/19 12:13 Red Blood Count 4.53, Mean Corpuscular Volume 92.7, Mean Corpuscular Hemoglobin 31.6, Mean Corpuscular Hemoglobin Concent 34.0, Red Cell Distribution Width 12.0, Neutrophils (%) (Auto) 67.8 H, Lymphocytes (%) (Auto) 20.1 L, Monocytes (%) (Auto) 8.8 H, Eosinophils (%) (Auto) 2.1, Basophils (%) (Auto) 0.9, Neutrophils # (Auto) 7.0, Lymphocytes # (Auto) 2.1, Monocytes # (Auto) 0.9 H, Eosinophils # (Auto) 0.2, Basophils # (Auto) 0.1 03/13/19 08:22 Red Blood Count 4.25, Mean Corpuscular Volume 94.6, Mean Corpuscular Hemoglobin 31.1, Mean Corpuscular Hemoglobin Concent 32.8, Red Cell Distribution Width 12.0, Calcium Level 8.6 Microbiology Microbiology 03/12/19 Urine Culture - Final, Complete HERBERT CHAVIRA MD March 13, 2019 12:01
[2019-03-13 12:05] VITALS: BP 181/112
[2019-03-13 12:08] VITALS: BP 181/100
[2019-03-13] MEDS ORDERED: PYRI1TAB5 PO (13:09)
[2019-03-13] MEDS ORDERED: BACT800T5 PO (13:09)
[2019-03-13 13:20] VITALS: BP 180/82
[2019-03-13 14:20] VITALS: BP 183/81
--- NOTE | 2019-03-13 21:07 | ECGEPIP ---
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
--- NOTE | 2019-03-14 08:10 | RO ---
DATE OF PROCEDURE: 03/13/2019 PREOPERATIVE DIAGNOSIS: 7 mm distal left ureteral stone. POSTOPERATIVE DIAGNOSIS: 7 mm distal left ureteral stone PROCEDURE: Cystoscopy, left ureteroscopy, left laser lithotripsy and stone basketing, and left ureteral stent placement. SURGEON: Dr. Cata Stephen BELL SPINNER SOUSAPHONES: ANESTHESIA: General. MEDICATIONS: Rocephin preoperatively. DRAINS: 6-Qatari double-J ureteral stent. SPECIMENS: Stone for analysis. INDICATIONS FOR PROCEDURE: The patient is a 58-year-old female who was seen this past week at the [facility] in [place] with left flank pain found to have a 6 mm mid ureteral stone. She comes into the emergency room last night where she was seen with continued severe left flank pain, nausea, and vomiting. A KUB showed the stone now to be in the distal ureter. It was decided to admit the patient overnight for pain control, antiemetics and hydration and if she did not pass the stone by the morning to then proceed with operative management. All different options, alternatives, risks, and benefits were discussed and informed consent was obtained in both verbal and written form. PROCEDURE: The patient was brought into the operating room. Anesthesia was induced. She was then placed in the lithotomy position and careful attention was paid that her pressure points were well padded and protected. She was prepped and draped in the usual fashion. Next, a 21-Qatari cystoscope was inserted. The urethra was noted to be open without any evidence of lesions or strictures. Upon entering the bladder both ureteral orifices were seen. There is no evidence of stones, erythematous patches, lesions or other significant abnormalities. At this point, I tried to place a 0.035 Guidewire up the left ureteral orifice, but was unable to pass the stone. I was then able to pass a rigid ureteroscope under direct vision until the stone was seen. Using laser lithotripsy the stone was then pulverized into all very small fragments. A stone basket was placed and as many stone fragments as possible were then removed. A wire was then able to be placed up into the left renal collecting system and a 6-Qatari double-J ureteral stent was then placed over this under fluoroscopic guidance until there was an excellent curl seen in the left renal pelvis and in the bladder. The patient's bladder was emptied and she was returned to the recovery room in stable condition. It is recommended to send her home on a daily dose of prophylactic antibiotics while the stent is in place because her urinalysis showed quite a lot of white blood cells even though her urine culture was negative. She will follow-up in our office for a cystoscopy and stent removal and follow-up in the future.
== END 2019-03-13 14:20 | disposition home or self-care (01) ==
LOC: M ED 11:43 → INTOOBSV 15:35 → M ED INP 15:35 → M MS5PR 18:15
PROVIDERS: ADMIT Specialist; ATTEND Specialist
DX: N20.1 Calculus of ureter (principal); I10 Essential (primary) hypertension; J44.9 Chronic obstructive pulmonary disease, unspecified; E11.9 Type 2 diabetes mellitus without complications; K21.9 Gastro-esophageal reflux disease without esophagitis; F41.9 Anxiety disorder, unspecified; F32.9 Major depressive disorder, single episode, unspecified; Z79.4 Long term (current) use of insulin; Z79.899 Other long term (current) drug therapy; Z88.5 Allergy status to narcotic agent; Z88.8 Allergy status to other drugs, medicaments and biological substances
CPT/HCPCS: 36415; 52356; 74018; 74420; 80048; 80076; 81001; 82360; 83690; 85025; 85027; 87086; 88300; 93005; 96374; 96375; 96376; 99285; C2617; J0696; J1100; J2250; J2405; J3010

== ENCOUNTER → 2019-03-14 | Outpatient (REF) | payer OTHER ==
[~2019-03-14] MED LIST changes: +BACT800T5 PO; +BASA100I SC; +DICY1CAP8 PO; +PROP40TA PO; +PYRI1TAB5 PO; +TIZA4TAB4 PO
== END ==
LOC: M LAB REF 16:57
PROVIDERS: ATTEND Internal Medicine Nephrology
DX: N39.0 Urinary tract infection, site not specified (principal)

== ENCOUNTER → 2019-03-18 | Outpatient (CLI) | payer OTHER ==
--- NOTE | 2019-03-18 11:20 | REP ---
REASON: Tobacco abuse. COMPARISON: 09/26/2017 the latest prior. As per the protocol for low dose screening chest CT only lung window images were sent to the read station for interpretation. There is a stable curvilinear density in the lingula. There are no new abnormal nodules, masses, or opacities. There is no gross mediastinal or hilar adenopathy. The imaged upper abdomen shows a left renal calcification of uncertain etiology. This likely represents a nephrolith seen on the previous abdominal and pelvic CT scan of 01/23/2019. No gross abnormality is seen involving the imaged osseous structures. IMPRESSION: Stable lingular fibrotic change. Lung-RADS category 1. Yearly CT screening examination is again recommended as per the Fleischner's Society criteria. Electronically Signed by Ochoa Kuhn DO 03/18/2019 02:41 P
== END ==
LOC: M RAD 10:00
PROVIDERS: ATTEND Family Medicine
DX: Z87.891 Personal history of nicotine dependence (principal)

== ENCOUNTER → 2019-05-16 | Outpatient (REF) | payer OTHER ==
[2019-05-16 10:34] LABS: HEMOGLOBIN A1c 6.3 %
== END ==
LOC: M SFHCPLAZ 08:24
PROVIDERS: ATTEND Family Medicine
DX: E11.9 Type 2 diabetes mellitus without complications (principal)

== ENCOUNTER → 2019-05-17 | Outpatient (CLI) | payer OTHER ==
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
== END ==
LOC: M PAIN 11:15
PROVIDERS: ATTEND Nurse Practitioner Family
DX: M46.1 Sacroiliitis, not elsewhere classified (principal); R56.9 Unspecified convulsions; G43.909 Migraine, unspecified, not intractable, without status migrainosus; E11.22 Type 2 diabetes mellitus with diabetic chronic kidney disease; J44.9 Chronic obstructive pulmonary disease, unspecified; M06.9 Rheumatoid arthritis, unspecified; N18.2 Chronic kidney disease, stage 2 (mild); M79.7 Fibromyalgia; M54.2 Cervicalgia; I12.9 Hypertensive chronic kidney disease with stage 1 through stage 4 chronic kidney disease, or unspecified chronic kidney disease; K44.9 Diaphragmatic hernia without obstruction or gangrene; K64.8 Other hemorrhoids; Z87.891 Personal history of nicotine dependence; Z79.84 Long term (current) use of oral hypoglycemic drugs; Z79.891 Long term (current) use of opiate analgesic; Z79.899 Other long term (current) drug therapy; Z88.6 Allergy status to analgesic agent; Z88.5 Allergy status to narcotic agent; Z88.8 Allergy status to other drugs, medicaments and biological substances; Z91.018 Allergy to other foods; Z91.048 Other nonmedicinal substance allergy status

== ENCOUNTER → 2019-05-20 | Outpatient (REF) | payer OTHER | LOC: M LABNEURO 09:43 | PROVIDERS: ATTEND Physician Assistant Medical | DX: R56.9 Unspecified convulsions (principal) ==

== ENCOUNTER → 2019-08-03 | Outpatient (CLI) | payer OTHER ==
[~2019-08-03] MED LIST changes: -GLIM2TAB PO; +GLIM2TAB4 PO; -OMEP40CA2 PO; +OMEP40CA97 PO; +SENN-53 PO; -SENN1TAB40 PO
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
== END ==
LOC: M PAIN 13:15
PROVIDERS: ATTEND Nurse Practitioner Family
DX: M79.18 Myalgia, other site (principal); G40.909 Epilepsy, unspecified, not intractable, without status epilepticus; G43.909 Migraine, unspecified, not intractable, without status migrainosus; E11.9 Type 2 diabetes mellitus without complications; J44.9 Chronic obstructive pulmonary disease, unspecified; I10 Essential (primary) hypertension; Z87.891 Personal history of nicotine dependence; Z88.5 Allergy status to narcotic agent; Z88.6 Allergy status to analgesic agent; Z88.8 Allergy status to other drugs, medicaments and biological substances; Z91.018 Allergy to other foods; Z91.09 Other allergy status, other than to drugs and biological substances; Z79.4 Long term (current) use of insulin; Z79.891 Long term (current) use of opiate analgesic; Z79.899 Other long term (current) drug therapy

== ENCOUNTER → 2019-09-21 | Outpatient (CLI) | payer OTHER ==
[~2019-09-21] MED LIST changes: +BUPIVACAINE HCL 0.25% 10 ML VIAL As Ordered ONE; +BUPIVACAINE HCL 0.25% 30 ML VIAL As Ordered ONE; +GLIM2TAB2 PO; -GLIM2TAB4 PO; +TRIAMCINOLONE ACETONIDE SUSP 40 MG/ML VIAL (J3301) As Ordered ONE; +diazePAM 5 MG TAB As Ordered ONE; +oxyCODONE 5MG TAB As Ordered ONE
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
== END ==
LOC: M PAIN 10:30
PROVIDERS: ATTEND Anesthesiology
DX: M79.18 Myalgia, other site (principal); G40.909 Epilepsy, unspecified, not intractable, without status epilepticus; G43.909 Migraine, unspecified, not intractable, without status migrainosus; E11.9 Type 2 diabetes mellitus without complications; J44.9 Chronic obstructive pulmonary disease, unspecified; I10 Essential (primary) hypertension; Z87.891 Personal history of nicotine dependence; Z88.5 Allergy status to narcotic agent; Z88.6 Allergy status to analgesic agent; Z88.8 Allergy status to other drugs, medicaments and biological substances; Z91.018 Allergy to other foods; Z91.09 Other allergy status, other than to drugs and biological substances; Z79.4 Long term (current) use of insulin; Z79.891 Long term (current) use of opiate analgesic; Z79.899 Other long term (current) drug therapy
CPT/HCPCS: 20552; J3301

== ENCOUNTER → 2019-09-27 | Outpatient (CLI) | payer OTHER ==
[~2019-09-27] MED LIST changes: -BUPIVACAINE HCL 0.25% 10 ML VIAL As Ordered ONE; -BUPIVACAINE HCL 0.25% 30 ML VIAL As Ordered ONE; -TRIAMCINOLONE ACETONIDE SUSP 40 MG/ML VIAL (J3301) As Ordered ONE; -diazePAM 5 MG TAB As Ordered ONE; -oxyCODONE 5MG TAB As Ordered ONE
--- NOTE | 2019-09-27 15:44 | REPMRS ---
Patient History The patient states she has not had a clinical breast exam in over a year. Family history of pancreatic cancer at age 58 in sister. Reductions of both breasts, 2016. Benign stereotactic core biopsy of the left breast, 2002. No Hormone Replacement Therapy 3D TOMOSYNTHESIS WAS PERFORMED. The [facility] lifetime risk for breast cancer is 7.1%. Digital Woman Screen Mammo: September 27, 2019 - Exam #: [id number] Bilateral CC and MLO view(s) were taken. Technologist: Dara Dickerson, Technologist Prior study comparison: March 09, 2018, digital woman screen mammo performed at [facility]. December 21, 2014, digital woman screen mammo performed at [facility]. FINDINGS: There are scattered fibroglandular densities. There has been no change in the appearance of the mammogram from the prior studies. There is a mild amount of residual fibroglandular tissue which is fairly symmetric. There is no interval development of dominant mass, architectural distortion, or clustered microcalcification suggestive of malignancy. Assessment: BI-RADS/ACR category 1 mammogram. Negative Mammogram. Recommendation Routine screening mammogram in 1 year (for women over age 40). This mammogram was interpreted with the aid of an FDA-approved computer-aided dectection system. Electronically Signed By: Luke Maldonado MD 09/27/19 7038
== END ==
LOC: M WHC 13:57
PROVIDERS: ATTEND Nurse Practitioner Family
DX: Z12.31 Encounter for screening mammogram for malignant neoplasm of breast (principal)

== ENCOUNTER → 2019-10-24 | Outpatient (CLI) | payer OTHER | LOC: M LAB 14:50 | PROVIDERS: ATTEND Physician Assistant Medical | DX: G40.89 Other seizures (principal) ==

== ENCOUNTER → 2019-11-18 | Outpatient (REF) | payer OTHER ==
[~2019-11-18] MED LIST changes: -GLIM2TAB2 PO; +GLIM2TAB4 PO
[2019-11-18 17:54] LABS: ALBUMIN 4.1 GM/DL (3.2-5.2); ALT/SGPT 36 U/L (12-78); BILIRUBIN,TOTAL 0.3 MG/DL (0.2-1.0); BLOOD UREA NITROGEN 13 MG/DL (7-18); CARBON DIOXIDE LEVEL 31 MEQ/L (21-32); CHLORIDE LEVEL 103 MEQ/L (98-107); CHOLESTEROL LEVEL 231 MG/DL (<200); CHOLESTEROL RISK RATIO 5.021 (<5); CREATININE FOR GFR 0.92 MG/DL (0.55-1.30); GLOMERULAR FILTRATION RATE > 60.0 (>51); GLUCOSE, FASTING 108 MG/DL (70-100); HDL CHOLESTEROL 46 MG/DL (>40); LDL CHOLESTEROL 116 MG/DL (<100); NON-HDL-C 185 MG/DL; POTASSIUM SERUM 4.1 MEQ/L (3.5-5.1); SODIUM LEVEL 141 MEQ/L (136-145); TOTAL PROTEIN 7.3 GM/DL (6.4-8.2); TRIGLYCERIDES LEVEL 345 MG/DL (<150)
[2019-11-18 18:05] LABS: HEMOGLOBIN A1c 6.7 %
[2019-11-18 18:14] LABS: TOTAL 25(OH) VITAMIN D 41.1 NG/ML (30.0-100.0)
[2019-11-18 19:17] LABS: MALB URINE SIEMENS 27.7 MG/L; MAU/CREAT RATIO 20.9 MCG/MG (0.0-30.0)
== END ==
LOC: M SFHCPLAZ 15:19
DX: I10 Essential (primary) hypertension (principal); E78.2 Mixed hyperlipidemia; E55.9 Vitamin D deficiency, unspecified; E11.9 Type 2 diabetes mellitus without complications

== ENCOUNTER → 2019-11-22 | Outpatient (CLI) | payer OTHER ==
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
== END ==
LOC: M PAIN 11:30
PROVIDERS: ATTEND Nurse Practitioner Family
DX: M46.1 Sacroiliitis, not elsewhere classified (principal)

== ENCOUNTER → 2019-12-09 | Outpatient (CLI) | payer OTHER ==
--- NOTE | 2019-12-12 09:48 | REP ---
MRI right shoulder without contrast: History: Pain in the right shoulder. Rule out rotator cuff tear. Comparison radiographs are from October 21, 2019. Technique: Axial, oblique coronal and oblique sagittal imaging planes were utilized. T1 and T2-weighted scans were obtained in the usual fashion with and without fat saturation. MRI findings: There is mild hypertrophy at the AC joint with small amount of joint fluid. There is a small to moderate subacromial subdeltoid bursal effusion. Mild inferolateral acromion process spurring is present. The glenohumeral articulation is normally aligned. There is mild subcortical cyst formation superolaterally in the humeral head. The subscapularis, biceps, and infraspinatus tendons appear intact. There is some tendinosis in the supraspinatus tendon mild in degree. No focal supraspinatus cuff lesion is seen. No glenoid labral disruption is seen. No skeletal muscle lesion or abnormal finding is appreciated. Impression: AC joint osteoarthritis. Acromion process spurring. Subacromial subdeltoid bursal effusion and supraspinatus tendonitis tendinosis changes. Electronically Signed by Saad Boogie MD 12/12/2019 11:45 A
== END ==
LOC: M RAD 16:40
PROVIDERS: ATTEND Orthopaedic Surgery Sports Medicine
DX: M19.011 Primary osteoarthritis, right shoulder (principal); M25.711 Osteophyte, right shoulder; M75.51 Bursitis of right shoulder; M75.81 Other shoulder lesions, right shoulder

== ENCOUNTER → 2019-12-20 | Outpatient (CLI) | payer OTHER ==
[~2019-12-20] MED LIST changes: +BUPIVACAINE HCL 0.25% 30 ML VIAL As Ordered ONE; +ISOVUE-M 300 61% 15ML VIAL (Q9967) As Ordered ONE; +LIDOCAINE 1% SDV INJ 30 ML VIAL As Ordered ONE; +ONDANSETRON 4MG/2ML VIAL (J2405) As Ordered ONE; +TRIAMCINOLONE ACETONIDE SUSP 40 MG/ML VIAL (J3301) As Ordered ONE; +diazePAM 5 MG TAB As Ordered ONE; +oxyCODONE 5MG TAB As Ordered ONE
--- NOTE | 2019-12-20 17:44 | REP ---
SI joint series: Six views. History: Injection procedure for pain. 33 seconds of fluoroscopy time is reported. Findings: A sequence of six last image hold fluoroscopically obtained spot radiographs of the SI joints document various needle positions and contrast injections associated with injection procedure. Electronically Signed by Saad Boogie MD 12/20/2019 05:35 P
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
== END ==
LOC: M PAIN 13:45
PROVIDERS: ATTEND Anesthesiology
DX: M46.1 Sacroiliitis, not elsewhere classified (principal); G40.909 Epilepsy, unspecified, not intractable, without status epilepticus; G43.909 Migraine, unspecified, not intractable, without status migrainosus; E11.9 Type 2 diabetes mellitus without complications; J44.9 Chronic obstructive pulmonary disease, unspecified; I10 Essential (primary) hypertension; M79.7 Fibromyalgia; Z87.891 Personal history of nicotine dependence; Z88.5 Allergy status to narcotic agent; Z88.6 Allergy status to analgesic agent; Z91.018 Allergy to other foods; Z79.51 Long term (current) use of inhaled steroids; Z79.4 Long term (current) use of insulin; Z79.899 Other long term (current) drug therapy
CPT/HCPCS: 27096; J2405; J3301; Q9967

== ENCOUNTER → 2020-01-03 | Outpatient (CLI) | payer OTHER ==
[~2020-01-03] MED LIST changes: -BUPIVACAINE HCL 0.25% 30 ML VIAL As Ordered ONE; -ISOVUE-M 300 61% 15ML VIAL (Q9967) As Ordered ONE; -LIDOCAINE 1% SDV INJ 30 ML VIAL As Ordered ONE; -ONDANSETRON 4MG/2ML VIAL (J2405) As Ordered ONE; -TRIAMCINOLONE ACETONIDE SUSP 40 MG/ML VIAL (J3301) As Ordered ONE; +VITA50005 PO; -diazePAM 5 MG TAB As Ordered ONE; -oxyCODONE 5MG TAB As Ordered ONE
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
== END ==
LOC: M PAIN 13:00
PROVIDERS: ATTEND Nurse Practitioner Family
DX: M46.1 Sacroiliitis, not elsewhere classified (principal)

== ENCOUNTER → 2020-01-09 | Outpatient (CLI) | payer OTHER ==
[2020-01-09 11:27] LABS: HEMATOCRIT 42.9 % (36.0-47.0); HEMOGLOBIN 14.3 g/dl (12.0-15.5); MEAN CORPUSCULAR HGB CONC 33.3 g/dl (32.0-36.5); MEAN CORPUSCULAR VOLUME 92.9 fl (80.0-96.0); PLATELET COUNT, AUTOMATED 214 10^3/uL (150-450); RED BLOOD COUNT 4.62 10^6/uL (4.00-5.40); WHITE BLOOD COUNT 8.3 10^3/uL (4.0-10.0)
[2020-01-09 11:36] LABS: INR 1.04; PARTIAL THROMBOPLASTIN TIME 26.8 SECONDS (25.0-38.4); PROTHROMBIN TIME 13.3 SECONDS (11.8-14.0)
--- NOTE | 2020-01-09 11:58 | REP ---
CHEST, TWO VIEWS: Two views of the chest are performed and compared to a prior study of 01/04/2019. There is no acute infiltrate. There is mild linear scarring in the lingula. The heart is normal in size. Mediastinal silhouette is unremarkable and unchanged. Plate and screws are seen in the lower cervical spine. There are mild degenerative changes of the spine. IMPRESSION: No acute pulmonary disease. Electronically Signed by Luke Maldonado MD 01/09/2020 01:36 P
[2020-01-09 12:54] LABS: ALBUMIN 3.7 GM/DL (3.2-5.2); ALT/SGPT 38 U/L (12-78); BILIRUBIN,TOTAL 0.4 MG/DL (0.2-1.0); BLOOD UREA NITROGEN 18 MG/DL (7-18); CALCIUM LEVEL 9.2 MG/DL (8.5-10.1); CARBON DIOXIDE LEVEL 29 MEQ/L (21-32); CHLORIDE LEVEL 110 MEQ/L (98-107); CREATININE FOR GFR 0.78 MG/DL (0.55-1.30); GLOMERULAR FILTRATION RATE > 60.0 (>51); GLUCOSE, FASTING 112 MG/DL (70-100); POTASSIUM SERUM 3.9 MEQ/L (3.5-5.1); SODIUM LEVEL 144 MEQ/L (136-145); TOTAL PROTEIN 6.6 GM/DL (6.4-8.2)
--- NOTE | 2020-01-09 21:36 | ECGEPIP ---
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
== END ==
LOC: M LAB 10:45
PROVIDERS: ATTEND Orthopaedic Surgery Sports Medicine
DX: Z01.818 Encounter for other preprocedural examination (principal)

== ENCOUNTER 2020-01-17 05:37 | Day surgery (SDC) | payer OTHER ==
[~2020-01-17] VITALS: Ht 160 cm; Wt 76.2 kg
[2020-01-17] MEDS ORDERED: dexameTHASONE 10 MG/1 ML VIAL PRES.FREE (J1100) ONE (05:38)
[2020-01-17] MEDS ORDERED: ROPIvacaine 0.5% 30 ML INJECTION (J2795 PER 1MG) ONE (05:38)
[2020-01-17] MEDS ORDERED: fentaNYL 100 MCG/2 ML INJECTION (J3010) As Ordered ONE (06:35)
[2020-01-17] MEDS ORDERED: MIDAZOLAM INJ 2 MG/2 ML VIAL (J2250) As Ordered ONE ×2 (06:35→07:02)
[2020-01-17] MEDS ORDERED: AMLO5TAB6 PO (06:38)
[2020-01-17] MEDS ORDERED: PROP40TA62 PO (06:38)
[2020-01-17] MEDS ORDERED: LR 1,000 ML IV ONE (07:00)
[2020-01-17] MEDS ORDERED: ceFAZolin SOD 2 GM in IV 1 EA IV ONE (07:00)
[2020-01-17] MEDS ORDERED: ROCURONIUM BROMIDE 50 MG/5 ML VIAL As Ordered ONE (07:01)
[2020-01-17] MEDS ORDERED: fentaNYL 250 MCG/5 ML INJECTION (J3010) As Ordered ONE (07:01)
[2020-01-17] MEDS ORDERED: LIDOCAINE 2% INJ 100 MG/5 ML SDV (FOR ANES.) As Ordered ONE (07:01)
[2020-01-17] MEDS ORDERED: propofoL 200 MG/20 ML VIAL As Ordered ONE (07:01)
[2020-01-17] MEDS ORDERED: LIDOCAINE 1% MDV 20ML VIAL As Ordered ONE (07:12)
[2020-01-17] MEDS ORDERED: EPINEPHrine 1MG/ML INJ 30ML MD-VIAL As Ordered ONE (07:12)
[2020-01-17] MEDS: fentaNYL 100 MCG/2 ML INJECTION (J3010) IV SCH ×2 (07:12→07:28)
[2020-01-17] MEDS: MIDAZOLAM INJ 2 MG/2 ML VIAL (J2250) IV SCH ×2 (07:12→07:28)
[2020-01-17] MEDS ORDERED: LABETALOL HCL 100 MG/20 ML VIAL As Ordered ONE ×2 (07:43→09:16)
[2020-01-17] MEDS ORDERED: dexameTHASONE 4 MG/ML 1ML VIAL (J1100) As Ordered ONE (08:01)
[2020-01-17] MEDS ORDERED: ONDANSETRON 4MG/2ML VIAL (J2405) As Ordered ONE (08:32)
[2020-01-17] MEDS ORDERED: METOCLOPRAMIDE INJ 10MG/2ML VIAL (J2765) As Ordered ONE (08:32)
[2020-01-17] MEDS ORDERED: SUGAMMADEX SODIUM 500 MG/5 ML VIAL (BRIDION) As Ordered ONE (08:57)
[2020-01-17] MEDS: LABETALOL HCL 100 MG/20 ML VIAL IV PRN ×5 (09:18→09:46)
[2020-01-17] MEDS ORDERED: PERCOCET 5MG/325MG TAB PO PRN (09:30)
[2020-01-17] MEDS ORDERED: hydrALAZINE INJ 20 MG/ML VIAL IV PRN (09:30)
[2020-01-17] MEDS ORDERED: fentaNYL 100 MCG/2 ML INJECTION (J3010) IV PRN (09:30)
[2020-01-17] MEDS ORDERED: ONDANSETRON 4MG/2ML VIAL (J2405) IV PRN (09:30)
[2020-01-17] MEDS ORDERED: LR 1,000 ML IV SCH (09:30)
[2020-01-17] MEDS ORDERED: hydrALAZINE INJ 20 MG/ML VIAL As Ordered ONE (09:49)
[2020-01-17 09:53] VITALS: BP 187/83
[2020-01-17] MEDS ORDERED: PERCOCET 5MG/325MG TAB As Ordered ONE (11:08)
[2020-01-17 11:45] VITALS: BP 186/85
--- NOTE | 2020-01-17 13:38 | RO ---
DATE OF SURGERY: 01/17/2020 PREOPERATIVE DIAGNOSIS: Right shoulder impingement and acromioclavicular (AC) joint arthrosis. POSTOPERATIVE DIAGNOSIS: Right shoulder impingement and acromioclavicular (AC) joint arthrosis. SURGERY PLANNED: Right shoulder arthroscopy, subacromial decompression, distal clavicle excision. PROCEDURE PERFORMED: Right shoulder arthroscopy, subacromial decompression, distal clavicle excision. 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 Gregorio WATCHER [employer] GOODS: mAy Connors PA-C TYPE OF ANESTHETIC: General anesthetic plus preoperative block. OPERATIVE PREAMBLE: This 59-year-old female had signs and symptoms consistent with right shoulder impingement syndrome as well as pain at the AC joint. We talked about the pros, cons, risks, benefits of continued nonsurgical management versus arthroscopy, subacromial decompression with distal clavicle excision. She wished to go ahead. I reiterated the risks in preop holding, marked the right upper extremity. The patient had a preoperative block. We proceeded to surgery. OPERATIVE REPORT: The patient brought to operating theater. They administered 2 grams IV Ancef. Then placed right lateral decubitus with the aid of a beanbag positioner. Axillary roll was placed and all bony prominences were padded. Sequential compression devices (SCD) were used. General anesthesia was induced. The limb was prepped and draped in the usual sterile fashion with 15 pounds of traction at approximately 45 degrees abduction. Preoperative time out was performed confirming the site of the patient's surgery. Began by making a standard posterior arthroscopy portal. Intra-articularly, the central joint was examined. She had mild upper fraying in the central aspect of the glenoid. A standard inside-out anterior portal was then made with spinal needle localization through the rotator interval and just posterior to the biceps tendon. Shaver was brought in, and then gently debrided the cartilage flap away from the glenoid side. Intraoperative arthroscopy pictures were taken. Biceps tendon was stable and solid to probing. She did have what appeared be a Eriberto complex with sublabral foramen and a cord-like MGHL. The rest of the labrum appeared normal. Biceps was normal. No biceps fraying or synovitis. There was some mild synovitis in the rotator interval that was gently debrided away. Subscapularis tendon appeared normal. Undersurface of the rotator cuff was normal. Axillary pouch was normal without loose body. Scope was withdrawn and placed in the subacromial space. Lateral portal was then created. A thorough bursectomy was performed for a moderate amount of inflamed bursitis. Anterolateral subacromial decompression was then performed to flat anterolateral acromion creating more space for the rotator cuff tendons. Rotator cuff was probed. No obvious tears. Scope was inserted laterally. The entire extent of the rotator cuff was then examined. Again, no obvious partial or full-thickness tears or fraying. I then turned my attention to the AC joint. A distal clavicle excision was then performed using malcom, burs and electrocautery. I excised 1.1 cm of the distal clavicle. I then drilled the scope in anteriorly, right into the AC joint, confirming complete debridement. The subacromial space was then thoroughly irrigated. Scope withdrawn. Portal sites closed with interrupted #3-0 Monocryl sutures. Steri-Strips applied followed by Adaptic 4 x 8 gauze and ABD dressing. The patient's arm was taken out of the traction setup and placed into a sling. The patient was awakened from general anesthetic, transferred off the operating room table, and taken to the postanesthetic care unit in stable condition. All sponge, needle, and instrument counts were correct. No complications. Estimated blood loss 50 mL. PLAN: The patient is to be gentle range of motion as tolerated, in the sling for 1-2 weeks for comfort. Start immediate elbow, hand and wrist exercises. Prescription sent to the pharmacy of choice. They will be discharged home hopefully according to day surgery criteria. Followup in the office in 2 weeks time.
== END 2020-01-17 12:00 | disposition home or self-care (01) ==
LOC: M SDC 05:37
PROVIDERS: ATTEND Orthopaedic Surgery Sports Medicine
DX: M75.41 Impingement syndrome of right shoulder (principal); M19.011 Primary osteoarthritis, right shoulder; I10 Essential (primary) hypertension; E78.5 Hyperlipidemia, unspecified; E11.9 Type 2 diabetes mellitus without complications; K21.9 Gastro-esophageal reflux disease without esophagitis; K44.9 Diaphragmatic hernia without obstruction or gangrene; M79.7 Fibromyalgia; F41.9 Anxiety disorder, unspecified; F32.9 Major depressive disorder, single episode, unspecified; J44.9 Chronic obstructive pulmonary disease, unspecified; Z79.4 Long term (current) use of insulin; Z79.899 Other long term (current) drug therapy; Z79.51 Long term (current) use of inhaled steroids; Z87.891 Personal history of nicotine dependence; Z88.5 Allergy status to narcotic agent; Z88.8 Allergy status to other drugs, medicaments and biological substances; Z91.018 Allergy to other foods
CPT/HCPCS: 29824; 29826; 64415; J0690; J1100; J2250; J2405; J2765; J2795; J3010

== ENCOUNTER 2020-02-19 00:32 | Emergency (ER) | payer OTHER ==
[~2020-02-19] VITALS: Ht 160 cm; Wt 79.5 kg
[~2020-02-19 00:32] MED LIST changes: +AMLO5TAB6 PO; +CYCL-707 PO; -CYCL10TA PO; +PROP40TA62 PO
--- NOTE | 2020-02-19 01:12 | REPVR ---
PROCEDURE INFORMATION: Exam: CT Cervical Spine Without Contrast Exam date and time: 02/19/2020 12:52 AM Age: 59 years old Clinical indication: Injury or trauma; Fall; Initial encounter; Blunt trauma TECHNIQUE: Imaging protocol: Computed tomography images of the cervical spine without contrast. Radiation optimization: All CT scans at this facility use at least one of these dose optimization techniques: automated exposure control; mA and/or kV adjustment per patient size (includes targeted exams where dose is matched to clinical indication); or iterative reconstruction. COMPARISON: No relevant prior studies available. FINDINGS: Limitations: Examination is limited by body habitus. Examination is limited by motion artifact. Vertebrae: No acute fracture. Diffuse facet arthropathy. C2-C3: No disc herniation. No spinal canal stenosis. No neural foraminal narrowing. C3-C4: Mild spinal stenosis. No right neural foraminal narrowing. No left neural foraminal narrowing. C4-C5: Status post anterior discectomy and fusion at C4-C5. No spinal stenosis. C5-C6: Limited evaluation of the spinal canal. C6-C7: Limited evaluation of the spinal canal. C7-T1: Limited evaluation of the spinal canal. Soft tissues: Unremarkable. Lungs: Lung apices are normal. IMPRESSION: 1. Limited evaluation. 2. No acute fracture. 3. Status post anterior discectomy and fusion at C4-C5. 4. Disc protrusion at C3-C4 with mild spinal stenosis. Electronically signed by: Sofia Pepper On 02/19/2020 01:12:10 AM
--- NOTE | 2020-02-19 01:14 | REPVR ---
PROCEDURE INFORMATION: Exam: CT Head Without Contrast Exam date and time: 02/19/2020 12:52 AM Age: 59 years old Clinical indication: Injury or trauma; Fall; Initial encounter; Blunt trauma (contusions or hematomas) TECHNIQUE: Imaging protocol: Computed tomography of the head without contrast. Radiation optimization: All CT scans at this facility use at least one of these dose optimization techniques: automated exposure control; mA and/or kV adjustment per patient size (includes targeted exams where dose is matched to clinical indication); or iterative reconstruction. 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 Chronic mild infarct in the right deep white matter. No acute mass effect. No acute intracranial hemorrhage. Cortical childers-white matter differentiation is preserved. Ventricles: Normal. No ventriculomegaly. Bones/joints: Unremarkable. No acute fracture. Sinuses: Visualized sinuses are unremarkable. No fluid levels. Mastoid air cells: Visualized mastoid air cells are well aerated. Soft tissues: Unremarkable. IMPRESSION: 1. No acute intracranial hemorrhage. 2. 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 Chronic mild infarct in the right deep white matter. Findings are new from prior. Electronically signed by: Sofia Pepper On 02/19/2020 01:13:43 AM
[2020-02-19] MEDS ORDERED: cloNIDine 0.1 MG TAB PO ONE (01:30)
[2020-02-19] MEDS ORDERED: ACETAMINOPHEN 500 MG TAB PO ONE (01:30)
[2020-02-19] MEDS ORDERED: ONDANSETRON 4MG/2ML VIAL (J2405) IV ONE (02:45)
[2020-02-19] MEDS ORDERED: NS 500 ML IV ONE (02:45)
[2020-02-19 03:05] LABS: BASO # 0.1 10^3/uL (0.0-0.2); BASO % 0.9 % (0.0-1.0); EOS # 0.1 10^3/uL (0.0-0.5); EOS % 1.1 % (0.0-3.0); HEMATOCRIT 43.5 % (36.0-47.0); HEMOGLOBIN 14.6 g/dl (12.0-15.5); LYMPH # 2.5 10^3/uL (1.5-5.0); LYMPH % 21.5 % (24.0-44.0); MEAN CORPUSCULAR HEMOGLOBIN 30.9 pg (27.0-33.0); MEAN CORPUSCULAR HGB CONC 33.6 g/dl (32.0-36.5); MEAN CORPUSCULAR VOLUME 92.2 fl (80.0-96.0); MONO # 0.7 10^3/uL (0.0-0.8); NEUTROPHILS % 70.1 % (36.0-66.0); PLATELET COUNT, AUTOMATED 237 10^3/uL (150-450); RED BLOOD COUNT 4.72 10^6/uL (4.00-5.40); WHITE BLOOD COUNT 11.4 10^3/uL (4.0-10.0)
[2020-02-19 03:35] LABS: CK-MB VALUE MASS 1.1 NG/ML (<3.6); CPK CREATINE PHOSPHOKINASE 42 U/L (26-192); MB/CK RELATIVE INDEX 2.62 (< OR =4); TROPONIN I < 0.02 NG/ML (< 0.10)
--- NOTE | 2020-02-19 03:40 | REPVR ---
PROCEDURE INFORMATION: Exam: CT Right Lower Extremity Without Contrast, Hip Exam date and time: 02/19/2020 3:14 AM Age: 59 years old Clinical indication: Pain and injury or trauma; Fall; Initial encounter; Blunt trauma; Hip; Right; Additional info: Tr pain TECHNIQUE: Imaging protocol: CT of the Right lower extremity without contrast was performed. Exam focused on the hip. Radiation optimization: All CT scans at this facility use at least one of these dose optimization techniques: automated exposure control; mA and/or kV adjustment per patient size (includes targeted exams where dose is matched to clinical indication); or iterative reconstruction. COMPARISON: No relevant prior studies available. FINDINGS: Bones/joints: No acute fracture. Moderate osteoarthritic changes of the right hip with marginal osteophytes. No dislocation. Soft tissues: Normal. Vasculature: Multiple phleboliths in the pelvis. IMPRESSION: 1. No acute fracture. 2. Moderate osteoarthritic changes of the right hip with marginal osteophytes. Electronically signed by: Sofia Pepper On 02/19/2020 03:39:28 AM
[2020-02-19 04:32] VITALS: BP 147/77
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
--- NOTE | 2020-02-19 09:16 | ED PDOC ---
Post-Departure Follow-Up dr rivera faxed formal report of ct anai for fu Blaise Castro MD Feb 19, 2020 09:16
== END 2020-02-19 04:59 | disposition home or self-care (01) ==
LOC: M ED 00:32
DX: S09.90XA Unspecified injury of head, initial encounter (principal); S79.911A Unspecified injury of right hip, initial encounter; W01.0XXA Fall on same level from slipping, tripping and stumbling without subsequent striking against object, initial encounter; Y92.019 Unspecified place in single-family (private) house as the place of occurrence of the external cause; M50.21 Other cervical disc displacement, high cervical region; M48.02 Spinal stenosis, cervical region; I67.82 Cerebral ischemia; M25.751 Osteophyte, right hip; J44.9 Chronic obstructive pulmonary disease, unspecified; K21.9 Gastro-esophageal reflux disease without esophagitis; G43.909 Migraine, unspecified, not intractable, without status migrainosus; G89.29 Other chronic pain; M54.2 Cervicalgia; M79.7 Fibromyalgia; R56.9 Unspecified convulsions; Z87.891 Personal history of nicotine dependence; Z88.8 Allergy status to other drugs, medicaments and biological substances; Z91.018 Allergy to other foods; Z79.51 Long term (current) use of inhaled steroids; Z79.899 Other long term (current) drug therapy
CPT/HCPCS: 70450; 72125; 73502; 73700; 82550; 82553; 85025; 99285; J2405

== ENCOUNTER → 2020-02-24 | Outpatient (REF) | payer OTHER ==
[2020-02-24 14:13] LABS: HEMOGLOBIN A1c 6.5 %
== END ==
LOC: M SFHCPLAZ 09:59
PROVIDERS: ATTEND Family Medicine
DX: E11.21 Type 2 diabetes mellitus with diabetic nephropathy (principal); M50.20 Other cervical disc displacement, unspecified cervical region; Z79.891 Long term (current) use of opiate analgesic

== ENCOUNTER → 2020-03-19 | Outpatient (CLI) | payer OTHER ==
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
== END ==
LOC: M TMPAIN 10:00 → M PAIN 10:00
PROVIDERS: ATTEND Nurse Practitioner Family
DX: M54.5 Low back pain (principal); E11.9 Type 2 diabetes mellitus without complications; Z79.891 Long term (current) use of opiate analgesic; Z79.899 Other long term (current) drug therapy; Z87.891 Personal history of nicotine dependence; Z88.5 Allergy status to narcotic agent; Z88.8 Allergy status to other drugs, medicaments and biological substances; Z91.048 Other nonmedicinal substance allergy status; Z91.018 Allergy to other foods

== ENCOUNTER → 2020-03-23 | Outpatient (REF) | payer OTHER ==
[2020-03-23 13:31] LABS: BLOOD UREA NITROGEN 24 MG/DL (7-18); CALCIUM LEVEL 9.5 MG/DL (8.5-10.1); CARBON DIOXIDE LEVEL 28 MEQ/L (21-32); CHLORIDE LEVEL 107 MEQ/L (98-107); CREATININE FOR GFR 0.76 MG/DL (0.55-1.30); GLOMERULAR FILTRATION RATE > 60.0 (>51); GLUCOSE, FASTING 104 MG/DL (70-100); POTASSIUM SERUM 3.8 MEQ/L (3.5-5.1); SODIUM LEVEL 142 MEQ/L (136-145)
== END ==
LOC: M SFHCPLAZ 10:01
PROVIDERS: ATTEND Family Medicine
DX: I10 Essential (primary) hypertension (principal)

== ENCOUNTER → 2020-05-01 | Outpatient (CLI) | payer OTHER ==
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
== END ==
LOC: M PAIN 10:30
PROVIDERS: ATTEND Nurse Practitioner Family
DX: M54.16 Radiculopathy, lumbar region (principal)

== ENCOUNTER → 2020-06-08 | Outpatient (CLI) | payer OTHER ==
[~2020-06-08] MED LIST changes: +AMLO1TAB24 PO; -AMLO5TAB6 PO; +PANT40TA29 PO; -PANT40TA3 PO; +PROHANCE 279.3MG/ML 15ML VIAL As Ordered ONE
== END ==
LOC: M RAD 10:43
PROVIDERS: ATTEND Nurse Practitioner Family
DX: M54.5 Low back pain (principal)
CPT/HCPCS: 72158; A9576

== ENCOUNTER → 2020-06-18 | Outpatient (POV) | payer OTHER ==
[~2020-06-18] MED LIST changes: -PROHANCE 279.3MG/ML 15ML VIAL As Ordered ONE
== END ==
LOC: M PAIN 09:00
PROVIDERS: ATTEND Nurse Practitioner Family
DX: M46.1 Sacroiliitis, not elsewhere classified (principal)

== ENCOUNTER → 2020-06-28 | Outpatient (POV) | payer OTHER ==
[~2020-06-28] MED LIST changes: +BUPIVACAINE HCL 0.25% 30ML VIAL As Ordered ONE; +ISOVUE-M 300 61% 15ML VIAL As Ordered ONE; +LIDOCAINE 1% SDV 30ML VIAL As Ordered ONE; +TRIAMCINOLONE ACETONIDE SUSP 40 MG/ML VIAL (J3301) As Ordered ONE; +diazePAM 5 MG TAB As Ordered ONE; +oxyCODONE 5MG TAB As Ordered ONE
--- NOTE | 2020-08-02 09:29 | REP ---
SI JOINT SERIES: 2-VIEWS HISTORY: Injection procedure for pain. 43 seconds of fluoroscopy time is recorded. FINDINGS: A sequence of 2 last image hold fluoroscopically obtained spot radiographs of the SI joints document needle position and contrast injection associated with bilateral SI joint injection procedure. MTDD
== END ==
LOC: M PAIN 14:00
PROVIDERS: ATTEND Anesthesiology
DX: M46.1 Sacroiliitis, not elsewhere classified (principal)

== ENCOUNTER → 2020-07-27 | Outpatient (CLI) | payer OTHER ==
[~2020-07-27] MED LIST changes: -BUPIVACAINE HCL 0.25% 30ML VIAL As Ordered ONE; -ISOVUE-M 300 61% 15ML VIAL As Ordered ONE; -LIDOCAINE 1% SDV 30ML VIAL As Ordered ONE; -TRIAMCINOLONE ACETONIDE SUSP 40 MG/ML VIAL (J3301) As Ordered ONE; -diazePAM 5 MG TAB As Ordered ONE; -oxyCODONE 5MG TAB As Ordered ONE
== END ==
LOC: M PAIN 13:31
PROVIDERS: ATTEND Nurse Practitioner Family
DX: M46.1 Sacroiliitis, not elsewhere classified (principal); Z79.891 Long term (current) use of opiate analgesic

== ENCOUNTER → 2020-08-09 | Outpatient (CLI) | payer OTHER | LOC: M LABSMTC 09:52 | PROVIDERS: ATTEND Anesthesiology | DX: Z20.828 Contact with and (suspected) exposure to other viral communicable diseases (principal) | CPT/HCPCS: C9803; U0003 ==

== ENCOUNTER → 2020-08-14 | Outpatient (CLI) | payer OTHER ==
[~2020-08-14] MED LIST changes: +BUPIVACAINE HCL 0.25% 30ML VIAL As Ordered ONE; +ISOVUE-M 300 61% 15ML VIAL As Ordered ONE; +LIDOCAINE 1% SDV 30ML VIAL As Ordered ONE; +TRIAMCINOLONE ACETONIDE SUSP 40 MG/ML VIAL (J3301) As Ordered ONE; +diazePAM 5 MG TAB As Ordered ONE; +oxyCODONE 5MG TAB As Ordered ONE
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
--- NOTE | 2020-08-20 12:50 | REP ---
C-ARM VIEWS LOWER LUMBAR SPINE CLINIC HISTORY: Pain. TECHNIQUE: Four views of the lower lumbar spine are performed during bilateral sacroiliac joint injections performed by Dr. Wright. FINDINGS: The needle is seen overlying the sacroiliac joint bilaterally. FLUROSCOPY TIME: 36 seconds utilized. MTDD
== END ==
LOC: M PAIN 13:30
PROVIDERS: ATTEND Anesthesiology
DX: M46.1 Sacroiliitis, not elsewhere classified (principal); M53.3 Sacrococcygeal disorders, not elsewhere classified; G89.29 Other chronic pain; N18.30 Chronic kidney disease, stage 3 unspecified; E11.22 Type 2 diabetes mellitus with diabetic chronic kidney disease; M06.9 Rheumatoid arthritis, unspecified; R56.9 Unspecified convulsions; Z87.891 Personal history of nicotine dependence; Z88.6 Allergy status to analgesic agent; Z88.5 Allergy status to narcotic agent; Z88.8 Allergy status to other drugs, medicaments and biological substances; Z91.048 Other nonmedicinal substance allergy status; Z79.84 Long term (current) use of oral hypoglycemic drugs; Z79.899 Other long term (current) drug therapy
CPT/HCPCS: 27096; J3301; Q9967

== ENCOUNTER → 2020-09-04 | Outpatient (CLI) | payer OTHER ==
[~2020-09-04] MED LIST changes: -BUPIVACAINE HCL 0.25% 30ML VIAL As Ordered ONE; -ISOVUE-M 300 61% 15ML VIAL As Ordered ONE; -LIDOCAINE 1% SDV 30ML VIAL As Ordered ONE; -TRIAMCINOLONE ACETONIDE SUSP 40 MG/ML VIAL (J3301) As Ordered ONE; -diazePAM 5 MG TAB As Ordered ONE; -oxyCODONE 5MG TAB As Ordered ONE
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
== END ==
LOC: M PAIN 11:30
PROVIDERS: ATTEND Nurse Practitioner Family
DX: G89.29 Other chronic pain (principal); M46.1 Sacroiliitis, not elsewhere classified; E11.22 Type 2 diabetes mellitus with diabetic chronic kidney disease; M06.9 Rheumatoid arthritis, unspecified; I12.9 Hypertensive chronic kidney disease with stage 1 through stage 4 chronic kidney disease, or unspecified chronic kidney disease; N18.2 Chronic kidney disease, stage 2 (mild); G43.909 Migraine, unspecified, not intractable, without status migrainosus; J44.9 Chronic obstructive pulmonary disease, unspecified; M79.7 Fibromyalgia; K44.9 Diaphragmatic hernia without obstruction or gangrene; Z79.891 Long term (current) use of opiate analgesic; Z79.84 Long term (current) use of oral hypoglycemic drugs; Z79.899 Other long term (current) drug therapy; Z87.891 Personal history of nicotine dependence; Z88.6 Allergy status to analgesic agent; Z88.5 Allergy status to narcotic agent; Z88.8 Allergy status to other drugs, medicaments and biological substances; Z91.048 Other nonmedicinal substance allergy status

== ENCOUNTER → 2020-09-28 | Outpatient (CLI) | payer OTHER ==
--- NOTE | 2020-09-28 16:07 | REPMRS ---
Patient History The patient states she had a clinical breast exam in 2019. Family history of pancreatic cancer at age 58 in sister. Reductions of both breasts, 2016. Benign stereotactic core biopsy of the left breast, 2002. No Hormone Replacement Therapy 3D TOMOSYNTHESIS WAS PERFORMED. [facility] 6.[facility] %. Volpara breast density b. Digital Woman Screen Mammo: September 28, 2020 - Exam #: [id number] Bilateral CC and MLO view(s) were taken. Technologist: Mehreen Hernandez, Technologist Prior study comparison: September 27, 2019, bilateral digital woman screen mammo performed at [facility]. March 09, 2018, digital woman screen mammo performed at [facility]. FINDINGS: There are scattered fibroglandular densities. There has been no change in the appearance of the mammogram from the prior studies. There is a mild amount of residual fibroglandular tissue which is fairly symmetric. There is no interval development of dominant mass, architectural distortion, or clustered microcalcification suggestive of malignancy. Assessment: BI-RADS/ACR category 1 mammogram. Negative Mammogram. Recommendation Routine screening mammogram in 1 year (for women over age 40). This mammogram was interpreted with the aid of an FDA-approved computer-aided dectection system. Electronically Signed By: Luke Maldonado MD 09/28/20 [id number]
== END ==
LOC: M WHC 13:31
PROVIDERS: ATTEND Nurse Practitioner Family
DX: Z12.31 Encounter for screening mammogram for malignant neoplasm of breast (principal); Z80.0 Family history of malignant neoplasm of digestive organs

== ENCOUNTER → 2020-12-07 | Outpatient (CLI) | payer OTHER ==
[~2020-12-07] MED LIST changes: -ESCI20TA; +ESCI20TA16
--- NOTE | 2020-12-12 00:35 | ECWPNPC ---
PATIENT NAME: NICOLE BERNABE : 1960 GENDER: FEMALE VISIT DATE: 12/07/2020 DISCHARGE DATE: 12/07/20 1512 VISIT LOCKED DATE TIME: PHYSICIAN: KIMBERLEE FALCON RESOURCE: KIMBERLEE FALCON REASON FOR APPOINTMENT 1. MED MANAGEMENT/UTOX HISTORY OF PRESENT ILLNESS GENERAL: HERE FOR FOLLOW-UP POSTPROCEDURE. HAD CAUDAL EPIDURAL STEROID INJECTION. REPORTING NO SIGNIFICANT IMPROVEMENT POST PROCEDURE. CHIEF AREA OF PAIN IS LOW BACK. REVIEWED MRI OF THE LS-SPINE. DISCUSSED TREATMENT PLAN. -. FALL RISK SCREENING: SCREENING :NO FALLS REPORTED IN THE LAST YEAR PAIN SCREENING: PATIENT HAS A COMPLAINT OF ACUTE OR CHRONIC PAIN :YES LOCATION OF PAIN:LOW BACK INTENSITY OF PAIN (SCALE OF 1 TO 10):7 WHAT DOES YOUR PAIN FEEL LIKE:CONTINOUS, STABBING, THROBBING DURATION:CONTINOUS, CONSTANT, STEADY, AWAKENS FROM SLEEP PAIN IS INCREASED BY:ACTIVITIES, PROLONGED STANDING PAIN IS DECREASED BY:USE OF PAIN MEDICATIONS, OTHERS SOAKING IN HOT TUB. NURSING NOTE: -. PAIN CENTER INTAKE QUESTIONS: DO YOU HAVE A HISTORY OF MRSA? :NO DO YOU TAKE A BLOOD THINNERS? :NO DO YOU HAVE ANY BLEEDING DISORDERS? :YES VON WILLEBRAND DISEASE ANY NEW NUMBNESS OR WEAKNESS IN YOUR LEGS OR ARMS? :YES NEW NUMBNESS IN BILATERAL ARMS AND HIPS ANY PACEMAKER,DEFIBRILLATOR, OR DORSAL COLUMN STIMULATOR? :NO DO YOU HAVE ANY RASHES OR OPEN SORES? :NO ARE YOU ALLERGIC TO IV DYE? :NO ARE YOU DIABETIC? :YES ANY NEW PROBLEMS WITH YOUR MEDICATIONS? :NO HAVE YOU RECEIVED A VACCINE IN THE PAST 30 DAYS? :NO DO YOU PLAN TO RECEIVE A VACCINE IN THE NEXT 21 DAYS? :NO DO YOU NEED ANY PRESCRIPTION? :YES REFILL ON OXYCODONE AND TIZANIDINE DO YOU TAKE ANY IMMUNOSUPPRESSIVE MEDICATIONS? :NO IS THERE A CHANCE YOU COULD BE ? :NO ARE YOU BREAST FEEDING? :NO CURRENT MEDICATIONS TAKING LATANOPROST 0.005 % SOLUTION 1 DROP INTO AFFECTED EYE IN THE EVENING OPHTHALMIC ONCE A DAY, NOTES: 08/12 TAKING LIPITOR 80 MG TABLET 1 TABLET ORALLY ONCE A DAY, NOTES: 08/12 TAKING PANTOPRAZOLE SODIUM 40 MG TABLET DELAYED RELEASE 1 TABLET ORALLY ONCE A DAY, NOTES: 08/12 TAKING LEXAPRO 20 MG TABLET 1 TABLET ORALLY ONCE A DAY, NOTES: 08/12 TAKING ONE TOUCH ULTRA SYSTEM KIT - METER DIRECTED - TWICE DAILY/ DX : E11.65 TAKING FOLIC ACID 1 MG TABLET 1 TABLET ORALLY ONCE A DAY, NOTES: 08/12 TAKING ONE TOUCH ULTRA TEST STRIPS - STRIPS 1 STRIP - TWICE DAILY/ DX : E11.65 TAKING WRIST SPLINT/COCK-UP/RIGHT L - MISCELLANEOUS DIRECTED EXTERNALLY DXL M65.4 DAILY TAKING VITAMIN D3 [id number] UNIT TABLET 1 TABLET ORALLY WEEKLY, NOTES: 08/10/2020 TAKING PROPRANOLOL HCL 40 MG TABLET 1 TABLET ORALLY TWICE DAILY, NOTES: 08/14 6AM TAKING CETIRIZINE HCL 10 MG TABLET 1 TABLET ORALLY ONCE A DAY, NOTES: 08/13 TAKING FLONASE 50 MCG/DOSE INHALER 2 SPRAYS IN EACH NOSTRIL NASALLY ONCE A DAY, NOTES: 08/13 TAKING LEVETIRACETAM 1000 MG TABLET 1 TABLET ORALLY TWICE A DAY, NOTES: 08/13 TAKING ONETOUCH ULTRA TEST - STRIP DIRECTED TWO TIMES A DAY TAKING BD ULTRA-FINE MICRO PEN NEEDLE 32G X 6 MM MISCELLANEOUS DIRECTED SUBCUTANEOUSLY Q HS DX: E11.9 TAKING AMLODIPINE BESYLATE 2.5 MG TABLET 1 TABLET ORALLY ONCE A DAY, NOTES: 08/14 TAKING INCRUSE ELLIPTA 62.5 MCG/INH AEROSOL POWDER BREATH ACTIVATED 1 PUFF INHALATION ONCE A DAY, NOTES: 08/14 TAKING ALCOHOL PADS 70 % PAD DIRECTED TOPICAL TWICE DAILY/DX : E11.65 TAKING ONETOUCH ULTRA II TEST STRIPS - STRIP TEST TWO TIMES A DAY TAKING VENTOLIN HFA 108 (90 BASE) MCG/ACT AEROSOL SOLUTION 2 PUFFS INHALATION EVERY 4-6 HOURS NEEDED, NOTES: 08/14 6AM TAKING DDAVP RHINAL TUBE 0.01 % SOLUTION 0.05 ML NASALLY PRN PRIOR TO SX/ INJ, NOTES: NONE SINCE LAST SURGERY TAKING [email or web address] DELICA LANCETS 33G - MISCELLANEOUS USE DIRECTED TWO TIMES A DAY TAKING LISINOPRIL 40 MG TABLET 1 TABLET ORALLY ONCE A DAY, NOTES: 08/13 TAKING BASAGLAR KWIKPEN 100 UNIT/ML SOLUTION PEN-INJECTOR DIRECTED 120 UNITS SUBCUTANEOUS DAILY, NOTES: 08/13 TAKING AMITRIPTYLINE HCL 20 MG TABLET 1 TABLET AT BEDTIME ORALLY ONCE A DAY, NOTES: 08/13 TAKING CHLORTHALIDONE 25 MG TABLET 1 TABLET IN THE MORNING WITH FOOD ORALLY ONCE A DAY, NOTES: 08/13 TAKING BD PEN NEEDLE MINI U/F 31G X 5 MM MISCELLANEOUS USE DIRECTED AT BEDTIME TAKING TRULICITY 0.75 MG/0.5ML SOLUTION PEN-INJECTOR INJECT 1 PEN SUBCUTANEOUSLY WEEKLY DIRECTED TAKING PERCOCET 5-325 MG TABLET 1 TABLET NEEDED ORALLY Q12 HR PRN MDD2, NOTES: 08/13 TAKING TIZANIDINE HCL 4 MG TABLET 1-2 ORALLY Q8H PRN MDD 4, NOTES: 08/13 TAKING FLONASE 50 MCG/DOSE INHALER 2 SPRAYS IN EACH NOSTRIL NASALLY ONCE A DAY, NOTES: 08/12 TAKING METHOTREXATE 2.5 MG TABLET ORALLY TAKE 4 TABLETS ONCE WEEKLY, NOTES: MONTHS AGO TAKING ONDANSETRON HCL 4 MG TABLET DIRECTED ORALLY QID PRN NAUSEA TAKING TRULICITY 1.5 MG/0.5ML SOLUTION PEN-INJECTOR INJECT 1 PEN SUBCUTANEOUSLY WEEKLY DIRECTED SUBCUTANEOUS WEEKLY, NOTES: FRIDAYS 1 WEEK AGO TAKING NAPROXEN SODIUM 550 MG TABLET 1 TABLET WITH FOOD OR MILK NEEDED ORALLY EVERY 12 HRS NOT-TAKING LANCETS FOR ONE TOUCH ULTRA MISCELLANEOUS DIRECTED SC TWICE DAILY/DX : E11.65, NOTES: DUPLICATE NOT-TAKING ONETOUCH ULTRA - STRIP DIRECTED TWO TIMES A DAY , NOTES: DUPLICATE MEDICATION LIST REVIEWED AND RECONCILED WITH THE PATIENT PAST MEDICAL HISTORY DIABETES, GOAL HBA1C IS < 7.0 RHEUMATOID ARTHRITIS SEIZURES- MARIUM HTN, GOAL BP IS < 140/90 PER JNC 8 CKD, STAGE II MIGRAINES-MARIUM COPD ARTHRITIS FIBROMYALGIA CHRONIC NECK PAIN- PAIN CLINIC [facility] NEPHROLITHIASIS VON WILLEBRAND'S DISEASE (NEEDS PRE-TREATMENT WITH DDAVP FOR SURGERY - SEE NOTE FROM DR. ARAUJO 09/11/2009) H/O PEPTIC ULCER HIATAL HERNIA HEMORRHOIDS RECURRENT BREAST ABSCESSES FIBROCYSTIC BREAST DISEASE ALLERGIES ASPIRIN: ANAPHYLAXIS - ALLERGY PEPPER: THROAT CLOSE, TONGUE SWELLS - ALLERGY MORPHINE SULFATE: RASH, HIVES - ALLERGY NICKEL: RASH - ALLERGY TOPAMAX: KINDNEY STONES - SIDE EFFECTS IMITREX: SEVERE HTN (NEAR SBP 300) - SIDE EFFECTS METFORMIN: DIARRHEA - SIDE EFFECTS SOCIAL HISTORY GENERAL: TOBACCO USE ARE YOU A:FORMER SMOKER QUIT IN 2012, HAD ACCRUED 33 PACK YEAR HISTORY HOW LONG HAS IT BEEN SINCE YOU LAST SMOKED?5-10 YEARS LATEX QUESTIONNAIRE LATEX ALLERGY : HAVE YOU EVER DEVELOPED ANY TYPE OF REACTION AFTER HANDLING LATEX PRODUCTS SUCH RUBBER GLOVES, CONDOMS, DIAPHRAGMS, BALLOONS, SOCKS, OR UNDERWEAR?NO LATEX ALLERGY : HAVE YOU EVER DEVELOPED ANY TYPE OF REACTION DURING OR AFTER DENTAL APPOINTMENT, VAGINAL/RECTAL EXAMINATION, SURGICAL PROCEDURE, OR ANY OTHER EXPOSURE?NO LATEX RISK : HAVE YOU EVER HAD ANY DIFFICULTY BREATHING OR HIVES AFTER EATING OR HANDLING ANY FRUITS, OR VEGETABLES; SUCH KIWI, BANANAS, STONE FRUITS, OR CHESTNUTSNO LATEX RISK : DO YOU HAVE A PREVIOUS PERSONAL HISTORY OF MORE THAN NINE SURGERIES, SPINA BIFIDA, OR REPEATED CATHERIZATIONS? YES - PLEASE INDICATE : > 9 SURGERIES LATEX RISK : ARE YOU FREQUENTLY EXPOSED TO LATEX PRODUCTS IN YOUR OCCUPATION?NO DATE ASKED : 12/07/2020 ALCOHOL USE: OCCASIONAL. LUNG CANCER SCREENING SMOKING STATUS:FORMER SMOKER IS THE PATIENT BETWEEN THE AGE OF 56 AND 78?YES HAVE YOU QUIT SMOKING WITHIN THE PAST 15 YEARS?YES HAS THE PATIENT EVER BEEN DIAGNOSED WITH LUNG CANCER?NO CREATE REFERRAL:GENERATE AND CREATE REFERRAL TO THE ONCOLOGY NURSE NAVIGATOR (SMP) LISTING USING THE LDCT SCAN PROCEDURE DISCLAIMER:PLEASE ADD DISCLAIMER FROM BROWSE SECTION OF THE NOTE BMI CARE GOAL FOLLOW-UP ABOVE NORMAL BMI FOLLOW-UPLIFESTYLE EDUCATION REGARDING DIET ALCOHOL SCREENING DID YOU HAVE A DRINK CONTAINING ALCOHOL IN THE PAST YEAR?NO POINTS0 INTERPRETATIONNEGATIVE RECREATIONAL DRUG USE DRUG USE?NO CAFFEINE CAFFEINE USE?YES HOW OFTEN AND HOW MUCH? DAILY SEXUAL HX HAD SEX IN THE LAST 12 MONTHS (VAGINAL, ORAL, OR ANAL)?NO HAVE YOU EVER HAD AN STD?NO HIV / HEP-C SCREENING HIV TEST OFFERED TO PATIENT:NO HEP-C TEST OFFERED TO PATIENT:NO GNOSTICIST [id number] NONE LANGUAGE LANGUAGES SPOKEN:DIVEHI EDUCATION LEVEL OF EDUCATION:NOT FINISHED HIGH SCHOOL 11 TH GRADE LEARNING BARRIERS / SPECIAL NEEDS CHANGE FROM LAST VISIT?NO BARRIERS TO LEARNING?NO HEARING IMPAIRED?YES TINNITUS :HEARING AIDES NEEDS TO HAVE FIXED VISION IMPAIRED?YES :CORRECTIVE LENSES COGNITIVELY IMPAIRED?NO READINESS TO LEARN?YES LEARNING PREFERENCES?NO LEARNING CAPABILITIES PRESENT?YES EMOTIONAL BARRIERS?NO SPECIAL DEVICES?YES :CANE SPECTROSCOPIST NEEDED?NO DOMESTIC VIOLENCE DO YOU FEEL SAFE IN YOUR ENVIRONMENT?YES OCCUPATION: UNEMPLOYED. DIET: NO CONCENTRATED SWEETS, CHEATS SOMETIMES. EXERCISE: NO REGULAR EXERCISE, LIKES TO WALK. MARITAL STATUS: SINGLE. OTHERS AT HOME: BOYFRIEND. - WAS THE PROVIDER NOTIFIED OF ANY PERTINENT INFO?YES HAS THE PATIENT BEEN EDUCATED REGARDING HIS/HER PLAN OF CARE?YES HAS THE PATIENT BEEN EDUCATED REGARDING PAIN, THE RISK FOR PAIN, THE IMPORTANCE OF EFFECTIVE PAIN MANAGEMENT, AND THE PAIN ASSESSMENT PROCESS?YES HOUSING: LIVING WITH BOYFRIEND. ADVANCE DIRECTIVE ADVANCE DIRECTIVE DISCUSSED WITH PATIENT:YES STATES HCP - PRERNA HEARN (DAUGHTER) [phone]; GAVE HER ANOTHER COPY OF THE HCP FORM AND SHE WILL WORK ON GETTING IT BACK TO [place] REVIEW OF SYSTEMS CONSTITUTIONAL: ANY RECENT FEVER NO . CHILLS NO . WEIGHT CHANGE OF UNKNOWN REASONS NO . GASTROENTEROLOGY: NEW UNEXPLAINABLE CHANGES IN BOWEL CONTROL NO . CONSTIPATION NO . GENITOURINARY: ANY NEW CHANGE IN BLADDER CONTROL? NO . NEUROLOGY: NEW ONSET DIZZINESS OR NEUROLOGICAL CHANGES NOT MENTIONED NO . NEW NUMBNESS OR PAIN PATTERNS NOT MENTIONED AND PERTINENT TO TODAY'S VISIT NO . CARDIOLOGY: NEW CHEST PRESSURE NO . NEW CHEST PAIN NO . RESPIRATORY: UNEXPLAINABLE COUGH NO . NEW SHORTNESS OF BREATH NO . VITAL SIGNS WT 172.2 LBS, HT 63.5 IN, BMI 30.02 INDEX, BP 198/98 MANUAL BP, HR 68 /MIN, RR 18 /MIN, TEMP 98.8 F, OXYGEN SAT % 96%, SAFE IN ENV? (Y/N) YES, REVIEWED BY: CHARLOTTEVIDER NOTIFIED OF VITAL SIGNS. DINAMAP NOT ABLE TO OBTAIN A READING. MANUAL BP TAKEN LEFT ARM. SARAH OBRIEN MA. EXAMINATION GENERAL EXAMINATION: GENERAL AWAKE,ALERT ,PLEAASANT . PSYCH AFFECT NORMAL . LUNGS: LUNG MARIE ARE CLEAR TO AUSCULTATION BILATERALLY. GOOD MOVEMENT OF AIR . HEART: S1, S2 IN A REGULAR RATE AND RHYTHM. NO SIGNIFICANT MURMURS, RUBS OR GALLOPS NOTED . LUMBAR: PALPATION: + FOR PAIN OVER L/S SPINE. + FOR PAIN OVER L/S PARASPINALS .SPECIFIC POINT TENDERNESS OVER BILAT L4/5-L5/S1 LUMBAR FACETS WITH FACET LOADING. NEUROLOGIC EXAM: NORMAL SENSATION LIGHT TOUCH BILAT. LOWER EXTREMITIES . DIAGNOSTIC TESTS REVIEWEDMRI L/S SPINE 2019 . ASSESSMENTS OTHER CHRONIC PAIN - G89.29 (PRIMARY) LUMBOSACRAL SPONDYLOSIS WITHOUT MYELOPATHY - M47.817 TREATMENT OTHER CHRONIC PAIN REFILL PERCOCET TABLET, 5-325 MG, 1 TABLET NEEDED, ORALLY, Q12 HR PRN MDD2, 30 DAYS, 60, REFILLS 0, NOTES: 08/13 PAIN PROCEDURE LOGDATE OF [id number]/02/2020PROCEDURE:CAUDAL EPIDURALAMOUNT OF PRE SEDATEVALIUM 10MG; OXYCODONE 10 MGRESULT:NO SIGNIFICANT IMPROVEMENT POST PROCEDURE NOTES: BILATERAL LUMBAR THERAPEUTIC FACET BLOCK L4-5, L5-S1. CLINICAL NOTES: 12/07/2020 PREPROCEDURE AND PROCEDURE INFORMATION PROVIDED. PATIENT VERBALIZED UNDERSTANDING. SARA LOMBARDI. PROCEDURE CODES FA211 ESTABILISHED PATIENT LOCATED WITHIN [facility] CHARGE DISPOSITION & COMMUNICATION FOLLOW UP POST PROCEDURE (REASON: BILATERAL LUMBAR THERAPEUTIC FACET BLOCK L4-5, L5-S1) ELECTRONICALLY SIGNED BY DERIAN VEGA ON 12/11/2020 AT 01:30 PM EST DISCLAIMER : THIS IS A VISIT SUMMARY EXTRACTED FROM THE [email or web address] CHART. IT IS NOT A COPY OF THE [email or web address] PROGRESS NOTE. LALITHAD
== END ==
LOC: M PAIN 14:00
PROVIDERS: ATTEND Nurse Practitioner Family
DX: M47.817 Spondylosis without myelopathy or radiculopathy, lumbosacral region (principal); G89.29 Other chronic pain; E11.9 Type 2 diabetes mellitus without complications; G40.909 Epilepsy, unspecified, not intractable, without status epilepticus; G43.909 Migraine, unspecified, not intractable, without status migrainosus; J44.9 Chronic obstructive pulmonary disease, unspecified; M79.7 Fibromyalgia; Z87.891 Personal history of nicotine dependence; Z88.5 Allergy status to narcotic agent; Z88.6 Allergy status to analgesic agent; Z88.8 Allergy status to other drugs, medicaments and biological substances; Z91.09 Other allergy status, other than to drugs and biological substances; Z79.4 Long term (current) use of insulin; Z79.51 Long term (current) use of inhaled steroids; Z79.899 Other long term (current) drug therapy

== ENCOUNTER → 2020-12-15 | Outpatient (CLI) | payer OTHER ==
[~2020-12-15] MED LIST changes: +ACET-1439 PO; -LISI-538 PO; +LISI20TA33 PO; -LISI40TA PO; +LISI40TA4 PO; -TGTSUS3 PO
== END ==
LOC: M LABSMTC 11:41
PROVIDERS: ATTEND Anesthesiology
DX: Z20.822 Contact with and (suspected) exposure to COVID-19 (principal)

== ENCOUNTER → 2020-12-20 | Outpatient (CLI) | payer OTHER ==
[~2020-12-20] MED LIST changes: +BUPIVACAINE HCL 0.25% 30ML VIAL As Ordered ONE; +ISOVUE-M 300 61% 15ML VIAL As Ordered ONE; +LIDOCAINE 1% SDV 30ML VIAL As Ordered ONE; +TRIAMCINOLONE ACETONIDE SUSP 40 MG/ML VIAL (J3301) As Ordered ONE; +diazePAM 5MG TABLET As Ordered ONE; +oxyCODONE 5MG TAB As Ordered ONE
--- NOTE | 2020-12-20 15:22 | REP ---
INDICATION: BILATERAL THERAPEUTIC LUMBAR FACET BLOCK. COMPARISON: None. TECHNIQUE: A single views. 41.1 seconds of fluoroscopy time is reported. FINDINGS: A single last image hold fluoroscopically obtained spot radiograph(s) of the lumbar spine document(s) needle position(s) and contrast injection associated with injection procedure. IMPRESSION: Procedural imaging. <Electronically signed by John Boogie > 12/20/20 6002
--- NOTE | 2020-12-22 00:25 | ECWPNPC ---
PATIENT NAME: NICOLE BERNABE : 1960 GENDER: FEMALE VISIT DATE: 12/20/2020 DISCHARGE DATE: 12/20/20 1515 VISIT LOCKED DATE TIME: PHYSICIAN: MARCOS WARD MD RESOURCE: MARCOS WARD MD REASON FOR APPOINTMENT 1. BILATERAL THERAPEUTIC LUMBAR FACET BLOCK L4-L5, L5-S1 HISTORY OF PRESENT ILLNESS GENERAL: -. FALL RISK SCREENING: SCREENING :TWO OR MORE FALLS WITHOUT INJURY IN THE PAST YEAR LEGS GAVE OUT ON HER. NOT EVALUATED AFTER PAIN SCREENING: PATIENT HAS A COMPLAINT OF ACUTE OR CHRONIC PAIN :YES LOCATION OF PAIN:LOW BACK, LEG(S) INTENSITY OF PAIN (SCALE OF 1 TO 10):8 WHAT DOES YOUR PAIN FEEL LIKE:ACHING, BURNING, CONTINOUS, SHARP, STABBING, TENDER, THROBBING, SORE, SHOOTING DURATION:CONTINOUS, CONSTANT, AWAKENS FROM SLEEP PAIN IS INCREASED BY:ACTIVITIES, PROLONGED STANDING PAIN IS DECREASED BY:OTHERS SOAKING IN THE TUB PAIN HAS INTERFERED WITH THE FOLLOWING: EVERYTHING NURSING NOTE: -. PAIN CENTER INTAKE QUESTIONS: DO YOU HAVE A HISTORY OF MRSA? :NO DO YOU TAKE A BLOOD THINNERS? :NO DO YOU HAVE ANY BLEEDING DISORDERS? :YES VONWILLEBRANDS DISEASE-TAKES DDAVP PRIOR TO PROCEDURES ANY NEW NUMBNESS OR WEAKNESS IN YOUR LEGS OR ARMS? :NO ANY PACEMAKER,DEFIBRILLATOR, OR DORSAL COLUMN STIMULATOR? :NO DO YOU HAVE ANY RASHES OR OPEN SORES? :NO ARE YOU ALLERGIC TO IV DYE? :NO ARE YOU DIABETIC? :YES FSBS 134 ANY NEW PROBLEMS WITH YOUR MEDICATIONS? :NO HAVE YOU RECEIVED A VACCINE IN THE PAST 30 DAYS? :NO DO YOU PLAN TO RECEIVE A VACCINE IN THE NEXT 21 DAYS? :NO DO YOU TAKE ANY IMMUNOSUPPRESSIVE MEDICATIONS? :YES METHOTREXATE-HAS NOT RECEIVED IN MONTHS ANY HISTORY OF SEIZURES? :YES FOLLOW WITH Corina CARTWRIGHT ANY HISTORY OF CARDIAC ISSUES OR EVENTS? :NO DO YOU HAVE SLEEP APNEA? :NO ANY RECENT HEAD INJURY? :NO DO YOU HAVE ANY NEW INFECTIONS? :NO IS THERE A CHANCE YOU COULD BE ? :NO ARE YOU BREAST FEEDING? :NO WHEN DID YOU LAST EAT? : 12/19/20 1830 WHEN DID YOU LAST DRINK? : 6730 WHAT DID YOU LAST DRINK? : WATER NAME OF PERSON DRIVING YOU HOME? : DARLINE MICHELLE DO YOU HAVE ANY OTHER QUESTIONS OR CONCERNS? : NONE CURRENT MEDICATIONS TAKING LATANOPROST 0.005 % SOLUTION 1 DROP INTO AFFECTED EYE IN THE EVENING OPHTHALMIC ONCE A DAY TAKING LIPITOR 80 MG TABLET 1 TABLET ORALLY ONCE A DAY TAKING PANTOPRAZOLE SODIUM 40 MG TABLET DELAYED RELEASE 1 TABLET ORALLY ONCE A DAY TAKING LEXAPRO 20 MG TABLET 1 TABLET ORALLY ONCE A DAY TAKING ONE TOUCH ULTRA SYSTEM KIT - METER DIRECTED - TWICE DAILY/ DX : E11.65 TAKING FOLIC ACID 1 MG TABLET 1 TABLET ORALLY ONCE A DAY TAKING ONE TOUCH ULTRA TEST STRIPS - STRIPS 1 STRIP - TWICE DAILY/ DX : E11.65 TAKING WRIST SPLINT/COCK-UP/RIGHT L - MISCELLANEOUS DIRECTED EXTERNALLY DXL M65.4 DAILY TAKING VITAMIN D3 98194 UNIT TABLET 1 TABLET ORALLY WEEKLY TAKING PROPRANOLOL HCL 40 MG TABLET 1 TABLET ORALLY TWICE DAILY, NOTES: 12/20/20729 TAKING CETIRIZINE HCL 10 MG TABLET 1 TABLET ORALLY ONCE A DAY TAKING FLONASE 50 MCG/DOSE INHALER 2 SPRAYS IN EACH NOSTRIL NASALLY ONCE A DAY TAKING LEVETIRACETAM 1000 MG TABLET 1 TABLET ORALLY TWICE A DAY TAKING [employer] ULTRA TEST - STRIP DIRECTED TWO TIMES A DAY TAKING BD ULTRA-FINE MICRO PEN NEEDLE 32G X 6 MM MISCELLANEOUS DIRECTED SUBCUTANEOUSLY Q HS DX: E11.9 TAKING AMLODIPINE BESYLATE 2.5 MG TABLET 1 TABLET ORALLY ONCE A DAY, NOTES: 12/20/20729 TAKING INCRUSE ELLIPTA 62.5 MCG/INH AEROSOL POWDER BREATH ACTIVATED 1 PUFF INHALATION ONCE A DAY TAKING ALCOHOL PADS 70 % PAD DIRECTED TOPICAL TWICE DAILY/DX : E11.65 TAKING [employer] ULTRA II TEST STRIPS - STRIP TEST TWO TIMES A DAY TAKING VENTOLIN HFA 108 (90 BASE) MCG/ACT AEROSOL SOLUTION 2 PUFFS INHALATION EVERY 4-6 HOURS NEEDED TAKING DDAVP RHINAL TUBE 0.01 % SOLUTION 0.05 ML NASALLY PRN PRIOR TO SX/ INJ, NOTES: 12/20/20729 TAKING [employer] DELICA LANCETS 33G - MISCELLANEOUS USE DIRECTED TWO TIMES A DAY TAKING LISINOPRIL 40 MG TABLET 1 TABLET ORALLY ONCE A DAY, NOTES: 12/20/20729 TAKING BASAGLAR KWIKPEN 100 UNIT/ML SOLUTION PEN-INJECTOR DIRECTED 120 UNITS SUBCUTANEOUS DAILY, NOTES: 12/19/20 TAKING AMITRIPTYLINE HCL 20 MG TABLET 1 TABLET AT BEDTIME ORALLY ONCE A DAY TAKING CHLORTHALIDONE 25 MG TABLET 1 TABLET IN THE MORNING WITH FOOD ORALLY ONCE A DAY, NOTES: 12/20/20 0730 TAKING BD PEN NEEDLE MINI U/F 31G X 5 MM MISCELLANEOUS USE DIRECTED AT BEDTIME TAKING TRULICITY 0.75 MG/0.5ML SOLUTION PEN-INJECTOR INJECT 1 PEN SUBCUTANEOUSLY WEEKLY DIRECTED , NOTES: 12/20/20 TAKING METHOTREXATE 2.5 MG TABLET ORALLY TAKE 4 TABLETS ONCE WEEKLY, NOTES: MONTHS AGO TAKING ONDANSETRON HCL 4 MG TABLET DIRECTED ORALLY QID PRN NAUSEA TAKING NAPROXEN SODIUM 550 MG TABLET 1 TABLET WITH FOOD OR MILK NEEDED ORALLY EVERY 12 HRS TAKING PERCOCET 5-325 MG TABLET 1 TABLET NEEDED ORALLY Q12 HR PRN MDD2, NOTES: 12/19/20 TAKING TIZANIDINE HCL 4 MG TABLET 1-2 ORALLY Q8H PRN MDD 4 NOT-TAKING LANCETS FOR ONE TOUCH ULTRA MISCELLANEOUS DIRECTED SC TWICE DAILY/DX : E11.65, NOTES: DUPLICATE NOT-TAKING ONETOUCH ULTRA - STRIP DIRECTED TWO TIMES A DAY , NOTES: DUPLICATE NOT-TAKING TRULICITY 1.5 MG/0.5ML SOLUTION PEN-INJECTOR INJECT 1 PEN SUBCUTANEOUSLY WEEKLY DIRECTED SUBCUTANEOUS WEEKLY MEDICATION LIST REVIEWED AND RECONCILED WITH THE PATIENT PAST MEDICAL HISTORY DIABETES, GOAL HBA1C IS < 7.0 RHEUMATOID ARTHRITIS SEIZURES- MARIUM HTN, GOAL BP IS < 140/90 PER JNC 8 CKD, STAGE II MIGRAINES-MARIUM COPD ARTHRITIS FIBROMYALGIA CHRONIC NECK PAIN- PAIN CLINIC [facility] NEPHROLITHIASIS VON WILLEBRAND'S DISEASE (NEEDS PRE-TREATMENT WITH DDAVP FOR SURGERY - SEE NOTE FROM DR. ARAUJO 09/11/2009) H/O PEPTIC ULCER HIATAL HERNIA HEMORRHOIDS RECURRENT BREAST ABSCESSES FIBROCYSTIC BREAST DISEASE ALLERGIES ASPIRIN: ANAPHYLAXIS - ALLERGY PEPPER: THROAT CLOSE, TONGUE SWELLS - ALLERGY MORPHINE SULFATE: RASH, HIVES - ALLERGY NICKEL: RASH - ALLERGY TOPAMAX: KINDNEY STONES - SIDE EFFECTS IMITREX: SEVERE HTN (NEAR SBP 300) - SIDE EFFECTS METFORMIN: DIARRHEA - SIDE EFFECTS SOCIAL HISTORY GENERAL: TOBACCO USE ARE YOU A:FORMER SMOKER QUIT IN 2012, HAD ACCRUED 33 PACK YEAR HISTORY HOW LONG HAS IT BEEN SINCE YOU LAST SMOKED?5-10 YEARS LATEX QUESTIONNAIRE LATEX ALLERGY : HAVE YOU EVER DEVELOPED ANY TYPE OF REACTION AFTER HANDLING LATEX PRODUCTS SUCH RUBBER GLOVES, CONDOMS, DIAPHRAGMS, BALLOONS, SOCKS, OR UNDERWEAR?NO LATEX ALLERGY : HAVE YOU EVER DEVELOPED ANY TYPE OF REACTION DURING OR AFTER DENTAL APPOINTMENT, VAGINAL/RECTAL EXAMINATION, SURGICAL PROCEDURE, OR ANY OTHER EXPOSURE?NO LATEX RISK : HAVE YOU EVER HAD ANY DIFFICULTY BREATHING OR HIVES AFTER EATING OR HANDLING ANY FRUITS, OR VEGETABLES; SUCH KIWI, BANANAS, STONE FRUITS, OR CHESTNUTSNO LATEX RISK : DO YOU HAVE A PREVIOUS PERSONAL HISTORY OF MORE THAN NINE SURGERIES, SPINA BIFIDA, OR REPEATED CATHERIZATIONS? YES - PLEASE INDICATE : > 9 SURGERIES LATEX RISK : ARE YOU FREQUENTLY EXPOSED TO LATEX PRODUCTS IN YOUR OCCUPATION?NO DATE ASKED : 12/07/2020 ALCOHOL USE: OCCASIONAL. LUNG CANCER SCREENING SMOKING STATUS:FORMER SMOKER IS THE PATIENT BETWEEN THE AGE OF 56 AND 78?YES HAVE YOU QUIT SMOKING WITHIN THE PAST 15 YEARS?YES HAS THE PATIENT EVER BEEN DIAGNOSED WITH LUNG CANCER?NO CREATE REFERRAL:GENERATE AND CREATE REFERRAL TO THE ONCOLOGY NURSE NAVIGATOR (SMP) LISTING USING THE LDCT SCAN PROCEDURE DISCLAIMER:PLEASE ADD DISCLAIMER FROM BROWSE SECTION OF THE NOTE BMI CARE GOAL FOLLOW-UP ABOVE NORMAL BMI FOLLOW-UPLIFESTYLE EDUCATION REGARDING DIET ALCOHOL SCREENING DID YOU HAVE A DRINK CONTAINING ALCOHOL IN THE PAST YEAR?NO POINTS0 INTERPRETATIONNEGATIVE RECREATIONAL DRUG USE DRUG USE?NO CAFFEINE CAFFEINE USE?YES HOW OFTEN AND HOW MUCH? DAILY SEXUAL HX HAD SEX IN THE LAST 12 MONTHS (VAGINAL, ORAL, OR ANAL)?NO HAVE YOU EVER HAD AN STD?NO HIV / HEP-C SCREENING HIV TEST OFFERED TO PATIENT:NO HEP-C TEST OFFERED TO PATIENT:NO QUAKER [id number] NONE LANGUAGE LANGUAGES SPOKEN:[place] EDUCATION LEVEL OF EDUCATION:NOT FINISHED HIGH SCHOOL 11 TH GRADE LEARNING BARRIERS / SPECIAL NEEDS CHANGE FROM LAST VISIT?NO BARRIERS TO LEARNING?NO HEARING IMPAIRED?YES TINNITUS VISION IMPAIRED?YES COGNITIVELY IMPAIRED?NO :HEARING AIDES NEEDS TO HAVE FIXED :CORRECTIVE LENSES READINESS TO LEARN?YES LEARNING PREFERENCES?NO LEARNING CAPABILITIES PRESENT?YES EMOTIONAL BARRIERS?NO SPECIAL DEVICES?YES :CANE COMPUTER 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 DIET: NO CONCENTRATED SWEETS, CHEATS SOMETIMES. EXERCISE: NO REGULAR EXERCISE, LIKES TO WALK. MARITAL STATUS: SINGLE. OTHERS AT HOME: BOYFRIEND. - HAS THE PATIENT BEEN EDUCATED REGARDING HIS/HER PLAN OF CARE?YES HAS THE PATIENT BEEN EDUCATED REGARDING PAIN, THE RISK FOR PAIN, THE IMPORTANCE OF EFFECTIVE PAIN MANAGEMENT, AND THE PAIN ASSESSMENT PROCESS?YES HOUSING: LIVING WITH BOYFRIEND. ADVANCE DIRECTIVE ADVANCE DIRECTIVE DISCUSSED WITH PATIENT:YES STATES HCP - PRERNA HEARN (DAUGHTER) [phone]; GAVE HER ANOTHER COPY OF THE HCP FORM AND SHE WILL WORK ON GETTING IT BACK TO US VITAL SIGNS WT 165.5 LBS, HT 63.5 IN, BMI 28.85 INDEX, BP 229/104 MM HG, REPEAT BP 220/100 MANUAL, HR 102 /MIN, RR 18 /MIN, TEMP 97.3 F, OXYGEN SAT % 95%, SAFE IN ENV? (Y/N) YES, NA INITIALS SC 11:34, REVIEWED BY: APDISCUSSED ELEVATED BP WITH PATIENT. PATIENT STATES SHE USUALLY RUNS HIGH ON PROCEDURE DAYS AND THAT SHE TOOK HER BLOOD PRESSURE PILLS THIS AM. DR. WARD NOTIFIED AND SPEAKING WITH PCP DR. BENNETT REGARDING PROCEEDING WITH PROCEDURE. Chrissie GONSALVES RN. EXAMINATION GENERAL EXAMINATION: THE PATIENT IS ALERT, ORIENTED TIMES THREE AND COOPERATIVE. LUNGS ARE CLEAR TO AUSCULTATION. HEART SHOWS REGULAR RHYTHM, NO MURMURS AND NO GALLOPS. ASSESSMENTS SPONDYLOSIS WITHOUT MYELOPATHY OR RADICULOPATHY, LUMBAR REGION - M47.816 (PRIMARY) SPONDYLOSIS WITHOUT MYELOPATHY OR RADICULOPATHY, LUMBOSACRAL REGION - M47.817 TREATMENT SPONDYLOSIS WITHOUT MYELOPATHY OR RADICULOPATHY, LUMBAR REGION LAB: MEDICATION: VALIUM TAB 10MG ORALLY (DIAZEPAM) (ORDERED FOR 12/20/2020) MARIAMA JULIAN 12/20/2020 12:04:38 PM > VERIFIED. TALAT GONSALVES 12/20/2020 12:06:28 PM > ADMINISTERED LAB: MEDICATION: OXYCODONE HCL TAB 10MG ORALLY (ORDERED FOR 12/20/2020) MARIAMA JULIAN 12/20/2020 12:04:53 PM > VERIFIED. TALAT GONSALVES R 12/20/2020 12:06:49 PM > ADMINISTERED [facility] FACET BLOCK (PAIN)[id number] COMPLETION OF PROCEDURAL VISIT WHEN MEETS CRITERIAALBERTO GREENE 12/20/2020 2:39:23 PM > CRITERIA MET OTHERS NOTES: 12/19/20 8735 PRE-PROCEDURE CALL COMPLETED. PT. DENIES CHANGES IN SURGICAL, HOSPITALIZATION OR FAMILLY MEDICAL HISTORY. Chrissie REYES RN. PROCEDURES PAIN NURSING RECORD PROCEDURE IN ROOM 1310, PHYSICIAN IN ROOM 1320, START 1327, FINISH 1333, PHYSICIAN OUT OF ROOM 1336, OUT OF ROOM 1345, ECG NORMAL SINUS, PATIENT SHIELDED YES, SAFETY STRAP YES, PREP CHLOROPREP Mackenzie OBRIEN MA, E MAURER, RN BSN, DRESSING TEGADERM DR WARD LOC: 1. ALERT, ORIENTED, ALBERTO GREENE 12/20/2020 1:27:18 PM > RESP: 1. REGULAR, NO DYSPNEA, ALBERTO GREENE 12/20/2020 1:27:23 PM > COLOR: 1. PINK, ALBERTO GREENE 12/20/2020 1:27:27 PM > SKIN: 1. WARM, DRY, ALBERTO GREENE 12/20/2020 1:27:32 PM > POSITION: 1. PRONE, ALBERTO GREENE 12/20/2020 1:27:36 PM > VITALS: 241/112, 91, 16, 95% YARITZA GREENEBETH 12/20/2020 1:15:56 PM > , 223/93, 89, 16, 96% ALBERTO GREENE 12/20/2020 1:30:17 PM > , 226/91, 90, 16, 95%, YARITZA GREENEBETH 12/20/2020 1:45:04 PM > 212/99, 86, 16, 96%, YARITZA GREENEBETH 12/20/2020 1:50:23 PM > 235/102, 89, 16, 96%, YARITZA GREENEBETH 12/20/2020 2:00:26 PM > NOTES Dano GREENE RN COMPLETION OF PROCEDURE APPOINTMENT: POST PAIN 1, DRESSING SITE DRY AND INTACT, IV N/A, GAIT WHEELCHAIR, TEACHING COMPLETED, PATIENT ACKNOWLEDGES UNDERSTANDING YES : DR WARD IS AWARE OF B/P, HE SPOKE WITH DR BENNETT WHO AGREED FOR PT TO CONTINUE WITH PROCEDURE AND FOR PT TO FOLLOW UP WITH HIM POST PROCEDURE, PT IS TO CALL HIS OFFICE TO SCHEDULE AN APPOINTMENT TODAY. David GREENE RN BSN PN LUMBAR FACET BLOCK THERAPEUTIC PRE PROCEDURE DIAGNOSIS LUMBAR SPONDYLOSIS, LUMBOSACRAL SPONDYLOSIS POST PROCEDURE DIAGNOSIS LUMBAR SPONDYLOSIS, LUMBOSACRAL SPONDYLOSIS PROCEDURE BILATERAL L4-L5 AND BILATERAL L5-S1 LUMBAR FACET THERAPEUTIC BLOCK SURGEON DR. MARCOS WARD DEVELOPMENT ASSOCIATE NONE ANESTHESIA LOCAL PRE PROCEDURE NOTE THE PATIENT HAS A HISTORY OF CHRONIC LOW BACK PAIN. I EVALUATED THE PATIENT AND REVIEWED THE CHART. I WENT OVER THE RISKS, ALTERNATIVES, AND BENEFITS ASSOCIATED WITH THIS PROCEDURE. THE PATIENT WOULD LIKE TO PROCEED AND GIVES CONSENT TO PERFORM THE PROCEDURE. THE PATIENT DENIES UNEXPLAINABLE WEIGHT LOSS, FEVER, CHILLS, OR NEW CHANGES IN URINARY OR BOWEL CONTROL. PATIENT TESTED NEGATIVE FOR COVID-19 DESCRIPTION OF PROCEDURE THE PATIENT WAS BROUGHT TO THE PROCEDURE ROOM AND PLACED IN THE PRONE POSITION. THE LUMBOSACRAL AREA WAS CLEANED WITH CHLORAPREP SOLUTION AND DRAPED ASEPTICALLY. THE PROCEDURE WAS DONE UNDER STERILE CONDITIONS. A TIMEOUT WAS PERFORMED WHERE THE CONSENTED SITE WAS VERIFIED WITH EVERYONE IN THE ROOM. UNDER FLUOROSCOPIC GUIDANCE, THE TARGET POINT WAS SELECTED AT THE RIGHT AND LEFT L4-L5, RIGHT AND LEFT L5-S1 FACET JOINTS. TARGET POINT WAS SELECTED AFTER LATERAL ROTATION AND TILT OF THE MAGNIFIER OF THE C-ARM. I CONFIRMED AGAIN THE SITE OF THE TARGET. LIDOCAINE 0.5% WAS USED TO NUMB THE SKIN AND THE SUBCUTANEOUS TISSUE BELOW IT. SPINAL NEEDLES, 22-GAUGE, WERE ADVANCED UNDER FLUOROSCOPIC GUIDANCE AND FOLLOWING PATIENT FEEDBACK UNTIL THE TARGETS WERE TOUCHED. THE POSITION OF THE NEEDLES WAS VERIFIED WITH AP AND LATERAL VIEWS. AFTER PROPER POSITION OF THE NEEDLES WAS ACHIEVED, ISOVUE-M DYE 30%, 0.1 ML, WAS INJECTED SHOWING ADEQUATE SPREAD OF THE DYE. KENALOG 10 MG WAS INJECTED AT EACH SITE. THEN, A SOLUTION OF 1.0 ML OF BUPIVACAINE 0.125% OF WAS USED TO FLUSH EACH SITE. THE MEDICATION WAS VERIFIED WITH THE NURSE. THERE WAS NO EVIDENCE OF BLOOD, PARESTHESIA OR CEREBROSPINAL FLUID DURING THE PROCEDURE. THE PATIENT WAS SENT TO THE RECOVERY ROOM. THE PATIENT WAS MOVING THE EXTREMITIES AND DOING WELL. THERE WERE NO COMPLICATIONS DURING THE PROCEDURE. ESTIMATED BLOOD LOSS WAS LESS THAN 5 ML. FLUOROSCOPY TIME WAS 41 SECONDS POST PROCEDURE NOTE TO CONSIDER RADIOFREQUENCY IS NOT ADVISABLE AT THESE LEVELS DUE TO THE HARDWARE. THE DIAGNOSTIC WOULD BE DIFFICULT, CONSULT WITH ME BEFORE CONSIDERING. THE PATIENT WILL BE SEEN IN A FOLLOW UP IN THE NEXT FEW WEEKS. I AM LOOKING FOR LONG LASTING RELIEF FOR THE PATIENT WITH THIS INTERVENTION. INSTRUCTIONS WERE GIVEN, QUESTIONS WERE ANSWERED, AND THE PATIENT EXPRESSED UNDERSTANDING AND AGREES WITH THE PLAN. I, BEATA GOMEZ, DOCUMENTED THE ABOVE INFORMATION ACTING A SCRIBE FOR DR. WARD. I HAVE REVIEWED THE ABOVE DOCUMENT, WRITTEN BY BEATA GOMEZ, SPECIMEN TECHNICIAN, AND I VERIFY THAT IT IS ACCURATE PROCEDURE CODES 79720 INJ PARAVERT F JNT L/S 1 LEV, MODIFIERS: 50 [id number] INJ PARAVERT F JNT L/S 2 LEV, MODIFIERS: 50 DISPOSITION & COMMUNICATION FOLLOW UP FOLLOW UP WITH TRACK AND FIELD COACH (REASON: POST BILATERAL THERAPEUTIC LUMBAR FACET BLOCK, L4-L5, L5-S1) ELECTRONICALLY SIGNED BY MARCOS WARD MD, MD ON 12/21/2020 AT 04:05 PM EST DISCLAIMER : THIS IS A VISIT SUMMARY EXTRACTED FROM THE [employer] CHART. IT IS NOT A COPY OF THE [employer] PROGRESS NOTE. NELY
== END ==
LOC: M PAIN 11:00
PROVIDERS: ATTEND Anesthesiology
DX: M47.816 Spondylosis without myelopathy or radiculopathy, lumbar region (principal); M47.817 Spondylosis without myelopathy or radiculopathy, lumbosacral region; E11.9 Type 2 diabetes mellitus without complications; G40.909 Epilepsy, unspecified, not intractable, without status epilepticus; G43.909 Migraine, unspecified, not intractable, without status migrainosus; J44.9 Chronic obstructive pulmonary disease, unspecified; M79.7 Fibromyalgia; Z87.891 Personal history of nicotine dependence; Z88.5 Allergy status to narcotic agent; Z88.6 Allergy status to analgesic agent; Z88.8 Allergy status to other drugs, medicaments and biological substances; Z91.018 Allergy to other foods; Z79.4 Long term (current) use of insulin; Z79.51 Long term (current) use of inhaled steroids; Z79.899 Other long term (current) drug therapy
CPT/HCPCS: 64493; 64494; J3301; Q9967

== ENCOUNTER → 2021-01-03 | Outpatient (CLI) | payer OTHER ==
[~2021-01-03] MED LIST changes: -AMIT10TA PO; +AMIT10TA7 PO; -BUPIVACAINE HCL 0.25% 30ML VIAL As Ordered ONE; -ISOVUE-M 300 61% 15ML VIAL As Ordered ONE; -LIDOCAINE 1% SDV 30ML VIAL As Ordered ONE; -TRIAMCINOLONE ACETONIDE SUSP 40 MG/ML VIAL (J3301) As Ordered ONE; -diazePAM 5MG TABLET As Ordered ONE; -oxyCODONE 5MG TAB As Ordered ONE
--- NOTE | 2021-01-08 03:52 | ECWPNPC ---
PATIENT NAME: NICOLE BERNABE : 1960 GENDER: FEMALE VISIT DATE: 01/03/2021 DISCHARGE DATE: 01/03/21 1153 VISIT LOCKED DATE TIME: PHYSICIAN: KIMBERLEE FALCON RESOURCE: KIMBERLEE FALCON REASON FOR APPOINTMENT 1. POST BILATERAL THERAPEUTIC LUMBAR FACET BLOCK L4-L5, L5-S1 HISTORY OF PRESENT ILLNESS GENERAL: HERE FOR POST PROCEDURE F/U.HAD BILAT. LFBT ON 12/20/20.REPORTING MARKED REDUCTION IN PAIN THAT CONTINUES TODAY.REPORTS A FALL A FEW DAYS AGO AND IS FEELING GENERALIZED BACK AND SHOULDER PAIN-. FALL RISK SCREENING: SCREENING :ONE FALL WITHOUT INJURY IN THE PAST YEAR PAIN SCREENING: PATIENT HAS A COMPLAINT OF ACUTE OR CHRONIC PAIN :YES LOCATION OF PAIN:LOW BACK FALLING DOWN 12/31/2020 SLIP ON ICE INTENSITY OF PAIN (SCALE OF 1 TO 10):7 WHAT DOES YOUR PAIN FEEL LIKE:ACHING, BURNING, CONTINOUS, STABBING, TENDER, SHOOTING DURATION:CONTINOUS, CONSTANT, ALL DAY PAIN IS INCREASED BY:ACTIVITIES PAIN IS DECREASED BY:OTHERS ICE AND HEAT " NOTHING WORK " NURSING NOTE: -. PAIN CENTER INTAKE QUESTIONS: DO YOU HAVE A HISTORY OF MRSA? :NO DO YOU TAKE A BLOOD THINNERS? :NO DO YOU HAVE ANY BLEEDING DISORDERS? :YES VON WILLEBRAND DISEASE ANY NEW NUMBNESS OR WEAKNESS IN YOUR LEGS OR ARMS? :NO ANY PACEMAKER,DEFIBRILLATOR, OR DORSAL COLUMN STIMULATOR? :NO DO YOU HAVE ANY RASHES OR OPEN SORES? :NO ARE YOU ALLERGIC TO IV DYE? :NO ARE YOU DIABETIC? :YES ANY NEW PROBLEMS WITH YOUR MEDICATIONS? :NO HAVE YOU RECEIVED A VACCINE IN THE PAST 30 DAYS? :NO DO YOU PLAN TO RECEIVE A VACCINE IN THE NEXT 21 DAYS? :NO DO YOU NEED ANY PRESCRIPTION? :YES REFILL ON OXYCODONE AND TIZANIDINE DO YOU TAKE ANY IMMUNOSUPPRESSIVE MEDICATIONS? :NO IS THERE A CHANCE YOU COULD BE ? :NO ARE YOU BREAST FEEDING? :NO CURRENT MEDICATIONS TAKING LATANOPROST 0.005 % SOLUTION 1 DROP INTO AFFECTED EYE IN THE EVENING OPHTHALMIC ONCE A DAY TAKING LIPITOR 80 MG TABLET 1 TABLET ORALLY ONCE A DAY TAKING PANTOPRAZOLE SODIUM 40 MG TABLET DELAYED RELEASE 1 TABLET ORALLY ONCE A DAY TAKING LEXAPRO 20 MG TABLET 1 TABLET ORALLY ONCE A DAY TAKING ONE [employer] SYSTEM KIT - METER DIRECTED - TWICE DAILY/ DX : E11.65 TAKING FOLIC ACID 1 MG TABLET 1 TABLET ORALLY ONCE A DAY TAKING ONE TOUCH ULTRA TEST STRIPS - STRIPS 1 STRIP - TWICE DAILY/ DX : E11. TAKING VITAMIN D3 91483 UNIT TABLET 1 TABLET ORALLY WEEKLY TAKING PROPRANOLOL HCL 40 MG TABLET 1 TABLET ORALLY TWICE DAILY TAKING CETIRIZINE HCL 10 MG TABLET 1 TABLET ORALLY ONCE A DAY TAKING FLONASE 50 MCG/DOSE INHALER 2 SPRAYS IN EACH NOSTRIL NASALLY ONCE A DAY TAKING LEVETIRACETAM 1000 MG TABLET 1 TABLET ORALLY TWICE A DAY TAKING Rent My ItemsTOUCH ULTRA TEST - STRIP DIRECTED TWO TIMES A DAY TAKING BD ULTRA-FINE MICRO PEN NEEDLE 32G X 6 MM MISCELLANEOUS DIRECTED SUBCUTANEOUSLY Q HS DX: E11.9 TAKING AMLODIPINE BESYLATE 2.5 MG TABLET 1 TABLET ORALLY ONCE A DAY TAKING INCRUSE ELLIPTA 62.5 MCG/INH AEROSOL POWDER BREATH ACTIVATED 1 PUFF INHALATION ONCE A DAY TAKING ALCOHOL PADS 70 % PAD DIRECTED TOPICAL TWICE DAILY/DX : E11.65 TAKING [employer] ULTRA II TEST STRIPS - STRIP TEST TWO TIMES A DAY TAKING VENTOLIN HFA 108 (90 BASE) MCG/ACT AEROSOL SOLUTION 2 PUFFS INHALATION EVERY 4-6 HOURS NEEDED TAKING DDAVP RHINAL TUBE 0.01 % SOLUTION 0.05 ML NASALLY PRN PRIOR TO SX/ INJ TAKING [employer] DELICA LANCETS 33G - MISCELLANEOUS USE DIRECTED TWO TIMES A DAY TAKING LISINOPRIL 40 MG TABLET 1 TABLET ORALLY ONCE A DAY TAKING BASAGLAR KWIKPEN 100 UNIT/ML SOLUTION PEN-INJECTOR DIRECTED 120 UNITS SUBCUTANEOUS DAILY TAKING AMITRIPTYLINE HCL 20 MG TABLET 1 TABLET AT BEDTIME ORALLY ONCE A DAY TAKING CHLORTHALIDONE 25 MG TABLET 1 TABLET IN THE MORNING WITH FOOD ORALLY ONCE A DAY TAKING BD PEN NEEDLE MINI U/F 31G X 5 MM MISCELLANEOUS USE DIRECTED AT BEDTIME TAKING TRULICITY 0.75 MG/0.5ML SOLUTION PEN-INJECTOR INJECT 1 PEN SUBCUTANEOUSLY WEEKLY DIRECTED TAKING ONDANSETRON HCL 4 MG TABLET DIRECTED ORALLY QID PRN NAUSEA TAKING PERCOCET 5-325 MG TABLET 1 TABLET NEEDED ORALLY Q12 HR PRN MDD2 TAKING TIZANIDINE HCL 4 MG TABLET 1-2 ORALLY Q8H PRN MDD 4 TAKING CHLORTHALIDONE 25 MG TABLET TAKE ONE TABLET BY MOUTH EVERY MORNING WITH FOOD NOT-TAKING NAPROXEN SODIUM 550 MG TABLET 1 TABLET WITH FOOD OR MILK NEEDED ORALLY EVERY 12 HRS NOT-TAKING METHOTREXATE 2.5 MG TABLET ORALLY TAKE 4 TABLETS ONCE WEEKLY NOT-TAKING WRIST SPLINT/COCK-UP/RIGHT L - MISCELLANEOUS DIRECTED EXTERNALLY DXL M65.4 DAILY NOT-TAKING LANCETS FOR ONE TOUCH ULTRA MISCELLANEOUS DIRECTED SC TWICE DAILY/DX : E11.65, NOTES: DUPLICATE NOT-TAKING ONETOUCH ULTRA - STRIP DIRECTED TWO TIMES A DAY , NOTES: DUPLICATE NOT-TAKING TRULICITY 1.5 MG/0.5ML SOLUTION PEN-INJECTOR INJECT 1 PEN SUBCUTANEOUSLY WEEKLY DIRECTED SUBCUTANEOUS WEEKLY MEDICATION LIST REVIEWED AND RECONCILED WITH THE PATIENT PAST MEDICAL HISTORY DIABETES, GOAL HBA1C IS < 7.0 RHEUMATOID ARTHRITIS SEIZURES- MARIUM HTN, GOAL BP IS < 140/90 PER JNC 8 CKD, STAGE II MIGRAINES-MARIUM COPD ARTHRITIS FIBROMYALGIA CHRONIC NECK PAIN- PAIN CLINIC [facility] NEPHROLITHIASIS VON WILLEBRAND'S DISEASE (NEEDS PRE-TREATMENT WITH DDAVP FOR SURGERY - SEE NOTE FROM DR. ARAUJO 09/11/2009) H/O PEPTIC ULCER HIATAL HERNIA HEMORRHOIDS RECURRENT BREAST ABSCESSES FIBROCYSTIC BREAST DISEASE ALLERGIES ASPIRIN: ANAPHYLAXIS - ALLERGY PEPPER: THROAT CLOSE, TONGUE SWELLS - ALLERGY MORPHINE SULFATE: RASH, HIVES - ALLERGY NICKEL: RASH - ALLERGY TOPAMAX: KINDNEY STONES - SIDE EFFECTS IMITREX: SEVERE HTN (NEAR SBP 300) - SIDE EFFECTS METFORMIN: DIARRHEA - SIDE EFFECTS SOCIAL HISTORY GENERAL: TOBACCO USE ARE YOU A:FORMER SMOKER QUIT IN 2012, HAD ACCRUED 33 PACK YEAR HISTORY HOW LONG HAS IT BEEN SINCE YOU LAST SMOKED?5-10 YEARS LATEX QUESTIONNAIRE LATEX ALLERGY : HAVE YOU EVER DEVELOPED ANY TYPE OF REACTION AFTER HANDLING LATEX PRODUCTS SUCH RUBBER GLOVES, CONDOMS, DIAPHRAGMS, BALLOONS, SOCKS, OR UNDERWEAR?NO LATEX ALLERGY : HAVE YOU EVER DEVELOPED ANY TYPE OF REACTION DURING OR AFTER DENTAL APPOINTMENT, VAGINAL/RECTAL EXAMINATION, SURGICAL PROCEDURE, OR ANY OTHER EXPOSURE?NO LATEX RISK : HAVE YOU EVER HAD ANY DIFFICULTY BREATHING OR HIVES AFTER EATING OR HANDLING ANY FRUITS, OR VEGETABLES; SUCH KIWI, BANANAS, STONE FRUITS, OR CHESTNUTSNO LATEX RISK : DO YOU HAVE A PREVIOUS PERSONAL HISTORY OF MORE THAN NINE SURGERIES, SPINA BIFIDA, OR REPEATED CATHERIZATIONS? YES - PLEASE INDICATE : > 9 SURGERIES LATEX RISK : ARE YOU FREQUENTLY EXPOSED TO LATEX PRODUCTS IN YOUR OCCUPATION?NO DATE ASKED : 01/03/2021 ALCOHOL USE: OCCASIONAL. LUNG CANCER SCREENING SMOKING STATUS:FORMER SMOKER IS THE PATIENT BETWEEN THE AGE OF 56 AND 78?YES HAVE YOU QUIT SMOKING WITHIN THE PAST 15 YEARS?YES HAS THE PATIENT EVER BEEN DIAGNOSED WITH LUNG CANCER?NO CREATE REFERRAL:GENERATE AND CREATE REFERRAL TO THE ONCOLOGY NURSE NAVIGATOR (SMP) LISTING USING THE LDCT SCAN PROCEDURE DISCLAIMER:PLEASE ADD DISCLAIMER FROM BROWSE SECTION OF THE NOTE BMI CARE GOAL FOLLOW-UP ABOVE NORMAL BMI FOLLOW-UPLIFESTYLE EDUCATION REGARDING DIET ALCOHOL SCREENING DID YOU HAVE A DRINK CONTAINING ALCOHOL IN THE PAST YEAR?NO POINTS0 INTERPRETATIONNEGATIVE RECREATIONAL DRUG USE DRUG USE?NO CAFFEINE CAFFEINE USE?YES HOW OFTEN AND HOW MUCH? DAILY SEXUAL HX HAD SEX IN THE LAST 12 MONTHS (VAGINAL, ORAL, OR ANAL)?NO HAVE YOU EVER HAD AN STD?NO HIV / HEP-C SCREENING HIV TEST OFFERED TO PATIENT:NO HEP-C TEST OFFERED TO PATIENT:NO ANABAPTISM [id number] NONE LANGUAGE LANGUAGES SPOKEN:ESTONIAN EDUCATION LEVEL OF EDUCATION:NOT FINISHED HIGH SCHOOL 11 TH GRADE LEARNING BARRIERS / SPECIAL NEEDS CHANGE FROM LAST VISIT?NO BARRIERS TO LEARNING?NO HEARING IMPAIRED?YES TINNITUS :HEARING AIDES NEEDS TO HAVE FIXED VISION IMPAIRED?YES :CORRECTIVE LENSES COGNITIVELY IMPAIRED?NO READINESS TO LEARN?YES LEARNING PREFERENCES?NO LEARNING CAPABILITIES PRESENT?YES EMOTIONAL BARRIERS?NO SPECIAL DEVICES?YES :CANE WOOD CARVER NEEDED?NO DOMESTIC VIOLENCE DO YOU FEEL SAFE IN YOUR ENVIRONMENT?YES OCCUPATION: UNEMPLOYED. DIET: NO CONCENTRATED SWEETS, CHEATS SOMETIMES. EXERCISE: NO REGULAR EXERCISE, LIKES TO WALK. MARITAL STATUS: SINGLE. OTHERS AT HOME: BOYFRIEND. - HAS THE PATIENT BEEN EDUCATED REGARDING HIS/HER PLAN OF CARE?YES HAS THE PATIENT BEEN EDUCATED REGARDING PAIN, THE RISK FOR PAIN, THE IMPORTANCE OF EFFECTIVE PAIN MANAGEMENT, AND THE PAIN ASSESSMENT PROCESS?YES HOUSING: LIVING WITH BOYFRIEND. ADVANCE DIRECTIVE ADVANCE DIRECTIVE DISCUSSED WITH PATIENT:YES STATES HCP - PRERNA HEARN (DAUGHTER) [phone]; GAVE HER ANOTHER COPY OF THE HCP FORM AND SHE WILL WORK ON GETTING IT BACK [place] REVIEW OF SYSTEMS CONSTITUTIONAL: ANY RECENT FEVER NO . CHILLS NO . WEIGHT CHANGE OF UNKNOWN REASONS NO . GASTROENTEROLOGY: NEW UNEXPLAINABLE CHANGES IN BOWEL CONTROL NO . CONSTIPATION NO . GENITOURINARY: ANY NEW CHANGE IN BLADDER CONTROL? NO . NEUROLOGY: NEW ONSET DIZZINESS OR NEUROLOGICAL CHANGES NOT MENTIONED NO . NEW NUMBNESS OR PAIN PATTERNS NOT MENTIONED AND PERTINENT TO TODAY'S VISIT NO . CARDIOLOGY: NEW CHEST PRESSURE NO . PATIENT DENIES NO . RESPIRATORY: UNEXPLAINABLE COUGH NO . NEW SHORTNESS OF BREATH NO . VITAL SIGNS WT 164 LBS, HT 63.5 IN, BMI 28.59 INDEX, BP 172/83 MM HG, HR 69 /MIN, RR 18 /MIN, TEMP 97.5 F, OXYGEN SAT % 95%, SAFE IN ENV? (Y/N) YEST.SABAS RUIZ. EXAMINATION GENERAL EXAMINATION: GENERALAWAKE,ALERT ,PLEASANT . PSYCHAFFECT NORMAL . LUNGS:LUNG MARIE ARE CLEAR TO AUSCULTATION BILATERALLY. GOOD MOVEMENT OF AIR . HEART:S1, S2 IN A REGULAR RATE AND RHYTHM. NO SIGNIFICANT MURMURS, RUBS OR GALLOPS NOTED . ASSESSMENTS OTHER CHRONIC PAIN - G89.29 (PRIMARY) LUMBOSACRAL SPONDYLOSIS WITHOUT MYELOPATHY - M47.817 TREATMENT OTHER CHRONIC PAIN REFILL PERCOCET TABLET, 5-325 MG, 1 TABLET NEEDED, ORALLY, Q12 HR PRN MDD2, 30 DAYS, 60, REFILLS 0 REFILL TIZANIDINE HCL TABLET, 4 MG, 1-2, ORALLY, Q8H PRN MDD 4, 30 DAYS, 120, REFILLS 2 PAIN PROCEDURE LOGDATE OF PROCEDURE1PROCEDURE:BILATERAL THERAPEUTIC LUMBAR FACET BLOCK L4-L5,L5-X4SUYDCD OF PRE SEDATEVALIUM 10MG, OXYCODONE 10MGRESULT:MARKED REDUCTION IN PAIN CONTINUES TODAYBEATA BERANBE 01/07/2021 5:01:27 PM > KIMBERLEE, PATIENT SEEN ON 01/03/21, NO RESULTS FOUND IN PAIN PROCEDURE LOG. PROCEDURE CODES FA211 ESTABILISHED PATIENT [facility] CHARGE DISPOSITION & COMMUNICATION FOLLOW UP 6 WEEKS (REASON: F/U LBP/NECK PAIN) ELECTRONICALLY SIGNED BY DERIAN VEGA ON 01/07/2021 AT 07:06 PM EST DISCLAIMER : THIS IS A VISIT SUMMARY EXTRACTED FROM THE [employer] CHART. IT IS NOT A COPY OF THE [employer] PROGRESS NOTE. NELY
== END ==
LOC: M PAIN 11:30
PROVIDERS: ATTEND Nurse Practitioner Family
DX: M47.817 Spondylosis without myelopathy or radiculopathy, lumbosacral region (principal); G89.29 Other chronic pain; E11.9 Type 2 diabetes mellitus without complications; G43.909 Migraine, unspecified, not intractable, without status migrainosus; J44.9 Chronic obstructive pulmonary disease, unspecified; M79.7 Fibromyalgia; Z87.891 Personal history of nicotine dependence; Z88.5 Allergy status to narcotic agent; Z88.6 Allergy status to analgesic agent; Z88.8 Allergy status to other drugs, medicaments and biological substances; Z91.018 Allergy to other foods; Z79.4 Long term (current) use of insulin; Z79.51 Long term (current) use of inhaled steroids; Z79.899 Other long term (current) drug therapy

== ENCOUNTER → 2021-02-01 | Outpatient (REF) | payer OTHER ==
[2021-02-01 18:25] LABS: HEMATOCRIT 46.3 % (36.0-47.0); HEMOGLOBIN 15.5 g/dl (12.0-15.5); MEAN CORPUSCULAR HEMOGLOBIN 30.6 pg (27.0-33.0); MEAN CORPUSCULAR HGB CONC 33.5 g/dl (32.0-36.5); MEAN CORPUSCULAR VOLUME 91.5 fl (80.0-96.0); PLATELET COUNT, AUTOMATED 280 10^3/uL (150-450); RED BLOOD COUNT 5.06 10^6/uL (4.00-5.40); WHITE BLOOD COUNT 11.3 10^3/uL (4.0-10.0)
[2021-02-01 18:56] LABS: ALBUMIN 4.7 GM/DL (3.2-5.2); ALT/SGPT 43 U/L (12-78); BILIRUBIN,TOTAL 0.4 MG/DL (0.2-1.0); BLOOD UREA NITROGEN 25 MG/DL (7-18); CALCIUM LEVEL 9.9 MG/DL (8.5-10.1); CARBON DIOXIDE LEVEL 29 MEQ/L (21-32); CHLORIDE LEVEL 102 MEQ/L (98-107); CHOLESTEROL LEVEL 275 MG/DL (<200); CHOLESTEROL RISK RATIO 5.851 (<5); CREATININE FOR GFR 0.98 MG/DL (0.55-1.30); GLOMERULAR FILTRATION RATE > 60.0 (>51); GLUCOSE, FASTING 226 MG/DL (70-100); HDL CHOLESTEROL 47 MG/DL (>40); LDL CHOLESTEROL 168 MG/DL (<100); NON-HDL-C 228 MG/DL; POTASSIUM SERUM 3.8 MEQ/L (3.5-5.1); SODIUM LEVEL 139 MEQ/L (136-145); TOTAL PROTEIN 7.7 GM/DL (6.4-8.2); TRIGLYCERIDES LEVEL 298 MG/DL (<150)
[2021-02-01 19:02] LABS: HEMOGLOBIN A1c 8.6 %
[2021-02-01 19:04] LABS: CREATININE, URINE 88.8 MG/DL
== END ==
LOC: M SFHCPLAZ 13:58
PROVIDERS: ATTEND Family Medicine
DX: E11.21 Type 2 diabetes mellitus with diabetic nephropathy (principal); I12.9 Hypertensive chronic kidney disease with stage 1 through stage 4 chronic kidney disease, or unspecified chronic kidney disease; E78.2 Mixed hyperlipidemia

== ENCOUNTER → 2021-02-22 | Outpatient (CLI) | payer OTHER | LOC: M LAB 12:24 | PROVIDERS: ATTEND Physician Assistant Medical | DX: R56.9 Unspecified convulsions (principal) ==

== ENCOUNTER → 2021-02-22 | Outpatient (CLI) | payer OTHER ==
--- NOTE | 2021-02-24 23:13 | ECWPNPC ---
PATIENT NAME: NICOLE BERNABE : 1960 GENDER: FEMALE VISIT DATE: 02/22/2021 DISCHARGE DATE: 02/22/21 1102 VISIT LOCKED DATE TIME: PHYSICIAN: KIMBERLEE FALCON RESOURCE: KIMBERLEE FALCON REASON FOR APPOINTMENT 1. F/U HISTORY OF PRESENT ILLNESS GENERAL: HERE FOR FOLLOW-UP AND MEDICATION MANAGEMENT FOR CHRONIC LOW BACK PAIN. FORGOT TO BRING HER MEDICATION IN TODAY. PATIENT HAS BEEN HAVING EPISODES OF FALLING AND DIZZINESS OVER THE PAST WEEK. SHE WILL BE IN TOUCH WITH NEUROLOGY. HISTORY OF SEIZURE DISORDER. -. FALL RISK SCREENING: SCREENING TWO FALLS REPORTED IN THE LAST YEAR WITH INJURY. PATIENT DID NOT SEEK IMMEDIATE MEDICAL TREATMENT.. PAIN SCREENING: PATIENT HAS A COMPLAINT OF ACUTE OR CHRONIC PAIN :YES LOCATION OF PAIN:LOW BACK LOW BACK PAIN AND PATIENT STATES SHE ALSO HAS PAIN ALL OVER. INTENSITY OF PAIN (SCALE OF 1 TO 10):8 WHAT DOES YOUR PAIN FEEL LIKE:ACHING, BURNING, CONTINOUS, SHARP, STABBING, TENDER, THROBBING, SORE, SHOOTING DURATION:CONTINOUS, AWAKENS FROM SLEEP PAIN IS INCREASED BY:ACTIVITIES, PROLONGED STANDING PAIN IS DECREASED BY:USE OF PAIN MEDICATIONS NURSING NOTE: -. PAIN CENTER INTAKE QUESTIONS: DO YOU HAVE A HISTORY OF MRSA? :NO DO YOU TAKE A BLOOD THINNERS? :NO DO YOU HAVE ANY BLEEDING DISORDERS? :YES VON WILLEBRANDS DISEASE ANY NEW NUMBNESS OR WEAKNESS IN YOUR LEGS OR ARMS? :YES PAIN AND WEAKNESS IN BILATERAL ARMS AND LEGS ANY PACEMAKER,DEFIBRILLATOR, OR DORSAL COLUMN STIMULATOR? :NO DO YOU HAVE ANY RASHES OR OPEN SORES? :NO ARE YOU ALLERGIC TO IV DYE? :NO ARE YOU DIABETIC? :YES TYPE II ANY NEW PROBLEMS WITH YOUR MEDICATIONS? :NO HAVE YOU RECEIVED A VACCINE IN THE PAST 30 DAYS? :YES IF SO WHAT VACCINE AND WHEN? FIRST COVID VACCINATION 02/07/2021 DO YOU PLAN TO RECEIVE A VACCINE IN THE NEXT 21 DAYS? :YES IF SO WHAT VACCINE AND WHEN? SECOND COVID VACCINATION SCHEDULED 03/13/2021 DO YOU NEED ANY PRESCRIPTION? :NO DO YOU TAKE ANY IMMUNOSUPPRESSIVE MEDICATIONS? :NO DO YOU HAVE ANY KIDNEY OR LIVER DISEASE? :NO IS THERE A CHANCE YOU COULD BE ? :NO ARE YOU BREAST FEEDING? :NO CURRENT MEDICATIONS TAKING TIZANIDINE HCL 4 MG TABLET 1-2 ORALLY Q8H PRN MDD 4 TAKING LATANOPROST 0.005 % SOLUTION 1 DROP INTO AFFECTED EYE IN THE EVENING OPHTHALMIC ONCE A DAY TAKING LIPITOR 80 MG TABLET 1 TABLET ORALLY ONCE A DAY TAKING PANTOPRAZOLE SODIUM 40 MG TABLET DELAYED RELEASE 1 TABLET ORALLY ONCE A DAY TAKING LEXAPRO 20 MG TABLET 1 TABLET ORALLY ONCE A DAY TAKING ONE TOUCH ULTRA SYSTEM KIT - METER DIRECTED - TWICE DAILY/ DX : E11.65 TAKING FOLIC ACID 1 MG TABLET 1 TABLET ORALLY ONCE A DAY TAKING ONE TOUCH ULTRA TEST STRIPS - STRIPS 1 STRIP - TWICE DAILY/ DX : E11.65 TAKING VITAMIN D3 53516 UNIT TABLET 1 TABLET ORALLY WEEKLY TAKING CETIRIZINE HCL 10 MG TABLET 1 TABLET ORALLY ONCE A DAY TAKING FLONASE 50 MCG/DOSE INHALER 2 SPRAYS IN EACH NOSTRIL NASALLY ONCE A DAY TAKING LEVETIRACETAM 1000 MG TABLET 1 TABLET ORALLY TWICE A DAY TAKING ONETOUCH ULTRA TEST - STRIP DIRECTED TWO TIMES A DAY TAKING BD ULTRA-FINE MICRO PEN NEEDLE 32G X 6 MM MISCELLANEOUS DIRECTED SUBCUTANEOUSLY Q HS DX: E11.9 TAKING INCRUSE ELLIPTA 62.5 MCG/INH AEROSOL POWDER BREATH ACTIVATED 1 PUFF INHALATION ONCE A DAY TAKING ALCOHOL PADS 70 % PAD DIRECTED TOPICAL TWICE DAILY/DX : E11.65 TAKING ONETOUCH ULTRA II TEST STRIPS - STRIP TEST TWO TIMES A DAY TAKING VENTOLIN HFA 108 (90 BASE) MCG/ACT AEROSOL SOLUTION 2 PUFFS INHALATION EVERY 4-6 HOURS NEEDED TAKING DDAVP RHINAL TUBE 0.01 % SOLUTION 0.05 ML NASALLY PRN PRIOR TO SX/ INJ TAKING [employer] DELICA LANCETS 33G - MISCELLANEOUS USE DIRECTED TWO TIMES A DAY TAKING BASAGLAR KWIKPEN 100 UNIT/ML SOLUTION PEN-INJECTOR DIRECTED 120 UNITS SUBCUTANEOUS DAILY TAKING AMITRIPTYLINE HCL 20 MG TABLET 1 TABLET AT BEDTIME ORALLY ONCE A DAY TAKING BD PEN NEEDLE MINI U/F 31G X 5 MM MISCELLANEOUS USE DIRECTED AT BEDTIME TAKING TRULICITY 0.75 MG/0.5ML SOLUTION PEN-INJECTOR INJECT 1 PEN SUBCUTANEOUSLY WEEKLY DIRECTED TAKING ONDANSETRON HCL 4 MG TABLET DIRECTED ORALLY QID PRN NAUSEA TAKING ONETOUCH ULTRA - STRIP DIRECTED TWO TIMES A DAY TAKING PROPRANOLOL HCL 40 MG TABLET 1 TABLET ORALLY TWICE DAILY TAKING CHLORTHALIDONE 25 MG TABLET 1 TABLET IN THE MORNING WITH FOOD ORALLY ONCE A DAY TAKING LISINOPRIL 20 MG TABLET 1 TABLET ORALLY BID TAKING AMLODIPINE BESYLATE 5 MG TABLET 1 TABLET ORALLY ONCE A DAY TAKING PERCOCET 5-325 MG TABLET 1 TABLET NEEDED ORALLY Q12 HR PRN MDD2 UNKNOWN NAPROXEN SODIUM 550 MG TABLET 1 TABLET WITH FOOD OR MILK NEEDED ORALLY EVERY 12 HRS UNKNOWN WRIST SPLINT/COCK-UP/RIGHT L - MISCELLANEOUS DIRECTED EXTERNALLY DXL M65.4 DAILY UNKNOWN LANCETS FOR ONE TOUCH ULTRA MISCELLANEOUS DIRECTED SC TWICE DAILY/DX : E11.65, NOTES: DUPLICATE MEDICATION LIST REVIEWED AND RECONCILED WITH THE PATIENT PAST MEDICAL HISTORY DIABETES, GOAL HBA1C IS < 7.0 RHEUMATOID ARTHRITIS SEIZURES- MARIUM HTN, GOAL BP IS < 140/90 PER JNC 8 CKD, STAGE II MIGRAINES-MARIUM COPD ARTHRITIS FIBROMYALGIA CHRONIC NECK PAIN- PAIN CLINIC [facility] NEPHROLITHIASIS VON WILLEBRAND'S DISEASE (NEEDS PRE-TREATMENT WITH DDAVP FOR SURGERY - SEE NOTE FROM DR. ARAUJO 09/11/2009) H/O PEPTIC ULCER HIATAL HERNIA HEMORRHOIDS RECURRENT BREAST ABSCESSES FIBROCYSTIC BREAST DISEASE ALLERGIES ASPIRIN: ANAPHYLAXIS - ALLERGY PEPPER: THROAT CLOSE, TONGUE SWELLS - ALLERGY MORPHINE SULFATE: RASH, HIVES - ALLERGY NICKEL: RASH - ALLERGY TOPAMAX: KINDNEY STONES - SIDE EFFECTS IMITREX: SEVERE HTN (NEAR SBP 300) - SIDE EFFECTS METFORMIN: DIARRHEA - SIDE EFFECTS SOCIAL HISTORY GENERAL: TOBACCO USE ARE YOU A:FORMER SMOKER QUIT IN 2012, HAD ACCRUED 33 PACK YEAR HISTORY HOW LONG HAS IT BEEN SINCE YOU LAST SMOKED?5-10 YEARS LATEX QUESTIONNAIRE LATEX ALLERGY : HAVE YOU EVER DEVELOPED ANY TYPE OF REACTION AFTER HANDLING LATEX PRODUCTS SUCH RUBBER GLOVES, CONDOMS, DIAPHRAGMS, BALLOONS, SOCKS, OR UNDERWEAR?NO LATEX ALLERGY : HAVE YOU EVER DEVELOPED ANY TYPE OF REACTION DURING OR AFTER DENTAL APPOINTMENT, VAGINAL/RECTAL EXAMINATION, SURGICAL PROCEDURE, OR ANY OTHER EXPOSURE?NO LATEX RISK : HAVE YOU EVER HAD ANY DIFFICULTY BREATHING OR HIVES AFTER EATING OR HANDLING ANY FRUITS, OR VEGETABLES; SUCH KIWI, BANANAS, STONE FRUITS, OR CHESTNUTSNO LATEX RISK : DO YOU HAVE A PREVIOUS PERSONAL HISTORY OF MORE THAN NINE SURGERIES, SPINA BIFIDA, OR REPEATED CATHERIZATIONS? YES - PLEASE INDICATE : > 9 SURGERIES LATEX RISK : ARE YOU FREQUENTLY EXPOSED TO LATEX PRODUCTS IN YOUR OCCUPATION?NO DATE ASKED : 02/22/2021 ALCOHOL USE: OCCASIONAL. LUNG CANCER SCREENING SMOKING STATUS:FORMER SMOKER IS THE PATIENT BETWEEN THE AGE OF 56 AND 78?YES HAVE YOU QUIT SMOKING WITHIN THE PAST 15 YEARS?YES HAS THE PATIENT EVER BEEN DIAGNOSED WITH LUNG CANCER?NO CREATE REFERRAL:GENERATE AND CREATE REFERRAL TO THE ONCOLOGY NURSE NAVIGATOR (SMP) LISTING USING THE LDCT SCAN PROCEDURE DISCLAIMER:PLEASE ADD DISCLAIMER FROM BROWSE SECTION OF THE NOTE BMI CARE GOAL FOLLOW-UP ABOVE NORMAL BMI FOLLOW-UPLIFESTYLE EDUCATION REGARDING DIET ALCOHOL SCREENING DID YOU HAVE A DRINK CONTAINING ALCOHOL IN THE PAST YEAR?NO POINTS0 INTERPRETATIONNEGATIVE RECREATIONAL DRUG USE DRUG USE?NO CAFFEINE CAFFEINE USE?YES HOW OFTEN AND HOW MUCH? DAILY SEXUAL HX HAD SEX IN THE LAST 12 MONTHS (VAGINAL, ORAL, OR ANAL)?NO HAVE YOU EVER HAD AN STD?NO HIV / HEP-C SCREENING HIV TEST OFFERED TO PATIENT:NO HEP-C TEST OFFERED TO PATIENT:NO CHEONDOISM [id number] NONE LANGUAGE LANGUAGES SPOKEN:KHMER EDUCATION LEVEL OF EDUCATION:NOT FINISHED HIGH SCHOOL 11 TH GRADE LEARNING BARRIERS / SPECIAL NEEDS CHANGE FROM LAST VISIT?NO BARRIERS TO LEARNING?NO HEARING IMPAIRED?YES TINNITUS :HEARING AIDES NEEDS TO HAVE FIXED VISION IMPAIRED?YES :CORRECTIVE LENSES COGNITIVELY IMPAIRED?NO READINESS TO LEARN?YES LEARNING PREFERENCES?NO LEARNING CAPABILITIES PRESENT?YES EMOTIONAL BARRIERS?NO SPECIAL DEVICES?YES :CANE ASBESTOS SIDING MECHANIC NEEDED?NO DOMESTIC VIOLENCE DO YOU FEEL SAFE IN YOUR ENVIRONMENT?YES OCCUPATION: UNEMPLOYED. DIET: NO CONCENTRATED SWEETS, CHEATS SOMETIMES. EXERCISE: NO REGULAR EXERCISE, LIKES TO WALK. MARITAL STATUS: SINGLE. OTHERS AT HOME: BOYFRIEND. - HAS THE PATIENT BEEN EDUCATED REGARDING HIS/HER PLAN OF CARE?YES HAS THE PATIENT BEEN EDUCATED REGARDING PAIN, THE RISK FOR PAIN, THE IMPORTANCE OF EFFECTIVE PAIN MANAGEMENT, AND THE PAIN ASSESSMENT PROCESS?YES HOUSING: LIVING WITH BOYFRIEND. ADVANCE DIRECTIVE ADVANCE DIRECTIVE DISCUSSED WITH PATIENT:YES STATES HCP - PRERNA HEARN (DAUGHTER) [phone]; GAVE HER ANOTHER COPY OF THE HCP FORM AND SHE WILL WORK ON GETTING [place] REVIEW OF SYSTEMS CONSTITUTIONAL: ANY RECENT FEVER NO . CHILLS NO . WEIGHT CHANGE OF UNKNOWN REASONS NO . GASTROENTEROLOGY: NEW UNEXPLAINABLE CHANGES IN BOWEL CONTROL NO . CONSTIPATION NO . GENITOURINARY: ANY NEW CHANGE IN BLADDER CONTROL? NO . NEUROLOGY: NEW ONSET DIZZINESS OR NEUROLOGICAL CHANGES NOT MENTIONED NO . NEW NUMBNESS OR PAIN PATTERNS NOT MENTIONED AND PERTINENT TO TODAY'S VISIT NO . CARDIOLOGY: NEW CHEST PRESSURE NO . PATIENT DENIES NO . RESPIRATORY: UNEXPLAINABLE COUGH NO . NEW SHORTNESS OF BREATH NO . VITAL SIGNS WT 163.2 LBS, HT 63.5 IN, BMI 28.45 INDEX, BP 119/68 MM HG, HR 65 /MIN, RR 18 /MIN, TEMP 97.5 F, OXYGEN SAT % 94%, SAFE IN ENV? (Y/N) YES, NA INITIALS AW 1016, REVIEWED BY: JULIA OBRIEN MA. EXAMINATION GENERAL EXAMINATION: GENERALAWAKE,ALERT ,PLEASANT . PSYCHAFFECT NORMAL . LUNGS:LUNG MARIE ARE CLEAR TO AUSCULTATION BILATERALLY. GOOD MOVEMENT OF AIR . HEART:S1, S2 IN A REGULAR RATE AND RHYTHM. NO SIGNIFICANT MURMURS, RUBS OR GALLOPS NOTED . ASSESSMENTS LUMBOSACRAL SPONDYLOSIS WITHOUT MYELOPATHY - M47.817 (PRIMARY) TREATMENT LUMBOSACRAL SPONDYLOSIS WITHOUT MYELOPATHY CONTINUE TIZANIDINE HCL TABLET, 4 MG, 1-2, ORALLY, Q8H PRN MDD 4 CONTINUE AMITRIPTYLINE HCL TABLET, 20 MG, 1 TABLET AT BEDTIME, ORALLY, ONCE A DAY CONTINUE PERCOCET TABLET, 5-325 MG, 1 TABLET NEEDED, ORALLY, Q12 HR PRN MDD2 NOTES: ISTOP REGISTRY REVIEWED AND DEMONSTRATES COMPLLIANCE. (. RECENT URINE TOXICOLOGY REVIEWED. NO UNAUTHORIZED MEDICATIONS. NO ILLICIT SUBSTANCES AND PRESCRIBED MEDICATIONS WERE PRESENT. PROCEDURE CODES FA211 ESTABILISHED PATIENT [facility] CHARGE DISPOSITION & COMMUNICATION FOLLOW UP 3 MONTHS (REASON: URINE TOXICOLOGY/FOLLOW-UP ON FREQUENT FALLING AND DIZZINESS) ELECTRONICALLY SIGNED BY DERIAN VEGA ON 02/24/2021 AT 08:26 PM EDT DISCLAIMER : THIS IS A VISIT SUMMARY EXTRACTED FROM THE [employer] CHART. IT IS NOT A COPY OF THE [employer] PROGRESS NOTE. NELY
== END ==
LOC: M PAIN 10:15
PROVIDERS: ATTEND Nurse Practitioner Family
DX: M47.817 Spondylosis without myelopathy or radiculopathy, lumbosacral region (principal); G89.29 Other chronic pain; E11.9 Type 2 diabetes mellitus without complications; G40.909 Epilepsy, unspecified, not intractable, without status epilepticus; G43.909 Migraine, unspecified, not intractable, without status migrainosus; J44.9 Chronic obstructive pulmonary disease, unspecified; M79.7 Fibromyalgia; Z87.891 Personal history of nicotine dependence; Z88.5 Allergy status to narcotic agent; Z88.6 Allergy status to analgesic agent; Z88.8 Allergy status to other drugs, medicaments and biological substances; Z91.018 Allergy to other foods; Z79.4 Long term (current) use of insulin; Z79.51 Long term (current) use of inhaled steroids; Z79.899 Other long term (current) drug therapy

== ENCOUNTER → 2021-04-04 | Outpatient (REF) | payer OTHER ==
[~2021-04-04] MED LIST changes: +GABA-283 PO; -GABA-845 PO
[2021-04-04 17:52] LABS: CREATININE, URINE 81.8 MG/DL; MALB URINE SIEMENS 92.1 MG/L; MAU/CREAT RATIO 112.5 MCG/MG (0.0-30.0)
== END ==
LOC: M SFHCPLAZ 16:39
PROVIDERS: ATTEND Family Medicine
DX: R80.9 Proteinuria, unspecified (principal)

== ENCOUNTER 2021-04-26 11:53 | Inpatient (IN) | payer OTHER ==
[~2021-04-26] VITALS: Ht 160 cm; Wt 73.0 kg
[~2021-04-26 11:53] MED LIST changes: -DOXY100C37; +DOXY1CAP62; +ERGO500029 PO; -FLON1SPR; +FLON1SPR NARES; +OMEP40CA4 PO; -OMEP40CA97 PO; -VITA50005 PO
--- NOTE | 2021-04-26 12:36 | REP ---
INDICATION: CHEST PAIN. COMPARISON: 01/09/2020. TECHNIQUE: Single portable AP view of the chest was performed. FINDINGS: There is no acute infiltrate or pulmonary edema. Lungs are clear. The heart is not significantly enlarged. The mediastinal silhouette is unremarkable. The visualized osseous structures are intact. IMPRESSION: No acute pulmonary disease. <Electronically signed by Luke Maldonado > 04/26/21 [id number]
[2021-04-26 12:39] LABS: BASO # 0.1 10^3/uL (0.0-0.2); BASO % 0.7 % (0.0-1.0); EOS # 0.1 10^3/uL (0.0-0.5); EOS % 0.8 % (0.0-3.0); HEMATOCRIT 44.6 % (36.0-47.0); HEMOGLOBIN 15.1 g/dl (12.0-15.5); LYMPH # 1.9 10^3/uL (1.5-5.0); LYMPH % 17.7 % (24.0-44.0); MEAN CORPUSCULAR HEMOGLOBIN 31.2 pg (27.0-33.0); MEAN CORPUSCULAR HGB CONC 33.9 g/dl (32.0-36.5); MEAN CORPUSCULAR VOLUME 92.1 fl (80.0-96.0); MONO # 0.6 10^3/uL (0.0-0.8); MONO % 5.6 % (2.0-8.0); NEUTROPHILS % 74.8 % (36.0-66.0); PLATELET COUNT, AUTOMATED 284 10^3/uL (150-450); RED BLOOD COUNT 4.84 10^6/uL (4.00-5.40); WHITE BLOOD COUNT 10.6 10^3/uL (4.0-10.0)
[2021-04-26] MEDS ORDERED: NS 1,000 ML IV ONE ×2 (12:50→13:50)
[2021-04-26] MEDS ORDERED: ONDANSETRON 4MG/2ML VIAL IV ONE (12:50)
[2021-04-26] MEDS ORDERED: fentaNYL 100 MCG/2 ML INJECTION (J3010) IV ONE (12:50)
[2021-04-26 13:19] LABS: ALBUMIN 4.6 GM/DL (3.2-5.2); ALT/SGPT 32 U/L (12-78); BILIRUBIN,DIRECT < 0.1 MG/DL (0.0-0.2); BILIRUBIN,TOTAL 0.5 MG/DL (0.2-1.0); CK-MB VALUE MASS < 1.0 NG/ML (<3.6); CPK CREATINE PHOSPHOKINASE 103 U/L (26-192); LIPASE 144 U/L (73-393); MB/CK RELATIVE INDEX 0.97 (< OR =4); TOTAL PROTEIN 8.1 GM/DL (6.4-8.2); TROPONIN I < 0.02 NG/ML (< 0.10)
[2021-04-26 14:33] LABS: BLOOD UREA NITROGEN 46 MG/DL (7-18); CALCIUM LEVEL 9.6 MG/DL (8.5-10.1); CARBON DIOXIDE LEVEL 27 MEQ/L (21-32); CHLORIDE LEVEL 102 MEQ/L (98-107); CREATININE FOR GFR 2.48 MG/DL (0.55-1.30); GLOMERULAR FILTRATION RATE 21.2 (>51); GLUCOSE, FASTING 181 MG/DL (70-100); POTASSIUM SERUM 4.6 MEQ/L (3.5-5.1); SODIUM LEVEL 137 MEQ/L (136-145)
--- NOTE | 2021-04-26 15:33 | REP ---
INDICATION: vomiting, abdominal pain, Chacon''s' sign. COMPARISON: 12/31/2016. TECHNIQUE: Real-time sonographic evaluation of right upper quadrant performed. FINDINGS: The gallbladder is distended measuring 9.9 x 4.0 x 4.2 cm. There is no gallbladder wall thickening. No tenderness is elicited with transducer pressure at this location. There is no intrahepatic or extrahepatic biliary dilatation, common bile duct measures 5 mm in maximum diameter. There are findings compatible with fatty infiltration of the liver, with no gross mass. Pancreas is not optimally seen due to overlying bowel gas, the visualized portions are grossly unremarkable. The right kidney demonstrates no hydronephrosis, with a normal size of 10.9 cm in length. No free fluid is seen. IMPRESSION: Distended gallbladder. No gallstones, gallbladder wall thickening, free fluid or biliary dilatation. No tenderness is elicited with transducer pressure at the site of the gallbladder. Diffuse fibrofatty infiltration of the liver. <Electronically signed by Luke Maldonado > 04/26/21 [id number]
[2021-04-26] MEDS ORDERED: ACETAMINOPHEN 500 MG TAB PO ONE (15:50)
[2021-04-26] MEDS ORDERED: METOCLOPRAMIDE INJ 10MG/2ML VIAL (J2765 PER 1) IV ONE (16:00)
[2021-04-26] MEDS ORDERED: CLOPIDOGREL 75 MG TAB PO ONE (16:20)
[2021-04-26] MEDS ORDERED: GLUCOSE 4GM CHEW TABLET PO PRN (17:20)
[2021-04-26] MEDS ORDERED: GLUCAGON INJ 1MG VIAL SC PRN (17:20)
[2021-04-26] MEDS ORDERED: HumaLOG INSULIN (NovoLOG) PER UNIT SC SCH (17:20)
[2021-04-26] MEDS ORDERED: DEXTROSE 50% 50 ML SYRINGE IV PRN (17:20)
[2021-04-26] MEDS ORDERED: hydrALAZINE 20MG/ML 1ML VIAL (J0360 PER 20MG) IV PRN (17:20)
[2021-04-26] MEDS ORDERED: DICYCLOMINE 10 MG CAP PO PRN (17:30)
[2021-04-26] MEDS ORDERED: ALBUTEROL 90 MCG/ACT 8GM HFA INHALER INH PRN (17:30)
[2021-04-26 17:50] LABS: RSV AMPLIFICATION NEGATIVE (NEGATIVE)
--- NOTE | 2021-04-26 17:57 | HPEPDOC ---
[facility] Medical History & Physical Date of Admission Apr 26, 2021 Date of Service: Apr 26, 2021 History and Physical CHIEF COMPLAINT: Nausea vomiting and diarrhea HISTORY OF PRESENT ILLNESS: 60-year-old female with an extensive medical history as outlined below who presents to the emergency department by ambulance because of nausea vomiting and diarrhea for the past 3 days with inability to drink much fluid and a decreased appetite. She feels weak and tired and cannot control her symptoms. She denies sick contacts but tells me she lives alone with her pets. She had been following up with urology for gait instability over the past several months that has been worsening with frequent falls and she was ordered to have an MRI which was done this morning. Results were faxed to the emergency department showing an acute infarct lacunar right parietal white matter as well as finding of old lacunar infarcts right basal ganglia and bilateral globus pallidus. Emergency department physician spoke with and consulted Dr. Rangel, who recommended Plavix, CTA head and neck. I discussed the case with Dr. Rangel as well and he recommended stroke workup including echocardiogram and he will see well admitted. Patient tells me that in addition to her gait instability she's been having chronic migraines on and off but they're not worse than baseline. She also complains recently she's had multiple urine accidents incontinence where she is unable to make it to the bathroom in time. She denies any kind of chest pain at this time. Denies shortness of breath. Tells me previously her chest was hurting in the setting of throwing up only. In the emergency Department gallbladder ultrasound was done as Chacon sign was positive for emergency department physician which shows a distended gallbladder with no gallstones with gallbladder wall thickening free fluid or biliary dilation. It was noted that no tenderness was elicited with transducer pressure on the side of the gallbladder. Also diffuse fibrofatty infiltration of the liver was seen. Chest x-ray showed no acute pulmonary disease. 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 Banuelos September 2009 History of peptic ulcer Hiatal hernia History of hemorrhoids Recurrent breast abscesses Fibrocystic breast disease 4 C-sections Tubal ligation Neck discectomy and fusion Left breast lumpectomy Partial hysterectomy Kidney stones with bilateral hydronephrosis and stent placement Vasoactive drips E and removal of stents Breast reduction surgery Back surgery titanium cage SOCIAL HISTORY: Endorses drinking alcohol socially Denies tobacco use currently but has a [id number]-gjzh history she claims to have quit in 2013 Denies illicit drug use now or previously FAMILY HISTORY: Reviewed and none contributory to this admission ALLERGIES: Please see below. REVIEW OF SYSTEMS: 10 point review of systems complete all negative otherwise stated in HPI HOME MEDICATIONS: Please see below. PHYSICAL EXAMINATION: Constitutional: Awake and alert, in some mild distress. Face is flush as she intermittently dry heaves and was recently throwing up ENT: Sclera are clear. Mucosa is moist. Respiratory: Lungs CTA bilaterally. No respiratory distress. No use of accessory muscles. Cardiovascular: RRR S1 and S2 are normal, no murmur Gastrointestinal: Abdomen is soft, non distended, non tender, BS present. Chacon sign negative. Musculoskeletal: No lower extremity edema. mental status: The patient is awake, alert, oriented to name, location, and date. Cranial nerves: Pupils are equal, round, and reactive to light. Extraocular muscles intact. Visual modi full bilaterally. Smile is symmetrical. Tongue is midline. Intact sensation on both sides of face. Motor: At least 4+/5 in both upper and lower extremities without any drifting. RLE not as strong relating to chronic hip pain. Sensory: Intact to sensation bilaterally. Reflexes: Symmetrical, non-hyperreflexic. Not pathological. Coordination: Qemzpo-zv-[id number] grossly intact. LABORATORY DATA: See below. IMAGING: See chart MICROBIOLOGY: Please see below. ASSESSMENT/PLAN 60-year-old female with an extensive past medical history presents with nausea vomiting and diarrhea suspected to have gastroenteritis also found to have acute kidney injury likely related to dehydration. MRI done this morning shows acute right lacunar stroke admitted for stroke workup as well as management of her presenting symptoms. # Acute right lacunar stroke: Stroke protocol. Admit to PCU on tele. CT negative for bleed. Fu Echo, duplex carotids. NPO until speech eval. PT/OT. Fall, seizure precautions. Plavix and Statin. MRI results as above report in chart. Dr Rangel neurologist consulted, appreciate his recommendations. CTA head/neck ordered from ED but might not get done due to renal function. # Possible viral gastroenteritis: Presents with nausea vomiting and diarrhea as well as dehydration. Supportive management. IV fluids. GI panel. Reglan scheduled Zofran as needed. # EVETTE on CKD: Cr2.48 Likely prerenal secondary to dehydration. Fu FeNa. IVFs NS. Trend BMP. Avoid nephrotoxins if possible. # Seizure disorder: s/p TBI. Home dose Keppra IV while NPO. # DM: ISS. Frequent Accu-Cheks. Hypoglycemic precautions. Levemir 60 units twice a day half dose while NPO. # Hypertension: Continue home meds. Monitor and titrate # Continue home medications for chronic medical problems # DVT prophylaxis: Heparin A Yousef Hospitalist Vital Signs Vital Signs Date Time Temp Pulse Resp B/P (MAP) Pulse Ox O2 Delivery O2 Flow Rate FiO2 04/26/21 16:53 81 100 04/26/21 16:51 170/76 (107) 04/26/21 13:04 16 04/26/21 12:05 99.5 Room Air Laboratory Data Labs 24H Laboratory Tests 2 04/26/21 12:16: Immature Granulocyte % (Auto) 0.4, Neutrophils (%) (Auto) 74.8H, Lymphocytes (%) (Auto) 17.7L, Monocytes (%) (Auto) 5.6, Eosinophils (%) (Auto) 0.8, Basophils (%) (Auto) 0.7, Neutrophils # (Auto) 8.0, Lymphocytes # (Auto) 1.9, Monocytes # (Auto) 0.6, Eosinophils # (Auto) 0.1, Basophils # (Auto) 0.1, Nucleated Red Blood Cells % (auto) 0.0, Anion Gap 8, Glomerular Filtration Rate 21.2L, Calcium Level 9.6, Total Bilirubin 0.5, Direct Bilirubin < 0.1, Aspartate Amino Transf (AST/SGOT) 32, Alanine Aminotransferase (ALT/SGPT) 32, Alkaline Phosphatase 88, Total Creatine Kinase 103, Creatine Kinase MB < 1.0, Creatine Kinase MB Relative Index 0.97, Troponin I < 0.02, Total Protein 8.1, Albumin 4.6, Albumin/Globulin Ratio 1.3, Lipase 144 04/26/21 12:21: POC Glucose (Misc Panel) 186H, POC Sodium (Misc Panel) 141, POC Potassium (Misc Panel) 4.1, POC Chloride (Misc Panel) 100, POC Total CO2 (Misc Panel) 27.0, POC Blood Urea Nitrogen (Misc Panel 45H, POC Ionized Calcium (Misc Panel) 4.8, POC Creatinine (Misc Panel) 2.5H, POC Hematocrit (Misc Panel) 43.0 04/26/21 16:53: CBC/BMP Laboratory Tests 04/26/21 12:16 Home Medications Scheduled Amlodipine Besylate (Amlodipine Besylate) 5 Mg Tablet, 5 MG PO DAILY Brimonidine Tartrate (Brimonidine Tartrate) 0.2% 5ML Drops, 1 DROP OU BID Dulaglutide (Trulicity) 0.75 Mg/0.5 Ml Inj, 0.75 MG SC QWEEK FRIDAYS Ergocalciferol (Vitamin D2) (Vitamin D2) 50,000 Units Cap, 50,000 UNITS PO QWEEK Escitalopram Oxalate (Lexapro) 20 Mg Tab, 20 MG PO DAILY Folic Acid (Folic Acid) 1 Mg Tab, 1 MG PO DAILY Insulin Glargine,Hum.rec.anlog (Basaglar Kwikpen U-100) 100 Unit/1 Ml Insuln.pen, 120 UNIT SC QAM Latanoprost (Xalatan) 0.005 % Tahmina, 1 DROP OU QHS Levetiracetam (Keppra) 1,000 Mg Tab, 1,000 MG PO BID Lisinopril (Lisinopril) 40 Mg Tab, 40 MG PO DAILY Pantoprazole Sodium (Pantoprazole Sodium) 40 Mg Tab, 40 MG PO DAILY Propranolol HCl (Propranolol HCl) 40 Mg Tablet, 40 MG PO DAILY Umeclidinium [place] (Incruse Ellipta) 62.5 Mcg/Inh Inh, 1 PUFF INH DAILY Scheduled PRN Albuterol Sulfate (Ventolin Hfa) 108 Mcg/Act Aer, 108 MCG INH Q4HP PRN for SHORTNESS OF BREATH Dicyclomine HCl (Dicyclomine HCl) 10 Mg Capsule, 10 MG PO Q6H PRN for ABDOMINAL PAIN Fluticasone Propionate (Flonase Allergy Relief) 50 Mcg/Act Spr, 2 SPRAYS NARES DAILY PRN for NASAL CONGESTION Ondansetron (Ondansetron Odt) 4 Mg Tab, 4 MG PO QID PRN for NAUSEA Oxycodone HCl/Acetaminophen (Percocet 5-325 mg Tablet) 1 Tab Tab, 1 TAB PO Q6H PRN for PAIN Tizanidine HCl (Tizanidine HCl) 4 Mg Tablet, 4 MG PO Q8H PRN for MUSCLE SPASMS Allergies Coded Allergies: PEPPERS (Verified Allergy, Severe, SEIZURE DISORDER, TONGUE SWELLS, BREATHING PROBLEMS, 01/23/19) aspirin (Verified Allergy, Severe, BREATHING DIFFICULTY, 03/12/19) ibuprofen (Verified Allergy, Severe, THROAT SWELLING, 03/12/19) morphine (Verified Allergy, Intermediate, RASH, 03/12/19) nickel (Verified Allergy, Intermediate, RASH, 03/12/19) metformin (Verified Adverse Reaction, Intermediate, VOMITING AND DIARRHEA, 03/12/19) sumatriptan (Verified Adverse Reaction, Intermediate, HYPOTENSION, 03/12/19) topiramate (Verified Adverse Reaction, Intermediate, ELEVATED BP, 03/12/19) A-FIB/CHADSVASC A-FIB History Current/History of A-Fib/PAF?: No ANA BARRETO MD Apr 26, 2021 17:57
[2021-04-26] MEDS: METOCLOPRAMIDE INJ 10MG/2ML VIAL (J2765 PER 1) IV SCH ×2 (18:00→23:59)
[2021-04-26] MEDS ORDERED: ACETAMINOPHEN TAB 650MG DOSE (2X325MG) PO PRN (18:45)
[2021-04-26 19:04] LABS: CHOLESTEROL LEVEL 246 MG/DL (<200); CK-MB VALUE MASS < 1.0 NG/ML (<3.6); CPK CREATINE PHOSPHOKINASE 73 U/L (26-192); HDL CHOLESTEROL 44 MG/DL (>40); LDL CHOLESTEROL 142 MG/DL (<100); MB/CK RELATIVE INDEX 1.37 (< OR =4); NON-HDL-C 202 MG/DL; RHEUMATOID FACTOR QUANT < 10.0 IU/ML (<15.0); TRIGLYCERIDES LEVEL 300 MG/DL (<150); TROPONIN I < 0.02 NG/ML (< 0.10)
[2021-04-26 19:12] LABS: INR 0.98; PROTHROMBIN TIME 13.2 SECONDS (12.5-14.3)
--- NOTE | 2021-04-26 19:19 | REP ---
INDICATION: Assess stenosis TECHNIQUE: Carotid ultrasonography was performed bilaterally FINDINGS: Right: CCA systolic: 103 centimeters/second CCA diastolic: 16.8 centimeters/second ICA systolic: 71.3 centimeters/second ICA diastolic: 19.6 centimeters/second ICA CCA ratio: 0.69 Left: CCA systolic: 126 centimeters/second CCA diastolic: 27.1 centimeters/second ICA systolic: 98.8 centimeters/second ICA diastolic: 27.5 centimeters/second ICA CCA ratio: 0.78 Vertebral artery: Right: Antegrade flow left: Antegrade flow There is mild to moderate echogenic material seen along the carotid arterial schulz some of which casts in acoustic shadow consistent with calcific deposition. IMPRESSION: According to the SRU criteria there is less than 50% stenosis of the internal carotid artery bilaterally. This is secondary to both calcified and noncalcified atheromatous plaque formation. <Electronically signed by Ochoa Kuhn > 04/26/21 [id number]
[2021-04-26 19:36] LABS: ERYTHROCYTE SEDIMENTATION RATE 28 mm/hr (0-30)
[2021-04-26 20:40] VITALS: BP 142/98; O2SAT 99
[2021-04-26] MEDS ORDERED: levETIRAcetam INJection 500 MG in D5W 100 ML IV SCH (21:00)
[2021-04-26] MEDS: PROPRANOLOL 20 MG TAB PO SCH (21:53)
[2021-04-26] MEDS: FOLIC ACID 1 MG TAB PO SCH (21:53)
[2021-04-26] MEDS: amLODIPine 5 MG TAB PO SCH (21:54)
[2021-04-26] MEDS: PANTOPRAZOLE 40MG TAB (PROTONIX) PO SCH (21:54)
[2021-04-26] MEDS: ESCITALOPRAM OXALATE 10 MG TAB (LEXAPRO) PO SCH (21:54)
[2021-04-26] MEDS: lisinopriL 40 MG TAB PO SCH (21:54)
[2021-04-26] MEDS: PERCOCET 5MG/325MG TAB PO PRN (22:10)
[2021-04-26] MEDS: NS 1,000 ML IV SCH (22:10)
[2021-04-26] MEDS: LEVEMIR (INSULIN DETEMIR) 1 UNITS/0.01ML SC SCH (22:10)
[2021-04-26] MEDS: ATORVASTATIN 20 MG TAB PO SCH (22:11)
[2021-04-26] MEDS: LIDOCAINE 5% (LIDODERM) PATCH TD SCH (22:11)
[2021-04-26] MEDS: LATANOPROST 0.005% OPHTH SOLN 2.5 ML OU SCH (22:53)
[2021-04-26] MEDS: levETIRAcetam INJection 500 MG in D5W MINI-BAG PLUS 100 ML IV SCH (22:53)
[2021-04-27] VITALS (9 sets, daily range): BP systolic 140–173; BP diastolic 65–72; O2SAT 92–96
[2021-04-27] MEDS: NS 1,000 ML IV SCH ×3 (01:40→19:01)
[2021-04-27] MEDS: METOCLOPRAMIDE INJ 10MG/2ML VIAL (J2765 PER 1) IV SCH ×3 (05:26→19:01)
[2021-04-27] MEDS: HumaLOG INSULIN (NovoLOG) PER UNIT SC SCH ×5 (05:26→20:08)
[2021-04-27] MEDS: PERCOCET 5MG/325MG TAB PO PRN ×2 (05:28→17:04)
[2021-04-27 05:45] LABS: HEMATOCRIT 37.4 % (36.0-47.0); MEAN CORPUSCULAR HEMOGLOBIN 30.9 pg (27.0-33.0); MEAN CORPUSCULAR HGB CONC 33.2 g/dl (32.0-36.5); MEAN CORPUSCULAR VOLUME 93.3 fl (80.0-96.0); PLATELET COUNT, AUTOMATED 202 10^3/uL (150-450); RED BLOOD COUNT 4.01 10^6/uL (4.00-5.40); WHITE BLOOD COUNT 7.1 10^3/uL (4.0-10.0)
[2021-04-27 05:51] LABS: HEMOGLOBIN 12.4 g/dl (12.0-15.5)
[2021-04-27 06:16] LABS: ALBUMIN 3.7 GM/DL (3.2-5.2); BILIRUBIN,TOTAL 0.5 MG/DL (0.2-1.0); CALCIUM LEVEL 8.7 MG/DL (8.5-10.1); CREATININE FOR GFR 1.41 MG/DL (0.55-1.30); GLOMERULAR FILTRATION RATE 40.6 (>51); MAGNESIUM LEVEL 2.2 MG/DL (1.8-2.4); POTASSIUM SERUM 3.4 MEQ/L (3.5-5.1); TOTAL PROTEIN 6.5 GM/DL (6.4-8.2)
--- NOTE | 2021-04-27 06:49 | ECGEPIP ---
[facility] - ED Test Date: 2021-04-26 Pat Name: NICOLE BERNABE Department: Room: - Gender: Female Breakfast Attendant: MAXIMINO : 1960 Requested By: Blaise Zhao Order Number: [id number] Reading MD: Jamie Crenshaw Measurements Intervals [place] Rate: 97 P: 73 IN: 150 QRS: 40 QRSD: 100 T: 123 QT: 362 QTc: 459 Interpretive Statements Normal sinus rhythm Minimal voltage criteria for LVH, may be normal variant ( Korey product ) Cannot rule out Inferior infarct , age undetermined ST & T wave abnormality, consider lateral ischemia Laterl changes new from tracing done 01-09-20 Electronically Signed on 04-27-2021 6:49:14 EDT by Jamie Crenshaw
[2021-04-27] MEDS: levETIRAcetam INJection 500 MG in D5W MINI-BAG PLUS 100 ML IV SCH ×2 (07:35→20:28)
--- NOTE | 2021-04-27 08:00 | REP ---
INDICATION: Stroke workup. COMPARISON: None. TECHNIQUE: Multiple ultrasonographic images of the deep venous structures of the bilateral lower extremity were obtained from the inguinal ligament to the ankle. Venous compression techniques, color doppler imaging, and augmentation techniques were also obtained where appropriate. As per the ACR guidelines the anterior tibial vein can not be effectively evaluated. Only compression techniques in the calf on the peroneal and posterior tibial veins was attempted/performed. FINDINGS: There is no abnormal echogenic material seen within any of the visualized deep venous structures that would suggest acute thrombosis. Coaptation is unremarkable throughout. Doppler interrogation shows an expected response to respiratory variability and augmentation in the thigh. Compression techniques in the calf showed no abnormality. The color flow images show what appears to be a normal vascular pattern throughout the thigh. IMPRESSION: There is no ultrasonographic evidence of deep venous thrombosis involving any of the visualized deep venous structures of the bilateral lower extremity as described above. <Electronically signed by Ochoa Kuhn > 04/27/21 [id number]
[2021-04-27] MEDS: LEVEMIR (INSULIN DETEMIR) 1 UNITS/0.01ML SC SCH ×2 (08:25→20:27)
[2021-04-27] MEDS: amLODIPine 5 MG TAB PO SCH (08:35)
[2021-04-27] MEDS: HEPARIN SOD (PORCINE) 5000UNITS/ML 1ML VIAL/SYRINGE SQ SCH ×2 (08:35→20:30)
[2021-04-27] MEDS: PROPRANOLOL 20 MG TAB PO SCH (08:35)
[2021-04-27] MEDS: FOLIC ACID 1 MG TAB PO SCH (08:35)
[2021-04-27] MEDS: ESCITALOPRAM OXALATE 10 MG TAB (LEXAPRO) PO SCH (08:36)
[2021-04-27] MEDS: PANTOPRAZOLE 40MG TAB (PROTONIX) PO SCH (08:36)
[2021-04-27] MEDS: lisinopriL 40 MG TAB PO SCH (08:36)
[2021-04-27] MEDS: **NOTE PATIENT COMMENT** MISC XX SCH (08:40)
--- NOTE | 2021-04-27 11:35 | IPNPDOC ---
Text Note Date of Service The patient was seen on 04/27/21. NOTE Subjective: Patient was seen and examined this morning at bedside. She tells me her nausea and vomiting have considerably improved she hasn't thrown up since last evening and she hasn't had any diarrhea since being admitted. She is feeling a lot better. She hasn't had any symptoms there is no acute overnight events reported to me she denies any shortness of breath or chest pain. Objective: Constitutional: Awake and alert, in no apparent distress. Face is no longer flush she looks much better today ENT: Sclera are clear. Mucosa is moist. Respiratory: Lungs CTA bilaterally. No respiratory distress. No use of accessory muscles. Cardiovascular: RRR S1 and S2 are normal, no murmur Gastrointestinal: Abdomen is soft, non distended, non tender, BS present. Chacon sign negative. Musculoskeletal: No lower extremity edema. mental status: The patient is awake, alert, oriented to name, location, and date. Cranial nerves: Pupils are equal, round, and reactive to light. Extraocular muscles intact. Visual modi full bilaterally. Smile is symmetrical. Tongue is midline. Intact sensation on both sides of face. Motor: At least 4+/5 in both upper and lower extremities without any drifting. RLE not as strong relating to chronic hip pain. Sensory: Intact to sensation bilaterally. Reflexes: Symmetrical, non-hyperreflexic. Not pathological. Coordination: Ratlbn-sa-wbwl grossly intact. Assessment/plan: 60-year-old female with an extensive past medical history presents with nausea vomiting and diarrhea suspected to have gastroenteritis also found to have acute kidney injury likely related to dehydration. MRI done this morning shows acute right lacunar stroke admitted for stroke workup as well as management of her presenting symptoms. # Acute right lacunar stroke: Stroke protocol. PCU on tele. CT negative for bleed. Fu Echo. duplex carotids <50% stenosis bilaterally. Passed bedside swallow evaluation can have consistent carbohydrate diet. PT/OT. Fall, seizure precautions. Plavix and Statin. MRI results as above report in chart. Dr Rangel neurologist consulted, appreciate his recommendations. CTA head/neck ordered from ED but might not get done due to renal function. # Possible viral gastroenteritis: Presented with nausea vomiting and diarrhea as well as dehydration. Supportive management. IV fluids. GI panel. Reglan scheduled Zofran as needed. No diarrhea since admission nausea and vomiting have also improved. # EVETTE on CKD: Cr2.48 Likely prerenal secondary to dehydration. Fu FeNa. Trend BMP. Avoid nephrotoxins if possible. Improved considerably today after IVFs # Seizure disorder: s/p TBI. Home dose Keppra # DM: ISS. Frequent Accu-Cheks. Hypoglycemic precautions. Levemir 60 units twice a day half dose while NPO. # Hypertension: Continue home meds. Monitor and titrate # Continue home medications for chronic medical problems # DVT prophylaxis: Heparin A Jonathan Hospitalist VS,Kaia, I+O VS, [place], I+O Laboratory Tests 04/26/21 12:16 04/27/21 05:20 Vital Signs Date Time Temp Pulse Resp B/P (MAP) Pulse Ox O2 Delivery O2 Flow Rate FiO2 04/27/21 10:00 93 Room Air 04/27/21 08:35 77 158/70 04/27/21 08:00 1.0 04/27/21 08:00 97.8 18 I&O- Last 24 Hours up to 6 AM 04/27/21 06:00 Intake Total 765 ml Output Total 550 ml Balance 215 ml ANA BARRETO MD Apr 27, 2021 11:35
[2021-04-27] MEDS: CLOPIDOGREL 75 MG TAB PO SCH (15:02)
--- NOTE | 2021-04-27 19:29 | CR ---
CONSULTATION DATE: 04/26/2021 REFERRING PHYSICIAN: Wilner Castillo MD REASON FOR CONSULTATION: Nausea, vomiting, diarrhea, dizziness. HISTORY OF PRESENT ILLNESS: The patient is a 60-year-old woman with a history of vision problem, blurred vision in left eye for the last few months. She was admitted at [facility] in January, and her stroke workup was unremarkable. The patient states that she is following with a retina specialist and per history, she states that she was found to have a retinal detachment and she had injections in her left eye. Her left eye blurred vision continues. She had a routine MRI scan of brain in our office which showed small right parietal, rapp radiata subacute ischemic stroke. In the meantime, the patient developed nausea, vomiting and diarrhea for the last three days with inability to drink much fluid and decreased appetite. She felt weak, tired and came to [facility]. Yamileth Madison, physician's staffing assistant in our office called her to explain the results of her MRI and patient had already come to the emergency department for her nausea, vomiting, diarrhea and was being admitted. The patient reported dizziness and some degree of difficulty walking over the last several months. The patient has chronic neck and back pain. She had neck and back surgeries in the past. She also has chronic headaches on and off. She denies any dysphagia, diplopia, dysarthria, urinary incontinence, loss of consciousness and head injuries. DIAGNOSTIC STUDIES: MRI scan of brain was reviewed and showed small vessel ischemic disease of brain and subacute right parietal rapp radiata, subacute ischemic stroke. This MRI scan was performed at our office on an outpatient basis. PAST MEDICAL HISTORY: 1. Rheumatoid arthritis. 2. History of seizures. 3. Fibromyalgia. 4. COPD. 5. Chronic neck and back pain. 6. Hypertension. 7. Diabetes. 8. Kidney stones. 9. Von Willebrand disease for which he needs DDAVP before surgery and follows with hematology. 10. Peptic ulcer. 11. Hiatal hernia. 12. Hemorrhoids. 13. Breast abscess. 14. Fibrocystic breast disease. 15. sections. 16. Tubal ligation. 17. Partial hysterectomy. 18. Cervical and lumbosacral laminectomy. SOCIAL HISTORY: She drinks alcohol socially. She quit smoking in 2012. She denies illicit drugs. FAMILY HISTORY: Unremarkable and noncontributory. REVIEW OF SYSTEMS: All systems were reviewed and found to be noncontributory except as mentioned in history of present illness. PHYSICAL EXAMINATION: VITAL SIGNS: Temperature 99.5, pulse 80, respiratory rate 16, blood pressure 170/76, 100% saturation on room air. HEART: Regular rate and rhythm. LUNGS: Clear to auscultation. ABDOMEN: Soft, nontender, nondistended. EXTREMITIES: No pedal edema. MUSCULOSKELETAL: No abnormalities. SKIN: No rash. NEUROLOGICAL: No signs of meningeal irritation. The patient is awake, alert, oriented to place, person and time. Normal speech, comprehension and repetition. Extraocular muscles are intact. No facial weakness. Tongue and uvula are midline. 5/5 strength in all four extremities. Deep tendon reflexes are 2+ throughout. Normal sensations throughout. Gait is normal. LABORATORY TESTS: WBC is 10.6, hemoglobin 15.1, creatinine 2.48 with BUN 46. HOME MEDICATIONS: 1. Amlodipine 5 mg p.o. daily. 2. Brimonidine eye drops, one drop each b.i.d. 3. Trulicity 0.75 mg subcutaneous once a week. 4. Vitamin D2 50,000 units once a week. 5. Escitalopram 20 mg p.o. daily. 6. Insulin Basaglar 120 units subcutaneous daily. 7. Keppra 100 mg p.o. b.i.d. 8. Lisinopril 40 mg p.o. daily. 9. Protonix 40 mg p.o. daily. 10. Propranolol 40 mg p.o. daily. 11. Incruse Ellipta 62.5 mcg inhalation daily. 12. Albuterol inhaler as needed q.4 hours p.r.n. 13. Zofran 4 mg p.o. q.i.d. p.r.n. 14. Percocet 5/325 mg p.o. q.6 hours p.r.n. 15. Tizanidine 4 mg p.o. q.8 hours p.r.n. 16. Flonase nasal spray b.i.d. p.r.n. 17. Dicyclomine 10 mg q.6 hours p.r.n. ALLERGIES: PEPPERS, ASPIRIN, IBUPROFEN, MORPHINE, NICKEL, METFORMIN, SUMATRIPTAN, TOPAMAX. ASSESSMENT: 1. Subacute right parietal posterior rapp radiata ischemic stroke. 2. Diabetes. 3. Hypertension. 4. Dyslipidemia. 5. Multifactorial gait difficulty with diabetic neuropathy, history of cervical lumbosacral spine surgeries, chronic neck and back pain. PLAN: 1. Echocardiogram and telemetry monitoring. 2. If CTA, head and neck cannot be performed due to fppsk-xy-yopdilz kidney disease, perform ultrasound of carotids and MRA, brain. 3. Plavix 75 mg p.o. daily. The patient is allergic to ASPIRIN AND NSAIDS. 4. Check fasting lipid profile and consider atorvastatin if she has dyslipidemia. 5. Keep blood pressure below 180/100 to allow permissive hypertension with long-term target blood pressure below 130/80. 6. Follow with our office in 1-2 weeks after hospital discharge.
[2021-04-27] MEDS: LIDOCAINE 5% (LIDODERM) PATCH TD SCH (20:26)
[2021-04-27] MEDS: ATORVASTATIN 20 MG TAB PO SCH (20:26)
[2021-04-27] MEDS: LATANOPROST 0.005% OPHTH SOLN 2.5 ML OU SCH (20:27)
--- NOTE | 2021-04-27 22:46 | REPVR ---
PROCEDURE INFORMATION: Exam: MRA Head Without Contrast; Arteriography Exam date and time: 04/27/2021 9:37 PM Age: 60 years old Clinical indication: Condition or disease; Cerebrovascular disease; Patient HX: Known CVA seen on mri without @another facility no access to prior; Additional info: Stroke TECHNIQUE: Imaging protocol: Magnetic resonance angiography head without contrast. Exam focused on the arteries. COMPARISON: MRA BRAIN W/O CONTRAST 02/23/2018 3:02 PM FINDINGS: ANTERIOR CIRCULATION: Right internal carotid artery: Intracranial segment is patent with no significant stenosis. No aneurysm. Right middle cerebral artery: No occlusion or significant stenosis. No aneurysm. Right anterior cerebral artery: Severe hypoplasia of the A1 segment of the right anterior cerebral artery. No aneurysm. Left internal carotid artery: Intracranial segment is patent with no significant stenosis. No aneurysm. Left middle cerebral artery: No occlusion or significant stenosis. No aneurysm. Left anterior cerebral artery: No occlusion or significant stenosis. No aneurysm. POSTERIOR CIRCULATION: Right vertebral artery: Artifact limits evaluation of the V4 segment of the right vertebral artery, without occlusion. Left vertebral artery: Artifact limits evaluation of the V4 segment of the left vertebral artery, without occlusion. Basilar artery: No occlusion or significant stenosis. No aneurysm. Increased tortuosity of the basilar artery. Right posterior cerebral artery: Stenoses are visualized of the right posterior cerebral artery. Severe stenosis of the right posterior communicating artery, which is new. Hypoplasia of the P1 segment of the right posterior cerebral artery. No aneurysm. Left posterior cerebral artery: Stenoses are visualized of the left posterior cerebral artery, with mild stenosis of the P1 segment and moderate stenosis of the distal P2 segment. Additional mild stenosis of the left P2 segment visualized. IMPRESSION: 1. Stenoses are visualized of the is right posterior cerebral artery. Severe stenosis of the right posterior communicating artery, which is new. 2. 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 3. Additional findings described above. Electronically signed by: Ward Irvin On 04/27/2021 22:46:21 PM
[2021-04-27] MEDS: tiZANidine 4 MG TAB PO PRN (23:01)
[2021-04-28] VITALS (9 sets, daily range): BP systolic 87–187; BP diastolic 50–79; O2SAT 90–95
[2021-04-28] MEDS: METOCLOPRAMIDE INJ 10MG/2ML VIAL (J2765 PER 1) IV SCH ×3 (00:23→13:06)
[2021-04-28] MEDS ORDERED: NS 500 ML IV ONE (00:50)
[2021-04-28] MEDS: NS 1,000 ML IV SCH ×3 (01:36→13:06)
[2021-04-28 05:51] LABS: HEMATOCRIT 33.3 % (36.0-47.0); HEMOGLOBIN 11.2 g/dl (12.0-15.5); MEAN CORPUSCULAR HEMOGLOBIN 31.1 pg (27.0-33.0); MEAN CORPUSCULAR HGB CONC 33.6 g/dl (32.0-36.5); MEAN CORPUSCULAR VOLUME 92.5 fl (80.0-96.0); PLATELET COUNT, AUTOMATED 171 10^3/uL (150-450)
[2021-04-28 06:23] LABS: ALBUMIN 2.9 GM/DL (3.2-5.2); BILIRUBIN,TOTAL 0.2 MG/DL (0.2-1.0); CALCIUM LEVEL 8.2 MG/DL (8.8-10.2); CREATININE FOR GFR 1.05 MG/DL (0.55-1.30); GLOMERULAR FILTRATION RATE 56.9 (>45); POTASSIUM SERUM 3.5 MEQ/L (3.5-5.1); TOTAL PROTEIN 5.8 GM/DL (6.4-8.2)
[2021-04-28] MEDS: HumaLOG INSULIN (NovoLOG) PER UNIT SC SCH ×4 (07:30→20:09)
[2021-04-28] MEDS: LEVEMIR (INSULIN DETEMIR) 1 UNITS/0.01ML SC SCH ×2 (09:00→21:39)
[2021-04-28] MEDS ORDERED: POTASSIUM CHLORIDE 10 MEQ SR TABLET PO ONE (09:00)
[2021-04-28] MEDS: ESCITALOPRAM OXALATE 10 MG TAB (LEXAPRO) PO SCH (09:09)
[2021-04-28] MEDS: levETIRAcetam INJection 500 MG in D5W MINI-BAG PLUS 100 ML IV SCH ×2 (09:09→21:38)
[2021-04-28] MEDS: lisinopriL 40 MG TAB PO SCH (09:09)
[2021-04-28] MEDS: PANTOPRAZOLE 40MG TAB (PROTONIX) PO SCH (09:09)
[2021-04-28] MEDS: PERCOCET 5MG/325MG TAB PO PRN ×3 (09:11→22:55)
[2021-04-28] MEDS: amLODIPine 5 MG TAB PO SCH (09:14)
[2021-04-28] MEDS: PROPRANOLOL 20 MG TAB PO SCH (09:14)
[2021-04-28] MEDS: FOLIC ACID 1 MG TAB PO SCH (09:14)
[2021-04-28] MEDS: HEPARIN SOD (PORCINE) 5000UNITS/ML 1ML VIAL/SYRINGE SQ SCH ×2 (09:15→21:39)
[2021-04-28] MEDS: **NOTE PATIENT COMMENT** MISC XX SCH (09:16)
--- NOTE | 2021-04-28 09:35 | REP ---
INDICATION: Headache, blurred vision. COMPARISON: 02/19/2020 TECHNIQUE: 4.5 mm contiguous transaxial sections were obtained from the skull base to the cerebral convexities with thin cuts through the posterior fossa without the administration of intravenous contrast. FINDINGS: The ventricles and sulci are unchanged. There is no shift of the midline structures. There is no evidence of an acute intracranial hemorrhagic or non hemorrhagic event. The deep cerebral white matter is unchanged. There is no change in the posterior fossa. The imaged paranasal sinuses and mastoid air cells are unchanged. There is no skull fracture. IMPRESSION: No change from 02/19/2020. No evidence of acute intracranial pathology <Electronically signed by Ochoa Khun > 04/28/21 0931
[2021-04-28] MEDS: DIVALPROEX 500 MG TAB PO SCH ×2 (11:21→21:39)
[2021-04-28] MEDS: CLOPIDOGREL 75 MG TAB PO SCH (13:06)
--- NOTE | 2021-04-28 13:29 | IPNPDOC ---
Text Note Date of Service The patient was seen on 04/28/21. NOTE Subjective: Patient was seen and examined this morning at bedside. She endorsed a headache this morning while she was was being seen by Dr. Rangel believed to be possibly from not being on her Depakote which was resumed. No acute overnight events reported to me. Patient says her nausea vomiting diarrhea all resolved. She denies fevers chills chest pain or shortness of breath. Objective: Constitutional: Awake and alert, in no apparent distress. ENT: Sclera are clear. Mucosa is moist. Respiratory: Lungs CTA bilaterally. No respiratory distress. No use of accessory muscles. Cardiovascular: RRR S1 and S2 are normal, no murmur Gastrointestinal: Abdomen is soft, non distended, non tender, BS present. Chacon sign negative. Musculoskeletal: No lower extremity edema. mental status: The patient is awake, alert, oriented to name, location, and date. Cranial nerves: Pupils are equal, round, and reactive to light. Extraocular muscles intact. Visual modi full bilaterally. Smile is symmetrical. Tongue is midline. Motor: At least 4+/5 in both upper and lower extremities without any drifting. RLE not as strong relating to chronic hip pain. Assessment/plan: 60-year-old female with an extensive past medical history presents with nausea vomiting and diarrhea suspected to have gastroenteritis also found to have acute kidney injury likely related to dehydration. MRI done this morning shows acute right lacunar stroke admitted for stroke workup as well as management of her presenting symptoms. # Acute right lacunar stroke: Stroke protocol. PCU on tele. CT negative for bleed. Fu Echo which was just taken but not read yet. duplex carotids <50% stenosis bilaterally. Passed bedside swallow evaluation can have consistent carbohydrate diet. Fall, seizure precautions. Plavix and Statin. MRI results as above report in chart. Dr Rangel neurologist consulted, appreciate his recommendations. CTA head/neck was not done due to EVETTE and contrast nephropathy. Instead neurology recommended US caotids and MRA brin which were done, neurology reviewed results - Therapy recommending ARU. ARU screen ordered. # Possible viral gastroenteritis: Presented with nausea vomiting and diarrhea as well as dehydration. Supportive management. IV fluids. GI panel. s/p Reglan sc heduled and Zofran as needed. No diarrhea since admission nausea and vomiting now resolved. # HLD: lipid panel showing TG 300, [id number]. Started on statin. # EVETTE on CKD: Cr2.48 Likely prerenal secondary to dehydration. Fu FeNa. Trend BMP. Avoid nephrotoxins if possible. Improved considerably today after IVFs # Seizure disorder: s/p TBI. Home dose Keppra and resumed depakote which was not on her home med reconciliation but confirmed by patient and neuro to be taking. # DM: ISS. Frequent Accu-Cheks. Hypoglycemic precautions. Levemir 60 units twice a day initially (takes 120 glargine at home) but has been held several times due to normal/low blood sugars. Dose changed to 20 twice a day. Continue to monitor and titrate as necessary. # Hypertension: Continue home meds. Monitor and titrate. Goal below 180/100 to allow permissive HTN per neuro and terminal operator goal is below 130/80 # Hypokalemia: monitor. Replaced. # Continue home medications for chronic medical problems # DVT prophylaxis: Heparin A Jonathan Hospitalist VS,Kaia, I+O VS, Kaia I+O Laboratory Tests 04/28/21 05:35 Vital Signs Date Time Temp Pulse Resp B/P (MAP) Pulse Ox O2 Delivery O2 Flow Rate FiO2 04/28/21 12:00 98.1 66 18 172/72 (105) 94 Room Air 04/28/21 04:00 1.0 I&O- Last 24 Hours up to 6 AM 04/28/21 06:00 Intake Total 610 ml Output Total 200 ml Balance 410 ml ANA BARRETO MD Apr 28, 2021 13:29
[2021-04-28] MEDS: FLUTICASONE PROP 0.05% NASAL SPRAY 16 GM (FLONASE) NARES PRN (16:30)
--- NOTE | 2021-04-28 21:34 | ECHO ---
ECHOCARDIOGRAM DATE OF PROCEDURE: 04/28/2021 Age: 61 Gender: Female Height: 63 inches Weight: 160 pounds REFERRING PHYSICIAN: Dr. Areli Castillo INDICATION: Acute stroke, unspecified. MEASUREMENTS: 2D Measurements: Left atrium 3.5 cm Intraventricular septum 1.41 cm Posterior wall 1.41 cm Left ventricle diastole 3.0 cm Inferior vena cava 1.5 cm with normal respiratory variation. Doppler Measurements: Mild aortic regurgitation No aortic stenosis Aortic valve velocity 241 cm/s Aortic regurgitation pressure half time 471 msec LVOT velocity 158 cm/s LVOT VTI 28.0 cm Trace mitral regurgitation Mitral E velocity 102 cm/s Mitral A velocity 81.4 cm/s Mitral deceleration time 227 msec No tricuspid regurgitation No pulmonic regurgitation Pulmonary artery acceleration time 145 msec MITRAL ANNULAR TISSUE DOPPLER E prime lateral 12.7 cm/s, E prime septal 8.6 cm/s DESCRIPTION: Rhythm was sinus. This was a moderately technically difficult echocardiogram. This was a 2D, M-mode, color flow Doppler, and pulsed wave Doppler examination including mitral annular tissue Doppler. CONCLUSIONS: 1. Mild concentric left ventricular hypertrophy. Normal regional LV wall motion and wall thickening. Normal LV systolic function. LVEF 60% by visual estimate. Normal peak longitudinal strain pattern. Normal LV diastolic function. 2. Bubble study negative for detection of right to left intracardiac shunting. 3. Mild aortic valve sclerosis of a 3-cuspid aortic valve. Mild aortic regurgitation. 4. Tiny pericardial effusion without diastolic chamber collapse. 5. Moderate technically difficult echocardiogram. [facility]
[2021-04-28] MEDS: LATANOPROST 0.005% OPHTH SOLN 2.5 ML OU SCH (21:39)
[2021-04-28] MEDS: ATORVASTATIN 20 MG TAB PO SCH (21:39)
[2021-04-28] MEDS: LIDOCAINE 5% (LIDODERM) PATCH TD SCH (21:40)
[2021-04-28] MEDS: tiZANidine 4 MG TAB PO PRN (22:54)
[2021-04-29] VITALS (9 sets, daily range): BP systolic 98–182; BP diastolic 53–76
[2021-04-29] MEDS: NS 1,000 ML IV SCH (05:43)
[2021-04-29 05:54] LABS: HEMATOCRIT 31.4 % (36.0-47.0); HEMOGLOBIN 10.4 g/dl (12.0-15.5); MEAN CORPUSCULAR HEMOGLOBIN 30.9 pg (27.0-33.0); MEAN CORPUSCULAR HGB CONC 33.1 g/dl (32.0-36.5); MEAN CORPUSCULAR VOLUME 93.2 fl (80.0-96.0); PLATELET COUNT, AUTOMATED 161 10^3/uL (150-450); RED BLOOD COUNT 3.37 10^6/uL (4.00-5.40); WHITE BLOOD COUNT 5.8 10^3/uL (4.0-10.0)
[2021-04-29 06:23] LABS: ALBUMIN 2.8 GM/DL (3.2-5.2); BILIRUBIN,TOTAL 0.2 MG/DL (0.2-1.0); CALCIUM LEVEL 8.3 MG/DL (8.8-10.2); CREATININE FOR GFR 1.06 MG/DL (0.55-1.30); GLOMERULAR FILTRATION RATE 56.3 (>45); MAGNESIUM LEVEL 1.7 MG/DL (1.8-2.4); POTASSIUM SERUM 3.6 MEQ/L (3.5-5.1); TOTAL PROTEIN 5.7 GM/DL (6.4-8.2)
[2021-04-29] MEDS: HEPARIN SOD (PORCINE) 5000UNITS/ML 1ML VIAL/SYRINGE SQ SCH ×2 (08:22→21:04)
[2021-04-29] MEDS: LEVEMIR (INSULIN DETEMIR) 1 UNITS/0.01ML SC SCH ×2 (08:23→21:04)
[2021-04-29] MEDS: HumaLOG INSULIN (NovoLOG) PER UNIT SC SCH ×4 (08:23→20:07)
[2021-04-29] MEDS: PROPRANOLOL 20 MG TAB PO SCH (08:24)
[2021-04-29] MEDS: DIVALPROEX 500 MG TAB PO SCH ×2 (08:24→21:05)
[2021-04-29] MEDS: ESCITALOPRAM OXALATE 10 MG TAB (LEXAPRO) PO SCH (08:24)
[2021-04-29] MEDS: amLODIPine 5 MG TAB PO SCH (08:25)
[2021-04-29] MEDS: levETIRAcetam INJection 500 MG in D5W MINI-BAG PLUS 100 ML IV SCH ×2 (08:25→21:03)
[2021-04-29] MEDS: lisinopriL 40 MG TAB PO SCH (08:25)
[2021-04-29] MEDS: PANTOPRAZOLE 40MG TAB (PROTONIX) PO SCH (08:25)
[2021-04-29] MEDS: FOLIC ACID 1 MG TAB PO SCH (08:25)
[2021-04-29] MEDS: **NOTE PATIENT COMMENT** MISC XX SCH (08:26)
[2021-04-29] MEDS: ONDANSETRON 4MG/2ML VIAL IV PRN (09:40)
[2021-04-29] MEDS: FLUTICASONE PROP 0.05% NASAL SPRAY 16 GM (FLONASE) NARES PRN (12:07)
[2021-04-29] MEDS: CLOPIDOGREL 75 MG TAB PO SCH (13:42)
--- NOTE | 2021-04-29 16:58 | IPNPDOC ---
Text Note Date of Service The patient was seen on 04/29/21. NOTE Subjective: Patient was seen and examined this morning at bedside. She endorsed a headache this morning while she was was being seen by Dr. Rangel believed to be possibly from not being on her Depakote which was resumed. No acute overnight events reported to me. Patient says her nausea vomiting diarrhea all resolved. She denies fevers chills chest pain or shortness of breath. Patient tells me that she is not starting to be able to go to acute rehabilitation because she's not sure he will take care of her pets she says she will discuss her options with physical therapy today and decides what she wants to do if it's appropriate for her to go home with home services or if she can find somebody to take care of her pets at home. Objective: Constitutional: Awake and alert, in no apparent distress. ENT: Sclera are clear. Mucosa is moist. Respiratory: Lungs CTA bilaterally. No respiratory distress. No use of accessory muscles. Cardiovascular: RRR S1 and S2 are normal, no murmur Gastrointestinal: Abdomen is soft, non distended, non tender, BS present. Chacon sign negative. Musculoskeletal: No lower extremity edema. mental status: The patient is awake, alert, oriented to name, location, and date. Cranial nerves: Pupils are equal, round, and reactive to light. Extraocular muscles intact. Visual modi full bilaterally. Smile is symmetrical. Tongue is midline. Motor: At least 4+/5 in both upper and lower extremities without any drifting. RLE not as strong relating to chronic hip pain. Assessment/plan: 60-year-old female with an extensive past medical history presents with nausea vomiting and diarrhea suspected to have gastroenteritis also found to have acute kidney injury likely related to dehydration. MRI done this morning shows acute right lacunar stroke admitted for stroke workup as well as management of her presenting symptoms. # Acute right lacunar stroke: Stroke protocol. PCU on tele. CT negative for bleed. Fu Echo which was completed but not transcribed yet. duplex carotids <50% stenosis bilaterally. Passed bedside swallow evaluation can have consistent carbohydrate diet. Fall, seizure precautions. Plavix and Statin. MRI results as above report in chart. Dr Rangel neurologist consulted, appreciate his recommendations. CTA head/neck was not done due to EVETTE and contrast nephropathy. Instead neurology recommended US carotids and MRA brain which were done, neurology reviewed results. Therapy recommending ARU. ARU screen ordered. # Possible viral gastroenteritis: Presented with nausea vomiting and diarrhea as well as dehydration. Supportive management. IV fluids. GI panel. s/p Reglan scheduled and Zofran as needed. No diarrhea since admission nausea and vomiting now resolved. # HLD: lipid panel showing TG 300, [id number]. Started on statin. # EVETTE on CKD: Cr2.48 Likely prerenal secondary to dehydration. Fu FeNa. Trend BMP. Avoid nephrotoxins if possible. Improved considerably today after IVFs # Seizure disorder: s/p TBI. Home dose Keppra and resumed depakote which was not on her home med reconciliation but confirmed by patient and neuro to be taking. # DM: ISS. Frequent Accu-Cheks. Hypoglycemic precautions. Levemir 60 units twice a day initially (takes 120 glargine at home) but has been held several times due to normal/low blood sugars. Dose changed to 20 twice a day. Continue to monitor and titrate as necessary. # Hypertension: Continue home meds. Monitor and titrate. Goal below 180/100 to allow permissive HTN per neuro and equipment operator intermodal yard goal is below 130/80 # Hypokalemia: monitor. Replaced. # Continue home medications for chronic medical problems # DVT prophylaxis: Heparin A Jonathan Hospitalist Kaia COELLO, I+O Kaia COELLO I+O Laboratory Tests 04/29/21 05:19 Vital Signs Date Time Temp Pulse Resp B/P (MAP) Pulse Ox O2 Delivery O2 Flow Rate FiO2 04/29/21 13:00 158/68 (98) 04/29/21 12:00 98.0 61 16 95 Room Air 04/28/21 04:00 1.0 I&O- Last 24 Hours up to 6 AM 04/29/21 06:00 Intake Total 1620 ml Output Total 0 ml Balance 1620 ml ANA BARRETO MD Apr 29, 2021 16:58
[2021-04-29] MEDS: PERCOCET 5MG/325MG TAB PO PRN (17:51)
[2021-04-29] MEDS: tiZANidine 4 MG TAB PO PRN (17:51)
[2021-04-29 19:10] LABS: ANCA-ATYPICAL <1:20 titer (Neg:<1:20); ANTI DOUBLE STRAND-DNA AB <1 IU/mL (0-9); ANTI THROMBIN 3 ANTIGEN IMMUNO 124 % (72-124); ANTI THROMBIN 3 FUNCT ACTIVITY 131 % (75-135); ANTINUCLEAR ANTIBODIES DIRECT Positive (Negative); CARDIOLIPIN IGA ANTIBODY <9 APL U/mL (0-11); CARDIOLIPIN IGG ANTIBODY <9 GPL U/mL (0-14); CARDIOLIPIN IGM ANTIBODY 12 MPL U/mL (0-12); CYTOPLASMIC NEUTROP AB ANCA-C <1:20 titer (Neg:<1:20); PERINUCLEAR AB ANCA-P <1:20 titer (Neg:<1:20); PROTEIN C ANTIGEN 136 % (60-150); PROTEIN S ANTIGEN FREE 140 % (57-157); PROTEIN S ANTIGEN TOTAL 159 % (60-150); RNP ANTIBODIES 1.2 AI (0.0-0.9); SJOGREN'S ANTI SS-A <0.2 AI (0.0-0.9); SJOGREN'S ANTI SS-B 0.2 AI (0.0-0.9); SMITH ANTIBODIES <0.2 AI (0.0-0.9)
[2021-04-29] MEDS: LIDOCAINE 5% (LIDODERM) PATCH TD SCH (21:03)
[2021-04-29] MEDS: ATORVASTATIN 20 MG TAB PO SCH (21:05)
[2021-04-29] MEDS: LATANOPROST 0.005% OPHTH SOLN 2.5 ML OU SCH (21:05)
[2021-04-30] VITALS (8 sets, daily range): BP systolic 105–194; BP diastolic 53–83
[2021-04-30] MEDS: NS 1,000 ML IV SCH (04:41)
[2021-04-30 06:12] LABS: HEMATOCRIT 31.9 % (36.0-47.0); HEMOGLOBIN 10.7 g/dl (12.0-15.5); MEAN CORPUSCULAR HEMOGLOBIN 31.3 pg (27.0-33.0); MEAN CORPUSCULAR HGB CONC 33.5 g/dl (32.0-36.5); MEAN CORPUSCULAR VOLUME 93.3 fl (80.0-96.0); PLATELET COUNT, AUTOMATED 147 10^3/uL (150-450); RED BLOOD COUNT 3.42 10^6/uL (4.00-5.40); WHITE BLOOD COUNT 5.4 10^3/uL (4.0-10.0)
[2021-04-30 06:46] LABS: ALT/SGPT 27 U/L (12-78); BILIRUBIN,TOTAL 0.1 MG/DL (0.2-1.0); BLOOD UREA NITROGEN 18 MG/DL (7-18); CALCIUM LEVEL 8.9 MG/DL (8.8-10.2); CARBON DIOXIDE LEVEL 30 MEQ/L (21-32); CHLORIDE LEVEL 110 MEQ/L (98-107); CREATININE FOR GFR 0.94 MG/DL (0.55-1.30); GLOMERULAR FILTRATION RATE > 60.0 (>45); GLUCOSE, FASTING 113 MG/DL (70-100); MAGNESIUM LEVEL 1.6 MG/DL (1.8-2.4); POTASSIUM SERUM 3.6 MEQ/L (3.5-5.1); SODIUM LEVEL 145 MEQ/L (136-145); TOTAL PROTEIN 5.6 GM/DL (6.4-8.2)
[2021-04-30] MEDS: HumaLOG INSULIN (NovoLOG) PER UNIT SC SCH ×4 (08:50→19:39)
[2021-04-30] MEDS: HEPARIN SOD (PORCINE) 5000UNITS/ML 1ML VIAL/SYRINGE SQ SCH ×2 (08:51→19:53)
[2021-04-30] MEDS: ONDANSETRON 4MG/2ML VIAL IV PRN (08:51)
[2021-04-30] MEDS: LEVEMIR (INSULIN DETEMIR) 1 UNITS/0.01ML SC SCH ×2 (08:51→19:52)
[2021-04-30] MEDS: PANTOPRAZOLE 40MG TAB (PROTONIX) PO SCH (08:52)
[2021-04-30] MEDS: lisinopriL 40 MG TAB PO SCH (08:52)
[2021-04-30] MEDS: PROPRANOLOL 20 MG TAB PO SCH (08:52)
[2021-04-30] MEDS: DIVALPROEX 500 MG TAB PO SCH ×2 (08:52→19:52)
[2021-04-30] MEDS: FOLIC ACID 1 MG TAB PO SCH (08:53)
[2021-04-30] MEDS: ESCITALOPRAM OXALATE 10 MG TAB (LEXAPRO) PO SCH (08:53)
[2021-04-30] MEDS: amLODIPine 5 MG TAB PO SCH (08:53)
[2021-04-30] MEDS: levETIRAcetam INJection 500 MG in D5W MINI-BAG PLUS 100 ML IV SCH ×2 (08:53→19:53)
[2021-04-30] MEDS: **NOTE PATIENT COMMENT** MISC XX SCH (08:54)
[2021-04-30] MEDS ORDERED: MAG SULF 1GM/100ML (MAG RUN) 1 GM in IV 1 EA IV ONE (09:00)
--- NOTE | 2021-04-30 09:20 | REP ---
INDICATION: cough n/v r/o aspiration. COMPARISON: Comparison chest x-ray is from April 26, 2021. TECHNIQUE: Two views.. FINDINGS: There is linear platelike atelectasis and consolidation in the lingular segment of the left upper lobe consistent with an infiltrate/pneumonitis. Right lung is clear. Pleural angles are sharp. Heart size is normal. There are degenerative changes in the thoracic spine mild in degree. Pulmonary vasculature is not increased. IMPRESSION: Lingular segment left upper lobe infiltrate and atelectasis.. <Electronically signed by John Boogie > 04/30/21 [id number]
[2021-04-30] MEDS: tiZANidine 4 MG TAB PO PRN (10:49)
[2021-04-30] MEDS: PERCOCET 5MG/325MG TAB PO PRN (10:50)
[2021-04-30] MEDS ORDERED: amLODIPine 5 MG TAB PO ONE (11:00)
[2021-04-30] MEDS: **hydrALAZINE** 10 MG TAB PO SCH ×3 (12:12→23:51)
[2021-04-30] MEDS: MOXIFLOXACIN 400 MG TAB PO SCH (12:13)
[2021-04-30] MEDS: CLOPIDOGREL 75 MG TAB PO SCH (14:25)
--- NOTE | 2021-04-30 14:27 | IPN ---
PROGRESS NOTE DATE: 04/30/2021 SUBJECTIVE: Patient this morning feels nauseous, coughing productive of white, thick sputum. No fever or chills overnight. PHYSICAL EXAMINATION: Temperature 98, pulse 57, respiratory rate 18, blood pressure 174/81, 96% on room air. GENERAL: Awake, alert, oriented to person, place and time, answering questions appropriately. HEENT: No jugular venous distention (JVD) or thyromegaly. Moist mucous membranes. LUNGS: Crackles at the left upper lobe. No wheezing or rales. HEART: S1, S2. Sinus rhythm. ABDOMEN: Soft, nontender, nondistended. Positive bowel sounds all four quadrants. No rebound or guarding. EXTREMITIES: No cyanosis or clubbing. NEUROLOGIC: Patient's face is symmetric. Tongue is midline. Extraocular muscles intact. Motor function 5/5 all four extremities. Deep tendon reflexes (DTRs) 2+ throughout. Normal sensation. Gait was not tested. LABORATORY DATA: Laboratory data, imaging studies and microbiology have all been reviewed. ASSESSMENT: This is a 61-year-old with: 1. Subacute right parietal posterior rapp radiata ischemic cerebrovascular accident (CVA). 2. Left upper lobe pneumonia. 3. Diabetes. 4. Hypertension. 5. Dyslipidemia. 6. Diabetic neuropathy. 7. History of cervical and lumbosacral spinal surgeries with chronic neck and back pain. 8. Acute kidney injury on chronic kidney disease. 9. Seizures disorder. 10. Hypokalemia, resolved. 11. Hyperlipidemia. 12. Hypertension, goal of less than 130/80. PLAN: Patient's blood pressure goal is less than 130/80, currently 174/81 with nausea at the bedside. Patient will be continued on lisinopril 40 mg daily. Norvasc will be increased to 10 mg daily. Due to bradycardia, we are unable to use beta blockers or calcium channel blockers. For now, we will continue on hydralazine. Patient has a new left upper lobe infiltrate. Obtain sputum, urine, Legionella, urine Streptococcal antigen. Start on Avalox for seven days. No fever or chills. Once blood pressure is controlled, patient may be discharged home with home services in the morning. Continue all other home medication. We have added Plavix due to allergy to aspirin. On Lipitor 80 mg at bedtime.
[2021-04-30] MEDS: LATANOPROST 0.005% OPHTH SOLN 2.5 ML OU SCH (19:52)
[2021-04-30] MEDS: PROMETHAZINE INJ 25 MG/ML VIAL (J2550) IV PRN (19:52)
[2021-04-30] MEDS: ATORVASTATIN 20 MG TAB PO SCH (19:52)
[2021-04-30] MEDS: LIDOCAINE 5% (LIDODERM) PATCH TD SCH (19:53)
[2021-05-01 04:00] VITALS: BP_SYST 138; BP_SYST 160; BP_DIAS 66; BP_DIAS 80
[2021-05-01] MEDS: MOXIFLOXACIN 400 MG TAB PO SCH (05:56)
[2021-05-01] MEDS: **hydrALAZINE** 10 MG TAB PO SCH (05:56)
[2021-05-01 06:18] LABS: HEMATOCRIT 36.1 % (36.0-47.0); MEAN CORPUSCULAR HEMOGLOBIN 31.2 pg (27.0-33.0); MEAN CORPUSCULAR HGB CONC 33.2 g/dl (32.0-36.5); MEAN CORPUSCULAR VOLUME 93.8 fl (80.0-96.0); PLATELET COUNT, AUTOMATED 181 10^3/uL (150-450); RED BLOOD COUNT 3.85 10^6/uL (4.00-5.40)
[2021-05-01 06:45] LABS: ALBUMIN 3.4 GM/DL (3.2-5.2); BILIRUBIN,TOTAL 0.2 MG/DL (0.2-1.0); CALCIUM LEVEL 9.2 MG/DL (8.8-10.2); CREATININE FOR GFR 1.03 MG/DL (0.55-1.30); GLOMERULAR FILTRATION RATE 58.2 (>45); MAGNESIUM LEVEL 2.1 MG/DL (1.8-2.4); POTASSIUM SERUM 3.8 MEQ/L (3.5-5.1); TOTAL PROTEIN 5.9 GM/DL (6.4-8.2)
[2021-05-01] MEDS ORDERED: INSUDET SC (07:53)
[2021-05-01] MEDS ORDERED: AMLO10TA PO (07:53)
[2021-05-01] MEDS ORDERED: MOXI400T11 PO (07:53)
[2021-05-01] MEDS ORDERED: CLOP75TA2 PO (07:53)
[2021-05-01] MEDS ORDERED: DEPA1TAB3 PO (07:53)
[2021-05-01] MEDS ORDERED: KEPP1TAB PO (07:53)
[2021-05-01] MEDS ORDERED: ATOR1TAB21 PO (07:53)
[2021-05-01] MEDS ORDERED: HYDR10TAB PO (07:57)
[2021-05-01 08:00] VITALS: BP 157/83
[2021-05-01] MEDS ORDERED: lisinopriL 40 MG TAB PO ONE (08:15)
--- NOTE | 2021-05-01 08:32 | DSES ---
DISCHARGE SUMMARY DATE OF ADMISSION: 04/26/2021 DATE OF DISCHARGE: 05/01/2021 PRIMARY DISCHARGE DIAGNOSIS: 1. Dehydration. 2. Acute kidney injury. 3. Left sided pneumonia. 4. Hypertensive urgency. 5. Subacute right parietal posterior rapp radiata ischemic CVA. 6. Left upper lobe pneumonia. 7. Diabetes. 8. Hypertension. 9. Dyslipidemia. 10.Diabetic neuropathy. 11.History of cervical and lumbosacral spinal surgery with chronic neck and back pain. 12.Chronic kidney disease Stage III. 13.Seizure disorder. 14.Hypokalemia. 15.Hyperlipidemia. 16.Viral gastroenteritis. HOSPITAL COURSE: This is a 61-year-old female admitted on 04/26/2021 with complaints of nausea, vomiting, diarrhea and decreased oral intake, found to have acute kidney injury with creatinine of 2.48, given intravenous fluids. Patient has been feeling tired and cannot control her symptoms. Denies any sick contacts. MRI of the brain was done by Neurology due to gait instability, in the ER showed a subacute infarct in the right parietal white matter as well as old infarcts in the lacuna and right basal ganglia and bilateral globus pallidus. Per Emergency Room consultation with neurologist, Dr. Rangel, who recommended Plavix, CTA of the head and neck and stroke workup including echocardiogram as well as hospital admission. In the ER, patient complained of chest pain with nausea and vomiting. Gallbladder ultrasound was done as Chacon's sign was positive by the ER physician, it showed distended gallbladder with no gallstones with gallbladder wall thickening. No tenderness elicited on transdural, diffuse fatty infiltration of the liver. A chest x-ray showed no acute pulmonary disease. Patient was admitted for acute right lacunar stroke. An echocardiogram showed diastolic dysfunction with no thrombus. Patient was initially kept NPO until speech evaluation with no signs of aspiration. Patient was started on Plavix and aspirin as well as statin. CT of the head and neck with angio could not be done due to the acute kidney injury. The patient continued to have nausea, vomiting, diarrhea and dehydration which responded to antiemetics, supportive care with IV fluids which improved, creatinine improved to 1.03 on the day of discharge. Patient had resolution of her diarrhea without any stool samples sent. Vascular ultrasound of bilateral lower extremities showed no DVT. Patient had carotid ultrasound which showed less than 50% stenosis of the internal carotid artery bilaterally secondary to both calcified and uncalcified atheromatous plaque formation. During her hospital stay she complained of cough productive of white sputum. She was afebrile with no elevation of white count. Repeat chest x-ray showed a left upper lobe infiltrate. She was started on Avelox. Patient was seen by Physical Therapy who recommended home services. PHYSICAL EXAMINATION ON DISCHARGE: VITAL SIGNS: Temperature 99, pulse 80, respiratory rate 18, blood pressure 138/66 to 160/80, 96% on room air. GENERAL: Awake, alert and oriented to person, place and time. HEENT: Face is symmetric. Tongue is midline. Uvula is midline. Extraocular muscles are intact. No pallor, icterus, jaundice or jugular venous distention. Moist mucous membranes. LUNGS: Diminished in the left upper lobe with fine crackles, otherwise right is clear to auscultation. HEART: S1 and S2, sinus rhythm. ABDOMEN: Soft, nontender and nondistended. Positive bowel sounds. Chacon's sign is negative. EXTREMITIES: No pitting edema. NEUROLOGIC: Patient's upper and lower extremities are 5/5. No sensory disturbance. No facial asymmetry. Patient's speech is fluent. LABORATORY DATA/IMAGING STUDIES/MICROBIOLOGY: Please see the chart. TIME SPENT ON DISCHARGE: 30 minutes
[2021-05-01] MEDS: HumaLOG INSULIN (NovoLOG) PER UNIT SC SCH ×2 (08:40→12:20)
[2021-05-01] MEDS: HEPARIN SOD (PORCINE) 5000UNITS/ML 1ML VIAL/SYRINGE SQ SCH (08:41)
[2021-05-01] MEDS: LEVEMIR (INSULIN DETEMIR) 1 UNITS/0.01ML SC SCH (08:41)
[2021-05-01] MEDS: levETIRAcetam INJection 500 MG in D5W MINI-BAG PLUS 100 ML IV SCH (08:41)
[2021-05-01] MEDS: DIVALPROEX 500 MG TAB PO SCH (08:41)
[2021-05-01] MEDS: PROPRANOLOL 20 MG TAB PO SCH (08:42)
[2021-05-01] MEDS: FOLIC ACID 1 MG TAB PO SCH (08:42)
[2021-05-01] MEDS: ESCITALOPRAM OXALATE 10 MG TAB (LEXAPRO) PO SCH (08:42)
[2021-05-01] MEDS: PANTOPRAZOLE 40MG TAB (PROTONIX) PO SCH (08:42)
[2021-05-01] MEDS: **NOTE PATIENT COMMENT** MISC XX SCH (08:43)
[2021-05-01] MEDS: PROMETHAZINE INJ 25 MG/ML VIAL (J2550) IV PRN ×2 (09:45→15:55)
[2021-05-01 11:01] LABS: DRVV SCREEN 56.7 SEC; PTT LUPUS TYPE ANTICOAG SCREEN 1.5 (0-1.2)
[2021-05-01 11:08] LABS: LUPUS CONFIRM RATIO 1.2
[2021-05-01 11:10] LABS: NORMALIZED RATIO 1.25 (0.00-1.20)
[2021-05-01] MEDS ORDERED: **hydrALAZINE** 10 MG TAB PO ONE (13:30)
[2021-05-01 13:34] VITALS: BP 152/69
[2021-05-01] MEDS: CLOPIDOGREL 75 MG TAB PO SCH (13:34)
[2021-05-02 13:08] LABS: BODY FLUID CULTURE Not indicated. (.); LEGIONELLA ANTIGEN URINE Negative (Negative); ORGANISM ID Not indicated. (.); SPECIMEN SOURCE Urine (.); URINE STREP PNEUMONIAE ANTIGEN Negative (Negative)
[2021-05-02 16:09] LABS: F8 ACTIVITY FOR F8 PANEL 87 % (56-140); F8 ACTIVITY vWB FOR F8 PANEL 46 % (50-200); F8 ANTIGEN FOR F8 PANEL 102 % (50-200)
[2021-05-03 14:09] LABS: HEXAGONAL PHASE PHOSPHOLIPID 0 sec (0-11)
== END 2021-05-01 16:33 | disposition home health service (06) | DRG 45 ==
LOC: M ED 11:53 → EDBEDREQSVC 16:21 → M ED INP 17:18 → M PCU 20:33
PROVIDERS: ADMIT Family Medicine; ATTEND General Practice
DX: I63.9 Cerebral infarction, unspecified (principal); J18.9 Pneumonia, unspecified organism; N17.9 Acute kidney failure, unspecified; E11.40 Type 2 diabetes mellitus with diabetic neuropathy, unspecified; E86.0 Dehydration; N18.30 Chronic kidney disease, stage 3 unspecified; D68.0 Von Willebrand disease; I16.0 Hypertensive urgency; G40.909 Epilepsy, unspecified, not intractable, without status epilepticus; E87.6 Hypokalemia; E78.5 Hyperlipidemia, unspecified; A08.8 Other specified intestinal infections; M54.2 Cervicalgia; M54.5 Low back pain; M79.7 Fibromyalgia; M19.90 Unspecified osteoarthritis, unspecified site; J44.9 Chronic obstructive pulmonary disease, unspecified; K44.9 Diaphragmatic hernia without obstruction or gangrene; Z87.442 Personal history of urinary calculi; F32.9 Major depressive disorder, single episode, unspecified; Z87.891 Personal history of nicotine dependence; I12.9 Hypertensive chronic kidney disease with stage 1 through stage 4 chronic kidney disease, or unspecified chronic kidney disease; Z79.899 Other long term (current) drug therapy; Z79.4 Long term (current) use of insulin

== ENCOUNTER → 2021-05-24 | Outpatient (CLI) | payer OTHER ==
[~2021-05-24] MED LIST changes: +AMLO10TA PO; +CLOP75TA2 PO; +HYDR10TAB PO; +INSUDET SC; +MOXI400T11 PO
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
== END ==
LOC: M PAIN 10:15
PROVIDERS: ATTEND Nurse Practitioner Family
DX: M47.817 Spondylosis without myelopathy or radiculopathy, lumbosacral region (principal); G89.29 Other chronic pain; E11.9 Type 2 diabetes mellitus without complications; G40.909 Epilepsy, unspecified, not intractable, without status epilepticus; G43.909 Migraine, unspecified, not intractable, without status migrainosus; J44.9 Chronic obstructive pulmonary disease, unspecified; M79.7 Fibromyalgia; Z87.891 Personal history of nicotine dependence; Z88.5 Allergy status to narcotic agent; Z88.6 Allergy status to analgesic agent; Z88.8 Allergy status to other drugs, medicaments and biological substances; Z91.018 Allergy to other foods; Z79.01 Long term (current) use of anticoagulants; Z79.4 Long term (current) use of insulin; Z79.51 Long term (current) use of inhaled steroids; Z79.899 Other long term (current) drug therapy

== ENCOUNTER 2021-05-28 11:37 | Emergency (ER) | payer OTHER ==
[~2021-05-28] VITALS: Ht 160 cm; Wt 74.8 kg
[2021-05-28] MEDS ORDERED: NITROGLYCERIN 0.4 MG SUBL TABLET SL STA ×2 (12:38→13:35)
[2021-05-28 12:40] LABS: VENOUS HCO3 25.3 MEQ/L (23.0-27.0); VENOUS O2 SATURATION 90.5 % (60.0-80.0); VENOUS PARTIAL PRESSURE CO2 39.3 mmHg (38.0-50.0); VENOUS PARTIAL PRESSURE O2 58.4 mmHg (30.0-50.0); VENOUS PH 7.427 UNITS (7.330-7.430); VENOUS STANDARD HCO3 25.2 MEQ/L; VENOUS TOTAL CO2 26.5 MEQ/L (24.0-28.0)
[2021-05-28] MEDS ORDERED: ONDANSETRON 4MG/2ML VIAL IV ONE (12:40)
[2021-05-28 12:45] LABS: HEMATOCRIT 36.3 % (36.0-47.0); HEMOGLOBIN 12.3 g/dl (12.0-15.5); MEAN CORPUSCULAR HGB CONC 33.9 g/dl (32.0-36.5); MEAN CORPUSCULAR VOLUME 91.4 fl (80.0-96.0); PLATELET COUNT, AUTOMATED 202 10^3/uL (150-450); RED BLOOD COUNT 3.97 10^6/uL (4.00-5.40); WHITE BLOOD COUNT 7.1 10^3/uL (4.0-10.0)
[2021-05-28 13:10] LABS: ATYPICAL LYMPH 2 % (0-5); BASOPHILS 1 % (0-1); EOSINOPHILS 3 % (0-3); LYMPHOCYTES 34 % (16-44); MONOCYTES 7 % (0-5); NEUTROPHILS 53 % (28-66); PLATELET ESTIMATE NORMAL (NORMAL)
[2021-05-28 13:26] LABS: BLOOD UREA NITROGEN 28 MG/DL (7-18); CALCIUM LEVEL 9.8 MG/DL (8.8-10.2); CARBON DIOXIDE LEVEL 28 MEQ/L (21-32); CHLORIDE LEVEL 105 MEQ/L (98-107); CREATININE FOR GFR 0.88 MG/DL (0.55-1.30); GLOMERULAR FILTRATION RATE > 60.0 (>45); GLUCOSE, FASTING 178 MG/DL (70-100); POTASSIUM SERUM 3.7 MEQ/L (3.5-5.1); SODIUM LEVEL 140 MEQ/L (136-145)
[2021-05-28 13:27] LABS: ALBUMIN 3.9 GM/DL (3.2-5.2); ALT/SGPT 36 U/L (12-78); BILIRUBIN,DIRECT < 0.1 MG/DL (0.0-0.2); BILIRUBIN,TOTAL 0.4 MG/DL (0.2-1.0); NT-PRO BNP 115 PG/ML (<125); THYROXINE (T4) 8.1 UG/DL (4.5-12.0)
--- NOTE | 2021-05-28 13:28 | REP ---
INDICATION: DYSPNEA/COUGH. COMPARISON: Comparison chest x-ray April 30, 2021. TECHNIQUE: Portable upright AP chest radiograph. FINDINGS: The lungs are well inflated and free of infiltrate. Pleural angles are sharp. Heart size is normal. Pulmonary vasculature is not increased. EKG monitoring electrodes are seen. IMPRESSION: No active disease. <Electronically signed by John Boogie > 05/28/21 0966
[2021-05-28 13:35] VITALS: BP 137/57
[2021-05-28 17:45] VITALS: BP 179/80
--- NOTE | 2021-05-29 05:14 | ECGEPIP ---
[facility] - ED Test Date: 2021-05-28 Pat Name: NICOLE BERNABE Department: Room: - Gender: Female Executive Search Consultant: RASHID : 1960 Requested By: JARED MENARD Order Number: [id number] Reading MD: Chemo Rogers Measurements Intervals [place] Rate: 50 P: 54 PA: 168 QRS: 34 QRSD: 98 T: 46 QT: 488 QTc: 444 Interpretive Statements Sinus bradycardia POOR R WAVE PROGRESSION Anterolateral T wave abnormalities, consider ischemia Electronically Signed on 05-29-2021 5:14:23 EDT by Chemo Rogers
--- NOTE | 2021-05-29 05:21 | ECGEPIP ---
[facility] - ED Test Date: 2021-05-28 Pat Name: NICOLE BERNABE Department: Room: - Gender: Female Coat Maker: VC : 1960 Requested By: JARED MENARD Order Number: [id number] Reading MD: Chemo Rogers Measurements Intervals [place] Rate: 61 P: 64 AR: 174 QRS: 12 QRSD: 98 T: 30 QT: 438 QTc: 440 Interpretive Statements Normal sinus rhythm POOR R WAVE PROGRESSION Anterolateral T wave abnomalities less pronounced compared to prior on same date Electronically Signed on 05-29-2021 5:20:46 EDT by Chemo Rogers
== END 2021-05-28 17:45 | disposition home or self-care (01) ==
LOC: M ED 11:37
DX: R07.9 Chest pain, unspecified (principal); R06.02 Shortness of breath; E11.9 Type 2 diabetes mellitus without complications; E78.5 Hyperlipidemia, unspecified; I10 Essential (primary) hypertension; J44.9 Chronic obstructive pulmonary disease, unspecified; K21.9 Gastro-esophageal reflux disease without esophagitis; Z91.018 Allergy to other foods; Z91.048 Other nonmedicinal substance allergy status; Z88.6 Allergy status to analgesic agent; Z88.8 Allergy status to other drugs, medicaments and biological substances; Z79.4 Long term (current) use of insulin; Z79.899 Other long term (current) drug therapy
CPT/HCPCS: 71045; 80048; 80076; 82803; 83605; 83880; 84436; 84443; 85025; 93005; 93041; 96374; 99285; J2405

== ENCOUNTER → 2021-06-05 | Outpatient (CLI) | payer OTHER ==
[2021-06-05 13:46] LABS: HEMOGLOBIN A1c 7.7 %
--- NOTE | 2021-06-05 13:50 | REP ---
INDICATION: TYPE 2 DIABETES MELLITUS *LABS 1ST, XRY 2ND*. COMPARISON: 02/19/2020 TECHNIQUE: AP and frog-lateral views FINDINGS: There is asymmetric hip joint space narrowing status quo. There is prominent marginal osteophytosis which appears to have increased. There is no evidence of an acute fracture, dislocation, or subluxation.. IMPRESSION: Chronic changes as described above. <Electronically signed by Ochoa Kuhn > 06/05/21 [id number]
== END ==
LOC: M LAB 11:54
PROVIDERS: ATTEND Family Medicine
DX: E11.65 Type 2 diabetes mellitus with hyperglycemia (principal); M25.551 Pain in right hip; M25.552 Pain in left hip

== ENCOUNTER → 2021-06-11 | Outpatient (REF) | payer OTHER, MEDICAID ==
[~2021-06-11] MED LIST changes: +ATOR80TA59 PO; +CLEN1SOL PO; +D 50CAP2 PO; +DOXY-443; -DOXY1CAP62; +IPRA2IN INH; +LEVE10003 PO; +MILK400S12 PO; +PLAV1TAB2 PO; +SENN-52 PO; +TIZA10TA PO; -TIZA4TAB4 PO; +WARF4TAB52 PO
== END ==
LOC: M LAB REF 16:37
PROVIDERS: ATTEND Nurse Practitioner Family
DX: E83.42 Hypomagnesemia (principal)

== ENCOUNTER → 2021-07-25 | Outpatient (CLI) | payer OTHER | LOC: M PAIN 13:45 | PROVIDERS: ATTEND Anesthesiology | DX: M54.5 Low back pain (principal); M46.1 Sacroiliitis, not elsewhere classified; G89.29 Other chronic pain; E11.9 Type 2 diabetes mellitus without complications; G43.909 Migraine, unspecified, not intractable, without status migrainosus; J44.9 Chronic obstructive pulmonary disease, unspecified; M79.7 Fibromyalgia; Z87.891 Personal history of nicotine dependence; Z88.5 Allergy status to narcotic agent; Z88.6 Allergy status to analgesic agent; Z88.8 Allergy status to other drugs, medicaments and biological substances; Z79.4 Long term (current) use of insulin; Z79.01 Long term (current) use of anticoagulants; Z79.51 Long term (current) use of inhaled steroids; Z79.899 Other long term (current) drug therapy ==

== ENCOUNTER 2021-07-27 04:29 | Emergency (ER) | payer OTHER ==
[~2021-07-27] VITALS: Ht 160 cm; Wt 74.5 kg
[~2021-07-27 04:29] MED LIST changes: -ATOR80TA59 PO; -CLEN1SOL PO; -D 50CAP2 PO; -DOXY-443; +DOXY1CAP62; -IPRA2IN INH; -LEVE10003 PO; -MILK400S12 PO; -PLAV1TAB2 PO; -SENN-52 PO; -TIZA10TA PO; +TIZA4TAB4 PO; -WARF4TAB52 PO
[2021-07-27] MEDS ORDERED: PERCOCET 5MG/325MG TAB PO ONE (08:00)
--- NOTE | 2021-07-27 08:24 | REP ---
INDICATION: TRAUMA. COMPARISON: None. TECHNIQUE: FOUR VIEWS FINDINGS: THERE IS A FRACTURE OF THE DISTAL TIP OF THE FIBULA WITH ASSOCIATED SOFT TISSUE SWELLING. THE MORTISE IS INTACT. THERE IS A SMALL DEVELOPING RETROCALCANEAL HEEL SPUR. IMPRESSION: As above <Electronically signed by Ochoa Kuhn > 07/27/21 2207
--- NOTE | 2021-07-27 08:24 | REP ---
INDICATION: trauma. COMPARISON: None. TECHNIQUE: Two views FINDINGS: See the ankle report. There are no additional fractures. IMPRESSION: As above <Electronically signed by Ochoa Kuhn > 07/27/21 4149
--- NOTE | 2021-07-27 08:29 | REP ---
INDICATION: fall. COMPARISON: 06/05/2021 TECHNIQUE: AP and frog-lateral views FINDINGS: There is no significant change compared to the prior exam. There is degenerative change status quo. No acute fracture, dislocation, or subluxation has developed. IMPRESSION: No significant change. No evidence of an acute abnormality. <Electronically signed by Ochoa Kuhn > 07/27/21 [id number]
--- NOTE | 2021-07-27 08:42 | REP ---
INDICATION: fall/lumbar fusion hx. COMPARISON: None. TECHNIQUE: 4 x [address] scanning reconstructed in both sagittal and coronal planes. FINDINGS: CT cannot rule out an acute disc extrusion. Transpedicular screws are seen bilaterally L4 through S1 inclusive. This causes spray artifact. There is no evidence of an acute fracture or vertebral body subluxation. Vertebral body height and alignment is within normal limits. IMPRESSION: No evidence of an acute abnormality. <Electronically signed by Ochoa Kuhn > 07/27/21 [id number]
[2021-07-27 11:20] VITALS: BP 165/82
== END 2021-07-27 11:25 | disposition home or self-care (01) ==
LOC: M ED 04:29
DX: S82.831A Other fracture of upper and lower end of right fibula, initial encounter for closed fracture (principal); S70.02XA Contusion of left hip, initial encounter; W01.0XXA Fall on same level from slipping, tripping and stumbling without subsequent striking against object, initial encounter; Y92.481 Parking lot as the place of occurrence of the external cause; Y93.K1 Activity, walking an animal; Y99.9 Unspecified external cause status; M43.26 Fusion of spine, lumbar region; Z88.6 Allergy status to analgesic agent; Z88.8 Allergy status to other drugs, medicaments and biological substances; Z79.899 Other long term (current) drug therapy

== ENCOUNTER → 2021-08-21 | Outpatient (CLI) | payer OTHER ==
--- NOTE | 2021-08-21 21:51 | REPVR ---
PROCEDURE INFORMATION: Exam: MR Lumbar Spine Without Contrast Exam date and time: 08/21/2021 9:39 AM Age: 61 years old Clinical indication: Low back pain; Prior surgery; Surgery date: 6+ months; Additional info: Metabolic syndrome TECHNIQUE: Imaging protocol: Multiplanar magnetic resonance images of the lumbar spine without intravenous contrast. COMPARISON: CT Spine, lumbar w/o contrast 07/27/2021 8:09 AM FINDINGS: Chronic postoperative changes compatible with posterior instrumented fusion and interbody fusion from L4 through S1. Vertebral body heights are maintained. No abnormal marrow signal. No cord compression. No abnormal cord signal. Conus medullaris terminates at the L1 level. Paravertebral soft tissues are unremarkable. L1-L2: No significant canal or foraminal narrowing. L2-L3: Facet hypertrophy causes mild left foraminal narrowing. No significant canal narrowing. L3-L4: No significant canal or foraminal narrowing. L4-L5: Status post fusion. Facet hypertrophy causes persistent mild right foraminal narrowing. No significant canal narrowing. L5-S1: Status post fusion. No significant canal or foraminal narrowing. IMPRESSION: 1. No acute findings in the lumbar spine. 2. Chronic findings, as above. Electronically signed by: Chevy Quezada On 08/21/2021 21:51:43 PM
== END ==
LOC: M PLAIMG 08:33
PROVIDERS: ATTEND Orthopaedic Surgery
DX: M54.16 Radiculopathy, lumbar region (principal); M43.26 Fusion of spine, lumbar region

== ENCOUNTER → 2021-10-23 | Outpatient (CLI) | payer OTHER ==
[~2021-10-23] MED LIST changes: +ATOR80TA59 PO; +CLEN1SOL PO; +D 50CAP2 PO; +DOXY-443; -DOXY1CAP62; +IPRA2IN INH; +LEVE10003 PO; +MILK400S12 PO; +SENN-52 PO; +WARF4TAB52 PO
== END ==
LOC: M LABSMTC 11:31
PROVIDERS: ATTEND Anesthesiology
DX: Z20.822 Contact with and (suspected) exposure to COVID-19 (principal)

== ENCOUNTER → 2021-10-28 | Outpatient (CLI) | payer OTHER ==
[~2021-10-28] MED LIST changes: +BUPIVACAINE HCL 0.25% 30ML VIAL As Ordered ONE; +ISOVUE-M 300 61% 15ML VIAL As Ordered ONE; +LIDOCAINE 1% SDV 30ML VIAL As Ordered ONE; +TRIAMCINOLONE ACETONIDE SUSP 40 MG/ML VIAL (J3301) As Ordered ONE; +diazePAM 2 MG TAB As Ordered ONE; +oxyCODONE 5MG TAB As Ordered ONE
--- NOTE | 2021-10-28 15:16 | REP ---
INDICATION: BILATERAL SACROILIAC JOINT BLOCK. COMPARISON: None. TECHNIQUE: Intraoperative fluoroscopic imaging using portable C-arm technique. FINDINGS: Catheter and contrast overlie the right sacroiliac joint. Total fluoroscopic time 33.5 seconds IMPRESSION: Consistent with sacroiliac joint block. <Electronically signed by Neftali Santiago > 10/28/21 [id number]
== END ==
LOC: M PAIN 10:20
PROVIDERS: ATTEND Anesthesiology
DX: M46.1 Sacroiliitis, not elsewhere classified (principal); E11.9 Type 2 diabetes mellitus without complications; G43.909 Migraine, unspecified, not intractable, without status migrainosus; J44.9 Chronic obstructive pulmonary disease, unspecified; M79.7 Fibromyalgia; Z87.891 Personal history of nicotine dependence; Z88.5 Allergy status to narcotic agent; Z88.6 Allergy status to analgesic agent; Z88.8 Allergy status to other drugs, medicaments and biological substances; Z91.018 Allergy to other foods; Z79.4 Long term (current) use of insulin; Z79.51 Long term (current) use of inhaled steroids; Z79.899 Other long term (current) drug therapy
CPT/HCPCS: 27096; J3301; Q9967

== ENCOUNTER → 2021-11-06 | Outpatient (CLI) | payer OTHER ==
[~2021-11-06] MED LIST changes: -BUPIVACAINE HCL 0.25% 30ML VIAL As Ordered ONE; -ISOVUE-M 300 61% 15ML VIAL As Ordered ONE; -LIDOCAINE 1% SDV 30ML VIAL As Ordered ONE; -TRIAMCINOLONE ACETONIDE SUSP 40 MG/ML VIAL (J3301) As Ordered ONE; -diazePAM 2 MG TAB As Ordered ONE; -oxyCODONE 5MG TAB As Ordered ONE
== END ==
LOC: M LAB 10:55
PROVIDERS: ATTEND Physician Assistant Medical
DX: R56.9 Unspecified convulsions (principal)

== ENCOUNTER → 2021-11-06 | Outpatient (CLI) | payer OTHER ==
--- NOTE | 2021-11-06 11:39 | REP ---
INDICATION: LUNG CA SCREENING. COMPARISON: 03/18/2019 the latest prior also low-dose screening CT of the lungs TECHNIQUE: Axial noncontrast images from the thoracic inlet to the upper abdomen using low-dose lung screening technique (LDCT). As per the protocol only lung window images were sent to the read station for interpretation. FINDINGS: There is a stable lingular opacity. There are no new abnormal nodules, masses, or opacities. Grossly, the mediastinum and pulmonary anthony are unchanged. Grossly, the imaged upper abdomen and imaged osseous structures are unchanged. IMPRESSION: Stable lung rads category 1 low-dose screening CT examination of the lungs. Follow-up as per the revised Fleischner society criteria. <Electronically signed by Ochoa Kuhn > 11/06/21 1180
== END ==
LOC: M RAD 10:41
PROVIDERS: ATTEND Family Medicine
DX: Z12.2 Encounter for screening for malignant neoplasm of respiratory organs (principal)

== ENCOUNTER → 2021-12-02 | Outpatient (CLI) | payer OTHER ==
[~2021-12-02] MED LIST changes: +TIZA10TA PO; -TIZA4TAB4 PO
[2021-12-02 17:32] LABS: HEMOGLOBIN A1c 9.2 %
[2021-12-02 17:43] LABS: BLOOD UREA NITROGEN 14 MG/DL (7-18); CARBON DIOXIDE LEVEL 29 MEQ/L (21-32); CHLORIDE LEVEL 104 MEQ/L (98-107); CHOLESTEROL LEVEL 199 MG/DL (<200); CHOLESTEROL RISK RATIO 3.685 (<5); CREATININE FOR GFR 0.81 MG/DL (0.55-1.30); GLOMERULAR FILTRATION RATE > 60.0 (>45); GLUCOSE, FASTING 113 MG/DL (70-100); HDL CHOLESTEROL 54 MG/DL (>40); LDL CHOLESTEROL 110 MG/DL (<100); NON-HDL-C 145 MG/DL; POTASSIUM SERUM 4.2 MEQ/L (3.5-5.1); SODIUM LEVEL 141 MEQ/L (136-145); TRIGLYCERIDES LEVEL 176 MG/DL (<150)
[2021-12-02 17:51] LABS: TOTAL 25(OH) VITAMIN D 26.1 NG/ML (30.0-100.0)
== END ==
LOC: M PLALAB 15:28
PROVIDERS: ATTEND Student in an Organized Health Care Education/Training Program
DX: E55.9 Vitamin D deficiency, unspecified (principal); E11.65 Type 2 diabetes mellitus with hyperglycemia; E78.2 Mixed hyperlipidemia; I10 Essential (primary) hypertension

== ENCOUNTER → 2021-12-18 | Outpatient (CLI) | payer OTHER | LOC: M PLAIMG 14:58 | PROVIDERS: ATTEND Anesthesiology | DX: M46.1 Sacroiliitis, not elsewhere classified (principal) ==

== ENCOUNTER → 2022-01-18 | Outpatient (CLI) | payer OTHER ==
[~2022-01-18] MED LIST changes: +PLAV1TAB2 PO
== END ==
LOC: M LABSMTC 09:53
PROVIDERS: ATTEND Anesthesiology
DX: Z20.828 Contact with and (suspected) exposure to other viral communicable diseases (principal); Z11.59 Encounter for screening for other viral diseases

== ENCOUNTER → 2022-02-01 | Outpatient (CLI) | payer OTHER | LOC: M LABSMTC 10:17 | PROVIDERS: ATTEND Anesthesiology | DX: Z01.812 Encounter for preprocedural laboratory examination (principal); Z20.822 Contact with and (suspected) exposure to COVID-19 ==

== ENCOUNTER 2022-02-06 12:58 | Day surgery (SDC) | payer OTHER ==
[~2022-02-06] VITALS: Ht 160 cm; Wt 77.3 kg
[~2022-02-06 12:58] MED LIST changes: +DESMOPRESSIN ACETATE IV ONE; +NS IV ONE; +ceFAZolin SOD 2 GM in IV 1 EA IV ONE
[2022-02-06] MEDS ORDERED: dexameTHASONE 4 MG/ML 1ML VIAL (J1100 PER 1MG) As Ordered ONE (15:13)
[2022-02-06] MEDS ORDERED: fentaNYL 100 MCG/2 ML INJECTION As Ordered ONE (15:13)
[2022-02-06] MEDS ORDERED: ONDANSETRON 4MG/2ML VIAL As Ordered ONE (15:13)
[2022-02-06] MEDS ORDERED: propofoL 200 MG/20 ML VIAL As Ordered ONE (15:13)
[2022-02-06] MEDS ORDERED: LIDOCAINE 2% 100MG/5ML SDV (FOR ANES.) As Ordered ONE (15:13)
[2022-02-06] MEDS ORDERED: MIDAZOLAM INJ 2MG/2ML VIAL (J2250 PER 1MG) As Ordered ONE (15:13)
[2022-02-06] MEDS ORDERED: LIDOCAINE 1% SDV 30ML VIAL As Ordered ONE (15:46)
[2022-02-06 17:15] VITALS: BP 162/79
== END 2022-02-06 17:25 | disposition home or self-care (01) ==
LOC: M SDC 12:58
PROVIDERS: ATTEND Internal Medicine Cardiovascular Disease
DX: I63.9 Cerebral infarction, unspecified (principal); I10 Essential (primary) hypertension; E78.5 Hyperlipidemia, unspecified; E11.9 Type 2 diabetes mellitus without complications; Z87.891 Personal history of nicotine dependence; K44.9 Diaphragmatic hernia without obstruction or gangrene; K21.9 Gastro-esophageal reflux disease without esophagitis; J44.9 Chronic obstructive pulmonary disease, unspecified; Z79.01 Long term (current) use of anticoagulants; Z79.899 Other long term (current) drug therapy; G40.909 Epilepsy, unspecified, not intractable, without status epilepticus; N18.2 Chronic kidney disease, stage 2 (mild); M79.7 Fibromyalgia; M81.0 Age-related osteoporosis without current pathological fracture
CPT/HCPCS: 33285; C1764; J0690; J1100; J2250; J2405; J2597; J3010

== ENCOUNTER → 2022-02-20 | Outpatient (CLI) | payer OTHER ==
[~2022-02-20] MED LIST changes: +AMLO1TAB25; -DESMOPRESSIN ACETATE IV ONE; +EZET10TA21; -NS IV ONE; +OXYC-517 PO; -ceFAZolin SOD 2 GM in IV 1 EA IV ONE
== END ==
LOC: M PAIN 11:30
PROVIDERS: ATTEND Nurse Practitioner Family
DX: M46.1 Sacroiliitis, not elsewhere classified (principal); G89.29 Other chronic pain; E11.9 Type 2 diabetes mellitus without complications; G43.909 Migraine, unspecified, not intractable, without status migrainosus; J44.9 Chronic obstructive pulmonary disease, unspecified; M79.7 Fibromyalgia; Z87.891 Personal history of nicotine dependence; Z88.5 Allergy status to narcotic agent; Z88.6 Allergy status to analgesic agent; Z91.018 Allergy to other foods; Z79.4 Long term (current) use of insulin; Z79.51 Long term (current) use of inhaled steroids; Z79.899 Other long term (current) drug therapy

== ENCOUNTER → 2022-03-07 | Outpatient (CLI) | payer OTHER | LOC: M WHC 08:52 | PROVIDERS: ATTEND Student in an Organized Health Care Education/Training Program | DX: Z12.31 Encounter for screening mammogram for malignant neoplasm of breast (principal) ==

== ENCOUNTER → 2022-04-17 | Outpatient (REF) | payer OTHER | LOC: M SFHCPLAZ 15:21 | PROVIDERS: ATTEND Family Medicine | DX: Z53.9 Procedure and treatment not carried out, unspecified reason (principal) ==

== ENCOUNTER → 2022-04-17 | Outpatient (CLI) | payer OTHER ==
[2022-04-17 17:19] LABS: HEMATOCRIT 44.1 % (36.0-47.0); HEMOGLOBIN 14.8 g/dl (12.0-15.5); MEAN CORPUSCULAR HEMOGLOBIN 31.6 pg (27.0-33.0); MEAN CORPUSCULAR HGB CONC 33.6 g/dl (32.0-36.5); PLATELET COUNT, AUTOMATED 267 10^3/uL (150-450); RED BLOOD COUNT 4.69 10^6/uL (4.00-5.40); WHITE BLOOD COUNT 10.9 10^3/uL (4.0-10.0)
[2022-04-17 17:34] LABS: HEMOGLOBIN A1c 9.6 %
== END ==
LOC: M PLALAB 15:25
PROVIDERS: ATTEND Family Medicine
DX: D68.0 Von Willebrand disease (principal); E11.9 Type 2 diabetes mellitus without complications; Z13.29 Encounter for screening for other suspected endocrine disorder

== ENCOUNTER → 2022-04-28 | Outpatient (CLI) | payer OTHER | LOC: M PAIN 11:00 | PROVIDERS: ATTEND Nurse Practitioner Family | DX: M46.1 Sacroiliitis, not elsewhere classified (principal); G89.29 Other chronic pain; E11.9 Type 2 diabetes mellitus without complications; M06.9 Rheumatoid arthritis, unspecified; G43.909 Migraine, unspecified, not intractable, without status migrainosus; J44.9 Chronic obstructive pulmonary disease, unspecified; M79.7 Fibromyalgia; Z87.891 Personal history of nicotine dependence; Z88.5 Allergy status to narcotic agent; Z88.6 Allergy status to analgesic agent; Z88.8 Allergy status to other drugs, medicaments and biological substances; Z91.018 Allergy to other foods; Z79.4 Long term (current) use of insulin; Z79.51 Long term (current) use of inhaled steroids; Z79.899 Other long term (current) drug therapy ==

== ENCOUNTER 2022-07-11 16:24 | Emergency (ER) | payer OTHER ==
[~2022-07-11] VITALS: Ht 162.6 cm; Wt 77.3 kg
[~2022-07-11 16:24] MED LIST changes: +CHLO125TA; +NYST-13; -NYST10CR
[2022-07-11] MEDS ORDERED: ONDANSETRON 4MG 2ML VIAL IV ONE (18:10)
[2022-07-11] MEDS ORDERED: NS 1,000 ML IV ONE (18:10)
[2022-07-11] MEDS: fentaNYL 100 MCG/2 ML INJECTION IV PRN ×2 (18:20→19:48)
[2022-07-11 18:24] LABS: BASO # 0.1 10^3/uL (0.0-0.2); BASO % 0.6 % (0.0-1.0); EOS # 0.1 10^3/uL (0.0-0.5); EOS % 0.3 % (0.0-3.0); HEMATOCRIT 43.4 % (36.0-47.0); HEMOGLOBIN 15.1 g/dl (12.0-15.5); LYMPH # 1.7 10^3/uL (1.5-5.0); LYMPH % 10.4 % (24.0-44.0); MEAN CORPUSCULAR HEMOGLOBIN 31.2 pg (27.0-33.0); MEAN CORPUSCULAR HGB CONC 34.8 g/dl (32.0-36.5); MEAN CORPUSCULAR VOLUME 89.7 fl (80.0-96.0); NEUTROPHILS # 13.2 10^3/uL (1.5-8.5); NEUTROPHILS % 82.2 % (36.0-66.0); PLATELET COUNT, AUTOMATED 327 10^3/uL (150-450); RED BLOOD COUNT 4.84 10^6/uL (4.00-5.40)
[2022-07-11 19:41] LABS: CREATININE FOR GFR 1.1 MG/DL (0.55-1.30); GLOMERULAR FILTRATION RATE 53.8 (>45)
[2022-07-11] MEDS ORDERED: PIPERACILLIN/TAZOBACTAM SOD 3.375 GM in D5W MINI-BAG PLUS 50 ML IV ONE (20:00)
[2022-07-11] MEDS ORDERED: PERCOCET 5MG/325MG TAB PO ONE (20:25)
[2022-07-11 21:09] VITALS: BP 179/79
[2022-07-11] MEDS ORDERED: CEFD300C41 PO (21:19)
[2022-07-11] MEDS ORDERED: PERC5TAB12 PO (21:19)
== END 2022-07-11 21:34 | disposition home or self-care (01) ==
LOC: M ED 16:24
DX: N10 Acute pyelonephritis (principal); N13.30 Unspecified hydronephrosis; K57.30 Diverticulosis of large intestine without perforation or abscess without bleeding; E11.9 Type 2 diabetes mellitus without complications; I10 Essential (primary) hypertension; E78.5 Hyperlipidemia, unspecified; K21.9 Gastro-esophageal reflux disease without esophagitis; G43.909 Migraine, unspecified, not intractable, without status migrainosus; J44.9 Chronic obstructive pulmonary disease, unspecified; R56.9 Unspecified convulsions; M54.9 Dorsalgia, unspecified; D68.0 Von Willebrand disease; Z88.6 Allergy status to analgesic agent; Z88.8 Allergy status to other drugs, medicaments and biological substances; Z90.710 Acquired absence of both cervix and uterus; Z79.899 Other long term (current) drug therapy; Z79.51 Long term (current) use of inhaled steroids
CPT/HCPCS: 74176; 80047; 80048; 81000; 81015; 83605; 85025; 87040; 87088; 87186; 96361; 96365; 96375; 99284; J2405; J2543; J3010

== ENCOUNTER → 2022-08-24 | Outpatient (CLI) | payer OTHER ==
[~2022-08-24] MED LIST changes: +CEFD300C41 PO
== END ==
LOC: M LABSMTC 10:40
PROVIDERS: ATTEND Anesthesiology
DX: Z01.812 Encounter for preprocedural laboratory examination (principal); Z11.52 Encounter for screening for COVID-19

== ENCOUNTER → 2022-08-28 | Outpatient (CLI) | payer OTHER ==
[~2022-08-28] MED LIST changes: +BUPIVACAINE HCL 0.25% 30ML VIAL As Ordered ONE; +ISOVUE-M 300 61% 15ML VIAL As Ordered ONE; +LIDOCAINE 1% SDV 30ML VIAL As Ordered ONE; +TRIAMCINOLONE ACETONIDE SUSP 40 MG/ML VIAL (J3301) As Ordered ONE; +diazePAM 2 MG TAB As Ordered ONE; +oxyCODONE 5MG TAB As Ordered ONE
== END ==
LOC: M PAIN 10:00
PROVIDERS: ATTEND Anesthesiology
DX: M46.1 Sacroiliitis, not elsewhere classified (principal); G89.29 Other chronic pain; E11.9 Type 2 diabetes mellitus without complications; M06.9 Rheumatoid arthritis, unspecified; I10 Essential (primary) hypertension; G43.909 Migraine, unspecified, not intractable, without status migrainosus; J44.9 Chronic obstructive pulmonary disease, unspecified; M79.7 Fibromyalgia; Z87.891 Personal history of nicotine dependence; Z88.5 Allergy status to narcotic agent; Z88.6 Allergy status to analgesic agent; Z88.8 Allergy status to other drugs, medicaments and biological substances; Z91.018 Allergy to other foods; Z79.4 Long term (current) use of insulin; Z79.51 Long term (current) use of inhaled steroids; Z79.899 Other long term (current) drug therapy
CPT/HCPCS: 27096; J3301; Q9967

== ENCOUNTER → 2022-09-12 | Outpatient (CLI) | payer OTHER ==
[~2022-09-12] MED LIST changes: -BUPIVACAINE HCL 0.25% 30ML VIAL As Ordered ONE; +CLOP75TA99 PO; -ISOVUE-M 300 61% 15ML VIAL As Ordered ONE; -LIDOCAINE 1% SDV 30ML VIAL As Ordered ONE; -PLAV1TAB2 PO; -TRIAMCINOLONE ACETONIDE SUSP 40 MG/ML VIAL (J3301) As Ordered ONE; -diazePAM 2 MG TAB As Ordered ONE; -oxyCODONE 5MG TAB As Ordered ONE
== END ==
LOC: M SLEEP 20:00
PROVIDERS: ATTEND Nurse Practitioner Family
DX: R06.83 Snoring (principal)

== ENCOUNTER → 2022-09-12 | Outpatient (CLI) | payer OTHER | LOC: M PAIN 11:15 | PROVIDERS: ATTEND Nurse Practitioner Family | DX: M46.1 Sacroiliitis, not elsewhere classified (principal); G89.29 Other chronic pain; E11.9 Type 2 diabetes mellitus without complications; M06.9 Rheumatoid arthritis, unspecified; I10 Essential (primary) hypertension; G43.909 Migraine, unspecified, not intractable, without status migrainosus; J44.9 Chronic obstructive pulmonary disease, unspecified; M79.7 Fibromyalgia; Z87.891 Personal history of nicotine dependence; Z88.5 Allergy status to narcotic agent; Z88.6 Allergy status to analgesic agent; Z88.8 Allergy status to other drugs, medicaments and biological substances; Z91.018 Allergy to other foods; Z79.4 Long term (current) use of insulin; Z79.51 Long term (current) use of inhaled steroids; Z79.899 Other long term (current) drug therapy ==

== ENCOUNTER → 2022-11-13 | Outpatient (CLI) | payer OTHER | LOC: M PAIN 10:30 | PROVIDERS: ATTEND Nurse Practitioner Family | DX: M46.1 Sacroiliitis, not elsewhere classified (principal); G89.29 Other chronic pain; E11.9 Type 2 diabetes mellitus without complications; M06.9 Rheumatoid arthritis, unspecified; I10 Essential (primary) hypertension; G43.909 Migraine, unspecified, not intractable, without status migrainosus; J44.9 Chronic obstructive pulmonary disease, unspecified; M79.7 Fibromyalgia; Z87.891 Personal history of nicotine dependence; Z88.5 Allergy status to narcotic agent; Z88.6 Allergy status to analgesic agent; Z88.8 Allergy status to other drugs, medicaments and biological substances; Z91.018 Allergy to other foods; Z91.09 Other allergy status, other than to drugs and biological substances; Z79.4 Long term (current) use of insulin; Z79.51 Long term (current) use of inhaled steroids; Z79.85 Long-term (current) use of injectable non-insulin antidiabetic drugs; Z79.899 Other long term (current) drug therapy ==

== ENCOUNTER → 2022-11-17 | Outpatient (CLI) | payer OTHER ==
[2022-11-17 10:45] LABS: HEMOGLOBIN 15.1 g/dl (12.0-15.5); MEAN CORPUSCULAR HEMOGLOBIN 30.6 pg (27.0-33.0); MEAN CORPUSCULAR HGB CONC 32.8 g/dl (32.0-36.5); MEAN CORPUSCULAR VOLUME 93.3 fl (80.0-96.0); PLATELET COUNT, AUTOMATED 239 10^3/uL (150-450); RED BLOOD COUNT 4.93 10^6/uL (4.00-5.40); WHITE BLOOD COUNT 8.4 10^3/uL (4.0-10.0)
[2022-11-17 11:09] LABS: ALBUMIN 4.1 G/DL (3.2-5.2); ALKALINE PHOSPHATASE 92 U/L (46-116); ALT/SGPT 49 U/L (7.0-40); AST/SGOT 29 U/L (<34); BILIRUBIN,TOTAL 0.4 MG/DL (0.3-1.2); BLOOD UREA NITROGEN 14 MG/DL (9-23); CALCIUM LEVEL 9.6 MG/DL (8.3-10.6); CARBON DIOXIDE LEVEL 26 MMOL/L (20-31); CHLORIDE LEVEL 105 MMOL/L (98-107); CHOLESTEROL LEVEL 190 MG/DL (<200); CHOLESTEROL RISK RATIO 4.32 (<5); CREATININE FOR GFR 0.64 MG/DL (0.55-1.30); GLOMERULAR FILTRATION RATE > 60.0 (>45); GLUCOSE, FASTING 165 MG/DL (74-106); HDL CHOLESTEROL 43.9 MG/DL (>40); LDL CHOLESTEROL 93.1 MG/DL (<100); NON-HDL-C 146 MG/DL; POTASSIUM SERUM 4.1 MMOL/L (3.5-5.1); SODIUM LEVEL 140 MMOL/L (136-145); TOTAL PROTEIN 6.8 G/DL (5.7-8.2); TRIGLYCERIDES LEVEL 265 MG/DL (<150)
[2022-11-17 11:11] LABS: THYROID STIMULATING HORMONE 1.424 uIU/ML (0.55-4.78)
[2022-11-17 11:18] LABS: HEMOGLOBIN A1c 7.9 % (4.0-6.0)
== END ==
LOC: M RAD 09:54
PROVIDERS: ATTEND Family Medicine
DX: Z12.2 Encounter for screening for malignant neoplasm of respiratory organs (principal)

== ENCOUNTER → 2023-01-13 | Outpatient (CLI) | payer OTHER ==
[~2023-01-13] MED LIST changes: +[UNRECOGNIZED DRUG - CODE] NS
== END ==
LOC: M LABSMTC 09:52
PROVIDERS: ATTEND Anesthesiology
DX: Z01.812 Encounter for preprocedural laboratory examination (principal); Z20.822 Contact with and (suspected) exposure to COVID-19

== ENCOUNTER → 2023-01-16 | Outpatient (CLI) | payer OTHER ==
[~2023-01-16] MED LIST changes: +AMIT-253 PO; -AMLO1TAB25; +AMLO1TAB25 PO; +BUPIVACAINE HCL 0.25% 30ML VIAL As Ordered ONE; -CHLO125TA; +DIVA500T94 PO; -EZET10TA21; +EZET10TA21 PO; +HYDR-3910 PO; +ISOVUE-M 300 61% 15ML VIAL As Ordered ONE; +LIDOCAINE 1% SDV 30ML VIAL As Ordered ONE; +SPIR50TA4 PO; +STEG5TAB PO; +TRIAMCINOLONE ACETONIDE SUSP 40MG/ML 1ML VIAL As Ordered ONE; +diazePAM 5MG TABLET As Ordered ONE; +oxyCODONE 5MG TAB As Ordered ONE
== END ==
LOC: M PAIN 10:00
PROVIDERS: ATTEND Anesthesiology
DX: M46.1 Sacroiliitis, not elsewhere classified (principal); G89.29 Other chronic pain; E11.9 Type 2 diabetes mellitus without complications; M06.9 Rheumatoid arthritis, unspecified; I10 Essential (primary) hypertension; G43.909 Migraine, unspecified, not intractable, without status migrainosus; J44.9 Chronic obstructive pulmonary disease, unspecified; M79.7 Fibromyalgia; Z87.891 Personal history of nicotine dependence; Z88.5 Allergy status to narcotic agent; Z88.6 Allergy status to analgesic agent; Z88.8 Allergy status to other drugs, medicaments and biological substances; Z91.018 Allergy to other foods; Z79.4 Long term (current) use of insulin; Z79.51 Long term (current) use of inhaled steroids; Z79.85 Long-term (current) use of injectable non-insulin antidiabetic drugs; Z79.899 Other long term (current) drug therapy
CPT/HCPCS: 27096; J3301; S0020

== ENCOUNTER → 2023-01-22 | Outpatient (CLI) | payer OTHER ==
[~2023-01-22] MED LIST changes: -BUPIVACAINE HCL 0.25% 30ML VIAL As Ordered ONE; -ISOVUE-M 300 61% 15ML VIAL As Ordered ONE; -LIDOCAINE 1% SDV 30ML VIAL As Ordered ONE; -TRIAMCINOLONE ACETONIDE SUSP 40MG/ML 1ML VIAL As Ordered ONE; -diazePAM 5MG TABLET As Ordered ONE; -oxyCODONE 5MG TAB As Ordered ONE
== END ==
LOC: M LABSMTC 10:44
PROVIDERS: ATTEND Anesthesiology
DX: Z01.818 Encounter for other preprocedural examination (principal); Z11.52 Encounter for screening for COVID-19

== ENCOUNTER 2023-01-27 07:41 | Day surgery (SDC) | payer OTHER ==
[~2023-01-27] VITALS: Ht 160 cm; Wt 77.2 kg
[~2023-01-27 07:41] MED LIST changes: +NS 1,000 ML IV ONE
[2023-01-27] MEDS ORDERED: ESMOLOL INJ 100MG/10ML VIAL As Ordered ONE (08:59)
[2023-01-27] MEDS ORDERED: propofoL 200 MG/20 ML VIAL As Ordered ONE (08:59)
[2023-01-27] MEDS ORDERED: LABETALOL 100MG/20ML VIAL As Ordered ONE (08:59)
[2023-01-27] MEDS ORDERED: LIDOCAINE 2% 100MG/5ML SDV (FOR ANES.) As Ordered ONE (08:59)
[2023-01-27 09:06] VITALS: BP 195/87
== END 2023-01-27 09:17 | disposition home or self-care (01) ==
LOC: M OPP 07:41
PROVIDERS: ATTEND Internal Medicine Gastroenterology
DX: K92.1 Melena (principal); K74.60 Unspecified cirrhosis of liver; E11.9 Type 2 diabetes mellitus without complications; I65.22 Occlusion and stenosis of left carotid artery; E78.00 Pure hypercholesterolemia, unspecified; D68.01 Von Willebrand disease, type 1; Z79.02 Long term (current) use of antithrombotics/antiplatelets; Z79.4 Long term (current) use of insulin; Z79.51 Long term (current) use of inhaled steroids; Z79.891 Long term (current) use of opiate analgesic; Z79.899 Other long term (current) drug therapy; Z88.5 Allergy status to narcotic agent; Z88.6 Allergy status to analgesic agent; Z88.8 Allergy status to other drugs, medicaments and biological substances; Z91.018 Allergy to other foods; Z87.442 Personal history of urinary calculi; Z87.891 Personal history of nicotine dependence

== ENCOUNTER → 2023-01-30 | Outpatient (CLI) | payer OTHER ==
[~2023-01-30] MED LIST changes: -NS 1,000 ML IV ONE
== END ==
LOC: M SLEEP 20:00
PROVIDERS: ATTEND Nurse Practitioner Family
DX: G47.33 Obstructive sleep apnea (adult) (pediatric) (principal)

== ENCOUNTER → 2023-02-16 | Outpatient (CLI) | payer OTHER | LOC: M PAIN 13:45 | PROVIDERS: ATTEND Nurse Practitioner Family | DX: M46.1 Sacroiliitis, not elsewhere classified (principal); G89.29 Other chronic pain; E11.9 Type 2 diabetes mellitus without complications; M06.9 Rheumatoid arthritis, unspecified; I10 Essential (primary) hypertension; G43.909 Migraine, unspecified, not intractable, without status migrainosus; J44.9 Chronic obstructive pulmonary disease, unspecified; M79.7 Fibromyalgia; Z87.891 Personal history of nicotine dependence; Z88.5 Allergy status to narcotic agent; Z88.6 Allergy status to analgesic agent; Z88.8 Allergy status to other drugs, medicaments and biological substances; Z91.018 Allergy to other foods; Z79.4 Long term (current) use of insulin; Z79.51 Long term (current) use of inhaled steroids; Z79.85 Long-term (current) use of injectable non-insulin antidiabetic drugs ==

== ENCOUNTER → 2023-03-02 | Outpatient (CLI) | payer OTHER ==
[2023-03-02 16:10] LABS: BLOOD UREA NITROGEN 21 MG/DL (9-23); CALCIUM LEVEL 8.9 MG/DL (8.3-10.6); CARBON DIOXIDE LEVEL 26 MMOL/L (20-31); CHLORIDE LEVEL 108 MMOL/L (98-107); CREATININE FOR GFR 0.97 MG/DL (0.55-1.30); GLOMERULAR FILTRATION RATE > 60.0 (>45); GLUCOSE, FASTING 198 MG/DL (74-106); POTASSIUM SERUM 3.9 MMOL/L (3.5-5.1); SODIUM LEVEL 142 MMOL/L (136-145)
== END ==
LOC: M LAB 14:29
PROVIDERS: ATTEND Student in an Organized Health Care Education/Training Program
DX: Z01.818 Encounter for other preprocedural examination (principal)

== ENCOUNTER → 2023-03-02 | Outpatient (CLI) | payer OTHER ==
[2023-03-02 15:56] LABS: HEMOGLOBIN A1c 7.8 % (4.0-6.0)
== END ==
LOC: M LAB 14:32
PROVIDERS: ATTEND Family Medicine
DX: E11.42 Type 2 diabetes mellitus with diabetic polyneuropathy (principal)

== ENCOUNTER → 2023-03-02 | Outpatient (CLI) | payer OTHER ==
[2023-03-02 15:46] LABS: BASO # 0.1 10^3/uL (0.0-0.2); BASO % 0.6 % (0.0-1.0); EOS # 0.1 10^3/uL (0.0-0.5); EOS % 1.4 % (0.0-3.0); HEMATOCRIT 44.1 % (36.0-47.0); HEMOGLOBIN 14.6 g/dl (12.0-15.5); LYMPH # 2.2 10^3/uL (1.5-5.0); LYMPH % 25.8 % (24.0-44.0); MEAN CORPUSCULAR HEMOGLOBIN 30.7 pg (27.0-33.0); MEAN CORPUSCULAR HGB CONC 33.1 g/dl (32.0-36.5); MEAN CORPUSCULAR VOLUME 92.8 fl (80.0-96.0); MONO # 0.6 10^3/uL (0.0-0.8); MONO % 6.6 % (2.0-8.0); NEUTROPHILS # 5.5 10^3/uL (1.5-8.5); NEUTROPHILS % 65.4 % (36.0-66.0); PLATELET COUNT, AUTOMATED 209 10^3/uL (150-450); RED BLOOD COUNT 4.75 10^6/uL (4.00-5.40); WHITE BLOOD COUNT 8.3 10^3/uL (4.0-10.0)
[2023-03-02 15:57] LABS: HEMOGLOBIN A1c 7.8 % (4.0-6.0)
[2023-03-02 16:09] LABS: VALPROIC ACID (DEPAKOTE) < 3.0 UG/ML (50.0-100.0)
[2023-03-02 16:11] LABS: ALBUMIN 3.7 G/DL (3.2-5.2); ALKALINE PHOSPHATASE 81 U/L (46-116); ALT/SGPT 38 U/L (7.0-40); AST/SGOT 19 U/L (<34); BILIRUBIN,TOTAL 0.3 MG/DL (0.3-1.2); BLOOD UREA NITROGEN 21 MG/DL (9-23); CALCIUM LEVEL 9.3 MG/DL (8.3-10.6); CARBON DIOXIDE LEVEL 30 MMOL/L (20-31); CHLORIDE LEVEL 107 MMOL/L (98-107); CHOLESTEROL LEVEL 186 MG/DL (<200); CHOLESTEROL RISK RATIO 3.85 (<5); CREATININE FOR GFR 1.04 MG/DL (0.55-1.30); GLOMERULAR FILTRATION RATE 57.4 (>45); GLUCOSE, FASTING 193 MG/DL (74-106); HDL CHOLESTEROL 48.2 MG/DL (>40); LDL CHOLESTEROL 73.4 MG/DL (<100); NON-HDL-C 137.8 MG/DL; SODIUM LEVEL 142 MMOL/L (136-145); TOTAL PROTEIN 6.7 G/DL (5.7-8.2); TRIGLYCERIDES LEVEL 322 MG/DL (<150)
[2023-03-02 16:14] LABS: FOLATE 14.91 NG/ML (>5.4)
[2023-03-02 16:15] LABS: TOTAL 25(OH) VITAMIN D 28.2 NG/ML (20.0-100.0); VITAMIN B12 LEVEL 236 PG/ML (211-911)
== END ==
LOC: M LAB 14:26
PROVIDERS: ATTEND Psychiatry & Neurology Neurology
DX: E78.5 Hyperlipidemia, unspecified (principal); E11.9 Type 2 diabetes mellitus without complications; E53.8 Deficiency of other specified B group vitamins; E55.9 Vitamin D deficiency, unspecified; R56.9 Unspecified convulsions

== ENCOUNTER → 2023-03-27 | Outpatient (CLI) | payer OTHER ==
[2023-03-27 14:44] LABS: HEMOGLOBIN A1c 7.5 % (4.0-6.0)
== END ==
LOC: M PLALAB 10:24
PROVIDERS: ATTEND Student in an Organized Health Care Education/Training Program
DX: Z86.73 Personal history of transient ischemic attack (TIA), and cerebral infarction without residual deficits (principal)

== ENCOUNTER 2023-05-01 07:31 | Day surgery (SDC) | payer OTHER ==
[~2023-05-01] VITALS: Ht 160 cm; Wt 74.8 kg
[~2023-05-01 07:31] MED LIST changes: +NS 1,000 ML IV ONE
[2023-05-01] MEDS ORDERED: LIDOCAINE 2% 100MG/5ML SDV (FOR ANES.) As Ordered ONE (08:43)
[2023-05-01] MEDS ORDERED: GLYCOPYRROLATE INJ 0.2 MG/ML 2 ML VIAL As Ordered ONE (08:43)
[2023-05-01] MEDS ORDERED: propofoL 500 MG/50 ML VIAL As Ordered ONE (08:43)
[2023-05-01] MEDS ORDERED: ESMOLOL INJ 100MG/10ML VIAL As Ordered ONE (09:14)
[2023-05-01] MEDS ORDERED: propofoL 200 MG/20 ML VIAL As Ordered ONE (09:33)
[2023-05-01 10:26] VITALS: BP 198/87; TEMP 97.2; O2SAT 97
== END 2023-05-01 10:29 | disposition home or self-care (01) ==
LOC: M OPP 07:31
PROVIDERS: ATTEND Internal Medicine Gastroenterology
DX: D12.4 Benign neoplasm of descending colon (principal); K64.8 Other hemorrhoids; K57.30 Diverticulosis of large intestine without perforation or abscess without bleeding; K92.1 Melena; Z79.02 Long term (current) use of antithrombotics/antiplatelets; Z79.52 Long term (current) use of systemic steroids; Z79.811 Long term (current) use of aromatase inhibitors; Z79.891 Long term (current) use of opiate analgesic; Z79.899 Other long term (current) drug therapy; Z88.5 Allergy status to narcotic agent; Z88.6 Allergy status to analgesic agent; Z88.8 Allergy status to other drugs, medicaments and biological substances; Z91.040 Latex allergy status

== ENCOUNTER 2023-06-01 15:07 | Emergency (ER) | payer OTHER ==
[~2023-06-01] VITALS: Ht 160 cm; Wt 72.2 kg
[~2023-06-01 15:07] MED LIST changes: +DICY-61 PO; -DICY10CA13 PO; -NS 1,000 ML IV ONE
[2023-06-01] MEDS ORDERED: ACETAMINOPHEN TAB 650MG DOSE (2X325MG) PO ONE (21:15)
[2023-06-01] MEDS ORDERED: METOCLOPRAMIDE INJ 10MG/2ML VIAL IV ONE (21:45)
[2023-06-01 22:06] LABS: BASO # 0.1 10^3/uL (0.0-0.2); BASO % 0.6 % (0.0-1.0); EOS # 0.1 10^3/uL (0.0-0.5); EOS % 0.6 % (0.0-3.0); HEMATOCRIT 45.8 % (36.0-47.0); HEMOGLOBIN 15.1 g/dl (12.0-15.5); LYMPH # 2.7 10^3/uL (1.5-5.0); LYMPH % 24.7 % (24.0-44.0); MEAN CORPUSCULAR HEMOGLOBIN 30.1 pg (27.0-33.0); MEAN CORPUSCULAR VOLUME 91.4 fl (80.0-96.0); MONO # 0.9 10^3/uL (0.0-0.8); NEUTROPHILS # 7.2 10^3/uL (1.5-8.5); NEUTROPHILS % 65.8 % (36.0-66.0); PLATELET COUNT, AUTOMATED 237 10^3/uL (150-450); RED BLOOD COUNT 5.01 10^6/uL (4.00-5.40); WHITE BLOOD COUNT 10.9 10^3/uL (4.0-10.0)
[2023-06-01] MEDS ORDERED: PERCOCET 5MG/325MG TAB PO ONE (22:10)
[2023-06-01 22:18] LABS: BLOOD UREA NITROGEN 27 MG/DL (9-23); CALCIUM LEVEL 10.1 MG/DL (8.3-10.6); CARBON DIOXIDE LEVEL 26 MMOL/L (20-31); CHLORIDE LEVEL 100 MMOL/L (98-107); CREATININE FOR GFR 0.73 MG/DL (0.55-1.30); GLOMERULAR FILTRATION RATE > 60.0 (>45); GLUCOSE, FASTING 150 MG/DL (74-106); POTASSIUM SERUM 4.1 MMOL/L (3.5-5.1); SODIUM LEVEL 140 MMOL/L (136-145)
[2023-06-01] MEDS ORDERED: TAMSULOSIN 0.4 MG CAP PO ONE (23:00)
[2023-06-01] MEDS ORDERED: cefTRIAXone SOD 1 GM in D5W MINI-BAG PLUS 50 ML IV ONE (23:00)
[2023-06-01] MEDS ORDERED: FLOM0.4C39 PO (23:23)
[2023-06-01] MEDS ORDERED: CEFU50TA PO (23:23)
[2023-06-01 23:33] VITALS: BP 135/76; TEMP 98.8; O2SAT 97
== END 2023-06-01 23:50 | disposition home or self-care (01) ==
LOC: M ED 15:07
DX: T18.4XXA Foreign body in colon, initial encounter (principal); N39.0 Urinary tract infection, site not specified; N20.0 Calculus of kidney; I10 Essential (primary) hypertension; E11.9 Type 2 diabetes mellitus without complications; E78.5 Hyperlipidemia, unspecified; J44.9 Chronic obstructive pulmonary disease, unspecified; G43.909 Migraine, unspecified, not intractable, without status migrainosus; Z86.79 Personal history of other diseases of the circulatory system; Z88.8 Allergy status to other drugs, medicaments and biological substances; Z88.6 Allergy status to analgesic agent; Z91.09 Other allergy status, other than to drugs and biological substances; Z79.52 Long term (current) use of systemic steroids; Z79.811 Long term (current) use of aromatase inhibitors; Z79.899 Other long term (current) drug therapy
CPT/HCPCS: 74176; 80048; 81001; 85025; 87088; 87186; 96374; 99283; J0696; J2765

== ENCOUNTER → 2023-06-03 | Outpatient (CLI) | payer OTHER ==
[~2023-06-03] MED LIST changes: +CEFU50TA PO; +FLOM0.4C39 PO
== END ==
LOC: M RAD 10:43
PROVIDERS: ATTEND Psychiatry & Neurology Neurology
DX: I65.29 Occlusion and stenosis of unspecified carotid artery (principal)

== ENCOUNTER → 2023-06-04 | Outpatient (CLI) | payer OTHER | LOC: M PLAIMG 15:59 | PROVIDERS: ATTEND Family Medicine | DX: R10.12 Left upper quadrant pain (principal) ==

== ENCOUNTER → 2023-06-27 | Outpatient (CLI) | payer OTHER ==
[~2023-06-27] MED LIST changes: -GABA-283 PO; +GABA-284 PO; +MACR100C43 PO; +OXYB5TAB10 PO
[2023-06-27 11:47] LABS: HEMATOCRIT 45.5 % (36.0-47.0); PLATELET COUNT, AUTOMATED 221 10^3/uL (150-450); WHITE BLOOD COUNT 7.8 10^3/uL (4.0-10.0)
[2023-06-27 11:57] LABS: ALBUMIN 4.2 G/DL (3.2-5.2); ALKALINE PHOSPHATASE 117 U/L (46-116); ALT/SGPT 30 U/L (7.0-40); AST/SGOT 14 U/L (<34); BILIRUBIN,TOTAL 0.5 MG/DL (0.3-1.2); BLOOD UREA NITROGEN 14 MG/DL (9-23); CALCIUM LEVEL 10.1 MG/DL (8.3-10.6); CARBON DIOXIDE LEVEL 28 MMOL/L (20-31); CHLORIDE LEVEL 106 MMOL/L (98-107); GLOMERULAR FILTRATION RATE > 60.0 (>45); GLUCOSE, FASTING 199 MG/DL (74-106); SODIUM LEVEL 143 MMOL/L (136-145); TOTAL PROTEIN 7.2 G/DL (5.7-8.2)
== END ==
LOC: M RAD 10:32
PROVIDERS: ATTEND Urology
DX: N20.1 Calculus of ureter (principal)

== ENCOUNTER 2023-07-02 08:41 | Day surgery (SDC) | payer OTHER ==
[~2023-07-02] VITALS: Ht 160 cm; Wt 73.7 kg
[~2023-07-02 08:41] MED LIST changes: -MACR100C43 PO; -OXYB5TAB10 PO; +ceFAZolin SOD 2 GM in IV 1 EA IV ONE
[2023-07-02] MEDS ORDERED: LIDOCAINE 2% 100MG/5ML SDV (FOR ANES.) As Ordered ONE (09:30)
[2023-07-02] MEDS ORDERED: propofoL 200 MG/20 ML VIAL As Ordered ONE (09:30)
[2023-07-02] MEDS ORDERED: ROCURONIUM BROMIDE 50MG/5ML VIAL As Ordered ONE (09:30)
[2023-07-02] MEDS ORDERED: fentaNYL 100 MCG/2 ML INJECTION As Ordered ONE (09:30)
[2023-07-02] MEDS ORDERED: MIDAZOLAM INJ 2MG/2ML VIAL As Ordered ONE (09:30)
[2023-07-02] MEDS ORDERED: INSULIN LISPRO (NovoLOG) PER UNIT SC PRN (09:30)
[2023-07-02] MEDS ORDERED: LR 1,000 ML IV SCH ×2 (09:30→10:40)
[2023-07-02] MEDS ORDERED: ISOVUE-300 61% 100ML VIAL As Ordered ONE (10:01)
[2023-07-02] MEDS ORDERED: ONDANSETRON 4MG 2ML VIAL IV PRN (10:40)
[2023-07-02] MEDS ORDERED: fentaNYL 100 MCG/2 ML INJECTION IV PRN (10:40)
[2023-07-02] MEDS ORDERED: OXYB5TAB10 PO (10:45)
[2023-07-02] MEDS ORDERED: PYRI1TAB5 PO (10:45)
[2023-07-02] MEDS ORDERED: MACR100C43 PO (10:45)
[2023-07-02] MEDS: oxyCODONE 5MG TAB PO PRN ×2 (11:20→11:47)
[2023-07-02 12:50] VITALS: BP 178/79; TEMP 97.6; O2SAT 95
[2023-07-08 12:09] LABS: Ca Ox Monohydrate 100 % (.); Size 2x4 mm (.)
== END 2023-07-02 12:50 | disposition home or self-care (01) ==
LOC: M SDC 08:41
PROVIDERS: ATTEND Urology
DX: N20.1 Calculus of ureter (principal); E11.9 Type 2 diabetes mellitus without complications; G47.30 Sleep apnea, unspecified; Z79.01 Long term (current) use of anticoagulants; Z79.4 Long term (current) use of insulin; Z79.899 Other long term (current) drug therapy; Z86.73 Personal history of transient ischemic attack (TIA), and cerebral infarction without residual deficits; Z87.891 Personal history of nicotine dependence; Z88.5 Allergy status to narcotic agent; Z88.6 Allergy status to analgesic agent; Z88.8 Allergy status to other drugs, medicaments and biological substances; Z91.018 Allergy to other foods; Z91.09 Other allergy status, other than to drugs and biological substances
CPT/HCPCS: 52356; 76000; 82365; C1769; C2617; J0690; J2250; J2405; J3010; Q9967

== ENCOUNTER → 2023-08-27 | Outpatient (CLI) | payer OTHER ==
[~2023-08-27] MED LIST changes: -CEFD300C41 PO; +CEFD300C42 PO; +MACR100C43 PO; +OXYB5TAB11 PO; -ceFAZolin SOD 2 GM in IV 1 EA IV ONE
== END ==
LOC: M PAIN 10:00
PROVIDERS: ATTEND Nurse Practitioner Family
DX: M46.1 Sacroiliitis, not elsewhere classified (principal); E11.9 Type 2 diabetes mellitus without complications; M06.9 Rheumatoid arthritis, unspecified; I12.9 Hypertensive chronic kidney disease with stage 1 through stage 4 chronic kidney disease, or unspecified chronic kidney disease; R56.9 Unspecified convulsions; N18.2 Chronic kidney disease, stage 2 (mild); G43.909 Migraine, unspecified, not intractable, without status migrainosus; J44.9 Chronic obstructive pulmonary disease, unspecified; M19.90 Unspecified osteoarthritis, unspecified site; M79.7 Fibromyalgia; M54.2 Cervicalgia; G89.29 Other chronic pain; K44.9 Diaphragmatic hernia without obstruction or gangrene; Z87.891 Personal history of nicotine dependence; Z79.02 Long term (current) use of antithrombotics/antiplatelets; Z79.84 Long term (current) use of oral hypoglycemic drugs; Z79.891 Long term (current) use of opiate analgesic; Z79.899 Other long term (current) drug therapy; Z88.6 Allergy status to analgesic agent; Z88.8 Allergy status to other drugs, medicaments and biological substances; Z91.048 Other nonmedicinal substance allergy status; Z91.02 Food additives allergy status

== ENCOUNTER → 2023-12-08 | Outpatient (CLI) | payer OTHER ==
[~2023-12-08] MED LIST changes: +CEFD1CAP9 PO; -CEFD300C42 PO; +HYDR-161 PO; -HYDR10TAB PO
== END ==
LOC: M PAIN 11:45
PROVIDERS: ATTEND Nurse Practitioner Family
DX: M46.1 Sacroiliitis, not elsewhere classified (principal); G89.29 Other chronic pain; E11.9 Type 2 diabetes mellitus without complications; M06.9 Rheumatoid arthritis, unspecified; I12.9 Hypertensive chronic kidney disease with stage 1 through stage 4 chronic kidney disease, or unspecified chronic kidney disease; N18.2 Chronic kidney disease, stage 2 (mild); G43.909 Migraine, unspecified, not intractable, without status migrainosus; J44.9 Chronic obstructive pulmonary disease, unspecified; M79.7 Fibromyalgia; Z87.891 Personal history of nicotine dependence; Z79.02 Long term (current) use of antithrombotics/antiplatelets; Z79.891 Long term (current) use of opiate analgesic; Z79.899 Other long term (current) drug therapy; Z88.6 Allergy status to analgesic agent; Z88.5 Allergy status to narcotic agent; Z88.8 Allergy status to other drugs, medicaments and biological substances; Z91.048 Other nonmedicinal substance allergy status; Z91.02 Food additives allergy status

== ENCOUNTER → 2023-12-22 | Outpatient (REF) | payer OTHER ==
[~2023-12-22] MED LIST changes: +DOXY-323; -DOXY-443; -HYDR-3910 PO; +HYDR25TA87 PO; -OXYB5TAB11 PO; +OXYB5TAB14 PO
== END ==
LOC: M SFHCWAGY 10:55
PROVIDERS: ATTEND Student in an Organized Health Care Education/Training Program
DX: Z12.4 Encounter for screening for malignant neoplasm of cervix (principal)

== ENCOUNTER → 2024-01-05 | Outpatient (CLI) | payer OTHER ==
[~2024-01-05] MED LIST changes: -DOXY-323; +DOXY-443
[2024-01-05 13:25] LABS: BASO # 0.1 10^3/uL (0.0-0.2); BASO % 0.7 % (0.0-1.0); EOS # 0.1 10^3/uL (0.0-0.5); EOS % 1.3 % (0.0-3.0); HEMATOCRIT 43.2 % (36.0-47.0); HEMOGLOBIN 14.9 g/dl (12.0-15.5); LYMPH # 1.9 10^3/uL (1.5-5.0); LYMPH % 21.9 % (24.0-44.0); MEAN CORPUSCULAR HEMOGLOBIN 30.7 pg (27.0-33.0); MEAN CORPUSCULAR HGB CONC 34.5 g/dl (32.0-36.5); MEAN CORPUSCULAR VOLUME 89.1 fl (80.0-96.0); MONO # 0.5 10^3/uL (0.0-0.8); MONO % 5.9 % (2.0-8.0); NEUTROPHILS # 6.1 10^3/uL (1.5-8.5); NEUTROPHILS % 69.9 % (36.0-66.0); PLATELET COUNT, AUTOMATED 224 10^3/uL (150-450); RED BLOOD COUNT 4.85 10^6/uL (4.00-5.40); WHITE BLOOD COUNT 8.8 10^3/uL (4.0-10.0)
[2024-01-05 13:33] LABS: HEMOGLOBIN A1c 9.8 % (4.0-6.0)
[2024-01-05 13:58] LABS: ALKALINE PHOSPHATASE 92 U/L (46-116); ALT/SGPT 31 U/L (7.0-40); AST/SGOT 14 U/L (<34); BILIRUBIN,TOTAL 0.5 MG/DL (0.3-1.2); BLOOD UREA NITROGEN 16 MG/DL (9-23); CARBON DIOXIDE LEVEL 27 MMOL/L (20-31); CHLORIDE LEVEL 106 MMOL/L (98-107); CHOLESTEROL LEVEL 240 MG/DL (<200); CHOLESTEROL RISK RATIO 5.76 (<5); CREATININE FOR GFR 0.61 MG/DL (0.55-1.30); GLOMERULAR FILTRATION RATE > 60.0 (>45); GLUCOSE, FASTING 184 MG/DL (74-106); HDL CHOLESTEROL 41.6 MG/DL (>40); LDL CHOLESTEROL 148.8 MG/DL (<100); NON-HDL-C 198.4 MG/DL; POTASSIUM SERUM 3.7 MMOL/L (3.5-5.1); SODIUM LEVEL 140 MMOL/L (136-145); THYROID STIMULATING HORMONE 0.584 uIU/ML (0.55-4.78); TOTAL 25(OH) VITAMIN D 27.8 NG/ML (20.0-100.0); TRIGLYCERIDES LEVEL 248 MG/DL (<150)
[2024-01-05 13:59] LABS: FREE T4 0.86 NG/DL (0.89-1.76)
== END ==
LOC: M LAB 12:13
PROVIDERS: ATTEND Student in an Organized Health Care Education/Training Program
DX: I10 Essential (primary) hypertension (principal)

== ENCOUNTER → 2024-01-05 | Outpatient (CLI) | payer OTHER ==
[2024-01-05 14:04] LABS: BLOOD UREA NITROGEN 17 MG/DL (9-23); CARBON DIOXIDE LEVEL 26 MMOL/L (20-31); CHLORIDE LEVEL 104 MMOL/L (98-107); CREATININE FOR GFR 0.61 MG/DL (0.55-1.30); GLOMERULAR FILTRATION RATE > 60.0 (>45); GLUCOSE, FASTING 186 MG/DL (74-106); POTASSIUM SERUM 3.8 MMOL/L (3.5-5.1); SODIUM LEVEL 140 MMOL/L (136-145)
== END ==
LOC: M LAB 12:16
PROVIDERS: ATTEND Physician Assistant
DX: I10 Essential (primary) hypertension (principal)

== ENCOUNTER → 2024-01-29 | Outpatient (CLI) | payer OTHER ==
[~2024-01-29] MED LIST changes: +ISOVUE-M 300 61% 15ML VIAL As Ordered ONE; +LIDOCAINE 1% SDV 30ML VIAL As Ordered ONE; +TRIAMCINOLONE ACETONIDE SUSP 40MG/ML 1ML VIAL As Ordered ONE; +diazePAM 5MG TABLET As Ordered ONE; +oxyCODONE 5MG TAB As Ordered ONE
== END ==
LOC: M PAIN 08:30
PROVIDERS: ATTEND Anesthesiology
DX: M53.3 Sacrococcygeal disorders, not elsewhere classified (principal); N18.30 Chronic kidney disease, stage 3 unspecified; M79.7 Fibromyalgia; J44.9 Chronic obstructive pulmonary disease, unspecified; Z87.891 Personal history of nicotine dependence; Z79.4 Long term (current) use of insulin; Z79.891 Long term (current) use of opiate analgesic; Z79.899 Other long term (current) drug therapy; Z79.51 Long term (current) use of inhaled steroids; Z88.5 Allergy status to narcotic agent; Z88.6 Allergy status to analgesic agent; Z88.8 Allergy status to other drugs, medicaments and biological substances; Z91.048 Other nonmedicinal substance allergy status
CPT/HCPCS: 27096; J0665; J3301; Q9967

== ENCOUNTER → 2024-03-10 | Outpatient (CLI) | payer OTHER ==
[~2024-03-10] MED LIST changes: +DOXY-323; -DOXY-443; -ISOVUE-M 300 61% 15ML VIAL As Ordered ONE; -LIDOCAINE 1% SDV 30ML VIAL As Ordered ONE; -TRIAMCINOLONE ACETONIDE SUSP 40MG/ML 1ML VIAL As Ordered ONE; -diazePAM 5MG TABLET As Ordered ONE; -oxyCODONE 5MG TAB As Ordered ONE
== END ==
LOC: M RAD 08:19
PROVIDERS: ATTEND Physician Assistant
DX: I10 Essential (primary) hypertension (principal)

== ENCOUNTER → 2024-03-16 | Outpatient (CLI) | payer OTHER | LOC: M PAIN 10:30 | PROVIDERS: ATTEND Anesthesiology | DX: M53.3 Sacrococcygeal disorders, not elsewhere classified (principal); Z79.891 Long term (current) use of opiate analgesic; J44.9 Chronic obstructive pulmonary disease, unspecified; E11.9 Type 2 diabetes mellitus without complications; I12.9 Hypertensive chronic kidney disease with stage 1 through stage 4 chronic kidney disease, or unspecified chronic kidney disease; D68.00 Von Willebrand disease, unspecified; Z79.4 Long term (current) use of insulin; Z79.51 Long term (current) use of inhaled steroids; Z79.899 Other long term (current) drug therapy; Z88.5 Allergy status to narcotic agent; Z88.6 Allergy status to analgesic agent; Z88.8 Allergy status to other drugs, medicaments and biological substances; Z91.048 Other nonmedicinal substance allergy status ==

== ENCOUNTER → 2024-04-12 | Outpatient (CLI) | payer OTHER ==
[~2024-04-12] MED LIST changes: +ONDA-282 PO; -ONDA4TAB6 PO
== END ==
LOC: M RAD 13:49
PROVIDERS: ATTEND Student in an Organized Health Care Education/Training Program
DX: Z87.891 Personal history of nicotine dependence (principal)

== ENCOUNTER → 2024-04-12 | Outpatient (CLI) | payer OTHER ==
[2024-04-12 15:02] LABS: ALBUMIN 4.3 G/DL (3.2-5.2); ALKALINE PHOSPHATASE 99 U/L (46-116); ALT/SGPT 36 U/L (7.0-40); AST/SGOT 11 U/L (<34); BILIRUBIN,TOTAL 0.6 MG/DL (0.3-1.2); BLOOD UREA NITROGEN 24 MG/DL (9-23); CALCIUM LEVEL 10.6 MG/DL (8.3-10.6); CARBON DIOXIDE LEVEL 27 MMOL/L (20-31); CHLORIDE LEVEL 104 MMOL/L (98-107); CHOLESTEROL LEVEL 268 MG/DL (<200); CREATININE FOR GFR 0.82 MG/DL (0.55-1.30); GLOMERULAR FILTRATION RATE > 60.0 (>45); GLUCOSE, FASTING 245 MG/DL (74-106); HDL CHOLESTEROL 44.6 MG/DL (>40); LDL CHOLESTEROL 170.6 MG/DL (<100); NON-HDL-C 223.4 MG/DL; POTASSIUM SERUM 4.1 MMOL/L (3.5-5.1); SODIUM LEVEL 140 MMOL/L (136-145); TOTAL PROTEIN 7.3 G/DL (5.7-8.2); TRIGLYCERIDES LEVEL 264 MG/DL (<150)
== END ==
LOC: M LAB 14:13
PROVIDERS: ATTEND Physician Assistant
DX: E78.2 Mixed hyperlipidemia (principal); I10 Essential (primary) hypertension

== ENCOUNTER → 2024-04-22 | Outpatient (CLI) | payer OTHER ==
[2024-04-22 18:50] LABS: CREATININE, URINE 54.8 MG/DL; MAU/CREAT RATIO 136.8 MCG/MG (0.0-30.0)
[2024-04-22 18:52] LABS: ALBUMIN 4.5 G/DL (3.2-5.2); ALKALINE PHOSPHATASE 92 U/L (46-116); ALT/SGPT 40 U/L (7.0-40); AST/SGOT 20 U/L (<34); BILIRUBIN,TOTAL 0.6 MG/DL (0.3-1.2); BLOOD UREA NITROGEN 15 MG/DL (9-23); CARBON DIOXIDE LEVEL 25 MMOL/L (20-31); CHLORIDE LEVEL 100 MMOL/L (98-107); CREATININE FOR GFR 0.65 MG/DL (0.55-1.30); GLOMERULAR FILTRATION RATE > 60.0 (>45); GLUCOSE, FASTING 264 MG/DL (74-106); POTASSIUM SERUM 4.3 MMOL/L (3.5-5.1); SODIUM LEVEL 134 MMOL/L (136-145)
[2024-04-22 19:09] LABS: HEMOGLOBIN A1c 10.6 % (4.0-6.0)
== END ==
LOC: M PLALAB 15:00
PROVIDERS: ATTEND Family Medicine
DX: E11.65 Type 2 diabetes mellitus with hyperglycemia (principal); E11.21 Type 2 diabetes mellitus with diabetic nephropathy; I12.9 Hypertensive chronic kidney disease with stage 1 through stage 4 chronic kidney disease, or unspecified chronic kidney disease; E11.40 Type 2 diabetes mellitus with diabetic neuropathy, unspecified; N18.2 Chronic kidney disease, stage 2 (mild)

== ENCOUNTER → 2024-06-07 | Outpatient (CLI) | payer OTHER | LOC: M PAIN 10:45 | PROVIDERS: ATTEND Nurse Practitioner Family | DX: M46.1 Sacroiliitis, not elsewhere classified (principal); G89.29 Other chronic pain; E11.9 Type 2 diabetes mellitus without complications; M06.9 Rheumatoid arthritis, unspecified; R56.9 Unspecified convulsions; I12.9 Hypertensive chronic kidney disease with stage 1 through stage 4 chronic kidney disease, or unspecified chronic kidney disease; N18.2 Chronic kidney disease, stage 2 (mild); G43.909 Migraine, unspecified, not intractable, without status migrainosus; J44.9 Chronic obstructive pulmonary disease, unspecified; M79.7 Fibromyalgia; K44.9 Diaphragmatic hernia without obstruction or gangrene; Z87.891 Personal history of nicotine dependence; Z79.02 Long term (current) use of antithrombotics/antiplatelets; Z79.891 Long term (current) use of opiate analgesic; Z79.899 Other long term (current) drug therapy; Z88.6 Allergy status to analgesic agent; Z88.5 Allergy status to narcotic agent; Z88.8 Allergy status to other drugs, medicaments and biological substances; Z91.02 Food additives allergy status; Z91.048 Other nonmedicinal substance allergy status ==

== ENCOUNTER → 2024-08-23 | Outpatient (CLI) | payer OTHER ==
[~2024-08-23] MED LIST changes: -DOXY-323; +DOXY-441; +ISOVUE-M 300 61% 15ML VIAL As Ordered ONE; +LIDOCAINE 1% SDV 30ML VIAL As Ordered ONE; +TRIAMCINOLONE ACETONIDE SUSP 40MG/ML 1ML VIAL As Ordered ONE; +diazePAM 5MG TABLET As Ordered ONE; +oxyCODONE 5MG TAB As Ordered ONE
== END ==
LOC: M PAIN 14:15
PROVIDERS: ATTEND Anesthesiology
DX: M46.1 Sacroiliitis, not elsewhere classified (principal); G89.29 Other chronic pain; M54.50 Low back pain, unspecified; E11.9 Type 2 diabetes mellitus without complications; M06.9 Rheumatoid arthritis, unspecified; I12.9 Hypertensive chronic kidney disease with stage 1 through stage 4 chronic kidney disease, or unspecified chronic kidney disease; N18.2 Chronic kidney disease, stage 2 (mild); G43.909 Migraine, unspecified, not intractable, without status migrainosus; J44.9 Chronic obstructive pulmonary disease, unspecified; M79.7 Fibromyalgia; M54.2 Cervicalgia; Z87.891 Personal history of nicotine dependence; Z79.891 Long term (current) use of opiate analgesic; Z79.02 Long term (current) use of antithrombotics/antiplatelets; Z79.899 Other long term (current) drug therapy; Z88.6 Allergy status to analgesic agent; Z88.5 Allergy status to narcotic agent; Z88.8 Allergy status to other drugs, medicaments and biological substances; Z91.048 Other nonmedicinal substance allergy status; Z91.02 Food additives allergy status
CPT/HCPCS: 27096; J0665; J3301; Q9967

== ENCOUNTER 2024-09-14 20:58 | Inpatient (IN) | payer OTHER ==
[~2024-09-14] VITALS: Ht 160 cm; Wt 74.3 kg
[~2024-09-14 20:58] MED LIST changes: +ATOR-398 PO; -ISOVUE-M 300 61% 15ML VIAL As Ordered ONE; -LIDOCAINE 1% SDV 30ML VIAL As Ordered ONE; -LIPI80TA PO; -TRIAMCINOLONE ACETONIDE SUSP 40MG/ML 1ML VIAL As Ordered ONE; -diazePAM 5MG TABLET As Ordered ONE; -oxyCODONE 5MG TAB As Ordered ONE
[2024-09-14] MEDS ORDERED: ISOVUE-370 76% 100ML VIAL As Ordered ONE (21:10)
[2024-09-14 22:11] LABS: BASO # 0.1 10^3/uL (0.0-0.2); BASO % 0.6 % (0.0-1.0); EOS # 0.1 10^3/uL (0.0-0.5); EOS % 0.5 % (0.0-3.0); HEMOGLOBIN 17.1 g/dl (12.0-15.5); LYMPH # 2.1 10^3/uL (1.5-5.0); LYMPH % 13.2 % (24.0-44.0); MEAN CORPUSCULAR HEMOGLOBIN 30.7 pg (27.0-33.0); MEAN CORPUSCULAR HGB CONC 32.9 g/dl (32.0-36.5); MEAN CORPUSCULAR VOLUME 93.4 fl (80.0-96.0); MONO # 0.8 10^3/uL (0.0-0.8); MONO % 5.4 % (2.0-8.0); NEUTROPHILS # 12.4 10^3/uL (1.5-8.5); NEUTROPHILS % 79.8 % (36.0-66.0); PLATELET COUNT, AUTOMATED 237 10^3/uL (150-450); RED BLOOD COUNT 5.57 10^6/uL (4.00-5.40); WHITE BLOOD COUNT 15.6 10^3/uL (4.0-10.0)
[2024-09-14 22:25] LABS: INR 0.91; PARTIAL THROMBOPLASTIN TIME 24.1 SECONDS (24.8-34.2); PROTHROMBIN TIME 12.6 SECONDS (12.5-14.5)
[2024-09-14 22:31] LABS: CK-MB VALUE MASS < 1.0 NG/ML (<3.6)
[2024-09-14 22:32] LABS: BLOOD UREA NITROGEN 28 MG/DL (9-23); CALCIUM LEVEL 10.8 MG/DL (8.3-10.6); CARBON DIOXIDE LEVEL 29 MMOL/L (20-31); CHLORIDE LEVEL 104 MMOL/L (98-107); CREATININE FOR GFR 0.74 MG/DL (0.55-1.30); GLOMERULAR FILTRATION RATE > 60.0 (>45); GLUCOSE, FASTING 184 MG/DL (74-106); POTASSIUM SERUM 3.7 MMOL/L (3.5-5.1); SODIUM LEVEL 142 MMOL/L (136-145)
[2024-09-14 22:42] LABS: CPK CREATINE PHOSPHOKINASE 50 U/L (34-145)
[2024-09-14] MEDS: niCARdipine IV 40 MG in IV 1 EA IV SCH (22:58)
[2024-09-14 23:02] LABS: ETHYL ALCOHOL (ETHANOL) 0.004 % (0.000-0.010)
[2024-09-14 23:06] LABS: THYROID STIMULATING HORMONE 1.532 uIU/ML (0.55-4.78)
[2024-09-14] MEDS ORDERED: TIZA10TA PO (23:30)
[2024-09-14] MEDS ORDERED: ALDA100T PO (23:30)
[2024-09-14] MEDS ORDERED: DIVA500T9 PO (23:33)
[2024-09-14] MEDS ORDERED: FURO20TA2 PO (23:36)
[2024-09-14] MEDS ORDERED: REPA140I2 INJ (23:36)
[2024-09-14] MEDS ORDERED: OXYC1TAB23 PO (23:36)
[2024-09-14] MEDS ORDERED: CYAN-1 PO (23:36)
[2024-09-14] MEDS ORDERED: TRUL0.5I INJ (23:36)
[2024-09-14] MEDS ORDERED: HOME MED LIST COMPLETE! XX SCH ×2 (23:40→23:45)
[2024-09-14 23:56] LABS: AMPHETAMINES LEVEL URINE NEGATIVE (NEGATIVE); BARBITURATES URINE NEGATIVE (NEGATIVE); BENZODIAZEPINES URINE NEGATIVE (NEGATIVE); COCAINE METABOLITE URINE NEGATIVE (NEGATIVE); METHADONE URINE NEGATIVE (NEGATIVE); OPIATES URINE NEGATIVE (NEGATIVE)
[2024-09-14 23:57] LABS: CANNABINOIDS URINE NEGATIVE (NEGATIVE); PHENCYCLIDINE URINE NEGATIVE (NEGATIVE)
[2024-09-15] VITALS (12 sets, daily range): BP systolic 132–186; BP diastolic 61–85; TEMP 97.6–101.8; O2SAT 90–99
[2024-09-15 00:46] LABS: VALPROIC ACID (DEPAKOTE) < 3.0 UG/ML (50.0-100.0)
[2024-09-15] MEDS: CLOPIDOGREL 300 MG TAB (PLAVIX) PO STA (01:43)
[2024-09-15] MEDS: niCARdipine IV 40 MG in IV 1 EA IV SCH (01:44)
[2024-09-15] MEDS: ATORVASTATIN 20 MG TAB PO ONE (01:44)
[2024-09-15] MEDS: ONDANSETRON 4MG 2ML VIAL IV ONE (01:58)
[2024-09-15 02:54] LABS: CPK CREATINE PHOSPHOKINASE 48 U/L (34-145)
[2024-09-15] MEDS ORDERED: MAALOX 30 ML SUSP *UDC PO PRN (03:40)
[2024-09-15] MEDS ORDERED: MOM 30ML SUSPENSION UDC PO PRN (03:40)
[2024-09-15] MEDS: ACETAMINOPHEN 325 MG TAB PO PRN (04:44)
[2024-09-15] MEDS ORDERED: GLUCAGON INJ 1MG VIAL SC PRN ×2 (05:50→19:25)
[2024-09-15] MEDS ORDERED: GLUCOSE 4 GM CHEW PO PRN ×2 (05:50→19:25)
[2024-09-15] MEDS ORDERED: DEXTROSE 50% 50ML SYRINGE IV PRN ×2 (05:50→19:25)
[2024-09-15] MEDS: INSULIN LISPRO (NovoLOG) PER UNIT SC SCH ×2 (06:00→21:00)
[2024-09-15 06:11] LABS: BASO % 0.4 % (0.0-1.0); EOS % 0.1 % (0.0-3.0); HEMATOCRIT 45.3 % (36.0-47.0); HEMOGLOBIN 15.4 g/dl (12.0-15.5); LYMPH # 1.8 10^3/uL (1.5-5.0); LYMPH % 15.8 % (24.0-44.0); MEAN CORPUSCULAR HEMOGLOBIN 30.9 pg (27.0-33.0); MEAN CORPUSCULAR VOLUME 90.8 fl (80.0-96.0); MONO # 0.6 10^3/uL (0.0-0.8); MONO % 5.5 % (2.0-8.0); NEUTROPHILS # 8.7 10^3/uL (1.5-8.5); NEUTROPHILS % 77.8 % (36.0-66.0); PLATELET COUNT, AUTOMATED 224 10^3/uL (150-450); RED BLOOD COUNT 4.99 10^6/uL (4.00-5.40); WHITE BLOOD COUNT 11.2 10^3/uL (4.0-10.0)
[2024-09-15 06:31] LABS: CK-MB VALUE MASS < 1.0 NG/ML (<3.6)
[2024-09-15 06:33] LABS: ALBUMIN 3.7 G/DL (3.2-5.2); ALKALINE PHOSPHATASE 83 U/L (35-104); ALT/SGPT 25 U/L (7.0-40); AST/SGOT 10 U/L (<34); BILIRUBIN,DIRECT 0.1 MG/DL (<0.4); BILIRUBIN,TOTAL 0.4 MG/DL (0.3-1.2); BLOOD UREA NITROGEN 19 MG/DL (9-23); CALCIUM LEVEL 9.8 MG/DL (8.3-10.6); CARBON DIOXIDE LEVEL 27 MMOL/L (20-31); CHLORIDE LEVEL 106 MMOL/L (98-107); CHOLESTEROL LEVEL 216 MG/DL (<200); CHOLESTEROL RISK RATIO 3.17 (<5); CREATININE FOR GFR 0.57 MG/DL (0.55-1.30); GLOMERULAR FILTRATION RATE > 60.0 (>45); GLUCOSE, FASTING 134 MG/DL (74-106); LDL CHOLESTEROL 131.2 MG/DL (<100); POTASSIUM SERUM 3.8 MMOL/L (3.5-5.1); SODIUM LEVEL 142 MMOL/L (136-145); TOTAL PROTEIN 6.7 G/DL (5.7-8.2); TRIGLYCERIDES LEVEL 84 MG/DL (<150)
[2024-09-15 06:34] LABS: HEMOGLOBIN A1c 12.4 % (4.0-6.0); INR 0.96; PARTIAL THROMBOPLASTIN TIME 25.5 SECONDS (24.8-34.2); PROTHROMBIN TIME 13.1 SECONDS (12.5-14.5)
[2024-09-15 06:35] LABS: CPK CREATINE PHOSPHOKINASE 41 U/L (34-145); MB/CK RELATIVE INDEX 2.43 (< OR =4)
[2024-09-15 08:17] LABS: MAGNESIUM LEVEL 1.8 MG/DL (1.8-2.4)
[2024-09-15] MEDS: ENOXAPARIN 40MG/0.4ML SYRINGE (J1650 PER 10MG) SC SCH (08:36)
[2024-09-15] MEDS: CLOPIDOGREL 75 MG TAB PO SCH (10:09)
[2024-09-15] MEDS ORDERED: ALBUTEROL 90 MCG/ACT 8GM HFA INHALER INH PRN (12:10)
[2024-09-15] MEDS: DIVALPROEX 500MG *ER* TAB PO SCH (13:41)
[2024-09-15] MEDS: levETIRAcetam 250MG TABLET (KEPPRA) PO SCH (13:41)
[2024-09-15] MEDS ORDERED: hydrALAZINE 20MG/ML 1ML VIAL IV PRN (15:55)
[2024-09-15] MEDS: FUROSEMIDE 20 MG TAB PO SCH (16:29)
[2024-09-15 17:35] LABS: PROCALCITONIN 0.04 ng/ml
[2024-09-15] MEDS: ATORVASTATIN 20 MG TAB PO SCH (21:06)
[2024-09-16] VITALS (9 sets, daily range): BP systolic 104–159; BP diastolic 57–74; TEMP 97–98.8; O2SAT 91–96
[2024-09-16 04:33] LABS: BASO # 0.1 10^3/uL (0.0-0.2); BASO % 0.7 % (0.0-1.0); EOS # 0.2 10^3/uL (0.0-0.5); EOS % 2.7 % (0.0-3.0); HEMOGLOBIN 15.4 g/dl (12.0-15.5); LYMPH # 2.7 10^3/uL (1.5-5.0); LYMPH % 30.2 % (24.0-44.0); MEAN CORPUSCULAR HEMOGLOBIN 30.7 pg (27.0-33.0); MEAN CORPUSCULAR HGB CONC 32.8 g/dl (32.0-36.5); MEAN CORPUSCULAR VOLUME 93.8 fl (80.0-96.0); MONO # 0.6 10^3/uL (0.0-0.8); MONO % 6.8 % (2.0-8.0); NEUTROPHILS # 5.3 10^3/uL (1.5-8.5); NEUTROPHILS % 59.4 % (36.0-66.0); PLATELET COUNT, AUTOMATED 218 10^3/uL (150-450); RED BLOOD COUNT 5.01 10^6/uL (4.00-5.40); WHITE BLOOD COUNT 8.9 10^3/uL (4.0-10.0)
[2024-09-16 04:54] LABS: BLOOD UREA NITROGEN 14 MG/DL (9-23); CALCIUM LEVEL 9.9 MG/DL (8.3-10.6); CARBON DIOXIDE LEVEL 31 MMOL/L (20-31); CHLORIDE LEVEL 108 MMOL/L (98-107); CREATININE FOR GFR 0.66 MG/DL (0.55-1.30); GLOMERULAR FILTRATION RATE > 60.0 (>45); GLUCOSE, FASTING 86 MG/DL (74-106); POTASSIUM SERUM 3.6 MMOL/L (3.5-5.1); SODIUM LEVEL 144 MMOL/L (136-145)
[2024-09-16] MEDS: INSULIN LISPRO (NovoLOG) PER UNIT SC SCH (07:30)
[2024-09-16] MEDS: SPIRONOLACTONE 50 MG TAB PO SCH (08:06)
[2024-09-16] MEDS: ESCITALOPRAM OXALATE 10 MG TAB (LEXAPRO) PO SCH (08:07)
[2024-09-16] MEDS: PANTOPRAZOLE 40MG TAB (PROTONIX) PO SCH (08:07)
[2024-09-16] MEDS: FLUBLOK(EGGFREE) TRIVAL(24-25) VACCINE PF 0.5ML SYRINGE 18YRS & OLDER IM.IMMUN ONE (09:00)
[2024-09-16] MEDS: TIOTROPIUM INHALER/CAPSULE (SPIRIVA) INH SCH (09:51)
[2024-09-17] VITALS (10 sets, daily range): BP systolic 136–170; BP diastolic 61–82; TEMP 97.4–98.2; O2SAT 93–94
[2024-09-17 05:54] LABS: BASO # 0.1 10^3/uL (0.0-0.2); BASO % 0.9 % (0.0-1.0); EOS # 0.3 10^3/uL (0.0-0.5); EOS % 3.2 % (0.0-3.0); HEMATOCRIT 43.7 % (36.0-47.0); HEMOGLOBIN 14.2 g/dl (12.0-15.5); LYMPH # 2.6 10^3/uL (1.5-5.0); LYMPH % 34.2 % (24.0-44.0); MEAN CORPUSCULAR HEMOGLOBIN 30.3 pg (27.0-33.0); MEAN CORPUSCULAR HGB CONC 32.5 g/dl (32.0-36.5); MEAN CORPUSCULAR VOLUME 93.4 fl (80.0-96.0); MONO # 0.6 10^3/uL (0.0-0.8); MONO % 7.7 % (2.0-8.0); NEUTROPHILS # 4.1 10^3/uL (1.5-8.5); NEUTROPHILS % 53.6 % (36.0-66.0); PLATELET COUNT, AUTOMATED 204 10^3/uL (150-450); RED BLOOD COUNT 4.68 10^6/uL (4.00-5.40); WHITE BLOOD COUNT 7.7 10^3/uL (4.0-10.0)
[2024-09-17 06:21] LABS: BLOOD UREA NITROGEN 20 MG/DL (9-23); CALCIUM LEVEL 9.8 MG/DL (8.3-10.6); CARBON DIOXIDE LEVEL 30 MMOL/L (20-31); CHLORIDE LEVEL 110 MMOL/L (98-107); CREATININE FOR GFR 0.65 MG/DL (0.55-1.30); GLOMERULAR FILTRATION RATE > 60.0 (>45); GLUCOSE, FASTING 137 MG/DL (74-106); MAGNESIUM LEVEL 1.9 MG/DL (1.8-2.4); POTASSIUM SERUM 4.1 MMOL/L (3.5-5.1); SODIUM LEVEL 144 MMOL/L (136-145)
[2024-09-17 08:59] LABS: C REACTIVE PROTEIN QUANTITATIV < 0.40 MG/DL (<1.0)
[2024-09-17 09:07] LABS: PROCALCITONIN <0.04 ng/ml
[2024-09-18 03:39] VITALS: BP 145/67; TEMP 98; O2SAT 93
[2024-09-18 07:09] LABS: BASO % 0.6 % (0.0-1.0); EOS # 0.2 10^3/uL (0.0-0.5); EOS % 3.6 % (0.0-3.0); HEMATOCRIT 43.4 % (36.0-47.0); HEMOGLOBIN 14.6 g/dl (12.0-15.5); LYMPH # 2.6 10^3/uL (1.5-5.0); LYMPH % 41.2 % (24.0-44.0); MEAN CORPUSCULAR HEMOGLOBIN 31.5 pg (27.0-33.0); MEAN CORPUSCULAR HGB CONC 33.6 g/dl (32.0-36.5); MEAN CORPUSCULAR VOLUME 93.5 fl (80.0-96.0); MONO # 0.5 10^3/uL (0.0-0.8); MONO % 7.6 % (2.0-8.0); NEUTROPHILS % 46.7 % (36.0-66.0); PLATELET COUNT, AUTOMATED 201 10^3/uL (150-450); RED BLOOD COUNT 4.64 10^6/uL (4.00-5.40); WHITE BLOOD COUNT 6.3 10^3/uL (4.0-10.0)
[2024-09-18 07:37] LABS: BLOOD UREA NITROGEN 17 MG/DL (9-23); CALCIUM LEVEL 9.5 MG/DL (8.3-10.6); CARBON DIOXIDE LEVEL 31 MMOL/L (20-31); CHLORIDE LEVEL 108 MMOL/L (98-107); CREATININE FOR GFR 0.65 MG/DL (0.55-1.30); GLOMERULAR FILTRATION RATE > 60.0 (>45); GLUCOSE, FASTING 196 MG/DL (74-106); MAGNESIUM LEVEL 1.9 MG/DL (1.8-2.4); SODIUM LEVEL 143 MMOL/L (136-145)
[2024-09-18 08:00] VITALS: BP 170/79; TEMP 98.4; O2SAT 97
[2024-09-18] MEDS: lisinopriL 40MG TAB PO SCH (08:09)
[2024-09-18] MEDS ORDERED: tiZANidine 4 MG TAB PO PRN (11:30)
[2024-09-18] MEDS ORDERED: PERCOCET 5MG/325MG TAB PO PRN (11:30)
[2024-09-18] MEDS: FIORICET TAB PO ONE (12:14)
[2024-09-18] MEDS: CYANOCOBALAMIN 500 MCG TAB PO SCH (12:16)
[2024-09-18 16:00] VITALS: BP 138/63; TEMP 98.2; O2SAT 95
[2024-09-18 20:13] VITALS: BP 145/69; TEMP 97.2; O2SAT 94
[2024-09-19 03:27] VITALS: BP 131/74; TEMP 98.1; O2SAT 94
[2024-09-19 05:47] LABS: BASO # 0.1 10^3/uL (0.0-0.2); EOS # 0.2 10^3/uL (0.0-0.5); EOS % 3.5 % (0.0-3.0); HEMOGLOBIN 14.8 g/dl (12.0-15.5); LYMPH # 2.6 10^3/uL (1.5-5.0); LYMPH % 41.9 % (24.0-44.0); MEAN CORPUSCULAR HEMOGLOBIN 30.9 pg (27.0-33.0); MEAN CORPUSCULAR HGB CONC 32.2 g/dl (32.0-36.5); MONO # 0.5 10^3/uL (0.0-0.8); MONO % 7.2 % (2.0-8.0); NEUTROPHILS # 2.9 10^3/uL (1.5-8.5); NEUTROPHILS % 46.2 % (36.0-66.0); PLATELET COUNT, AUTOMATED 213 10^3/uL (150-450); RED BLOOD COUNT 4.79 10^6/uL (4.00-5.40); WHITE BLOOD COUNT 6.3 10^3/uL (4.0-10.0)
[2024-09-19 06:22] LABS: BLOOD UREA NITROGEN 14 MG/DL (9-23); CALCIUM LEVEL 9.5 MG/DL (8.3-10.6); CARBON DIOXIDE LEVEL 30 MMOL/L (20-31); CHLORIDE LEVEL 109 MMOL/L (98-107); CREATININE FOR GFR 0.65 MG/DL (0.55-1.30); GLOMERULAR FILTRATION RATE > 60.0 (>45); GLUCOSE, FASTING 170 MG/DL (74-106); MAGNESIUM LEVEL 1.9 MG/DL (1.8-2.4); POTASSIUM SERUM 4.3 MMOL/L (3.5-5.1); SODIUM LEVEL 143 MMOL/L (136-145)
[2024-09-19 07:54] VITALS: BP 146/75; TEMP 98.2; O2SAT 92
[2024-09-19] MEDS: LEVEMIR (INSULIN DETEMIR) 1 UNITS/0.01ML SC SCH (08:12)
[2024-09-19 08:14] VITALS: BP 146/75
[2024-09-19] MEDS ORDERED: LISI40TA4 PO (11:34)
[2024-09-19] MEDS ORDERED: CLOP75TA2 PO (11:34)
== END 2024-09-19 15:00 | disposition home or self-care (01) | DRG 52 ==
LOC: M ED 20:58 → EDBD 20:58 → M ED INP 09-15 01:02 → M ICU 09-15 03:42 → M PCU 09-16 17:12
PROVIDERS: ADMIT Student in an Organized Health Care Education/Training Program; ATTEND Student in an Organized Health Care Education/Training Program
DX: I67.4 Hypertensive encephalopathy (principal); E11.22 Type 2 diabetes mellitus with diabetic chronic kidney disease; E11.649 Type 2 diabetes mellitus with hypoglycemia without coma; R47.01 Aphasia; E78.5 Hyperlipidemia, unspecified; G40.909 Epilepsy, unspecified, not intractable, without status epilepticus; G47.33 Obstructive sleep apnea (adult) (pediatric); G89.29 Other chronic pain; I12.9 Hypertensive chronic kidney disease with stage 1 through stage 4 chronic kidney disease, or unspecified chronic kidney disease; I16.1 Hypertensive emergency; J44.9 Chronic obstructive pulmonary disease, unspecified; K21.9 Gastro-esophageal reflux disease without esophagitis; M06.9 Rheumatoid arthritis, unspecified; M54.2 Cervicalgia; M79.7 Fibromyalgia; N18.2 Chronic kidney disease, stage 2 (mild); R33.9 Retention of urine, unspecified; Z86.73 Personal history of transient ischemic attack (TIA), and cerebral infarction without residual deficits; D68.00 Von Willebrand disease, unspecified; G43.909 Migraine, unspecified, not intractable, without status migrainosus; M19.90 Unspecified osteoarthritis, unspecified site; K44.9 Diaphragmatic hernia without obstruction or gangrene; Z91.018 Allergy to other foods; Z88.6 Allergy status to analgesic agent; Z88.5 Allergy status to narcotic agent; Z88.8 Allergy status to other drugs, medicaments and biological substances; Z79.899 Other long term (current) drug therapy; K64.8 Other hemorrhoids; Z87.891 Personal history of nicotine dependence

== ENCOUNTER → 2024-09-27 | Outpatient (CLI) | payer OTHER ==
[~2024-09-27] MED LIST changes: +ALDA100T PO; +CYAN-1 PO; +DIVA500T9 PO; +FURO20TA2 PO; +REPA140I2 INJ; +TRUL0.5I INJ
== END ==
LOC: M PAIN 16:00
PROVIDERS: ATTEND Nurse Practitioner Family
DX: M46.1 Sacroiliitis, not elsewhere classified (principal); Z79.891 Long term (current) use of opiate analgesic; G89.29 Other chronic pain; M54.50 Low back pain, unspecified; E11.22 Type 2 diabetes mellitus with diabetic chronic kidney disease; M06.9 Rheumatoid arthritis, unspecified; I12.9 Hypertensive chronic kidney disease with stage 1 through stage 4 chronic kidney disease, or unspecified chronic kidney disease; N18.2 Chronic kidney disease, stage 2 (mild); G43.909 Migraine, unspecified, not intractable, without status migrainosus; J44.9 Chronic obstructive pulmonary disease, unspecified; M79.7 Fibromyalgia; M54.2 Cervicalgia; Z87.891 Personal history of nicotine dependence; Z79.899 Other long term (current) drug therapy; Z79.02 Long term (current) use of antithrombotics/antiplatelets; Z88.6 Allergy status to analgesic agent; Z88.5 Allergy status to narcotic agent; Z88.8 Allergy status to other drugs, medicaments and biological substances; Z91.02 Food additives allergy status; Z91.048 Other nonmedicinal substance allergy status

== ENCOUNTER 2024-10-28 00:04 | Emergency (ER) | payer OTHER ==
[~2024-10-28] VITALS: Ht 162.6 cm; Wt 79.2 kg
[2024-10-28] MEDS ORDERED: ISOVUE-370 76% 100ML VIAL As Ordered ONE (00:12)
[2024-10-28 00:52] LABS: BASO # 0.1 10^3/uL (0.0-0.2); BASO % 1.1 % (0.0-1.0); EOS # 0.3 10^3/uL (0.0-0.5); EOS % 2.8 % (0.0-3.0); HEMOGLOBIN 12.4 g/dl (12.0-15.5); LYMPH # 2.9 10^3/uL (1.5-5.0); LYMPH % 29.8 % (24.0-44.0); MEAN CORPUSCULAR HEMOGLOBIN 31.3 pg (27.0-33.0); MEAN CORPUSCULAR HGB CONC 33.5 g/dl (32.0-36.5); MEAN CORPUSCULAR VOLUME 93.4 fl (80.0-96.0); MONO # 0.8 10^3/uL (0.0-0.8); MONO % 8.2 % (2.0-8.0); NEUTROPHILS # 5.5 10^3/uL (1.5-8.5); NEUTROPHILS % 57.7 % (36.0-66.0); PLATELET COUNT, AUTOMATED 247 10^3/uL (150-450); RED BLOOD COUNT 3.96 10^6/uL (4.00-5.40); WHITE BLOOD COUNT 9.6 10^3/uL (4.0-10.0)
[2024-10-28] MEDS: NS (Normal Saline) 0.9% 1,000 ML IV ONE (01:05)
[2024-10-28 01:11] LABS: INR 1.15; PARTIAL THROMBOPLASTIN TIME 25.2 SECONDS (24.8-34.2)
[2024-10-28 01:16] LABS: BLOOD UREA NITROGEN 14 MG/DL (9-23); CALCIUM LEVEL 8.5 MG/DL (8.3-10.6); CARBON DIOXIDE LEVEL 26 MMOL/L (20-31); CHLORIDE LEVEL 104 MMOL/L (98-107); CHOLESTEROL LEVEL 168 MG/DL (<200); CHOLESTEROL RISK RATIO 4.59 (<5); CK-MB VALUE MASS < 1.0 NG/ML (<3.6); CREATININE FOR GFR 0.87 MG/DL (0.55-1.30); GLOMERULAR FILTRATION RATE > 60.0 (>45); GLUCOSE, FASTING 217 MG/DL (74-106); HDL CHOLESTEROL 36.6 MG/DL (>40); LDL CHOLESTEROL 96.8 MG/DL (<100); NON-HDL-C 131.4 MG/DL; POTASSIUM SERUM 3.9 MMOL/L (3.5-5.1); SODIUM LEVEL 138 MMOL/L (136-145); TRIGLYCERIDES LEVEL 173 MG/DL (<150)
[2024-10-28 01:19] LABS: CPK CREATINE PHOSPHOKINASE 37 U/L (34-145)
[2024-10-28 01:47] VITALS: BP 127/63; TEMP 98.8
[2024-10-28] MEDS ORDERED: TENECTEPLASE 50 MG/10 ML VIAL As Ordered ONE (02:00)
[2024-10-28] MEDS: TENECTEPLASE 50 MG/10 ML VIAL IVP ONE (02:05)
[2024-10-28 02:06] VITALS: BP 120/55; O2SAT 98
== END 2024-10-28 02:43 | disposition short-term general hospital (02) ==
LOC: EDBD 00:04 → M ED 00:18
DX: I67.9 Cerebrovascular disease, unspecified (principal); I66.21 Occlusion and stenosis of right posterior cerebral artery; I66.11 Occlusion and stenosis of right anterior cerebral artery; I66.03 Occlusion and stenosis of bilateral middle cerebral arteries; E86.9 Volume depletion, unspecified; I70.0 Atherosclerosis of aorta; R20.2 Paresthesia of skin; E11.9 Type 2 diabetes mellitus without complications; G43.909 Migraine, unspecified, not intractable, without status migrainosus; G40.909 Epilepsy, unspecified, not intractable, without status epilepticus; G47.30 Sleep apnea, unspecified; J44.9 Chronic obstructive pulmonary disease, unspecified; G89.29 Other chronic pain; M85.88 Other specified disorders of bone density and structure, other site; Z86.79 Personal history of other diseases of the circulatory system; Z88.6 Allergy status to analgesic agent; Z88.5 Allergy status to narcotic agent; Z88.8 Allergy status to other drugs, medicaments and biological substances; Z79.02 Long term (current) use of antithrombotics/antiplatelets; Z79.52 Long term (current) use of systemic steroids; Z79.811 Long term (current) use of aromatase inhibitors; Z79.899 Other long term (current) drug therapy
CPT/HCPCS: 70450; 70496; 70498; 71045; 80047; 80048; 80061; 82550; 82553; 84484; 85025; 85610; 85730; 86850; 86900; 86901; 93005; 93041; 94760; 96361; 96374; 99291; J3101; Q9967

== ENCOUNTER → 2024-11-07 | Outpatient (CLI) | payer OTHER | LOC: M PAIN 09:45 | PROVIDERS: ATTEND Nurse Practitioner Family | DX: M46.1 Sacroiliitis, not elsewhere classified (principal); Z79.891 Long term (current) use of opiate analgesic; G89.29 Other chronic pain; E11.22 Type 2 diabetes mellitus with diabetic chronic kidney disease; M06.9 Rheumatoid arthritis, unspecified; I12.9 Hypertensive chronic kidney disease with stage 1 through stage 4 chronic kidney disease, or unspecified chronic kidney disease; N18.2 Chronic kidney disease, stage 2 (mild); G43.909 Migraine, unspecified, not intractable, without status migrainosus; J44.9 Chronic obstructive pulmonary disease, unspecified; M79.7 Fibromyalgia; M54.2 Cervicalgia; Z87.891 Personal history of nicotine dependence; Z79.02 Long term (current) use of antithrombotics/antiplatelets; Z79.899 Other long term (current) drug therapy; Z88.6 Allergy status to analgesic agent; Z88.5 Allergy status to narcotic agent; Z88.8 Allergy status to other drugs, medicaments and biological substances; Z91.048 Other nonmedicinal substance allergy status; Z91.02 Food additives allergy status ==

== ENCOUNTER → 2025-01-03 | Outpatient (CLI) | payer OTHER | LOC: M PAIN 10:00 | PROVIDERS: ATTEND Nurse Practitioner Family | DX: M46.1 Sacroiliitis, not elsewhere classified (principal); G89.29 Other chronic pain; Z79.4 Long term (current) use of insulin; Z79.51 Long term (current) use of inhaled steroids; Z79.85 Long-term (current) use of injectable non-insulin antidiabetic drugs; Z79.899 Other long term (current) drug therapy; Z87.891 Personal history of nicotine dependence; Z88.5 Allergy status to narcotic agent; Z88.6 Allergy status to analgesic agent; Z88.8 Allergy status to other drugs, medicaments and biological substances; Z91.018 Allergy to other foods ==

== ENCOUNTER 2025-02-22 00:37 | Inpatient (IN) | payer OTHER ==
[~2025-02-22] VITALS: Ht 167.6 cm; Wt 79.5 kg
[2025-02-22] MEDS ORDERED: ISOVUE-370 76% 100ML VIAL As Ordered ONE (00:44)
[2025-02-22 01:23] LABS: VENOUS BASE EXCESS -2.4 (-2.0-2.0); VENOUS HCO3 20.4 MMOL/L (23.0-27.0); VENOUS O2 SATURATION 98.5 % (60.0-80.0); VENOUS PARTIAL PRESSURE CO2 29.6 mmHg (38.0-50.0); VENOUS PARTIAL PRESSURE O2 148.1 mmHg (30.0-50.0); VENOUS PH 7.456 UNITS (7.330-7.430); VENOUS STANDARD HCO3 22.5 MMOL/L; VENOUS TOTAL CO2 21.3 MMOL/L (24.0-28.0)
[2025-02-22 01:29] LABS: BASO # 0.1 10^3/uL (0.0-0.2); BASO % 1.4 % (0.0-1.0); EOS # 0.2 10^3/uL (0.0-0.5); EOS % 3.4 % (0.0-3.0); HEMATOCRIT 40.6 % (36.0-47.0); HEMOGLOBIN 13.8 g/dl (12.0-15.5); LYMPH # 2.5 10^3/uL (1.5-5.0); LYMPH % 35.7 % (24.0-44.0); MEAN CORPUSCULAR HEMOGLOBIN 30.9 pg (27.0-33.0); MONO # 0.6 10^3/uL (0.0-0.8); MONO % 8.4 % (2.0-8.0); NEUTROPHILS # 3.6 10^3/uL (1.5-8.5); NEUTROPHILS % 50.8 % (36.0-66.0); PLATELET COUNT, AUTOMATED 219 10^3/uL (150-450); RED BLOOD COUNT 4.46 10^6/uL (4.00-5.40); WHITE BLOOD COUNT 7.1 10^3/uL (4.0-10.0)
[2025-02-22 01:35] LABS: INR 0.94; PARTIAL THROMBOPLASTIN TIME 23.8 SECONDS (24.8-34.2); PROTHROMBIN TIME 12.9 SECONDS (12.5-14.5)
[2025-02-22 01:36] LABS: CK-MB VALUE MASS < 1.0 NG/ML (<3.6); ETHYL ALCOHOL (ETHANOL) < 0.003 % (0.000-0.010)
[2025-02-22 01:51] LABS: KETONE, URINE AUTO RFX NEGATIVE (NEGATIVE); LEUKOCYTE ESTERASE UR AUTO RFX NEGATIVE (NEGATIVE); NITRITE, URINE AUTO RFX NEGATIVE (NEGATIVE); RBC, URINE AUTO RFX 0 /HPF (0-3); SQUAM EPITHELIAL CELL UR AURFX 0 /HPF (0-6); WBC, URINE AUTO RFX 2 /HPF (0-3)
[2025-02-22 01:55] LABS: ACETONE/KETONE 0.14 MMOL/L (0.02-0.27)
[2025-02-22 01:59] LABS: BLOOD UREA NITROGEN 27 MG/DL (9-23); CALCIUM LEVEL 9.8 MG/DL (8.3-10.6); CARBON DIOXIDE LEVEL 24 MMOL/L (20-31); CHLORIDE LEVEL 102 MMOL/L (98-107); CPK CREATINE PHOSPHOKINASE 55 U/L (34-145); GLOMERULAR FILTRATION RATE 71.8 (>45); GLUCOSE, FASTING 501 MG/DL (74-106); MB/CK RELATIVE INDEX 1.81 (< OR =4); POTASSIUM SERUM 4.7 MMOL/L (3.5-5.1); SODIUM LEVEL 139 MMOL/L (136-145)
[2025-02-22] MEDS: NS (Normal Saline) 0.9% 1,000 ML IV ONE (02:13)
[2025-02-22 02:16] LABS: METHADONE URINE NEGATIVE (NEGATIVE)
[2025-02-22 02:17] LABS: AMPHETAMINES LEVEL URINE NEGATIVE (NEGATIVE); BARBITURATES URINE NEGATIVE (NEGATIVE); BENZODIAZEPINES URINE NEGATIVE (NEGATIVE); CANNABINOIDS URINE NEGATIVE (NEGATIVE); COCAINE METABOLITE URINE NEGATIVE (NEGATIVE); OPIATES URINE NEGATIVE (NEGATIVE); PHENCYCLIDINE URINE NEGATIVE (NEGATIVE)
[2025-02-22 02:19] LABS: OSMOLALITY SERUM 319 MOSM/KG (280-301)
[2025-02-22] MEDS: HumuLIN R (REGULAR) INSULIN (NovoLIN R) **100U/ML** PER UNIT IV ONE (02:35)
[2025-02-22 04:43] LABS: CK-MB VALUE MASS < 1.0 NG/ML (<3.6)
[2025-02-22 04:45] LABS: CPK CREATINE PHOSPHOKINASE 41 U/L (34-145); MB/CK RELATIVE INDEX 2.43 (< OR =4)
[2025-02-22] MEDS ORDERED: INSULIN LISPRO (NovoLOG) PER UNIT SC SCH ×2 (12:00→17:30)
[2025-02-22] MEDS: DIVALPROEX 500 MG TAB PO SCH (12:40)
[2025-02-22] MEDS ORDERED: IPRATROPIUM 0.5MG/ALBUTEROL 2.5MG INH SOL UD 3ML NEB PRN (12:45)
[2025-02-22 12:48] LABS: ALBUMIN 3.6 G/DL (3.2-5.2); BLOOD UREA NITROGEN 19 MG/DL (9-23); CALCIUM LEVEL 9.1 MG/DL (8.3-10.6); CARBON DIOXIDE LEVEL 27 MMOL/L (20-31); CHLORIDE LEVEL 106 MMOL/L (98-107); CREATININE FOR GFR 0.65 MG/DL (0.55-1.30); GLOMERULAR FILTRATION RATE > 90.0 (>45); GLUCOSE, FASTING 231 MG/DL (74-106); PHOSPHORUS LEVEL 2.8 MG/DL (2.4-5.1); SODIUM LEVEL 142 MMOL/L (136-145)
[2025-02-22] MEDS ORDERED: CLOP75TA2 PO (13:04)
[2025-02-22] MEDS ORDERED: LISI20TA33 PO (13:09)
[2025-02-22] MEDS ORDERED: POTA10809 PO (13:13)
[2025-02-22] MEDS ORDERED: GLUCAGON INJ 1MG VIAL SC PRN (13:15)
[2025-02-22] MEDS ORDERED: GLUCOSE 4 GM CHEW PO PRN (13:15)
[2025-02-22] MEDS ORDERED: AMLO1TAB24 PO (13:15)
[2025-02-22] MEDS ORDERED: DEXTROSE 50% 50ML SYRINGE IV PRN (13:15)
[2025-02-22] MEDS ORDERED: HOME MED LIST COMPLETE! XX SCH (13:20)
[2025-02-22] MEDS: levETIRAcetam INJection 1,000 MG in IV 1 EA IV SCH (13:36)
[2025-02-22] MEDS: LanTUS (INSULIN GLARGINE INJ) 1 UNITS/0.01 ML SC SCH (17:00)
[2025-02-22 17:30] VITALS: BP 182/82; TEMP 97.5; O2SAT 97
[2025-02-22] MEDS: INSULIN LISPRO (NovoLOG) PER UNIT SC SCH (17:55)
[2025-02-22] MEDS ORDERED: GOLYTELY SOLN 4000 ML BTL PO ONE (18:15)
[2025-02-22 18:56] LABS: HEMOGLOBIN A1c 9.5 % (4.0-6.0)
[2025-02-22] MEDS ORDERED: PILL CUTTER 1 EACH XX PRN (19:30)
[2025-02-22 20:31] VITALS: BP 181/84; TEMP 97.5; O2SAT 94
[2025-02-22] MEDS ORDERED: amLODIPine 5 MG TAB PO SCH (21:00)
[2025-02-22] MEDS: AMITRIPTYLINE 10MG TABLET PO SCH (21:55)
[2025-02-22] MEDS: levETIRAcetam 250MG TABLET (KEPPRA) PO SCH (21:55)
[2025-02-22] MEDS: NYSTATIN 100,000 UNITS/GM TOPICAL PWD 15GM TOP SCH (21:56)
[2025-02-22] MEDS: amLODIPine 5 MG TAB PO SCH (21:56)
[2025-02-23] VITALS (11 sets, daily range): BP systolic 120–210; BP diastolic 67–104; TEMP 97.1–98.2; O2SAT 93–96
[2025-02-23] MEDS: LABETALOL 100MG/20ML VIAL IV ONE (01:09)
[2025-02-23] MEDS ORDERED: LABETALOL 100MG/20ML VIAL IV PRN ×2 (03:45→10:00)
[2025-02-23 04:21] LABS: BASO # 0.1 10^3/uL (0.0-0.2); BASO % 1.2 % (0.0-1.0); EOS # 0.3 10^3/uL (0.0-0.5); EOS % 4.1 % (0.0-3.0); HEMATOCRIT 40.6 % (36.0-47.0); HEMOGLOBIN 13.7 g/dl (12.0-15.5); LYMPH # 2.5 10^3/uL (1.5-5.0); LYMPH % 33.2 % (24.0-44.0); MEAN CORPUSCULAR HGB CONC 33.7 g/dl (32.0-36.5); MEAN CORPUSCULAR VOLUME 91.9 fl (80.0-96.0); MONO # 0.6 10^3/uL (0.0-0.8); MONO % 8.2 % (2.0-8.0); NEUTROPHILS % 52.9 % (36.0-66.0); PLATELET COUNT, AUTOMATED 228 10^3/uL (150-450); RED BLOOD COUNT 4.42 10^6/uL (4.00-5.40); WHITE BLOOD COUNT 7.6 10^3/uL (4.0-10.0)
[2025-02-23 04:45] LABS: CALCIUM LEVEL 9.2 MG/DL (8.3-10.6); CHOLESTEROL RISK RATIO 5.45 (<5); CREATININE FOR GFR 0.77 MG/DL (0.55-1.30); GLOMERULAR FILTRATION RATE 86.6 (>45); HDL CHOLESTEROL 38.3 MG/DL (>40); LDL CHOLESTEROL 115.5 MG/DL (<100); NON-HDL-C 170.7 MG/DL; POTASSIUM SERUM 3.7 MMOL/L (3.5-5.1)
[2025-02-23 04:46] LABS: FREE T4 1.2 NG/DL (0.89-1.76); THYROID STIMULATING HORMONE 1.155 uIU/ML (0.55-4.78)
[2025-02-23] MEDS: TIOTROPIUM BROM 2.5MCG/ACTUATION 4GM INH IH SCH (07:48)
[2025-02-23] MEDS ORDERED: VARIBAR NECTAR 40% w/v 240ML SUSP BTL As Ordered ONE (09:16)
[2025-02-23] MEDS ORDERED: BARIUM SULFATE 700 MG TABLET (E-Z-DISK) As Ordered ONE (09:16)
[2025-02-23] MEDS ORDERED: VARIBAR PUDDING 40% w/v 230ML TUBE As Ordered ONE (09:16)
[2025-02-23] MEDS ORDERED: E-Z-PAQUE 96% w/w SUSP 176GM BTL As Ordered ONE (09:16)
[2025-02-23] MEDS: ATORVASTATIN 20 MG TAB PO SCH (10:23)
[2025-02-23] MEDS: CLOPIDOGREL 75 MG TAB PO SCH (10:24)
[2025-02-23] MEDS: CHLORTHALIDONE 25 MG TAB PO SCH (10:24)
[2025-02-23] MEDS: ESCITALOPRAM OXALATE 10 MG TAB (LEXAPRO) PO SCH (10:24)
[2025-02-23] MEDS: PANTOPRAZOLE 40MG TAB (PROTONIX) PO SCH (10:24)
[2025-02-23] MEDS: DAPAGLIFLOZIN PROPANEDIOL 10MG TABLET (FARXIGA) PO SCH (10:26)
[2025-02-23] MEDS: INSULIN LISPRO (NovoLOG) PER UNIT SC SCH (20:44)
[2025-02-24] VITALS (7 sets, daily range): BP systolic 101–135; BP diastolic 59–67; TEMP 97.2–98.5; O2SAT 92–97
[2025-02-24 05:06] LABS: BASO # 0.1 10^3/uL (0.0-0.2); BASO % 1.1 % (0.0-1.0); EOS # 0.4 10^3/uL (0.0-0.5); EOS % 3.9 % (0.0-3.0); HEMATOCRIT 44.8 % (36.0-47.0); HEMOGLOBIN 15.2 g/dl (12.0-15.5); LYMPH # 3.1 10^3/uL (1.5-5.0); LYMPH % 33.3 % (24.0-44.0); MEAN CORPUSCULAR HEMOGLOBIN 31.1 pg (27.0-33.0); MEAN CORPUSCULAR HGB CONC 33.9 g/dl (32.0-36.5); MEAN CORPUSCULAR VOLUME 91.8 fl (80.0-96.0); MONO # 0.7 10^3/uL (0.0-0.8); MONO % 7.6 % (2.0-8.0); NEUTROPHILS % 53.8 % (36.0-66.0); PLATELET COUNT, AUTOMATED 282 10^3/uL (150-450); RED BLOOD COUNT 4.88 10^6/uL (4.00-5.40); WHITE BLOOD COUNT 9.3 10^3/uL (4.0-10.0)
[2025-02-24 05:33] LABS: CREATININE FOR GFR 0.93 MG/DL (0.55-1.30); GLOMERULAR FILTRATION RATE 69.1 (>45); POTASSIUM SERUM 3.6 MMOL/L (3.5-5.1)
[2025-02-24] MEDS: LanTUS (INSULIN GLARGINE INJ) 1 UNITS/0.01 ML SC SCH (08:12)
[2025-02-24] MEDS ORDERED: tiZANidine 4 MG TAB PO PRN (11:30)
[2025-02-25 04:01] VITALS: BP 111/53; TEMP 97.5; O2SAT 95
[2025-02-25 06:19] LABS: BASO # 0.1 10^3/uL (0.0-0.2); BASO % 1.1 % (0.0-1.0); EOS # 0.3 10^3/uL (0.0-0.5); EOS % 3.6 % (0.0-3.0); HEMATOCRIT 44.5 % (36.0-47.0); HEMOGLOBIN 14.9 g/dl (12.0-15.5); LYMPH # 2.9 10^3/uL (1.5-5.0); LYMPH % 35.1 % (24.0-44.0); MEAN CORPUSCULAR HEMOGLOBIN 30.4 pg (27.0-33.0); MEAN CORPUSCULAR HGB CONC 33.5 g/dl (32.0-36.5); MEAN CORPUSCULAR VOLUME 90.8 fl (80.0-96.0); MONO # 0.7 10^3/uL (0.0-0.8); MONO % 8.5 % (2.0-8.0); NEUTROPHILS # 4.2 10^3/uL (1.5-8.5); NEUTROPHILS % 51.2 % (36.0-66.0); PLATELET COUNT, AUTOMATED 273 10^3/uL (150-450); WHITE BLOOD COUNT 8.2 10^3/uL (4.0-10.0)
[2025-02-25 06:29] LABS: CALCIUM LEVEL 10.3 MG/DL (8.3-10.6); CREATININE FOR GFR 0.92 MG/DL (0.55-1.30); POTASSIUM SERUM 3.5 MMOL/L (3.5-5.1)
[2025-02-25 08:43] VITALS: BP 112/72
[2025-02-25 12:00] VITALS: BP 121/76; TEMP 97.7; O2SAT 96
== END 2025-02-25 14:01 | disposition home health service (06) | DRG 45 ==
LOC: M ED 00:37 → M ED INP 13:52 → M PCU 17:17 → M MSPAV 02-24 17:30
PROVIDERS: ADMIT Student in an Organized Health Care Education/Training Program; ATTEND Student in an Organized Health Care Education/Training Program
DX: I63.9 Cerebral infarction, unspecified (principal); E11.22 Type 2 diabetes mellitus with diabetic chronic kidney disease; N18.30 Chronic kidney disease, stage 3 unspecified; E11.65 Type 2 diabetes mellitus with hyperglycemia; I69.354 Hemiplegia and hemiparesis following cerebral infarction affecting left non-dominant side; E78.5 Hyperlipidemia, unspecified; G40.909 Epilepsy, unspecified, not intractable, without status epilepticus; I12.9 Hypertensive chronic kidney disease with stage 1 through stage 4 chronic kidney disease, or unspecified chronic kidney disease; J44.9 Chronic obstructive pulmonary disease, unspecified; K21.9 Gastro-esophageal reflux disease without esophagitis; R20.0 Anesthesia of skin; M54.2 Cervicalgia; M06.9 Rheumatoid arthritis, unspecified; N60.19 Diffuse cystic mastopathy of unspecified breast; G43.909 Migraine, unspecified, not intractable, without status migrainosus; Z88.6 Allergy status to analgesic agent; Z91.018 Allergy to other foods; Z88.5 Allergy status to narcotic agent; Z88.8 Allergy status to other drugs, medicaments and biological substances; Z79.899 Other long term (current) drug therapy; M19.90 Unspecified osteoarthritis, unspecified site

== ENCOUNTER → 2025-07-12 | Outpatient (CLI) | payer OTHER ==
[~2025-07-12] MED LIST changes: +AMIT10TA11 PO; -AMIT10TA7 PO; +AMLO-751 PO; -AMLO10TA PO; +DIVA-41 PO; -DIVA500T94 PO; -FLOM0.4C39 PO; +LISI40TA10 PO; -LISI40TA4 PO; -NYST-13; +NYST0.1C; +POTA10809 PO; +TAMS-18 PO
== END ==
LOC: M RAD 09:38
PROVIDERS: ATTEND Nurse Practitioner Family
DX: N18.31 Chronic kidney disease, stage 3a (principal)

== ENCOUNTER → 2025-07-26 | Outpatient (CLI) | payer OTHER ==
[~2025-07-26] MED LIST changes: -EZET10TA21 PO; +EZET10TA57 PO
== END ==
LOC: M WUC 13:18
PROVIDERS: ATTEND Physician Assistant
DX: M25.572 Pain in left ankle and joints of left foot (principal); M79.89 Other specified soft tissue disorders; R93.6 Abnormal findings on diagnostic imaging of limbs

== ENCOUNTER → 2025-10-09 | Outpatient (CLI) | payer OTHER ==
[2025-10-09 13:52] LABS: CREATININE FOR GFR 0.84 MG/DL (0.55-1.30); GLOMERULAR FILTRATION RATE 77.6 (>45)
== END ==
LOC: M PLALAB 09:58
PROVIDERS: ATTEND Physician Assistant
DX: I65.02 Occlusion and stenosis of left vertebral artery (principal); R42 Dizziness and giddiness

== ENCOUNTER → 2025-10-17 | Outpatient (CLI) | payer OTHER ==
[~2025-10-17] MED LIST changes: +ISOVUE-370 76% 100 ML VIAL As Ordered ONE
== END ==
LOC: M PLAIMG 10-11 11:48 → M RAD 17:06
PROVIDERS: ATTEND Surgery Vascular Surgery
DX: I65.02 Occlusion and stenosis of left vertebral artery (principal); R42 Dizziness and giddiness
CPT/HCPCS: 70498; Q9967